=== PATIENT | male | born 1965 | race Caucasian/White ===

== ENCOUNTER 2019-11-22 12:20 | Emergency (ER) | payer MEDICARE, SELFPAY ==
--- NOTE | 2019-11-22 | CT_ITS ---
WS: [id number] CT HEAD TECHNIQUE: Noncontrast CT of the head obtained from the skullbase to the vertex. CLINICAL INFORMATION: STROKE LIKE SYMPTOMS/SEIZURE COMPARISON: CT 2017 DLP: [id number] scans at [facility] use at least one of these dose optimization techniques: automat ed exposure control; mA and/or kV adjustment per patient size (includes targeted exams where dose is matched to clinical indication); or iterative reconstruction. FINDINGS: No evidence of intracranial hemorrhage or mass effect. Ventricular system and basal cisterns are durbin nt. No extra-axial fluid collections. No evidence of mass or mass effect. Normal hernandez-white different iation. Paranasal sinuses and mastoid air cells are well aerated. .Normal visualized soft tissues. Notified Dick Dacosta DO at 11/22/2019 12:[address]/CT head wo con* [id number] IMPRESSION: 1. No evidence of intracranial hemorrhage or mass effect. 2. Normal hernandez-white differentiation. 3. No acute intracranial findings.
[2019-11-22 11:58] VITALS: BP 115/88; PULSE 102; RESP 17; TEMP 36.8; O2SAT 97; BMI 25.0
--- NOTE | 2019-11-22 12:08 | ED_ITS ---
Entered by Lorie Sadler, acting as scribe for Dick Dacosta DO HPI - Neuro Symptoms/Deficit General: Chief Complaint: Neuro Symptoms/Deficit Stated Complaint: stroke sx/seizure History of Present Illness: HPI Narrative: 54 yo male presents with stroke like symptoms. He has previously had a stroke today he has weakness on his right side. Initially presented he was in what was thought to be a seizure by EMS. He was moving his head forward and back and moving his arms across his chest and rhythmic motions. But when I came in to see him and talk to him he would focus and look at me he had a positive glabellar reflex as well as a corneal reflex. He stopped the motions on command. Associated symptoms: Deny chest pain, headache(s), malaise, nausea, syncope, vertigo or vomiting Review of Systems Const: Denies: fever, chills, body aches, fatigue, malaise or night sweats Eyes: Denies: change in vision or blurry vision ENMT: Denies: throat pain, oral sores/lesions, dental pain, nasal discharge or nasal congestion Card: Denies: chest pain, palpitations, irregular heart rhythm, edema, syncope, shortness of breath on exertion, shortness of breath when lying down or leg pain with exertion Resp: Denies: shortness of breath, productive cough, non-productive cough or wheezing GI: Denies: abdominal pain, nausea, vomiting, vomiting blood, coffee grounds in vomit, difficulty swallowing, heartburn/indigestion, diarrhea, constipation, cramping, blood in stool or black tarry stool : Denies: flank pain, difficulty urinating, painful urination, urinary frequency, urinary urgency, urinary incontinence or blood in urine Musc: Denies: neck pain, back pain, extremity pain, extremity swelling, joint pain or joint swelling Skin/Breast: Denies: rash, itching or redness Neuro: Denies: headache, numbness in extremities, weakness in extremities, changes in sensation, lack of coordination, difficulty walking, frequent falls, dizziness, vertigo or confusion Psych: Denies: anxiety, depression, loss of interest, visual hallucinations, auditory hallucinations, suicidal ideation or homicidal ideation Endo: Denies: excessive urination, excessive thirst, tired all the time or cold intolerance Giovany/Lymph: Denies: easy bruising, easy bleeding, petechiae, enlarged lymph nodes or tender lymph nodes PFSH ED PFSH: Statuses (acute, chronic, etc) shown below reflect problem list status as previously entered and may not be historically accurate Medical History (Updated 11/22/19 @ 14:47 by Dick Dacosta DO) Anxiety (Acute) Back pain (Acute) Benign prostatic hyperplasia (Acute) COPD (chronic obstructive pulmonary disease) (Acute) Coronary artery disease (Acute) CVA (cerebral vascular accident) (Acute) Diabetes (Acute) Hypertension (Acute) Migraine (Acute) Myocardial infarction (Acute) Seizure (Acute) Urinary retention (Acute) Social History Smoking and tobacco status: former smoker NIH stroke score 2 NIHSS: Level Of Consciousness - 1a: 1 Level Of Consciousness Questions - 1b: One Correct Level Of Consciousness Commands - 1c: One Correct Best Gaze - 2: Normal Visual Beavers - 3: No Visual Loss Facial Palsy - 4: Minor Paralysis Motor Arm Right - 5: No Drift Motor Arm Left - 5: No Drift Motor Leg Right - 6: Effort Against Superior Motor Leg Left - 6: No Drift Limb Ataxia - 7: Present In Two Limbs Sensory - 8: Mild To Moderate Loss B est Language - 9: No Aphasia Dysarthia - 10: Mild/Moderate Dysarthia Extinction And Inattention - 11: 1 Score: Total Score: 11 Physical Exam Const: COMMON NORMALS: average body habitus GENERAL APPEARANCE: cooperative, comfortable, well kempt and well developed NUTRITIONAL APPEARANCE: not obese ORIENTATION/CONSCIOUSNESS: Yes awake, Yes oriented to person and Yes oriented to place HENMT: COMMON NORMALS: normocephalic, head/scalp atraumatic, EAC's normal, TM's normal bilaterally, external nose normal, moist oral mucous membranes and oropharynx normal HEAD & SCALP: normocephalic and atraumatic NOSE: external nose normal EXTERNAL AUDITORY CANAL: EAC's normal TYMPANIC MEMBRANE: TM's normal bilaterally MOUTH: oral and palatal mucosa normal, lip normal and tongue normal THROAT: posterior oropharynx normal and tonsils normal Eye: COMMON NORMALS: PERRL, EOMs intact bilaterally, conjunctivae normal and no scleral icterus CONJUNCTIVA: Yes conjunctivae normal PUPIL: Yes PERRL Neck/C-Spine: COMMON NORMALS: full ROM, no lymphadenopathy, supple, no meningeal signs and thyroid normal THYROID: thyroid normal and asymmetrical Lymph: LYMPHATIC: no lymphadenopathy noted Resp: COMMON NORMALS: normal respiratory effort, no retractions, no use of ac cessory muscles and clear to auscultation bilaterally AUSCULTATION: clear to auscultation bilaterally Cardio: COMMON NORMALS: regular rate and regular rhythm RATE: regular rate RHYTHM: regular rhythm HEART SOUNDS: no murmurs GI: COMMON NORMALS: normal to inspection, nondistended, normoactive bowel sounds, soft to palpation and no hepatosplenomegaly PALPATION: Yes soft and Yes no hepatosplenomegaly : COMMON NORMALS: Yes no CVA tenderness BLADDER/KIDNEY EXAM: Yes no CVA tenderness Back/Pelvis: COMMON NORMALS: no CVA tenderness LUMBAR SPINE/LOWER BACK: Yes normal to inspection Extremity: COMMON NORMALS: no clubbing, cyanosis or edema, no calf tenderness and no pedal edema Neuro: SENSORIUM/ORIENTATION: Yes oriented to person and Yes oriented to place MENINGEAL SIGNS: Yes no meningeal signs Psych: APPEARANCE: Yes well kempt Skin: COMMON NORMALS: no rashes or lesions noted and skin turgor normal GENERAL SKIN EXAM: no rashes or lesions noted and turgor normal Course ED course: Patient initially came in he was having tonic-clonic like movements but was looking around he still corneal reflex and a blink reflex. When he stopped these activities and I talked to him he was awake and alert stage finally we were able to convince him to stay and let us do some lab work. Initially he was moving both arms and legs well. Later in family arrived I went back into talk to the patient his CT was reported as normal family says he has had 4 strokes in the past he now had weakness in his right arm and leg and is also reporting right facial numbness. Some of the symptoms or from previous strokes per the and the patient but they said their arm was definitely a new symptom. Consulted with Dr. Gurrola very hesitant to call this a stroke alert is really hard to get a convincingly last known well time is confused further by the fact that he reports previous strokes and then in addition to that his seizures are pretty questionable they do not act like seizure true seizure activity beyond that he seems to be arousable and responsive to verbal commands and stimuli during these episodes. Finally in reviewing his old charts he is previously been thought to have pseudoseizures. I discussed Dr. Gurrola she does not recommend pursuing is a stroke at this point. He has had similar admissions in the past with same presentation. Dr. Gurrola recommended offering the patient an MRI through the emergency room the at this point that may be our best bet. And I went in to talk to them they became irate. Both the and the stated that his strokes never show on MRI and he refused to have one done. He became so upset over the offer of an MRI that they demanded to be let go immediately. I strongly discouraged him from this however we do not have anything that we could prevent him from leaving I did discuss with him that this puts him at risk for further problems including worsening of neurologic symptoms and possibly even he expresses understanding this and still states he wants to go. Vital Signs: Vital signs: Vital Signs Temperature 98.3 F 11/22/19 11:58 Pulse Rate 89 11/22/19 15:02 Respiratory Rate 18 11/22/19 15:02 Blood Pressure 135/68 11/22/19 15:02 Pulse Oximetry 97 11/22/19 15:02 MDM - Neuro Symptoms/Deficit Lab Data: Labs: Lab Results 11/22/19 11/22/19 11/22/19 Range/Units 12:16 12:16 12:16 WBC 8.1 (4.0-10.0) 10^3/ uL RBC 4.96 (4.1-5.3) 10^6/u L Hgb 15.3 (11.7-16.6) g/dL Hct 45.3 (42.0-52.0) % MCV 91.3 (80-94) fL MCH 30.8 (28.0-34.0) pg MCHC 33.8 (30.0-36.0) g/dL RDW 13.0 (12.1-15.1) % Plt Count 200 (130-400) 10^3/c mm MPV 9.9 (7.4-10.4) fL Neut % (Auto) 74.3 % Lymph % (Auto) 16.7 % Denton % (Auto) 5.5 % Eos % (Auto) 2.5 % Baso % (Auto) 0.9 % Neut # (Auto) 6.0 (1.8-7.7) 10^3/u L Lymph # (Auto) 1.4 (0.8-4.8) 10^3/u L Denton # (Auto) 0.5 (0.2-0.9) 10^3/u L Eos # (Auto) 0.2 (0.0-0.8) 10^3/u L Baso # (Auto) 0.1 (0.0-0.1) 10^3/u L Nucleated RBC % (a uto) 0 % Nucleated RBCs # 0.0 /100WBC Specimen Type Sample Site ABG pH (7.35-7.45) ABG pCO2 (35-45) mmHg ABG pO2 (80.0-100.0) mmH g ABG HCO3 (22-26) mmol/L ABG O2 Saturation ABG Base Excess (-2.0-2.0) mmol/ L Curt Test A-a O2 Gradient (5-10) mmHg Hematocrit (42-52) % Hgb O2 Saturation (95-100) % Carboxyhemoglobin (0.4-20.1) %THgb Methemoglobin (0.4-1.5) % Total Hemoglobin (14-18) g/dL Ionized Calcium (1.1-1.4) mmol/L O2 Delivery Device Public Housing Manager ID Sodium 132 L (136-145) mmol/L Potassium 3.8 (3.5-5.1) mmol/L Chloride 95 L (98-107) mmol/L Carbon Dioxide 22 (22-29) mmol/L Anion Gap 18.8 (5-19) BUN 12 (6-20) mg/dL Creatinine 0.8 (0.7-1.2) mg/dL GFR Calculation 100.0 (90-130) mL/min Glucose 444 H (74-109) mg/dL Calcium 10.0 (8.5-10.5) mg/dL Magnesium 1.9 (1.7-2.3) mg/dL Total Bilirubin 0.3 (0.15-1.2) mg/dL AST 13 (0-40) U/L ALT 11 (0-41) U/L Alkaline Phosphata se 81 (40-130) IU/L Creatine Kinase 48 (39-308) U/L Total Protein 7.4 (6.6-8.7) g/dL Albumin 4.2 (3.5-5.2) g/dL Globulin 3.2 (1.3-4.6) g/dL 11/22/19 Range/Units 12:25 WBC (4.0-10.0) 10^3/ uL RBC (4.1-5.3) 10^6/u L Hgb (11.7-16.6) g/dL Hct (42.0-52.0) % MCV (80-94) fL MCH (28.0-34.0) pg MCHC (30.0-36.0) g/dL RDW (12.1-15.1) % Plt Count (130-400) 10^3/c mm MPV (7.4-10.4) fL Neut % (Auto) % Lymph % (Auto) % Denton % (Auto) % Eos % (Auto) % Baso % (Auto) % Neut # (Auto) (1.8-7.7) 10^3/u L Lymph # (Auto) (0.8-4.8) 10^3/u L Denton # (Auto) (0.2-0.9) 10^3/u L Eos # (Auto) (0.0-0.8) 10^3/u L Baso # (Auto) (0.0-0.1) 10^3/u L Nucleated RBC % (a uto) % Nucleated RBCs # /100WBC Specimen Type Arterial Sample Site Brachial, right ABG pH 7.42 (7.35-7.45) ABG pCO2 38.1 (35-45) mmHg ABG pO2 61.9 L (80.0-100.0) mmH g ABG HCO3 24.6 (22-26) mmol/L ABG O2 Saturation 94.4 ABG Base Excess 0.2 (-2.0-2.0) mmol/ L Curt Test N/a A-a O2 Gradient 37.8 H (5-10) mmHg Hematocrit 48.8 (42-52) % Hgb O2 Saturation 87.9 L (95-100) % Carboxyhemoglobin 6.6 (0.4-20.1) %THgb Methemoglobin 0.3 L (0.4-1.5) % Total Hemoglobin 15.9 (14-18) g/dL Ionized Calcium 1.2 (1.1-1.4) mmol/L O2 Delivery Device Ra Public Housing Manager ID Glc Sodium 133.0 (136-145) mmol/L Potassium 3.7 (3.5-5.1) mmol/L Chloride (98-107) mmol/L Carbon Dioxide (22-29) mmol/L Anion Gap (5-19) BUN (6-20) mg/dL Creatinine (0.7-1.2) mg/dL GFR Calculation (90-130) mL/min Glucose 397.0 H (74-109) mg/dL Calcium (8.5-10.5) mg/dL Magnesium (1.7-2.3) mg/dL Total Bilirubin (0.15-1.2) mg/dL AST (0-40) U/L ALT (0-41) U/L Alkaline Phosphata se (40-130) IU/L Creatine Kinase (39-308) U/L Total Protein (6.6-8.7) g/dL Albumin (3.5-5.2) g/dL Globulin (1.3-4.6) g/dL Discharge Plan Discharge Patient Disposition: Left Against Medical Advice Clinical Impression: Psychiatric pseudoseizure Condition: Stable Prescriptions: New Adult Aspirin Regimen 81 mg tablet,delayed release (DR/EC) 81 mg PO DAILY Qty: 30 RF: 0 Referrals: Dick Dacosta DO [Emergency Provider] - Discharge Diet: Advance as tolerated Discharge Activity: Increase activity as tolerated Activity Restrictions/Additional Instructions: Encourage you to follow-up with Dr. Gurrola as soon as you are able. You are leaving the emergency room AGAINST MEDICAL ADVICE. There are other tests and evaluations that should be done prior to leaving. By not having these tests you may put yourself at risk for further complications of undiagnosed medical conditions, or even . Stand Alone Forms: Against Medical Advice Discharge Date/Time: 11/22/19 15:03 Coding Level of Care Code ED Marketing Agent for Chg Fwd Exam Problem Focused The documentation recorded by the Doroteo lindsay Kialy, accurately reflects the service I personally performed and the decisions made by Olesya newton Curtis L, DO Nov 22, 2019 12:20
[2019-11-22 12:17] VITALS: O2SAT 96
--- NOTE | 2019-11-22 12:19 | XRR_ITS ---
PROCEDURE INFORMATION: Exam: XR Chest, 1 View Exam date and time: 11/22/2019 12:38 PM Age: 54 years old Clinical indication: Dyspnea; Additional info: AMS, dyspnea TECHNIQUE: Imaging protocol: XR of the chest Views: 1 view. COMPARISON: CR Chest 1 [place] [id number] 02/14/2019 7:16 PM FINDINGS: Lungs: Unremarkable. No consolidation. Pleural space: Unremarkable. No pleural effusion. No pneumothorax. Heart/Mediastinum: Unremarkable. No cardiomegaly. Bones/joints: Metallic orthopedic hardware is in place in the lower dorsal and lumbar spine. These findings are stable since prior examination and do not show evidence of deformity displacement or fracture. XR/XR chest 1V portable [id number] IMPRESSION: No acute findings. Stable orthopedic hardware in the spine
[2019-11-22 12:26] LABS: Basophils # 0.1 10^3/uL (0.0-0.1); Basophils % 0.9 %; Eosinophils # 0.2 10^3/uL (0.0-0.8); Eosinophils % 2.5 %; Hematocrit 45.3 % (42.0-52.0); Hemoglobin 15.3 g/dL (11.7-16.6); Lymphocytes # 1.4 10^3/uL (0.8-4.8); Lymphocytes % 16.7 %; Mean Corpuscular HGB Conc 33.8 g/dL (30.0-36.0); Mean Corpuscular Hemoglobin 30.8 pg (28.0-34.0); Mean Corpuscular Volume 91.3 fL (80-94); Mean Platelet Volume 9.9 fL (7.4-10.4); Monocytes # 0.5 10^3/uL (0.2-0.9); Monocytes % 5.5 %; Neutrophils % 74.3 %; Nucleated Red Blood Cells % 0 %; Platelet Count 200 10^3/cmm (130-400); Red Blood Count 4.96 10^6/uL (4.1-5.3); White Blood Count 8.1 10^3/uL (4.0-10.0)
[2019-11-22 12:36] LABS: ABG PCO2 38.1 mmHg (35-45); ABG PH Result 7.42 (7.35-7.45); Alveolar-Arterial Oxygen Gradi 37.8 mmHg (5-10); Arterial Blood Gas Hematocrit 48.8 % (42-52); Base Excess ABG 0.2 mmol/L (-2.0-2.0); Blood Gas Sample Site Brachial, right; Blood Gas Sample Type Arterial; Carboxyhemoglobin 6.6 %THgb (0.4-20.1); HCO3 ABG 24.6 mmol/L (22-26); HGB O2 Sat 87.9 % (95-100); Ionized Calcium Level - ABG 1.2 mmol/L (1.1-1.4); Methemoglobin 0.3 % (0.4-1.5); Oxygen Saturation ABG 94.4; PO2 ABG 61.9 mmHg (80.0-100.0); Potassium Level - ABG 3.7 mmol/L (3.5-5.0); Total Hemoglobin 15.9 g/dL (14-18)
[2019-11-22 12:37] LABS: Blood Gas Operator Identificat GLC; Oxygen Device RA
[2019-11-22 12:43] LABS: Alanine Aminotransferase 11 U/L (0-41); Albumin Level 4.2 g/dL (3.5-5.2); Alkaline Phosphatase 81 IU/L (40-130); Anion Gap 18.8 (5-19); Aspartate Amino Transferase 13 U/L (0-40); Blood Urea Nitrogen 12 mg/dL (6-20); Carbon Dioxide 22 mmol/L (22-29); Chloride 95 mmol/L (98-107); Globulin 3.2 g/dL (1.3-4.6); Glucose 444 mg/dL (74-109); Magnesium 1.9 mg/dL (1.7-2.3); Potassium 3.8 mmol/L (3.5-5.1); Sodium 132 mmol/L (136-145); Total Bilirubin 0.3 mg/dL (0.15-1.2); Total Protein 7.4 g/dL (6.6-8.7)
[2019-11-22 13:51] LABS: Creatine Phosphokinase 48 U/L (39-308)
[2019-11-22 14:03] VITALS: BP 107/86; PULSE 90; O2SAT 97
[2019-11-22 15:02] VITALS: BP 135/68; PULSE 89; RESP 18; O2SAT 97
--- NOTE | 2019-11-25 10:59 | DCPLANNER ---
pension manager had message to schedule a follow up appointment for patient with Dr. Gurrola. pension manager called the office of Dr. Gurrola, spoke with Eileen. A follow up appointment is scheduled for Friday December 13, 2019 at 3:[address] Gurrola. Clinic will call patient with appointment information.
--- NOTE | 2019-12-30 14:07 | DCPLANNER ---
Appointment scheduled for 12.13.[address] Gurrola has been rescheduled.
== END 2019-11-22 15:03 | disposition left against medical advice (07) ==
PROVIDERS: Emergency Provider Family Medicine; Family Provider Family Medicine
DX: G40.89 Other seizures (principal); Z53.21 Procedure and treatment not carried out due to patient leaving prior to being seen by health care provider; J44.9 Chronic obstructive pulmonary disease, unspecified; I25.10 Atherosclerotic heart disease of native coronary artery without angina pectoris; Z86.73 Personal history of transient ischemic attack (TIA), and cerebral infarction without residual deficits; E11.9 Type 2 diabetes mellitus without complications; I10 Essential (primary) hypertension; I25.2 Old myocardial infarction; Z87.891 Personal history of nicotine dependence
CPT/HCPCS: 36600; 70450; 71045; 80051; 80053; 82550; 82810; 83735; 83986; 85025; 99283

== ENCOUNTER 2019-12-30 14:37 | Emergency (ER) | payer MEDICARE, SELFPAY ==
[2019-12-30 14:48] VITALS: BP 92/65; PULSE 107; RESP 17; TEMP 36.8; O2SAT 96; BMI 27.3
[2019-12-30 14:53] VITALS: PULSE 84
--- NOTE | 2019-12-30 14:54 | XR_ITS ---
WS: [id number] Left hand, 3 views, 12/30/2019 Clinical Data: Left hand injury Comparison: None. Findings: There are no fractures or dislocations. There is a soft tissue injury to the left third distal phalan x. No radiopaque foreign bodies are noted. The joint spaces are unremarkable. XR/XR hand LT min 3V* [id number] Impression: 1. Negative for fracture or dislocation. 2. Soft tissue injury to the left third distal phalanx.
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
--- NOTE | 2019-12-30 16:29 | W.ED.EXTPRO ---
Documented by User: NOEL Flores 12/30/19 18:02 HPI - Extremity Problem General: Chief complaint: Extremity Injury, Upper Stated complaint: finger lac Time Seen by Provider: 12/30/19 16:29 History of Present Illness: HPI Narrative: Patient is a 54-year-old male who comes into the ED with a finger laceration. Patient cut left hand finger #3 on a circular saw just prior to arrival. Patient first went to [facility] and they told him to come directly to the ED to get it evaluated. Patient in pain currently. He is unaware of his last tetanus shot. Pt has a history of Staph. Associated symptoms: Reports chest pain (occurred while in the ED room); Deny fever(s) or rash Review of Systems Const: Reports: diaphoresis (occurred while in the ED room); Denies: fever, chills or fatigue Eyes: Denies: change in vision or eye discomfort ENMT: Denies: throat pain, painful swallowing, nasal discharge or nasal congestion Card: Reports: chest pain (occurred while in the ED room); Denies: palpitations, edema, swelling of feet/ankles, shortness of breath on exertion or shortness of breath when lying down Resp: Reports: shortness of breath (occurred while in the ED room); Denies: productive cough or non-productive cough GI: Denies: abdominal pain, nausea, vomiting, diarrhea, constipation or blood in stool : Denies: flank pain, difficulty urinating, painful urination or blood in urine Musc: Reports: extremity pain (Left hand finger #3); Denies: neck pain, back pain or extremity swelling Skin/Breast: Reports: new lesion (laceration to left hand finger #3); Denies: rash Neuro: Denies: headache, numbness in extremities or weakness in extremities PFS ED PFSH: Medical History Anxiety Back pain Benign prostatic hyperplasia COPD (chronic obstructive pulmonary disease) Coronary artery disease CVA (cerebral vascular accident) Diabetes Hypertension Migraine Myocardial infarction Seizure Urinary retention Social History Smoking and tobacco status: current every day smoker Physical Exam Const: COMMON NORMALS: oriented x3 HENMT: COMMON NORMALS: normocephalic HEAD & SCALP: normocephalic MOUTH: oral and palatal mucosa normal THROAT: posterior oropharynx normal and uvula midline Neck/C-Spine: COMMON NORMALS: supple GENERAL: Yes normal visual inspection Resp: COMMON NORMALS: normal respiratory effort, no retractions, no use of accessory muscles and clear to auscultation bilaterally AUSCULTATION: clear to auscultation bilaterally Cardio: COMMON NORMALS: regular rate, regular rhythm, S1 normal heart sound, S2 normal heart sound, no gallops, no clicks, no murmurs and peripheral pulses 2+ throughout RATE: regular rate RHYTHM: regular rhythm HEART SOUNDS: S1 normal and S2 normal PERIPHERAL PULSES: pulses 2+ throughout GI: COMMON NORMALS: normal to inspection, nondistended, normoactive bowel sounds, soft to palpation, non-tender and no masses PALPATION: Yes soft : COMMON NORMALS: Yes no CVA tenderness BLADDER/KIDNEY EXAM: Yes no CVA tenderness Back/Pelvis: COMMON NORMALS: no CVA tenderness Neuro: COMMON NORMALS: oriented x3 and moves all extremities Procedures Laceration Laceration 1: Site: hand (#3 digit) Side (If applicable): left Size (cm): 1.5 Description: irregular Depth: simple, single layer Local Anesthetic: lidocaine 2% (Digital block) Amount of anesthesia used (mL): 10 Pre-repair: irrigated extensively (irrigated with NS and cleaned with CHG) Skin layer closed with: nylon Size (cm): 4-0 Number of sutures: 7 Technique: simple, interrupted Nerve Block Nerve Block 1: Time out performed: Yes Local Anesthetic: lidocaine 2% Amount of anesthesia used (mL): 10 Side: left Nerve Blocks: digital (#3) Procedure Successful: Yes Patient Tolerated Procedure: well Complications: none Course Reevaluation(s): Reevaluation #1: I came back into the room to reevaluate his laceration after getting the bandage removed and it getting irrigated. Patient was profusely sweating he was shaking and saying he felt like he had a little bit of chest pain. Time: 16:51 Vital Signs: Vital signs: Vital Signs Temperature 98.3 F 12/30/19 14:48 Pulse Rate 107 H 12/30/19 14:48 Respiratory Rate 17 12/30/19 14:48 Blood Pressure 92/65 12/30/19 14:48 Pulse Oximetry 96 12/30/19 14:48 MDM - Extremity (Nontraumatic) Lab Data: Attestation: I reviewed the patient's lab results. Labs: Lab Results 12/30/19 12/30/19 12/30/19 Range/Units 17:16 17:16 17:16 WBC 7.6 (4.0-10.0) 10^3/ uL RBC 4.54 (4.1-5.3) 10^6/u L Hgb 14.5 (11.7-16.6) g/dL Hct 43.3 (42.0-52.0) % MCV 95.4 H (80-94) fL MCH 31.9 (28.0-34.0) pg MCHC 33.5 (30.0-36.0) g/dL RDW 13.4 (12.1-15.1) % Plt Count 214 (130-400) 10^3/c mm MPV 9.1 (7.4-10.4) fL Neut % (Auto) 58.2 % Lymph % (Auto) 32.9 % Fountain % (Auto) 6.2 % Eos % (Auto) 1.6 % Baso % (Auto) 0.8 % Neut # (Auto) 4.4 (1.8-7.7) 10^3/u L Lymph # (Auto) 2.5 (0.8-4.8) 10^3/u L Fountain # (Auto) 0.5 (0.2-0.9) 10^3/u L Eos # (Auto) 0.1 (0.0-0.8) 10^3/u L Baso # (Auto) 0.1 (0.0-0.1) 10^3/u L Nucleated RBC % (a uto) 0 % Nucleated RBCs # 0.0 /100WBC Sodium 139 (136-145) mmol/L Potassium 3.8 (3.5-5.1) mmol/L Chloride 101 (98-107) mmol/L Carbon Dioxide 26 (22-29) mmol/L Anion Gap 15.8 (5-19) BUN 15 (6-20) mg/dL Creatinine 0.8 (0.7-1.2) mg/dL GFR Calculation 100.0 (90-130) mL/min Glucose 76 (65-115) mg/dL Calculated Osmolal ity 283 L (285-295) mOsm/k g Calcium 10.1 (8.5-10.5) mg/dL Total Bilirubin 0.5 (0.15-1.2) mg/dL AST 17 (0-40) U/L ALT 11 (0-41) U/L Alkaline Phosphata se 56 (40-130) IU/L Troponin T Baselin e 15 (0-15) ng/mL Total Protein 7.5 (6.6-8.7) g/dL Albumin 4.2 (3.5-5.2) g/dL Globulin 3.3 (1.3-4.6) g/dL Imaging Data^: Xray Ortho: Attestation: I personally reviewed and interpreted this imaging study as follows: Radiologist's impression: [address] [address] XRay Report Signed Patient: Arcenio Saldivar Unit #: [id number] : 1965 Age/Sex: 54 / M ADM Date: 12/30/19 Loc: ER Room/Bed: Attending Dr: Ordering Provider/Ordering MD: Franklin Graves Date of Service: 12/30/19 Procedure(s): XR hand LT min 3V* 61010 Accession Number(s): [id number] Report Number: [id number] WS: [id number] Left hand, 3 views, 12/30/2019 Clinical Data: Left hand injury Comparison: None. Findings: There are no fractures or dislocations. There is a soft tissue injury to the left third distal phalanx. No radiopaque foreign bodies are noted. The joint spaces are unremarkable. XR/XR hand LT min 3V* 73710 Impression: 1. Negative for fracture or dislocation. 2. Soft tissue injury to the left third distal phalanx. Dictated By: Soniya Quinones MD Signed By: Soniya Quinones MD Signed Date/Time: 12/30/191531 DD/ 29 Discharge Plan Discharge Patient Disposition: Home, Self-Care Clinical Impression: Laceration, Vasovagal episode Condition: Stable Prescriptions: New Bactrim DS 800-160 mg tablet 1 tab PO BID 7 Days Qty: 14 RF: 0 No Action aspirin [Adult Aspirin Regimen] 81 mg tablet,delayed release (DR/EC) 81 mg PO DAILY Qty: 30 RF: 0 levetiracetam 500 mg Tablet 500 mg PO BID RF: 0 acetaminophen-codeine 300-30 mg tablet 1 tab PO DAILY RF: 0 clopidogrel 75 mg tablet 75 mg PO DAILY RF: 0 Flomax 0.4 mg Capsule 0.4 mg PO BID RF: 0 pantoprazole 40 mg Tablet,Delayed Release (Dr/Ec) 40 mg PO DAILY RF: 0 nitroglycerin 0.4 mg tablet, sublingual 0.4 mg sublingual PRN PRN (Reason: Chest Pain) RF: 0 metoprolol tartrate 25 mg Tablet 25 mg PO BID RF: 0 duloxetine 60 mg Capsule,Delayed Release(Dr/Ec) 60 mg PO DAILY RF: 0 Lantus U-100 Insulin See Rx Instructions .ROUTE .COMPLEX RF: 0 Vitamin B-12 1 tab PO DAILY RF: 0 Humalog KwikPen Insulin 200 unit/mL (3 mL) Insulin Pen 20 unit SUBCUT DAILY RF: 0 Discharge Orders: Discharge Order (Routine); Ordered 12/30/19 Ordered By: Avery Carbajal Referrals: Mitul Velarde MD [Primary Care Provider] - Discharge Diet: Regular Discharge Activity: Resume usual activity and Increase activity as tolerated Patient Instructions: Finger Laceration (ED) Activity Restrictions/Additional Instructions: Follow up with your PCP in 7-10 days to get sutures removed. Keep wound clean and dry Activity as tolerated Return to ER for high fever or new concerns Coding Level of Care Code ED Control Panel Operator Crude Unit for Chg Fwd Exam Comprehensive Documented by User: CLAUDIO Bates 12/30/19 18:38 HPI - Extremity Problem General: Chief complaint: Extremity Injury, Upper Stated complaint: finger lac Time Seen by Provider: 12/30/19 16:29 PFSH ED PFSH: Medical History Anxiety Back pain Benign prostatic hyperplasia COPD (chronic obstructive pulmonary disease) Coronary artery disease CVA (cerebral vascular accident) Diabetes Hypertension Migraine Myocardial infarction Seizure Urinary retention Social History Smoking and tobacco status: current every day smoker Course Vital Signs: Vital signs: Vital Signs Temperature 98.3 F 12/30/19 14:48 Pulse Rate 107 H 12/30/19 14:48 Respiratory Rate 17 12/30/19 14:48 Blood Pressure 92/65 12/30/19 14:48 Pulse Oximetry 96 12/30/19 14:48 MDM - Extremity (Nontraumatic) MDM Narrative: Medical decision making narrative: Patient came in today for injury to the left middle finger. Patient had cut on a saw. On exam patient has a laceration to the distal tip of the left middle finger. Normal range of motion of the hand was noted. During patient's treatment he became mildly hypotensive with some complaints of dizziness. Differential diagnosis includes laceration of the digit, vasovagal syndrome, ACS, dehydration. Laboratory values noted a normal troponin, normal chest x-ray, x-ray of the hand noted no bony injury. Patient had improvement after 1 L of IV fluids and treatment for laceration. Patient was recommended to follow-up in 1 week for further evaluation and treatment of the finger. Laceration was repaired by Franklin Graves PA-C. Patient was discharged home with routine care. Lab Data: Labs: Lab Results 12/30/19 12/30/19 12/30/19 Range/Units 17:16 17:16 17:16 WBC 7.6 (4.0-10.0) 10^3/ uL RBC 4.54 (4.1-5.3) 10^6/u L Hgb 14.5 (11.7-16.6) g/dL Hct 43.3 (42.0-52.0) % MCV 95.4 H (80-94) fL MCH 31.9 (28.0-34.0) pg MCHC 33.5 (30.0-36.0) g/dL RDW 13.4 (12.1-15.1) % Plt Count 214 (130-400) 10^3/c mm MPV 9.1 (7.4-10.4) fL Neut % (Auto) 58.2 % Lymph % (Auto) 32.9 % Fountain % (Auto) 6.2 % Eos % (Auto) 1.6 % Baso % (Auto) 0.8 % Neut # (Auto) 4.4 (1.8-7.7) 10^3/u L Lymph # (Auto) 2.5 (0.8-4.8) 10^3/u L Fountain # (Auto) 0.5 (0.2-0.9) 10^3/u L Eos # (Auto) 0.1 (0.0-0.8) 10^3/u L Baso # (Auto) 0.1 (0.0-0.1) 10^3/u L Nucleated RBC % (a uto) 0 % Nucleated RBCs # 0.0 /100WBC Sodium 139 (136-145) mmol/L Potassium 3.8 (3.5-5.1) mmol/L Chloride 101 (98-107) mmol/L Carbon Dioxide 26 (22-29) mmol/L Anion Gap 15.8 (5-19) BUN 15 (6-20) mg/dL Creatinine 0.8 (0.7-1.2) mg/dL GFR Calculation 100.0 (90-130) mL/min Glucose 76 (65-115) mg/dL Calculated Osmolal ity 283 L (285-295) mOsm/k g Calcium 10.1 (8.5-10.5) mg/dL Total Bilirubin 0.5 (0.15-1.2) mg/dL AST 17 (0-40) U/L ALT 11 (0-41) U/L Alkaline Phosphata se 56 (40-130) IU/L Troponin T Baselin e 15 (0-15) ng/mL Total Protein 7.5 (6.6-8.7) g/dL Albumin 4.2 (3.5-5.2) g/dL Globulin 3.3 (1.3-4.6) g/dL Discharge Plan Discharge Patient Disposition: Home, Self-Care Clinical Impression: Laceration, Vasovagal episode Condition: Stable Prescriptions: New Bactrim DS 800-160 mg tablet 1 tab PO BID 7 Days Qty: 14 RF: 0 No Action aspirin [Adult Aspirin Regimen] 81 mg tablet,delayed release (DR/EC) 81 mg PO DAILY Qty: 30 RF: 0 levetiracetam 500 mg Tablet 500 mg PO BID RF: 0 acetaminophen-codeine 300-30 mg tablet 1 tab PO DAILY RF: 0 clopidogrel 75 mg tablet 75 mg PO DAILY RF: 0 Flomax 0.4 mg Capsule 0.4 mg PO BID RF: 0 pantoprazole 40 mg Tablet,Delayed Release (Dr/Ec) 40 mg PO DAILY RF: 0 nitroglycerin 0.4 mg tablet, sublingual 0.4 mg sublingual PRN PRN (Reason: Chest Pain) RF: 0 metoprolol tartrate 25 mg Tablet 25 mg PO BID RF: 0 duloxetine 60 mg Capsule,Delayed Release(Dr/Ec) 60 mg PO DAILY RF: 0 Lantus U-100 Insulin See Rx Instructions .ROUTE .COMPLEX RF: 0 Vitamin B-12 1 tab PO DAILY RF: 0 Humalog KwikPen Insulin 200 unit/mL (3 mL) Insulin Pen 20 unit SUBCUT DAILY RF: 0 Discharge Orders: Discharge Order (Routine); Ordered 12/30/19 Ordered By: Avery Carbajal Referrals: Mitul Velarde MD [Primary Care Provider] - Discharge Diet: Regular Discharge Activity: Resume usual activity and Increase activity as tolerated Patient Instructions: Finger Laceration (ED) Activity Restrictions/Additional Instructions: Follow up with your PCP in 7-10 days to get sutures removed. Keep wound clean and dry Activity as tolerated Return to ER for high fever or new concerns Coding Level of Care Code ED Control Panel Operator Crude Unit for Adriana Fwsumit Exam Comprehensive
--- NOTE | 2019-12-30 16:51 | XR_ITS ---
WS: [id number] Portable AP upright chest, 12/30/2019 Clinical Data: CP and sweating profusely Comparison: Portable chest, 11/22/2019. Findings: No nodules, masses or effusions are seen. The heart is normal. The pulmonary vascularity is not increased. No pneumonia or pneumothorax is seen. The patient has had a posterior fusion of the l ower thoracic spine which extends into the upper lumbar spine with bilateral pedicle screws and conne cting rods. XR/XR chest 1V portable [id number] Impression: Negative chest.
--- NOTE | 2019-12-30 16:51 | ECG_ITS ---
Measurements Intervals [place] Rate: 83 P: 59 NH: 152 QRS: -24 QRSD: 104 T: 32 QT: 373 QTc: 440 SINUS RHYTHM INCOMPLETE RIGHT BUNDLE BRANCH BLOCK ANTEROSEPTAL MYOCARDIAL INFARCTION [40+ ms Q WAVE IN V1-V4], OF INDETERMINATE AGE No previous ECG available for comparison Electronically Signed On 12-31-2019 12:59:40 CDT by Anay Monaco M.D. [email or web address] f
[2019-12-30] MEDS: HYDROcodone-acetaminophen 7.5-325 mg Tablet 1 TAB PO (16:55)
[2019-12-30] MEDS: tetanus-dipt-pertussis 0.5 mL SDV IM (16:55)
[2019-12-30] MEDS: sodium chloride 0.9% 1,000 ML 999 ML IV (17:20)
[2019-12-30] MEDS: lidocaine 2% INJ 20 mL INJECTION (17:21)
[2019-12-30 17:29] LABS: Basophils # 0.1 10^3/uL (0.0-0.1); Basophils % 0.8 %; Eosinophils # 0.1 10^3/uL (0.0-0.8); Eosinophils % 1.6 %; Hematocrit 43.3 % (42.0-52.0); Hemoglobin 14.5 g/dL (11.7-16.6); Lymphocytes # 2.5 10^3/uL (0.8-4.8); Lymphocytes % 32.9 %; Mean Corpuscular HGB Conc 33.5 g/dL (30.0-36.0); Mean Corpuscular Hemoglobin 31.9 pg (28.0-34.0); Mean Corpuscular Volume 95.4 fL (80-94); Mean Platelet Volume 9.1 fL (7.4-10.4); Monocytes # 0.5 10^3/uL (0.2-0.9); Monocytes % 6.2 %; Neutrophils # 4.4 10^3/uL (1.8-7.7); Neutrophils % 58.2 %; Nucleated Red Blood Cells % 0 %; Platelet Count 214 10^3/cmm (130-400); Red Blood Count 4.54 10^6/uL (4.1-5.3); Red Cell Distribution Width 13.4 % (12.1-15.1); White Blood Count 7.6 10^3/uL (4.0-10.0)
[2019-12-30 17:43] LABS: Alanine Aminotransferase 11 U/L (0-41); Albumin Level 4.2 g/dL (3.5-5.2); Alkaline Phosphatase 56 IU/L (40-130); Anion Gap 15.8 (5-19); Aspartate Amino Transferase 17 U/L (0-40); Blood Urea Nitrogen 15 mg/dL (6-20); Calcium 10.1 mg/dL (8.5-10.5); Carbon Dioxide 26 mmol/L (22-29); Chloride 101 mmol/L (98-107); Globulin 3.3 g/dL (1.3-4.6); Glucose 76 mg/dL (65-115); Osmolality Calculated 283 mOsm/kg (285-295); Potassium 3.8 mmol/L (3.5-5.1); Sodium 139 mmol/L (136-145); Total Bilirubin 0.5 mg/dL (0.15-1.2); Total Protein 7.5 g/dL (6.6-8.7)
[2019-12-30 17:45] LABS: Troponin(5th) Baseline 15 ng/mL (0-15)
[2019-12-30 19:05] VITALS: BP 104/62; PULSE 84; RESP 20; O2SAT 97
== END 2019-12-30 19:06 | disposition home or self-care (01) ==
PROVIDERS: Physician Assistant; Emergency Provider Nurse Practitioner Family; Family Provider Family Medicine; PCP Family Medicine
DX: S61.213A Laceration without foreign body of left middle finger without damage to nail, initial encounter (principal); R55 Syncope and collapse; J44.9 Chronic obstructive pulmonary disease, unspecified; I25.10 Atherosclerotic heart disease of native coronary artery without angina pectoris; E11.9 Type 2 diabetes mellitus without complications; I10 Essential (primary) hypertension; I25.2 Old myocardial infarction; Z79.4 Long term (current) use of insulin; Z86.73 Personal history of transient ischemic attack (TIA), and cerebral infarction without residual deficits; F17.200 Nicotine dependence, unspecified, uncomplicated; W29.8XXA Contact with other powered hand tools and household machinery, initial encounter
CPT/HCPCS: 12001; 12345; 64450; 71045; 73130; 80053; 84484; 85025; 90471; 90715; 93005; 96360; 99282; 99284; J2001; J7030

== ENCOUNTER → 2020-01-06 10:07 | Outpatient (BNVA) | payer MEDICARE, SELFPAY | PROVIDERS: Family Provider Family Medicine; PCP Family Medicine; Visit Provider Nurse Practitioner Family | DX: S61.213A Laceration without foreign body of left middle finger without damage to nail, initial encounter (principal); X58.XXXA Exposure to other specified factors, initial encounter | CPT/HCPCS: 73120 ==

== ENCOUNTER 2020-01-13 10:27 | Outpatient (RCR) | payer MEDICARE, SELFPAY | END 2020-01-18 23:59 | disposition home or self-care (01) | LOC: WOUND 10:27 | PROVIDERS: Family Provider Family Medicine; PCP Family Medicine; Visit Provider Nurse Practitioner Family | DX: S61.213A Laceration without foreign body of left middle finger without damage to nail, initial encounter (principal); X58.XXXA Exposure to other specified factors, initial encounter; E11.9 Type 2 diabetes mellitus without complications; N40.0 Benign prostatic hyperplasia without lower urinary tract symptoms; N41.9 Inflammatory disease of prostate, unspecified; I10 Essential (primary) hypertension; F41.9 Anxiety disorder, unspecified; M79.642 Pain in left hand; F17.200 Nicotine dependence, unspecified, uncomplicated; Z00.00 Encounter for general adult medical examination without abnormal findings | CPT/HCPCS: 73120; 80053; 80061; 82044; 83036; 85025; 99204; 99214; G0103 ==

== ENCOUNTER 2020-02-14 08:36 | Outpatient (RCR) | payer MEDICARE, SELFPAY | END 2020-02-17 23:59 | disposition home or self-care (01) | LOC: WOUND 08:36 | PROVIDERS: Family Provider Family Medicine; PCP Family Medicine; Visit Provider Nurse Practitioner Family | DX: S61.223D Laceration with foreign body of left middle finger without damage to nail, subsequent encounter (principal); W31.2XXD Contact with powered woodworking and forming machines, subsequent encounter | CPT/HCPCS: 99212; 99214; G0463 ==

== ENCOUNTER → 2020-04-26 08:05 | Outpatient (BNVA) | payer SELFPAY | PROVIDERS: Family Provider Family Medicine; PCP Family Medicine; Visit Provider Specialist | DX: F44.5 Conversion disorder with seizures or convulsions; R63.4 Abnormal weight loss | CPT/HCPCS: 99213 ==

== ENCOUNTER → 2020-10-24 14:53 | Outpatient (BNVA) | payer OTHER, SELFPAY | PROVIDERS: Family Provider Family Medicine; PCP Family Medicine; Visit Provider Nurse Practitioner Family | DX: M79.604 Pain in right leg (principal) | CPT/HCPCS: 73590 ==

== ENCOUNTER → 2020-11-01 11:01 | Outpatient (BNVA) | payer OTHER, SELFPAY | PROVIDERS: Family Provider Family Medicine; PCP Student in an Organized Health Care Education/Training Program; Visit Provider Specialist | DX: G43.109 Migraine with aura, not intractable, without status migrainosus; E11.649 Type 2 diabetes mellitus with hypoglycemia without coma; F17.210 Nicotine dependence, cigarettes, uncomplicated; R56.9 Unspecified convulsions | CPT/HCPCS: 99215 ==

== ENCOUNTER → 2020-11-07 08:04 | Outpatient (BNVA) | payer OTHER, SELFPAY | PROVIDERS: Family Provider Family Medicine; PCP Student in an Organized Health Care Education/Training Program; Referring Provider Specialist; Visit Provider Specialist | DX: R56.9 Unspecified convulsions (principal); F17.210 Nicotine dependence, cigarettes, uncomplicated | CPT/HCPCS: 95816 ==

== ENCOUNTER → 2020-12-13 14:50 | Outpatient (BNVA) | payer OTHER, SELFPAY | PROVIDERS: Family Provider Family Medicine; PCP Student in an Organized Health Care Education/Training Program; Referring Provider Specialist; Visit Provider Internal Medicine | DX: E11.40 Type 2 diabetes mellitus with diabetic neuropathy, unspecified (principal); E11.59 Type 2 diabetes mellitus with other circulatory complications; I25.10 Atherosclerotic heart disease of native coronary artery without angina pectoris; E11.65 Type 2 diabetes mellitus with hyperglycemia; E16.0 Drug-induced hypoglycemia without coma; T38.3X5A Adverse effect of insulin and oral hypoglycemic [antidiabetic] drugs, initial encounter; E78.5 Hyperlipidemia, unspecified; R68.81 Early satiety | CPT/HCPCS: 95250; 99205 ==

== ENCOUNTER 2020-12-14 14:55 | Observation (INO) | payer MEDICARE, SELFPAY ==
[2020-12-14] VITALS (9 sets, daily range): BP systolic 90–145; BP diastolic 53–86; PULSE 60–86; RESP 18–26; TEMP 36.6–37.2; O2SAT 97–98; BMI 28.3
--- NOTE | 2020-12-14 15:04 | CT_ITS ---
WS: [id number] CT HEAD TECHNIQUE: Noncontrast CT of the head obtained from the skullbase to the vertex. CLINICAL INFORMATION: STROKE ALERT COMPARISON: November 22, 2019 DLP: [address] scans at [facility] use at least one of these dose optimization techniques: automat ed exposure control; mA and/or kV adjustment per patient size (includes targeted exams where dose is matched to clinical indication); or iterative reconstruction. FINDINGS: No evidence of intracranial hemorrhage or mass effect. Ventricular system and basal cisterns are durbin nt. Mild small vessel changes with mild parenchymal volume loss. No extra-axial fluid collections. No evidence of mass or mass effect. Normal hernandez-white differentiation. Paranasal sinuses and mastoid air cells are well aerated. .Normal visualized soft tissues. CT/CT head wo con* [id number] IMPRESSION: 1. No evidence of intracranial hemorrhage or mass effect. 2. Mild small vessel changes. Mild parenchymal volume loss. 3. No acute intracranial findings. Notified Matt Bee DO at 12/14/2020 3:09 PM.
--- NOTE | 2020-12-14 15:11 | ECG_ITS ---
[facility] Test Date: 2020-12-14 Pat Name: Arcenio Saldivar Department: Room: Gender: Male [employer]: : 1965 Requested By: Matt Burgos Order Number: [id number] Shiela MD: Jaylin Beavers M.D. Measurements Intervals [place] Rate: 82 P: 66 [place]: 164 QRS: -68 QRSD: 110 T: 54 QT: 389 QTc: 456 Interpretive Statements SINUS RHYTHM LEFT AXIS DEVIATION [QRS AXIS < -30] INCOMPLETE RIGHT BUNDLE BRANCH BLOCK [90+ ms QRS DURATION, TERMINAL R IN V1/V2, 40+ ms S IN I/aVL/V4/V5/V6] ANTEROSEPTAL MYOCARDIAL INFARCTION , OF INDETERMINATE AGE [40+ ms Q WAVE IN V1-V4] Compared to ECG 12/30/2019 17:04:55 Left-axis deviation now present Myocardial infarct finding still present Electronically Signed On 12-14-2020 20:08:24 BACK TACKER by Jaylin Beavers M.D. [id number] f
--- NOTE | 2020-12-14 15:12 | PC.NURSE ---
Patient blood glucose is 284. nurse, ER doctor, and charge nurse are aware.
[2020-12-14 15:15] LABS: Glucose Point of Care 284 mg/dL (70-110)
--- NOTE | 2020-12-14 15:26 | W.ED.NEUROSD ---
Documented by User: Matt Bee 12/14/20 17:45 HPI - Neuro Symptoms/Deficit General: Chief Complaint: Neuro Symptoms/Deficit Stated Complaint: Stroke alert Time Seen by Provider: 12/14/20 15:10 History of Present Illness: HPI Narrative: Patient is a 55-year-old male that presents via EMS for altered mental status and possible strokelike symptoms. EMS reports that they were called by the patient's for high blood sugar. She reports to EMS that the patient's blood sugar was in the 480s. On their arrival their fingerstick was 390. They state the reports the patient gets confused when his sugars get in the 400s. She reports to EMS that the patient initially began being altered and confused around 11:00 this morning and then around 2 PM he began to complain about right arm weakness. Patient does report a prior history of strokes. His chart demonstrates he has been seen several times for similar symptoms of stroke with right-sided weakness and numbness however his imaging is usually unremarkable. He has been evaluated by neurology for this as well. Onset (ago): hour(s) (4-10/21) Timing confirmed by: spouse Associated symptoms: Reports no associated symptoms; Deny chest pain, headache(s), nausea, syncope or vomiting Review of Systems General: Reports: 10 or more systems reviewed and unremarkable except in HPI and below Const: Denies: fever(s) Eyes: Denies: blurry vision ENMT: Denies: nasal congestion Card: Denies: chest pain, palpitations, syncope or dyspnea on exertion Resp: Denies: dyspnea or productive cough GI: Denies: nausea, vomiting, diarrhea, constipation, change in stool character or melena : Denies: dysuria or hematuria Musc: Denies: neck pain or back pain Skin/Breast: Denies: rash or new lesions Neuro: Reports: numbness in extremities (Right arm), weakness in extremities (Right arm) and confusion; Denies: headache(s) or dizziness Psych: Denies: anxiety Giovany/Lymph: Denies: easy bleeding, petechiae or purpura [facility] ED PFSH: Medical History (Updated 12/14/20 @ 18:23 by ) Anxiety Back pain BPH NOS w ur obs/LUTS COPD (chronic obstructive pulmonary disease) Coronary artery disease CVA (cerebral vascular accident) Diabetes Hypertension Migraine Myocardial infarction Seizure Urinary retention Surgical History History of appendectomy History of cholecystectomy History of coronary angioplasty with insertion of stent History of tonsillectomy History of vasectomy S/P left knee arthroscopy Family History Other CAD (coronary artery disease) Hypertension Social History Smoking and tobacco status: current every day smoker cigarettes Packs smoked per day: 1 Alcohol intake: current Alcohol intake frequency: holidays/special occasions only Marital status: Current occupational status: disabled History of recent travel: No NIH stroke score NIHSS: Level Of Consciousness - 1a: 0 Level Of Consciousness Questions - 1b: Neither Correct Level Of Consciousness Commands - 1c: Both Correct Best Gaze - 2: Normal Visual Beavers - 3: No Visual Loss (Blurry bilaterally) Facial Palsy - 4: Normal Motor Arm Right - 5: No Drift Motor Arm Left - 5: No Drift Motor Leg Right - 6: No Drift Motor Leg Left - 6: No Drift Limb Ataxia - 7: Absent Sensory - 8: Mild To Moderate Loss Best Language - 9: Mild/Moderate Aphasia Dysarthia - 10: Normal Extinction And Inattention - 11: 0 Score: Total Score: 4 Physical Exam Const: COMMON NORMALS: no acute distress, alert and well nourished HENMT: COMMON NORMALS: normocephalic, atraumatic, EAC's normal, TM's normal bilaterally and Normal external nose present HEAD & SCALP: normocephalic and atraumatic FACE & SINUS: normal facial exam and face symmetric NOSE: Normal external nose present EXTERNAL AUDITORY CANAL: EAC's normal TYMPANIC MEMBRANE: TM's normal bilaterally MOUTH: Normal oral and palatal mucosa present and moist mucous membranes abnormal Eye: COMMON NORMALS: Equal, round and reactive pupils present PUPIL: Yes Equal, round and reactive pupils present Neck/C-Spine: GENERAL: Yes normal visual inspection Chest: COMMONS NORMALS: normal inspection of the chest Resp: COMMON NORMALS: normal respiratory effort, No retractions, No use of accessory muscles and clear to auscultation bilaterally AUSCULTATION: clear to auscultation bilaterally Cardio: COMMON NORMALS: regular rate, regular rhythm, S1 normal heart sound present, S2 normal heart sound present and No murmurs present (Cardio) RATE: regular rate RHYTHM: regular rhythm HEART SOUNDS: S1 normal heart sound present and S2 normal heart sound present GI: COMMON NORMALS: Soft to palpation and No hepatosplenomegaly present INSPECTION: Yes normal to inspection AUSCULTATION: Yes normoactive bowel sounds PALPATION: Yes Soft to palpation and Yes No hepatosplenomegaly present RECTAL EXAM: Yes deferred : COMMON NORMALS: Yes no CVA tenderness BLADDER/KIDNEY EXAM: Yes no CVA tenderness Back/Pelvis: COMMON NORMALS: no CVA tenderness Neuro: COMMON NORMALS: moves all extremities SENSORIUM/ORIENTATION: Yes alert SPEECH: speech normal OTHER: Patient does follow some commands but will not follow others. He will not squeeze with his right hand however when I hold his right arm up he does hold it up for a period of time before dropping both his right and left arm immediately to the bed. He does not hold up either leg, more consistent with lack of effort. Psych: COMMON NORMALS: mental status grossly normal Skin: COMMON NORMALS: no rashes or lesions noted GENERAL SKIN EXAM: no rashes or lesions noted Course Vital Signs: Vital signs: Vital Signs Temperature 98.6 F 12/14/20 14:57 Pulse Rate 71 12/14/20 16:40 Respiratory Rate 26 H 12/14/20 16:40 Blood Pressure 112/70 12/14/20 16:40 Pulse Oximetry 98 12/14/20 16:40 MDM - Neuro Symptoms/Deficit MDM Narrative: Medical decision making narrative: Patient presents with altered mental status/possible stroke symptoms. He was taken immediately to CT scan upon arrival. No evidence of acute abnormalities noted on scan. His exam is nonfocal, he does follow some commands but will not follow others. Case was discussed Dr. Gurrola, neurologist on-call. She recommends obtaining a CTA head and neck for evaluation of a large vessel thrombus however the patient has anaphylaxis to iodine. She recommends offering the patient MRI for additional evaluation and proceed from there. When I went to discuss possible MRI the patient and his state that he can in fact have contrast as long as he gets pretreated with steroids and Benadryl prior to the scan. We will proceed with the CTA. Lab Data: Labs: Lab Results 12/14/20 12/14/20 12/14/20 Range/Units 15:08 15:20 15:20 WBC 7.0 (4.0-10.0) 10^3/ uL RBC 4.72 (4.1-5.3) 10^6/u L Hgb 14.9 (11.7-16.6) g/dL Hct 43.6 (42.0-52.0) % MCV 92.4 (80-94) fL MCH 31.6 (28.0-34.0) pg MCHC 34.2 (30.0-36.0) g/dL RDW 12.7 (12.1-15.1) % Plt Count 211 (130-400) 10^3/c mm MPV 10.3 (7.4-10.4) fL Neut % (Auto) 59.6 % Lymph % (Auto) 31.3 % [place] % (Auto) 6.3 % Eos % (Auto) 1.8 % Baso % (Auto) 0.9 % Neut # (Auto) 4.19 (1.8-7.7) 10^3/u L Lymph # (Auto) 2.2 (0.8-4.8) 10^3/u L [place] # (Auto) 0.4 (0.2-0.9) 10^3/u L Eos # (Auto) 0.1 (0.0-0.8) 10^3/u L Baso # (Auto) 0.1 (0.0-0.1) 10^3/u L Nucleated RBC % (a uto) 0 % Nucleated RBCs # 0.0 /100WBC PT 14.40 (12.1-14.9) SECO NDS INR 1.08 (0.8-1.2) APTT 27.4 (23.9-36.7) SECO NDS Sodium (136-145) mmol/L Potassium (3.5-5.1) mmol/L Chloride (98-107) mmol/L Carbon Dioxide (22-29) mmol/L Anion Gap (5-19) BUN (6-20) mg/dL Creatinine (0.7-1.2) mg/dL GFR Calculation (90-130) mL/min Glucose (65-115) mg/dL POC Glucose 284 H (70-110) mg/dL Calculated Osmolal ity (285-295) mOsm/k g Calcium (8.5-10.5) mg/dL Total Bilirubin (0.15-1.2) mg/dL AST (0-40) U/L ALT (0-41) U/L Alkaline Phosphata se (40-130) IU/L Total Protein (6.6-8.7) g/dL Albumin (3.5-5.2) g/dL Globulin (1.3-4.6) g/dL Urine Color (Yellow) Urine Appearance (CLEAR) Urine pH (5-7) Ur Specific Gravit y (1.005-1.030) Urine Protein (Negative) Urine Glucose (UA) (Normal) Urine Ketones (Negative) Urine Blood (Negative) Urine Nitrate (Negative) Urine Bilirubin (Negative) Urine Urobilinogen (Negative) mg/dL Ur Leukocyte Cecilia ase (Negative) Urine RBC (0-2) /hpf Urine WBC (0-5) /hpf Ur Squamous Epith Cells (0-5) /hpf Ur Transition Epit h Cell /hpf Amorphous Sediment Urine Bacteria (NONE) /hpf Urine Mucus /hpf Urine Opiates Scre en (Negative) ng/mL Ur Barbiturates Sc reen (Negative) ng/mL Ur Phencyclidine S crn (Negative) ng/mL Ur Amphetamines Sc reen (Negative) ng/mL U Benzodiazepines Scrn (Negative) ng/mL Urine Cocaine Scre en (Negative) ng/mL U Marijuana (THC) Screen (Negative) ng/mL 12/14/20 12/14/20 12/14/20 Range/Units 15:20 15:27 15:27 WBC (4.0-10.0) 10^3/ uL RBC (4.1-5.3) 10^6/u L Hgb (11.7-16.6) g/dL Hct (42.0-52.0) % MCV (80-94) fL MCH (28.0-34.0) pg MCHC (30.0-36.0) g/dL RDW (12.1-15.1) % Plt Count (130-400) 10^3/c mm MPV (7.4-10.4) fL Neut % (Auto) % Lymph % (Auto) % [place] % (Auto) % Eos % (Auto) % Baso % (Auto) % Neut # (Auto) (1.8-7.7) 10^3/u L Lymph # (Auto) (0.8-4.8) 10^3/u L [place] # (Auto) (0.2-0.9) 10^3/u L Eos # (Auto) (0.0-0.8) 10^3/u L Baso # (Auto) (0.0-0.1) 10^3/u L Nucleated RBC % (a uto) % Nucleated RBCs # /100WBC PT (12.1-14.9) SECO NDS INR (0.8-1.2) APTT (23.9-36.7) SECO NDS Sodium 134 L (136-145) mmol/L Potassium 3.5 (3.5-5.1) mmol/L Chloride 98 (98-107) mmol/L Carbon Dioxide 24 (22-29) mmol/L Anion Gap 15.5 (5-19) BUN 13 (6-20) mg/dL Creatinine 0.7 (0.7-1.2) mg/dL GFR Calculation 116.2 (90-130) mL/min Glucose 283 H (65-115) mg/dL POC Glucose (70-110) mg/dL Calculated Osmolal ity 288 (285-295) mOsm/k g Calcium 8.9 (8.5-10.5) mg/dL Total Bilirubin 0.6 (0.15-1.2) mg/dL AST 16 (0-40) U/L ALT 17 (0-41) U/L Alkaline Phosphata se 53 (40-130) IU/L Total Protein 7.5 (6.6-8.7) g/dL Albumin 4.2 (3.5-5.2) g/dL Globulin 3.3 (1.3-4.6) g/dL Urine Color Yellow (Yellow) Urine Appearance Clear (CLEAR) Urine pH 7 (5-7) Ur Specific Gravit y 1.030 (1.005-1.030) Urine Protein Neg (Negative) Urine Glucose (UA) Trace H (Normal) Urine Ketones Negative (Negative) Urine Blood Neg (Negative) Urine Nitrate Positive H (Negative) Urine Bilirubin Neg (Negative) Urine Urobilinogen Norm (Negative) mg/dL Ur Leukocyte Cecilia ase Trace H (Negative) Urine RBC 0-4 H (0-2) /hpf Urine WBC 0-4 H (0-5) /hpf Ur Squamous Epith Cells 10-15 H (0-5) /hpf Ur Transition Epit h Cell 0-4 /hpf Amorphous Sediment Not Reportable Urine Bacteria 2+ H (NONE) /hpf Urine Mucus Trace /hpf Urine Opiates Scre en Negative (Negative) ng/mL Ur Barbiturates Sc reen Negative (Negative) ng/mL Ur Phencyclidine S crn Negative (Negative) ng/mL Ur Amphetamines Sc reen Negative (Negative) ng/mL U Benzodiazepines Scrn Negative (Negative) ng/mL Urine Cocaine Scre en Negative (Negative) ng/mL U Marijuana (THC) Screen Negative (Negative) ng/mL Discharge Plan Discharge Patient Disposition: Admitted As Inpatient Admit Provider: Shena Brewer Clinical Impression: Acute cystitis, Brain TIA Condition: Stable Coding Level of Care Code ED Anodic Operator for Chg Fwd Exam Comprehensive Documented by User: Herve Schultz MD 12/14/20 18:24 HPI - Neuro Symptoms/Deficit General: Chief Complaint: Neuro Symptoms/Deficit Stated Complaint: Stroke alert Time Seen by Provider: 12/14/20 15:10 [facility] ED PFSH: Medical History (Updated 12/14/20 @ 18:23 by ) Anxiety Back pain BPH NOS w ur obs/LUTS COPD (chronic obstructive pulmonary disease) Coronary artery disease CVA (cerebral vascular accident) Diabetes Hypertension Migraine Myocardial infarction Seizure Urinary retention Surgical History History of appendectomy History of cholecystectomy History of coronary angioplasty with insertion of stent History of tonsillectomy History of vasectomy S/P left knee arthroscopy Family History Other CAD (coronary artery disease) Hypertension Social History Smoking and tobacco status: current every day smoker cigarettes Packs smoked per day: 1 Alcohol intake: current Alcohol intake frequency: holidays/special occasions only Marital status: Current occupational status: disabled History of recent travel: No Course Vital Signs: Vital signs: Vital Signs Temperature 98.6 F 12/14/20 14:57 Pulse Rate 71 12/14/20 16:40 Respiratory Rate 26 H 12/14/20 16:40 Blood Pressure 112/70 12/14/20 16:40 Pulse Oximetry 98 12/14/20 16:40 MDM - Neuro Symptoms/Deficit MDM Narrative: Medical decision making narrative: Patient presents here with TIA-like symptoms. His symptoms are improving he still does have slight slurred speech. Patient is out of TPA window CT head and CT angios showed no acute findings. He does have a urinary tract infection that could be exacerbating his symptoms. We will treat with Rocmahendra olivera to hospitalist and will admit for observation. Lab Data: Labs: Lab Results 12/14/20 12/14/20 12/14/20 Range/Units 15:08 15:20 15:20 WBC 7.0 (4.0-10.0) 10^3/ uL RBC 4.72 (4.1-5.3) 10^6/u L Hgb 14.9 (11.7-16.6) g/dL Hct 43.6 (42.0-52.0) % MCV 92.4 (80-94) fL MCH 31.6 (28.0-34.0) pg MCHC 34.2 (30.0-36.0) g/dL RDW 12.7 (12.1-15.1) % Plt Count 211 (130-400) 10^3/c mm MPV 10.3 (7.4-10.4) fL Neut % (Auto) 59.6 % Lymph % (Auto) 31.3 % [place] % (Auto) 6.3 % Eos % (Auto) 1.8 % Baso % (Auto) 0.9 % Neut # (Auto) 4.19 (1.8-7.7) 10^3/u L Lymph # (Auto) 2.2 (0.8-4.8) 10^3/u L [place] # (Auto) 0.4 (0.2-0.9) 10^3/u L Eos # (Auto) 0.1 (0.0-0.8) 10^3/u L Baso # (Auto) 0.1 (0.0-0.1) 10^3/u L Nucleated RBC % (a uto) 0 % Nucleated RBCs # 0.0 /100WBC PT 14.40 (12.1-14.9) SECO NDS INR 1.08 (0.8-1.2) APTT 27.4 (23.9-36.7) SECO NDS Sodium (136-145) mmol/L Potassium (3.5-5.1) mmol/L Chloride (98-107) mmol/L Carbon Dioxide (22-29) mmol/L Anion Gap (5-19) BUN (6-20) mg/dL Creatinine (0.7-1.2) mg/dL GFR Calculation (90-130) mL/min Glucose (65-115) mg/dL POC Glucose 284 H (70-110) mg/dL Calculated Osmolal ity (285-295) mOsm/k g Calcium (8.5-10.5) mg/dL Total Bilirubin (0.15-1.2) mg/dL AST (0-40) U/L ALT (0-41) U/L Alkaline Phosphata se (40-130) IU/L Total Protein (6.6-8.7) g/dL Albumin (3.5-5.2) g/dL Globulin (1.3-4.6) g/dL Urine Color (Yellow) Urine Appearance (CLEAR) Urine pH (5-7) Ur Specific Gravit y (1.005-1.030) Urine Protein (Negative) Urine Glucose (UA) (Normal) Urine Ketones (Negative) Urine Blood (Negative) Urine Nitrate (Negative) Urine Bilirubin (Negative) Urine Urobilinogen (Negative) mg/dL Ur Leukocyte Cecilia ase (Negative) Urine RBC (0-2) /hpf Urine WBC (0-5) /hpf Ur Squamous Epith Cells (0-5) /hpf Ur Transition Epit h Cell /hpf Amorphous Sediment Urine Bacteria (NONE) /hpf Urine Mucus /hpf Urine Opiates Scre en (Negative) ng/mL Ur Barbiturates Sc reen (Negative) ng/mL Ur Phencyclidine S crn (Negative) ng/mL Ur Amphetamines Sc reen (Negative) ng/mL U Benzodiazepines Scrn (Negative) ng/mL Urine Cocaine Scre en (Negative) ng/mL U Marijuana (THC) Screen (Negative) ng/mL 12/14/20 12/14/20 12/14/20 Range/Units 15:20 15:27 15:27 WBC (4.0-10.0) 10^3/ uL RBC (4.1-5.3) 10^6/u L Hgb (11.7-16.6) g/dL Hct (42.0-52.0) % MCV (80-94) fL MCH (28.0-34.0) pg MCHC (30.0-36.0) g/dL RDW (12.1-15.1) % Plt Count (130-400) 10^3/c mm MPV (7.4-10.4) fL Neut % (Auto) % Lymph % (Auto) % [place] % (Auto) % Eos % (Auto) % Baso % (Auto) % Neut # (Auto) (1.8-7.7) 10^3/u L Lymph # (Auto) (0.8-4.8) 10^3/u L [place] # (Auto) (0.2-0.9) 10^3/u L Eos # (Auto) (0.0-0.8) 10^3/u L Baso # (Auto) (0.0-0.1) 10^3/u L Nucleated RBC % (a uto) % Nucleated RBCs # /100WBC PT (12.1-14.9) SECO NDS INR (0.8-1.2) APTT (23.9-36.7) SECO NDS Sodium 134 L (136-145) mmol/L Potassium 3.5 (3.5-5.1) mmol/L Chloride 98 (98-107) mmol/L Carbon Dioxide 24 (22-29) mmol/L Anion Gap 15.5 (5-19) BUN 13 (6-20) mg/dL Creatinine 0.7 (0.7-1.2) mg/dL GFR Calculation 116.2 (90-130) mL/min Glucose 283 H (65-115) mg/dL POC Glucose (70-110) mg/dL Calculated Osmolal ity 288 (285-295) mOsm/k g Calcium 8.9 (8.5-10.5) mg/dL Total Bilirubin 0.6 (0.15-1.2) mg/dL AST 16 (0-40) U/L ALT 17 (0-41) U/L Alkaline Phosphata se 53 (40-130) IU/L Total Protein 7.5 (6.6-8.7) g/dL Albumin 4.2 (3.5-5.2) g/dL Globulin 3.3 (1.3-4.6) g/dL Urine Color Yellow (Yellow) Urine Appearance Clear (CLEAR) Urine pH 7 (5-7) Ur Specific Gravit y 1.030 (1.005-1.030) Urine Protein Neg (Negative) Urine Glucose (UA) Trace H (Normal) Urine Ketones Negative (Negative) Urine Blood Neg (Negative) Urine Nitrate Positive H (Negative) Urine Bilirubin Neg (Negative) Urine Urobilinogen Norm (Negative) mg/dL Ur Leukocyte Cecilia ase Trace H (Negative) Urine RBC 0-4 H (0-2) /hpf Urine WBC 0-4 H (0-5) /hpf Ur Squamous Epith Cells 10-15 H (0-5) /hpf Ur Transition Epit h Cell 0-4 /hpf Amorphous Sediment Not Reportable Urine Bacteria 2+ H (NONE) /hpf Urine Mucus Trace /hpf Urine Opiates Scre en Negative (Negative) ng/mL Ur Barbiturates Sc reen Negative (Negative) ng/mL Ur Phencyclidine S crn Negative (Negative) ng/mL Ur Amphetamines Sc reen Negative (Negative) ng/mL U Benzodiazepines Scrn Negative (Negative) ng/mL Urine Cocaine Scre en Negative (Negative) ng/mL U Marijuana (THC) Screen Negative (Negative) ng/mL Imaging Data^: Other CT: Attestation: I personally reviewed and interpreted this imaging study as follows: Radiologist's impression: [address] [address] [address] Scan Report Signed Patient: Arcenio Saldivar Unit #: [id number] : 1965 Age/Sex: 55 / M ADM Date: 12/14/20 Loc: ER Room/Bed: Attending Dr: Ordering Provider/Ordering MD: Matt Bee DO Date of Service: 12/14/20 Procedure(s): CT angio headneck* [id number] Accession Number(s): [id number] Report Number: [id number] PROCEDURE INFORMATION: Exam: CT Angiography Head With Contrast, Arteries Exam date and time: 12/14/2020 5:06 PM Age: 55 years old Clinical indication: Headache and numbness and speech disturbance and weakness; Prior surgery; Surgery type: Stent, gb, spine; Patient HX: CVA, sudden onset of weakness right side with facial numbness, slurred speech, and confusion TECHNIQUE: Imaging protocol: Computed tomography angiography of the head with intravenous contrast. 3D rendering (Not supervised by radiologist): MIP and/or 3D reconstructed images were created by the technologist. Radiation optimization: All CT scans at this facility use at least one of these dose optimization techniques: automated exposure control; mA and/or kV adjustment per patient size (includes targeted exams where dose is matched to clinical indication); or iterative reconstruction. Contrast material: VISI 320; Contrast volume: 95 ml; Contrast route: INTRAVENOUS (IV); COMPARISON: No relevant prior studies available. RADIATION DOSE METRICS: Total DLP (mGy-cm): 1883.95 FINDINGS: ANTERIOR CIRCULATION: Right internal carotid artery: Unremarkable. Intracranial segment is patent with no significant stenosis. No aneurysm. Right middle cerebral artery: Unremarkable. No occlusion or significant stenosis. No aneurysm. Right anterior cerebral artery: Mostly arises from the left anterior cerebral artery. No occlusion or significant stenosis. No aneurysm. Left internal carotid artery: Unremarkable. Intracranial segment is patent with no significant stenosis. No aneurysm. Left middle cerebral artery: Unremarkable. No occlusion or significant stenosis. No aneurysm. Left anterior cerebral artery: Unremarkable. No occlusion or significant stenosis. No aneurysm. POSTERIOR CIRCULATION: Right vertebral artery: Unremarkable. No occlusion or significant stenosis. No aneurysm. Left vertebral artery: Unremarkable. No occlusion or significant stenosis. No aneurysm. Basilar artery: Unremarkable. No occlusion or significant stenosis. No aneurysm. Right posterior cerebral artery: Unremarkable. No occlusion or significant stenosis. No aneurysm. Left posterior cerebral artery: Unremarkable. No occlusion or significant stenosis. No aneurysm. Brain: No definite mass, mass effect, or midline shift. Cerebral ventricles: No ventriculomegaly. Bones/joints: Unremarkable. No acute fracture. Soft tissues: Unremarkable. Other findings: The posterior communicating arteries are not seen. IMPRESSION: 1. No large vessel stenosis or occlusion. 2. The right anterior cerebral artery is mostly fed by the left anterior cerebral artery/anterior communicating artery. PROCEDURE INFORMATION: Exam: CT Angiography Neck With Contrast Exam date and time: 12/14/2020 5:06 PM Age: 55 years old Clinical indication: Headache and numbness and speech disturbance and weakness; Prior surgery; Surgery type: Stent, gb, spine; Patient HX: CVA, sudden onset of weakness right side with facial numbness, slurred speech, and confusion TECHNIQUE: Imaging protocol: Computed tomography angiography of the neck with intravenous contrast. 3D rendering (Not supervised by radiologist): MIP and/or 3D reconstructed images were created by the technologist. Radiation optimization: All CT scans at this facility use at least one of these dose optimization techniques: automated exposure control; mA and/or kV adjustment per patient size (includes targeted exams where dose is matched to clinical indication); or iterative reconstruction. Contrast material: VISI 320; Contrast volume: 95 ml; Contrast route: INTRAVENOUS (IV); COMPARISON: No relevant prior studies available. RADIATION DOSE METRICS: Total DLP (mGy-cm): 1883.95 FINDINGS: Right common carotid artery: No stenosis. No dissection or occlusion. Right internal carotid artery: No stenosis of the extracranial segment. No dissection or occlusion. Right external carotid artery: No occlusion or stenosis of the origin. Right vertebral artery: A small amount of scattered plaque in the vertebral arteries and in the carotid bulbs. Left common carotid artery: No stenosis. No dissection or occlusion. Left internal carotid artery: No stenosis of the extracranial segment. No dissection or occlusion. Left external carotid artery: No occlusion or stenosis of the origin. Left vertebral artery: No stenosis. No dissection or occlusion. Dominant vessel. Bones/joints: No acute fracture. Soft tissues: Normal. No significant soft tissue swelling. Lungs: A 7 mm right upper lobe nodule the visualized lung beavers are otherwise clear. CT/CT angio headneck* [id number] IMPRESSION: 1. No significant stenosis, aneurysm or other acute abnormality. 2. A 7 mm right lung nodule can be followed with a low-dose noncontrast CT of the chest in 6 months, or in 12 months if there is no significant prior smoking history. Discharge Plan Discharge Patient Disposition: Admitted As Inpatient Admit Provider: Shena Brewer Clinical Impression: Acute cystitis, Brain TIA Condition: Stable Coding Level of Care Code ED Anodic Operator for Chg Fwd Exam Comprehensive
[2020-12-14] MEDS: sodium chloride 0.9% 1,000 ML 999 ML IV (15:39)
--- NOTE | 2020-12-14 15:50 | XR_ITS ---
WS: [id number] Exam: XR chest 1V portable [id number] Date/Time of Exam: 12/14/2020 4:07 PM Reason For Exam: cva Comparison 12/30/2019. The lungs are clear. Normal cardiomediastinal structures and bony elements. Signs of coronary artery stenting. Diez rods are noted in the mid and lower T-spine and upper L-spine. XR/XR chest 1V portable [id number] IMPRESSION: 1. No acute cardiopulmonary finding. No change.
[2020-12-14 16:01] LABS: INR 1.08 (0.8-1.2)
[2020-12-14 16:02] LABS: Partial Thromboplastin Time 27.4 SECONDS (23.9-36.7)
[2020-12-14 16:04] LABS: Basophils # 0.1 10^3/uL (0.0-0.1); Basophils % 0.9 %; Eosinophils # 0.1 10^3/uL (0.0-0.8); Eosinophils % 1.8 %; Hematocrit 43.6 % (42.0-52.0); Hemoglobin 14.9 g/dL (11.7-16.6); Lymphocytes # 2.2 10^3/uL (0.8-4.8); Lymphocytes % 31.3 %; Mean Corpuscular HGB Conc 34.2 g/dL (30.0-36.0); Mean Corpuscular Hemoglobin 31.6 pg (28.0-34.0); Mean Corpuscular Volume 92.4 fL (80-94); Mean Platelet Volume 10.3 fL (7.4-10.4); Monocytes # 0.4 10^3/uL (0.2-0.9); Monocytes % 6.3 %; Neutrophils # 4.19 10^3/uL (1.8-7.7); Neutrophils % 59.6 %; Nucleated Red Blood Cells % 0 %; Platelet Count 211 10^3/cmm (130-400); Red Blood Count 4.72 10^6/uL (4.1-5.3); Red Cell Distribution Width 12.7 % (12.1-15.1)
--- NOTE | 2020-12-14 16:04 | CTR_ITS ---
PROCEDURE INFORMATION: Exam: CT Angiography Head With Contrast, Arteries Exam date and time: 12/14/2020 5:06 PM Age: 55 years old Clinical indication: Headache and numbness and speech disturbance and weakness; Prior surgery; Surgery type: Stent, gb, spine; Patient HX: CVA, sudden onset of weakness right side with facial numbness, slurred speech, and confusion TECHNIQUE: Imaging protocol: Computed tomography angiography of the head with intravenous contrast. 3D rendering (Not supervised by radiologist): MIP and/or 3D reconstructed images were created by the technologist. Radiation optimization: All CT scans at this facility use at least one of these dose optimization techniques: automated exposure control; mA and/or kV adjustment per patient size (includes targeted exams where dose is matched to clinical indication); or iterative reconstruction. Contrast material: VISI 320; Contrast volume: 95 ml; Contrast route: INTRAVENOUS (IV); COMPARISON: No relevant prior studies available. RADIATION DOSE METRICS: Total DLP (mGy-cm): 1883.95 FINDINGS: ANTERIOR CIRCULATION: Right internal carotid artery: Unremarkable. Intracranial segment is patent with no significant stenosis. No aneurysm. Right middle cerebral artery: Unremarkable. No occlusion or significant stenosis. No aneurysm. Right anterior cerebral artery: Mostly arises from the left anterior cerebral artery. No occlusion or significant stenosis. No aneurysm. Left internal carotid artery: Unremarkable. Intracranial segment is patent with no significant stenosis. No aneurysm. Left middle cerebral artery: Unremarkable. No occlusion or significant stenosis. No aneurysm. Left anterior cerebral artery: Unremarkable. No occlusion or significant stenosis. No aneurysm. POSTERIOR CIRCULATION: Right vertebral artery: Unremarkable. No occlusion or significant stenosis. No aneurysm. Left vertebral artery: Unremarkable. No occlusion or significant stenosis. No aneurysm. Basilar artery: Unremarkable. No occlusion or significant stenosis. No aneurysm. Right posterior cerebral artery: Unremarkable. No occlusion or significant stenosis. No aneurysm. Left posterior cerebral artery: Unremarkable. No occlusion or significant stenosis. No aneurysm. Brain: No definite mass, mass effect, or midline shift. Cerebral ventricles: No ventriculomegaly. Bones/joints: Unremarkable. No acute fracture. Soft tissues: Unremarkable. Other findings: The posterior communicating arteries are not seen. IMPRESSION: 1. No large vessel stenosis or occlusion. 2. The right anterior cerebral artery is mostly fed by the left anterior cerebral artery/anterior communicating artery. PROCEDURE INFORMATION: Exam: CT Angiography Neck With Contrast Exam date and time: 12/14/2020 5:06 PM Age: 55 years old Clinical indication: Headache and numbness and speech disturbance and weakness; Prior surgery; Surgery type: Stent, gb, spine; Patient HX: CVA, sudden onset of weakness right side with facial numbness, slurred speech, and confusion TECHNIQUE: Imaging protocol: Computed tomography angiography of the neck with intravenous contrast. 3D rendering (Not supervised by radiologist): MIP and/or 3D reconstructed images were created by the technologist. Radiation optimization: All CT scans at this facility use at least one of these dose optimization techniques: automated exposure control; mA and/or kV adjustment per patient size (includes targeted exams where dose is matched to clinical indication); or iterative reconstruction. Contrast material: VISI 320; Contrast volume: 95 ml; Contrast route: INTRAVENOUS (IV); COMPARISON: No relevant prior studies available. RADIATION DOSE METRICS: Total DLP (mGy-cm): 1883.95 FINDINGS: Right common carotid artery: No stenosis. No dissection or occlusion. Right internal carotid artery: No stenosis of the extracranial segment. No dissection or occlusion. Right external carotid artery: No occlusion or stenosis of the origin. Right vertebral artery: A small amount of scattered plaque in the vertebral arteries and in the carotid bulbs. Left common carotid artery: No stenosis. No dissection or occlusion. Left internal carotid artery: No stenosis of the extracranial segment. No dissection or occlusion. Left external carotid artery: No occlusion or stenosis of the origin. Left vertebral artery: No stenosis. No dissection or occlusion. Dominant vessel. Bones/joints: No acute fracture. Soft tissues: Normal. No significant soft tissue swelling. Lungs: A 7 mm right upper lobe nodule the visualized lung champion are otherwise clear. CT/CT angio headneck* [id number]/33904 IMPRESSION: 1. No significant stenosis, aneurysm or other acute abnormality. 2. A 7 mm right lung nodule can be followed with a low-dose noncontrast CT of the chest in 6 months, or in 12 months if there is no significant prior smoking history. REFERENCES: NASCET CRITERIA. The degree of internal carotid artery stenosis is based on NASCET criteria. Normal is no stenosis. Mild is less than 50% stenosis. Moderate is 50-69% stenosis. Severe is 70% to 99% stenosis. Total occlusion is no detectable patent lumen. Radiation Dose CTDIVOL = (mGy): DLP = 1883.95 (mGy-cm)
[2020-12-14 16:10] LABS: Bilirubin Urine Neg (Negative); Blood Urine Neg (Negative); Glucose Urine UA Trace (Normal); Ketones Urine Negative (Negative); Leukocyte Esterase Urine Trace (Negative); Nitrate Urine Positive (Negative); Protein Urine Neg (Negative); Urine Appearance Clear (CLEAR); Urine Color Yellow (Yellow); pH Urine 7 (5-7)
[2020-12-14 16:11] LABS: Add Urine Microscopic? YES; Urobilinogen Urine Norm (Negative)
[2020-12-14 16:13] LABS: Amphetamines Screen Urine Negative (Negative); Barbiturates Screen Urine Negative (Negative); Benzodiazepines Screen Urine Negative (Negative); Cocaine Screen Urine Negative (Negative); Opiate Screen Urine Negative (Negative); PCP Screen Urine Negative (Negative); THC Screen Urine Negative (Negative)
[2020-12-14 16:16] LABS: Alanine Aminotransferase 17 U/L (0-41); Albumin Level 4.2 g/dL (3.5-5.2); Alkaline Phosphatase 53 IU/L (40-130); Anion Gap 15.5 (5-19); Aspartate Amino Transferase 16 U/L (0-40); Blood Urea Nitrogen 13 mg/dL (6-20); Calcium 8.9 mg/dL (8.5-10.5); Carbon Dioxide 24 mmol/L (22-29); Chloride 98 mmol/L (98-107); Globulin 3.3 g/dL (1.3-4.6); Glomerular Filtration Rate 116.2 mL/min (90-130); Glucose 283 mg/dL (65-115); Osmolality Calculated 288 mOsm/kg (285-295); Potassium 3.5 mmol/L (3.5-5.1); Sodium 134 mmol/L (136-145); Total Bilirubin 0.6 mg/dL (0.15-1.2); Total Protein 7.5 g/dL (6.6-8.7)
[2020-12-14] MEDS: famotidine 20 mg/2 mL INJ 40 MG IVP (16:37)
[2020-12-14] MEDS: diphenhydrAMINE 50 mg/mL SDV 1mL 25 MG IVP (16:37)
[2020-12-14 17:22] LABS: RBC Urine 0-4 /hpf (0-2); WBC Urine 0-4 /hpf (0-5)
[2020-12-14 17:23] LABS: Add Urine Culture? No; Bacteria Urine 2+ /hpf; Mucus Urine TRACE /hpf; Transitional Epi Cells Urine 0-4 /hpf
[2020-12-14] MEDS: iodixanol 320 mg/mL 100mL Btl IV (17:25)
[2020-12-14] MEDS: cefTRIAXone 1,000 MG in sodium chloride 0.9% (plus) 50 ML 100 MG IV (18:41)
[2020-12-14] MEDS: acetaminophen 500 mg Tablet 1000 MG PO (19:05)
--- NOTE | 2020-12-14 19:06 | PM.SAN ---
Stroke Alert Activation ED Arrival Date: 12/14/20 Last Known Normal/at Baseline: 3-4 hours ago (4-1/2 hours) Other Last Known Well Infomation: I was called stat for stroke and talked with Dr. Bee in the emergency department. Patient was taken straight to CAT scan where his CT of the head was normal. I was able to review his CT on the monitor and I knew the patient's name and looked up his chart. I just saw him a month ago. He has a long history of functional seizure-like episodes and functional strokelike episodes. He has frequent imaging studies for these type events. Dr. Bee observed multiple atypical findings on exam with inconsistent behavior suggesting a functional episode. The patient has a history of coronary disease and has been a smoker with multiple risk factors for stroke and for that reason I recommended going ahead with CT angiogram to make sure he did not have a left hemisphere thrombus or embolus that could be treated with embolectomy. That was done. I continued to monitor by telephone but his CTA was negative. Dr. Bee elected to admit him for treatment of his urinary tract infection. Stroke Alert Activated by: EMS Stroke Alert Data/Treatment Stroke Risk Factors: coronary artery disease, hypertension, smoker and depression Other Information: I think that this patient had functional strokelike episode consistent with his history of functional strokelike episodes in the past and functional seizure-like events. I would not be surprised if he would have further seizure-like episodes in the hospital. Critical Care Time Critical Care Time: less than 30 mins A&P Assessment and plan (1) Migraine equivalent: Please review my consults that are present on the medical record. This patient is well-known to me as he has migraine-like events and treatment resistant functional neurologic disorder. This is very upsetting to his family and his episodes are not under voluntary control. Status: Acute (2) Functional neurological symptom disorder with attacks or seizures: Status: Acute Coding Level of Care Code Acute Casting Director for Adriana Iyer Diagnoses Migraine equivalent G43.109 Functional neurological symptom disorder with attacks or seizures F44.5
[2020-12-14 20:27] LABS: Glucose Point of Care 191 mg/dL (70-110)
--- NOTE | 2020-12-14 22:14 | P.HP_ITS ---
Providers/Chief Complaint Admitting Physician: Shena Brewer MD Primary Care Provider: Lloyd Wood MD Chief Complaint: Stroke alert History of Present Illness Arcenio Saldivar is a 55-year-old male with a past medical history of diabetes mellitus, functional seizure-like episodes, follows with Dr. Gurrola presented to the ER today with possible strokelike symptoms. His called EMS for blood sugar in the 480s however upon EMS arrival blood fingerstick was at 300. Patient was reportedly confused at 11 in the morning and then around 2 PM started to complain of right arm weakness. He was seen by Dr. Gurrola as a stroke code, CT and CTA of the head were negative for any acute findings. No TPA was indicated. Possibility of functional strokelike episode could not be excluded given his past medical history. He is being admitted for close neuro observation tonight. Incidentally UA was noted to be positive with trace leuk esterase, nitrate, however this may be not a clean-catch specimen as it has abundant epithelial cells as well. Review of Systems General: Reports: 10 or more systems reviewed and unremarkable except in HPI and below Const: Denies: fever(s), chills or body aches Eyes: Denies: change in vision, blurry vision or photophobia ENMT: Reports: hoarseness; Denies: throat pain, enlarged tonsils, odynophagia or nasal congestion Card: Denies: chest pain, palpitations, irregular heart rhythm, edema, swelling of feet/ankles, lightheadedness, pre-syncope, dyspnea on exertion or orthopnea Resp: Denies: dyspnea, productive cough, non-productive cough, wheezing, stridor, pain on inspiration, change in phlegm color, hemoptysis or chest congestion GI: Denies: abdominal pain, nausea, vomiting, hematemesis, coffee ground emesis, dysphagia, heartburn, diarrhea, constipation, GI cramping, change in stool character, hematochezia or melena : Denies: flank pain, dysuria, urinary frequency, urinary urgency, urinary hesitancy or hematuria Musc: Denies: neck pain, back pain, extremity pain, joint swelling, joint warmth or deformity Neuro: Denies: headache(s), numbness in extremities, weakness in extremities, sensory changes, difficulty walking, frequent falls, dizziness, vertigo, behavioral changes, Slurred speech present or seizure-like activity Psych: Denies: anxiety, depression, suicidal ideation or homicidal ideation Endo: Denies: polyuria, polydipsia, tired all the time, cold intolerance or hot flashes Giovany/Lymph: Denies: easy bruising or easy bleeding Medications/Allergies Home Medications Medication Instructions Recorded Confirmed Last Taken Type aspirin [Adult Aspirin Regimen] 81 mg PO DAILY #30 tab 11/22/19 12/14/20 12/13/20 Rx Vitamin B-12 1 tab PO DAILY 12/30/19 12/14/20 12/13/20 History nitroglycerin 0.4 mg SUBLINGUAL PRN PRN 12/30/19 12/14/20 Unknown History pantoprazole 40 mg PO DAILY 12/30/19 12/14/20 12/13/20 History tamsulosin [Flomax] 0.4 mg PO BID 12/30/19 12/14/20 12/13/20 History clopidogrel 75 mg tablet 75 mg PO DAILY #90 tab 01/25/20 12/14/20 12/13/20 Rx ascorbic acid (vitamin C) 500 mg 500 mg PO DAILY 04/26/20 12/14/20 12/13/20 History tablet divalproex 500 mg tablet,extended 500 mg PO DAILY #30 tab 11/01/20 12/14/20 12/13/20 Rx release 24 hr atorvastatin 40 mg tablet 40 mg PO DAILY #90 tab 12/13/20 12/14/20 Unknown Rx flash glucose scanning reader #1 ea 12/13/20 12/14/20 Unknown Rx flash glucose sensor #2 ea 12/13/20 12/14/20 Unknown Rx insulin glargine 100 unit/mL (3 10 unit SUBCUT DAILY ml 12/13/20 12/14/20 12/13/20 History mL) subcutaneous pen insulin lispro 100 unit/mL 10 unit SUBCUT TID 12/13/20 12/14/20 12/13/20 History subcutaneous pen tramadol 50 mg tablet 50 mg PO Q6H PRN 12/13/20 12/14/20 Unknown History albuterol sulfate 2 puff INHALATION QID PRN 12/14/20 12/14/20 Unknown History multivitamin 1 tab PO DAILY 12/14/20 12/14/20 12/13/20 History Allergies Allergy/AdvReac Type Severity Reaction Status Date / Time iodine Allergy ALGY-Anaphy Verified 12/13/20 15:07 laxis PFSH Acute PFSH: Medical History Anxiety Back pain BPH NOS w ur obs/LUTS COPD (chronic obstructive pulmonary disease) Coronary artery disease CVA (cerebral vascular accident) Diabetes Hypertension Migraine Myocardial infarction Seizure Urinary retention Surgical History History of appendectomy History of cholecystectomy History of coronary angioplasty with insertion of stent History of tonsillectomy History of vasectomy S/P left knee arthroscopy Family History Other CAD (coronary artery disease) Hypertension Social History Smoking and tobacco status: current every day smoker cigarettes Packs smoked per day: 1 Alcohol intake: current Alcohol intake frequency: holidays/special occasions only Marital status: Current occupational status: disabled History of recent travel: No Vitals/I&O/Wt Last Vital Signs Temp 97.8 F 12/14/20 19:44 Pulse 64 12/14/20 19:44 Resp 18 12/14/20 19:44 BP 113/72 12/14/20 19:44 Pulse Ox 97 12/14/20 19:44 12/14/20 12/14/20 12/14/20 06:59 14:59 22:59 Intake Total 1050 / 1050 Balance 1050 / 1050 Weight last 48 hrs Weight 77.065 kg Physical Exam Narrative: EXAM NARRATIVE: GEN: Awake, alert and oriented, no acute distress CVS: S1S2 N RS: CTA B/L Abd: Soft, nt/nd , bs+ FACILITIES OPERATIONS TECHNICIAN: no focal neuro deficits Urinary Catheter Management^: [place]: Cath Placed During This Visit: yes Urinary Catheter Date of Insertion: 12/14/20 Urinary Catheter Time of Insertion: 15:00 Data : 12/14/20 15:20 12/14/20 15:20 A&P Assessment and plan (1) Brain TIA: NIH stroke scale 0, not a TPA candidate, time of onset of symptoms [address] head and CTA head negative for any embolus. Past history of functional seizures present. Cannot exclude TIA Continue aspirin , plavix and atorvastatin for now Neuro observation for any recurrent symptoms. telemetry monitoring UA positive for nitrates, 2+ bacteria, leuk esterase Await urine culture Empiric ceftriaxone in the interim. Status: Acute (2) Hyperlipidemia: Status: Acute Attestations Medical Necessity Statement*: <2 midnight anticipated Coding Level of Care Code Acute Automobile Accessories Salesperson for Adriana Yarbroughd Diagnoses Brain TIA G45.9 Hyperlipidemia E78.5
[2020-12-15] VITALS (16 sets, daily range): BP systolic 95–135; BP diastolic 58–75; PULSE 65–106; RESP 16–20; TEMP 36.5–37.2; O2SAT 96–98
--- NOTE | 2020-12-15 00:42 | P.EN_ITS ---
Event Note Event Note: Rapid response was seizure As per the report patient started showing well and shakes of his body when he was asked to complete a nurse clinical exam When I entered the room patient was able to look at me, he was trying to tell me his name, struggled to open his mouth however when I asked him to protrude his tongue he was able to do so When I asked him to grab my hands and make a tight wound/ostomy clinical nurse specialist he started shaking his head, right arm, hip thrusting was noticed which resolved on its own After that he started speaking with me he told me that he is not sure why he is in the hospital and his name is Arcenio Pupils are equal and reactive He seems to have good tone of muscles, patellar reflexes 2+ He does show scanning speech pattern however for a brief period of time his speech was normal Blood sugar normal Assessment and plan Patient recently had CT head, CTA head and neck which was unremarkable I will get Depakote level Prolactin level Suspicion for neuro conversion disorder considering atypical findings Overnight neuro [id number], he started shaking violently in front of us without any postictal phase, he normally does that when he is asked to cooperate for the clinical exam, Dr. Gurrola's note reviewed
[2020-12-15 00:46] LABS: Glucose Point of Care 311 mg/dL (70-110)
[2020-12-15 01:06] LABS: Magnesium 1.8 mg/dL (1.7-2.3)
[2020-12-15 01:15] LABS: Prolactin 3.41 ng/mL (4.0-15.2)
[2020-12-15 01:18] LABS: Valproic Acid Level 9.9 ug/mL (50-100)
[2020-12-15 06:22] LABS: Glucose Point of Care 257 mg/dL (70-110)
--- NOTE | 2020-12-15 07:25 | PC.NURSE ---
THIS NURSE WENT IN THIS PTS ROOM AROUND MIDNIGHT THIS MORNING RIGHT AFTER THE AID GOT VITALS. THIS NURSE WENT IN TO DO ANOTHER NEURO ASSESSMENT. 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 HE HAD TROUBLE SQUEEZING WITH THE RIGHT SIDE SO I ASKED HIM AGAIN. THE PATIENT THEN BEGAN TO SEIZE. I GOT HELP FROM THE CHARGE NURSE WHO THEN CALLED FOR A RAPID RESPONSE. THE CHARGE NURSE AND ANOTHER NURSE CAME IN TO HELP. THE DOCTOR ARRIVED SHORTLY THEREAFTER AND ASSESSED THE PT. ADDITIONAL ORDERS WERE PUT IN AND PT WAS CLOSELY MONITORED THROUGHOUT THE REST OF THE SHIFT, NO OTHER SEIZURES HAVE BEEN NOTED. THE DOCTOR CONFIRMED THESE WERE PSEUDOSEIZURES. WILL CONTINUE TO MONITOR.
[2020-12-15] MEDS: aspirin 81 mg EC Tablet PO (07:53)
[2020-12-15] MEDS: clopidogrel 75 mg Tablet PO (07:53)
[2020-12-15] MEDS: atorvastatin 40 mg Tablet PO (07:53)
[2020-12-15] MEDS: tamsulosin 0.4 mg Capsule PO ×2 (07:54→17:06)
[2020-12-15] MEDS: pantoprazole DR 40 mg Tablet PO (07:54)
[2020-12-15] MEDS: insulin glargine 100 units/1 mL 10 UNIT SUBCUT (07:55)
[2020-12-15] MEDS: divalproex ER 500 mg Tablet (24H) PO (08:19)
--- NOTE | 2020-12-15 10:22 | PC.CHAP ---
Pastoral Care Encounter/Spiritual Assessment Type of Contact [] Declined rn liaison visit [] Patient/Family/Request visit [] Outpatient visit [] Follow-up visit [] Physician referral [] Code/Alert [x] Routine visit [] Staff referral [] Actively dying [] Patient sleeping [] Family support [] [] Out of room [] Palliative care [] [] Receiving care in room [] Pre-surgical visit [] Trauma [] Long length of stay [] ICU visit [] Other: Relational/Emotional Strength [xx] Patient feels connected with others/family/visitors/staff [] Distress [] Loneliness/isolation [] Abandonment Spirituality of Patient [x] Person of Reema [x] Attends Christianity of their Reema [x] Believes in Prayer [] Reads Bible or Mandaeism materials [] There are Spiritual issues to be addressed Hardware Developer Interventions [x] Prayer [x] Active listening [x] Non-anxious presence [] Spiritual/emotional support [] Crisis/trauma care [] Spiritual counseling [] Bereavement support [] Provided bereavement packet [] Provided Bible/devotional materials [] Provided toy/stuffed animal, coloring book to patient or family member [] Provided Communion [] Anointing/[place] [] Salvation [] Completed spiritual assessment [] Other: Impact on Illness or Injury [] Angry [] Fearful [] Anxious [] Often cries [] Exhaustion [] Unable to work [] Unable to attend adventism [] Unable to walk/stand [] Unable to read [] Unable to drive [] Unable to eat/drink [] Unable to sleep [] Unable to be with family [] Patient intubated [] Other: Summary Time spent with patient 10 min
--- NOTE | 2020-12-15 10:56 | PC.NURSE ---
Patient having seizure like activity, vitals stable as documented, patient able to tell me his name and follow commands during seizure like activity, duration of 30 seconds, Dr. Brewer notified.
[2020-12-15 12:46] LABS: Glucose Point of Care 173 mg/dL (70-110)
--- NOTE | 2020-12-15 15:54 | PM.DCS ---
Discharge Providers Date of Admission: 12/14/20 17:58 Date of Discharge: December 15, 2020 Attending Provider at Admission: Shena Brewer MD Attending Provider at Discharge: Shena Brewer MD Primary Care Provider: Lloyd Wood MD Diagnoses at Discharge Discharge Diagnosis (1) Brain TIA: Status: Acute (2) Hyperlipidemia: Status: Acute (3) Functional neurological symptom disorder with attacks or seizures: Status: Acute Reason for Visit Reason for Visit: Stroke alert Hospital Course Hospital Course Arcenio Saldivar is a 55-year-old male with a past medical history of diabetes mellitus, functional seizure-like episodes, follows with Dr. Gurrola presented to the ER today with possible strokelike symptoms. His called EMS for blood sugar in the 480s however upon EMS arrival blood fingerstick was at 300. Patient was reportedly confused at 11 in the morning and then around 2 PM started to complain of right arm weakness. He was seen by Dr. Gurrola as a stroke code, CT and CTA of the head were negative for any acute findings. No TPA was indicated. Possibility of functional strokelike episode could not be excluded given his past medical history. He was admitted for overnight observation. Overnight at around 1 AM he did have an episode where he was noted to be shaking, however he was still able to make eye contact, have a conversation, there was no postictal phase, no incontinence or tongue bite or up rolling of eyes was noted. Overall impression was that of a pseudoseizure. He had 1 further similar episode this morning. When I was talking to him in the room today he briefly paused midsentence for about 30 seconds, then came around and resumed a conversation. Denied any headache at the time. Initially when I evaluated him he said he could not move his lower extremities in bed, however shortly afterwards he was noted to be walking with physical therapy with the aid of a walker. He did have some gait instability for which home physical therapy was thought to be of benefit. 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 He denies any current urinary symptoms. UA upon admission was noted to have positive nitrates, however also with epithelial cells 10-15, this is likely not a clean-catch specimen. He received a dose of ceftriaxone in the ER, antibiotics have not been continued on discharge. No other signs of infection, there is no leukocytosis, patient has been afebrile, not complaining of any urinary symptoms at present. He is already on current medical management with aspirin and Plavix which are being continued at the time of discharge. Divalproex level was noted to be at 9.9, lower than normal range, however indication for this drug in his case is for migraine and not seizures and therefore no current increase in dose is indicated. Patient states he feels back to his baseline, per review of prior notes, this does appear to be his baseline. He is being discharged today in stable condition with home health services. 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 Urinary Catheter Management^: [place]: Cath Placed During This Visit: yes Reason for Continuing Indwelling Catheter: Other Urinary Catheter Date of Insertion: 12/14/20 Urinary Catheter Time of Insertion: 15:00 Discharge Data Data Completed and Pending: Completed Studies During Hospitalization Category Date Time Status CT angio headneck * [id number] Urge nt Cat Scan 12/14/20 16:[address] head wo con* 7 [id number] Urgent Cat Scan 12/14/20 15:04 Completed XR chest 1V kolby ble [id number] Stat Exams 12/14/20 15:50 Completed Labs from last 24 hours 12/15/20 12/15/20 12/15/20 12:22 06:17 00:48 WBC RBC Hgb Hct MCV MCH MCHC RDW Plt Count MPV Neut % (Auto) Lymph % (Auto) [place] % (Auto) Eos % (Auto) Baso % (Auto) Neut # (Auto) Lymph # (Auto) [place] # (Auto) Eos # (Auto) Baso # (Auto) Nucleated RBC % (a uto) Nucleated RBCs # PT INR APTT Sodium Potassium Chloride Carbon Dioxide Anion Gap BUN Creatinine GFR Calculation Glucose POC Glucose 173 H 257 H Calculated Osmolal ity Calcium Magnesium Total Bilirubin AST ALT Alkaline Phosphata se Total Protein Albumin Globulin Prolactin Urine Color Urine Appearance Urine pH Ur Specific Gravit y Urine Protein Urine Glucose (UA) Urine Ketones Urine Blood Urine Nitrate Urine Bilirubin Urine Urobilinogen Ur Leukocyte Cecilia ase Urine RBC Urine WBC Ur Squamous Epith Cells Ur Transition Epit h Cell Amorphous Sediment Urine Bacteria Urine Mucus Urine Opiates Scre en Ur Barbiturates Sc reen Valproic Acid 9.9 L Ur Phencyclidine S crn Ur Amphetamines Sc reen U Benzodiazepines Scrn Urine Cocaine Scre en U Marijuana (THC) Screen 12/15/20 12/15/20 12/15/20 00:29 00:25 00:23 WBC RBC Hgb Hct MCV MCH MCHC RDW Plt Count MPV Neut % (Auto) Lymph % (Auto) [place] % (Auto) Eos % (Auto) Baso % (Auto) Neut # (Auto) Lymph # (Auto) [place] # (Auto) Eos # (Auto) Baso # (Auto) Nucleated RBC % (a uto) Nucleated RBCs # PT INR APTT Sodium Potassium Chloride Carbon Dioxide Anion Gap BUN Creatinine GFR Calculation Glucose POC Glucose 311 H Calculated Osmolal ity Calcium Magnesium 1.8 Total Bilirubin AST ALT Alkaline Phosphata se Total Protein Albumin Globulin Prolactin 3.41 L Urine Color Urine Appearance Urine pH Ur Specific Gravit y Urine Protein Urine Glucose (UA) Urine Ketones Urine Blood Urine Nitrate Urine Bilirubin Urine Urobilinogen Ur Leukocyte Cecilia ase Urine RBC Urine WBC Ur Squamous Epith Cells Ur Transition Epit h Cell Amorphous Sediment Urine Bacteria Urine Mucus Urine Opiates Scre en Ur Barbiturates Sc reen Valproic Acid Ur Phencyclidine S crn Ur Amphetamines Sc reen U Benzodiazepines Scrn Urine Cocaine Scre en U Marijuana (THC) Screen 12/14/20 12/14/20 12/14/20 20:22 15:27 15:27 WBC RBC Hgb Hct MCV MCH MCHC RDW Plt Count MPV Neut % (Auto) Lymph % (Auto) [place] % (Auto) Eos % (Auto) Baso % (Auto) Neut # (Auto) Lymph # (Auto) [place] # (Auto) Eos # (Auto) Baso # (Auto) Nucleated RBC % (a uto) Nucleated RBCs # PT INR APTT Sodium Potassium Chloride Carbon Dioxide Anion Gap BUN Creatinine GFR Calculation Glucose POC Glucose 191 H Calculated Osmolal ity Calcium Magnesium Total Bilirubin AST ALT Alkaline Phosphata se Total Protein Albumin Globulin Prolactin Urine Color Yellow Urine Appearance Clear Urine pH 7 Ur Specific Gravit y 1.030 Urine Protein Neg Urine Glucose (UA) Trace H Urine Ketones Negative Urine Blood Neg Urine Nitrate Positive H Urine Bilirubin Neg Urine Urobilinogen Norm Ur Leukocyte Cecilia ase Trace H Urine RBC 0-4 H Urine WBC 0-4 H Ur Squamous Epith Cells 10-15 H Ur Transition Epit h Cell 0-4 Amorphous Sediment Not Reportable Urine Bacteria 2+ H Urine Mucus Trace Urine Opiates Scre en Negative Ur Barbiturates Sc reen Negative Valproic Acid Ur Phencyclidine S crn Negative Ur Amphetamines Sc reen Negative U Benzodiazepines Scrn Negative Urine Cocaine Scre en Negative U Marijuana (THC) Screen Negative 12/14/20 12/14/20 12/14/20 15:20 15:20 15:20 WBC 7.0 RBC 4.72 Hgb 14.9 Hct 43.6 MCV 92.4 MCH 31.6 MCHC 34.2 RDW 12.7 Plt Count 211 MPV 10.3 Neut % (Auto) 59.6 Lymph % (Auto) 31.3 [place] % (Auto) 6.3 Eos % (Auto) 1.8 Baso % (Auto) 0.9 Neut # (Auto) 4.19 Lymph # (Auto) 2.2 [place] # (Auto) 0.4 Eos # (Auto) 0.1 Baso # (Auto) 0.1 Nucleated RBC % (a uto) 0 Nucleated RBCs # 0.0 PT 14.40 INR 1.08 APTT 27.4 Sodium 134 L Potassium 3.5 Chloride 98 Carbon Dioxide 24 Anion Gap 15.5 BUN 13 Creatinine 0.7 GFR Calculation 116.2 Glucose 283 H POC Glucose Calculated Osmolal ity 288 Calcium 8.9 Magnesium Total Bilirubin 0.6 AST 16 ALT 17 Alkaline Phosphata se 53 Total Protein 7.5 Albumin 4.2 Globulin 3.3 Prolactin Urine Color Urine Appearance Urine pH Ur Specific Gravit y Urine Protein Urine Glucose (UA) Urine Ketones Urine Blood Urine Nitrate Urine Bilirubin Urine Urobilinogen Ur Leukocyte Cecilia ase Urine RBC Urine WBC Ur Squamous Epith Cells Ur Transition Epit h Cell Amorphous Sediment Urine Bacteria Urine Mucus Urine Opiates Scre en Ur Barbiturates Sc reen Valproic Acid Ur Phencyclidine S crn Ur Amphetamines Sc reen U Benzodiazepines Scrn Urine Cocaine Scre en U Marijuana (THC) Screen Vitals: Last Vital Signs Temp 98.1 F 12/15/20 15:00 Pulse 95 12/15/20 15:37 Resp 18 12/15/20 15:00 BP 102/64 12/15/20 15:00 Pulse Ox 97 12/15/20 12:00 Discharge Plan Discharge Patient Disposition: Home Health Service Condition: Stable Prescriptions: Continued divalproex [Depakote ER] 500 mg tablet extended release 24 hr 500 mg PO DAILY Qty: 30 RF: 4 tramadol 50 mg tablet 50 mg PO Q6H PRN (Reason: Pain) RF: 0 Lantus Solostar U-100 Insulin 100 unit/mL (3 mL) insulin pen 10 unit SUBCUT DAILY RF: 0 insulin lispro [Humalog KwikPen Insulin] 100 unit/mL insulin pen 10 unit SUBCUT TID RF: 0 atorvastatin 40 mg tablet 40 mg PO DAILY Qty: 90 RF: 3 (DME) FreeStyle [place] 14 Day Sensor Kit See Rx Instructions .ROUTE .MEDSUPPLY Qty: 2 RF: 3 (DME) FreeStyle [place] 14 Day [place] Misc See Rx Instructions .ROUTE .MEDSUPPLY Qty: 1 RF: 0 ascorbic acid (vitamin C) 500 mg tablet 500 mg PO DAILY RF: 0 clopidogrel 75 mg tablet 75 mg PO DAILY Qty: 90 RF: 3 aspirin [Adult Aspirin Regimen] 81 mg tablet,delayed release (DR/EC) 81 mg PO DAILY Qty: 30 RF: 0 tamsulosin [Flomax] 0.4 mg Capsule 0.4 mg PO BID RF: 0 pantoprazole 40 mg Tablet,Delayed Release (Dr/Ec) 40 mg PO DAILY RF: 0 nitroglycerin 0.4 mg tablet, sublingual 0.4 mg sublingual PRN PRN (Reason: Chest Pain) RF: 0 Vitamin B-12 1 tab PO DAILY RF: 0 multivitamin Tablet 1 tab PO DAILY RF: 0 albuterol sulfate 90 mcg/actuation Hfa Aerosol Inhaler 2 puff INHALATION QID PRN (Reason: Shortness Of Breath) RF: 0 Discharge Orders: Discharge Order (Routine); Ordered 12/15/20 Ordered By: Shena Brewer Referrals: Mitul Velarde MD [Family Provider] - 7-10 days Lloyd Wood MD [Primary Care Provider] - Discharge Diet: Usual diet Discharge Activity: As per PT/OT instructions Discharge Attestations Time Spent in Discharge Care*: greater than 30 min Specific Discharge Activities: educating patient, discussing with pcp/other providers, discussing with rehabilitation case coordinator/social workers/dc planners and evaluating patient/reviewing data Quality Metrics Clinical Quality Measures During this hospital stay, did patient experience: None Coding Level of Care Code Acute Egg Producer for Chg Fwd Diagnoses Brain TIA G45.9 Hyperlipidemia E78.5 Functional neurological symptom disorder with attacks or seizures F44.5
[2020-12-15 16:49] LABS: Glucose Point of Care 108 mg/dL (70-110)
--- NOTE | 2020-12-15 17:55 | PC.NURSE ---
patient has been alert and oriented and able to follow all commands, he is able to stand and use urinal, ambulated with therapy, ate dinner without any difficulty noted, picking up patient for discharge.
--- NOTE | 2020-12-15 18:11 | PC.NURSE ---
patient voided 125mL of clear yellow urine after drinking 240mL for dinner previously NPO, Dr. Brewer notified okay with continuing discharge. instructions given to patient and spouse, verbalized understanding and denies further questions or concerns.
== END 2020-12-15 18:14 | disposition home health service (06) ==
LOC: ER 17:50 → MEDSURG 18:23
PROVIDERS: Emergency Medicine; Internal Medicine; Admitting Provider Student in an Organized Health Care Education/Training Program; Emergency Provider Emergency Medicine; Family Provider Family Medicine; PCP Student in an Organized Health Care Education/Training Program; Visit Provider Student in an Organized Health Care Education/Training Program
DX: G45.9 Transient cerebral ischemic attack, unspecified (principal); E78.5 Hyperlipidemia, unspecified; F44.5 Conversion disorder with seizures or convulsions; E11.9 Type 2 diabetes mellitus without complications; F41.9 Anxiety disorder, unspecified; N40.1 Benign prostatic hyperplasia with lower urinary tract symptoms; N13.8 Other obstructive and reflux uropathy; I10 Essential (primary) hypertension; I25.10 Atherosclerotic heart disease of native coronary artery without angina pectoris; I25.2 Old myocardial infarction; F17.210 Nicotine dependence, cigarettes, uncomplicated
CPT/HCPCS: 36415; 36416; 51702; 70450; 70496; 70498; 71045; 80053; 80164; 80306; 81001; 82962; 83735; 84146; 85025; 85610; 85730; 92523; 92610; 93005; 96365; 96367; 96372; 96375; 97116; 97162; 99285; G0378; J0696; J1200; J1815 ×2; J2930; J3475; J3490; J7030; Q9967

== ENCOUNTER → 2020-12-27 14:33 | Outpatient (BNVA) | payer MEDICARE, SELFPAY | PROVIDERS: Family Provider Family Medicine; PCP Student in an Organized Health Care Education/Training Program; Visit Provider Internal Medicine | DX: E11.40 Type 2 diabetes mellitus with diabetic neuropathy, unspecified (principal); E11.59 Type 2 diabetes mellitus with other circulatory complications; I25.10 Atherosclerotic heart disease of native coronary artery without angina pectoris; E11.65 Type 2 diabetes mellitus with hyperglycemia; E16.0 Drug-induced hypoglycemia without coma; T38.3X5A Adverse effect of insulin and oral hypoglycemic [antidiabetic] drugs, initial encounter; E78.5 Hyperlipidemia, unspecified; R68.81 Early satiety | CPT/HCPCS: 95251; 99214 ==

== ENCOUNTER 2021-01-10 09:49 | Outpatient (CLI) | payer MEDICARE, SELFPAY ==
--- NOTE | 2021-01-10 09:58 | NM_ITS ---
WS: [id number] NUCLEAR MEDICINE GASTRIC EMPTYING EXAMINATION HISTORY: r/o gastroparesis COMPARISON: None available. TECHNIQUE: The patient ingested a meal containing 0.96 mCi of Tc 99m sulfur colloid mixed with eggs. The patient was placed in supine position and imaging over the abdomen was performed for a total of 1 20 minutes. Computer acquisition with the region of interest placed over the stomach to evaluate gabriela jerry emptying half-time. Significantly delayed gastric emptying. A 120 minutes only 36% has emptied from the stomach. NM/[place] [id number] IMPRESSION: Moderate gastroparesis. At 120 minutes only 36% has emptied from the stomach.
== END 2021-01-10 09:50 | disposition home or self-care (01) ==
PROVIDERS: PCP Student in an Organized Health Care Education/Training Program; Visit Provider Internal Medicine
DX: R68.81 Early satiety (principal); K31.84 Gastroparesis
CPT/HCPCS: 78264; A9541

== ENCOUNTER 2021-01-29 15:38 | Emergency (ER) | payer MEDICARE, SELFPAY ==
[2021-01-29 15:49] VITALS: BP 117/75; PULSE 96; RESP 18; TEMP 37.1; O2SAT 98; BMI 28.0
--- NOTE | 2021-01-29 16:13 | XRR_ITS ---
PROCEDURE INFORMATION: Exam: XR Chest Exam date and time: 01/29/2021 4:29 PM Age: 55 years old Clinical indication: Other: Right sided weakness; Patient HX: HX of stroke; Additional info: AMS TECHNIQUE: Imaging protocol: XR of the chest. Views: 1 view. COMPARISON: CR XR chest 1V portable [id number] 12/14/2020 4:06 PM FINDINGS: Lungs: See Diaphragm finding. Pleural spaces: See Diaphragm finding. Heart/Mediastinum: Unremarkable. No cardiomegaly. Diaphragm: Mild elevation right hemidiaphragm. Question subpulmonic effusion. Lungs are otherwise well aerated. Bones/joints: Diez rods and pedicle plates stabilizing the thoracic spine. XR/XR chest 1V portable [id number] IMPRESSION: Mild elevation right hemidiaphragm. Question subpulmonic effusion. Lungs are otherwise well aerated.
--- NOTE | 2021-01-29 16:13 | CTR_ITS ---
PROCEDURE INFORMATION: Exam: CT Head Without Contrast Exam date and time: 01/29/2021 4:29 PM Age: 55 years old Clinical indication: Altered mental status/memory loss and weakness, extremity; Right; Other: Confusion/agitation; Patient HX: HX of stroke; Additional info: AMS TECHNIQUE: Imaging protocol: Computed tomography of the head without contrast. Radiation optimization: All CT scans at this facility use at least one of these dose optimization techniques: automated exposure control; mA and/or kV adjustment per patient size (includes targeted exams where dose is matched to clinical indication); or iterative reconstruction. COMPARISON: CT head wo con* [id number] 12/14/2020 3:13 PM RADIATION DOSE METRICS: Total DLP (mGy-cm): 997.24 FINDINGS: Brain: There is no evidence of infarct, weaver-white matter differentiation is preserved. There is no hemorrhage or extra-axial collection. There is no mass. Cerebral ventricles: There is no hydrocephalus. Bones/joints: Unremarkable. No acute fracture. Paranasal sinuses: Visualized sinuses are unremarkable. No fluid levels. Mastoid air cells: Visualized mastoid air cells are well aerated. Soft tissues: Unremarkable. CT/CT head wo con* [id number] IMPRESSION: No intracranial lesion or no change from prior scan. Radiation Dose CTDIVOL = (mGy): DLP = 997.24 (mGy-cm)
--- NOTE | 2021-01-29 16:14 | ECG_ITS ---
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 Measurements Intervals [place] Rate: 93 P: 65 WV: 162 QRS: -59 QRSD: 98 T: 61 QT: 349 QTc: 435 Interpretive Statements SINUS RHYTHM POSSIBLE LEFT ATRIAL ENLARGEMENT [-0.1mV P WAVE IN V1/V2] MARKED LEFT AXIS DEVIATION [QRS AXIS < -30] INCOMPLETE RIGHT BUNDLE BRANCH BLOCK [90+ ms QRS DURATION, TERMINAL R IN V1/V2, 40+ ms S IN I/aVL/V4/V5/V6] ANTEROSEPTAL MYOCARDIAL INFARCTION [40+ ms Q WAVE IN V1-V4], OF INDETERMINATE AGE Compared to ECG 12/14/2020 15:06:55 No significant changes Electronically Signed On 01-29-2021 20:10:01 CDT by Davian Duval M.D. [id number]
[2021-01-29 17:21] LABS: Basophils # 0.1 10^3/uL (0.0-0.1); Basophils % 0.8 %; Eosinophils # 0.2 10^3/uL (0.0-0.8); Eosinophils % 1.4 %; Hematocrit 45.8 % (42.0-52.0); Hemoglobin 15.5 g/dL (11.7-16.6); Lymphocytes # 2.2 10^3/uL (0.8-4.8); Lymphocytes % 17.3 %; Mean Corpuscular HGB Conc 33.8 g/dL (30.0-36.0); Mean Corpuscular Hemoglobin 31.8 pg (28.0-34.0); Mean Platelet Volume 9.6 fL (7.4-10.4); Monocytes # 0.6 10^3/uL (0.2-0.9); Monocytes % 4.7 %; Neutrophils # 9.61 10^3/uL (1.8-7.7); Neutrophils % 75.4 %; Nucleated Red Blood Cells % 0 %; Platelet Count 241 10^3/cmm (130-400); Red Blood Count 4.87 10^6/uL (4.1-5.3); Red Cell Distribution Width 12.8 % (12.1-15.1); White Blood Count 12.8 10^3/uL (4.0-10.0)
[2021-01-29 17:50] LABS: Lactic Sepsis W/Reflex 1.6 mmol/L (0.5-2.2)
[2021-01-29 17:56] LABS: Alanine Aminotransferase 17 U/L (0-41); Albumin Level 4.2 g/dL (3.5-5.2); Alkaline Phosphatase 64 IU/L (40-130); Anion Gap 13.8 (5-19); Aspartate Amino Transferase 19 U/L (0-40); Blood Urea Nitrogen 16 mg/dL (6-20); Calcium 8.7 mg/dL (8.5-10.5); Carbon Dioxide 27 mmol/L (22-29); Chloride 102 mmol/L (98-107); Globulin 2.4 g/dL (1.3-4.6); Glomerular Filtration Rate 116.2 mL/min (90-130); Glucose 107 mg/dL (65-115); Osmolality Calculated 290 mOsm/kg (285-295); Potassium 3.8 mmol/L (3.5-5.1); Sodium 139 mmol/L (136-145); Total Bilirubin 0.6 mg/dL (0.15-1.2); Total Protein 6.6 g/dL (6.6-8.7)
[2021-01-29 17:59] LABS: Troponin(5th) Baseline 15 ng/L (0-15)
--- NOTE | 2021-01-29 18:14 | ECG_ITS ---
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 Measurements Intervals [place] Rate: 75 P: 64 [place]: 161 QRS: -58 QRSD: 102 T: 53 QT: 372 QTc: 416 Interpretive Statements SINUS RHYTHM LEFT AXIS DEVIATION [QRS AXIS < -30] INCOMPLETE RIGHT BUNDLE BRANCH BLOCK [90+ ms QRS DURATION, TERMINAL R IN V1/V2, 40+ ms S IN I/aVL/V4/V5/V6] SEPTAL MYOCARDIAL INFARCTION , OF INDETERMINATE AGE [40+ ms Q WAVE IN V1/V2] INTERPRETATION BASED ON A DEFAULT AGE OF 40 YEARS Compared to ECG 01/29/2021 16:00:49 No significant changes Electronically Signed On 01-31-2021 7:42:26 CDT by Jaylin Beavers M.D. [id number]
--- NOTE | 2021-01-29 18:26 | CTR_ITS ---
PROCEDURE INFORMATION: Exam: CT Angiography Head With Contrast Exam date and time: 01/29/2021 7:00 PM Age: 55 years old Clinical indication: Weakness; Additional info: Stroke-like symptoms TECHNIQUE: Imaging protocol: Computed tomography angiography of the head with intravenous contrast. 3D rendering (Not supervised by radiologist): MIP and/or 3D reconstructed images were created by the technologist. Radiation optimization: All CT scans at this facility use at least one of these dose optimization techniques: automated exposure control; mA and/or kV adjustment per patient size (includes targeted exams where dose is matched to clinical indication); or iterative reconstruction. Contrast material: VISI 320; Contrast volume: 95 ml; Contrast route: INTRAVENOUS (IV); COMPARISON: CT angio headneck* [id number] 12/14/2020 5:38 PM , head CT 01/29/2021 RADIATION DOSE METRICS: Total DLP (mGy-cm): 2685.58 FINDINGS: ANTERIOR CIRCULATION: Right internal carotid artery: Unremarkable. Intracranial segment is patent with no significant stenosis. No aneurysm. Right middle cerebral artery: Unremarkable. No occlusion or significant stenosis. No aneurysm. Right anterior cerebral artery: There is a hypoplastic A1 segment of the right anterior cerebral artery. No stenosis. No annular Left internal carotid artery: Unremarkable. Intracranial segment is patent with no significant stenosis. No aneurysm. Left middle cerebral artery: Unremarkable. No occlusion or significant stenosis. No aneurysm. Left anterior cerebral artery: There is a dominant A1 segment of the left anterior cerebral artery. No stenosis. No aneurysm. POSTERIOR CIRCULATION: Right vertebral artery: Unremarkable. No occlusion or significant stenosis. No aneurysm. Left vertebral artery: Unremarkable. No occlusion or significant stenosis. No aneurysm. Basilar artery: Unremarkable. No occlusion or significant stenosis. No aneurysm. Right posterior cerebral artery: Unremarkable. No occlusion or significant stenosis. No aneurysm. Left posterior cerebral artery: Unremarkable. No occlusion or significant stenosis. No aneurysm. IMPRESSION: No intracranial stenosis or occlusion. PROCEDURE INFORMATION: Exam: CT Angiography Neck With Contrast Exam date and time: 01/29/2021 7:00 PM Age: 55 years old Clinical indication: Weakness; Additional info: Stroke-like symptoms TECHNIQUE: Imaging protocol: Computed tomography angiography of the neck with contrast. 3D rendering (Not supervised by radiologist): MIP and/or 3D reconstructed images were created by the technologist. Radiation optimization: All CT scans at this facility use at least one of these dose optimization techniques: automated exposure control; mA and/or kV adjustment per patient size (includes targeted exams where dose is matched to clinical indication); or iterative reconstruction. Contrast material: VISI 320; Contrast volume: 95 ml; Contrast route: INTRAVENOUS (IV); COMPARISON: CT angio headneck* [id number] 12/14/2020 5:38 PM RADIATION DOSE METRICS: Total DLP (mGy-cm): 2685.58 FINDINGS: Right common carotid artery: No stenosis. No dissection or occlusion. Right internal carotid artery: There is mild calcified plaque in the proximal right internal carotid artery without stenosis Right external carotid artery: No occlusion or stenosis of the origin. Right vertebral artery: There is calcified plaque in the proximal V1 segment of the right vertebral artery resulting in severe stenosis. No distal stenosis. No dissection Left common carotid artery: No stenosis. No dissection or occlusion. Left internal carotid artery: There is calcified and noncalcified plaque in the proximal left internal carotid artery without stenosis. Left external carotid artery: No occlusion or stenosis of the origin. Left vertebral artery: There is calcified plaque in the proximal V1 segment of the left vertebral artery resulting in severe stenosis. No distal stenosis. No dissection Bones/joints: No acute fracture. Soft tissues: Normal. No significant soft tissue swelling. CT/CT angio headne* [id number] IMPRESSION: 1. No carotid artery stenosis. 2. Plaque in the V1 segments of the vertebral arteries bilaterally resulting in severe short segment stenosis unchanged from prior scan. REFERENCES: NASCET CRITERIA. The degree of internal carotid artery stenosis is based on NASCET criteria. Normal is no stenosis. Mild is less than 50% stenosis. Moderate is 50-69% stenosis. Severe is 70% to 99% stenosis. Total occlusion is no detectable patent lumen. Radiation Dose CTDIVOL = (mGy): DLP = 2685.58~2685.58 (mGy-cm)
[2021-01-29] MEDS: diphenhydrAMINE 50 mg/mL SDV 1mL IVP (19:08)
[2021-01-29] MEDS: hydrocortisone 100 mg/2 mL SDV IVP (19:09)
[2021-01-29] MEDS: ketorolac 30 mg/mL INJ 15 MG IVP (19:09)
[2021-01-29] MEDS: iodixanol 320 mg/mL 100mL Btl IV (19:17)
[2021-01-29 19:52] LABS: Troponin 5 2HR 13.33 ng/L (0-15)
[2021-01-29 19:54] LABS: Troponin 5 2HR Delta -1.67 ABS# (0-10)
--- NOTE | 2021-01-29 20:29 | PC.PHAR ---
pts states she takes care of the pts medications-pts states she is unsure if the pt is still taking flomax ext med history shows last filled on 05/17/20 30d/s bid-pts states she thinks the pt is only takes once a day-pts states the pt takes 10 units qam of lantus-ext med history shows last filled on 10/02/21 60 units qd-
--- NOTE | 2021-01-30 01:13 | W.ED.AMS ---
HPI - Altered Mental Status General: Chief Complaint: Altered Mental Status Stated Complaint: confusion, worse weakening on right side Time Seen by Provider: 01/29/21 17:55 Source: patient and family () Mode of arrival: ambulatory Limitations: other (prior expressive aphasia from prior CVA) History of Present Illness: HPI narrative: The patient is a 55 year old male with expressive dyphasia who had a recent CVA about 5 weeks ago with residual dysphasia and right sided weakness. He presents to the ED with complaints of worsening right sided weakness and some confusion. His is concerned about another CVA. The patient is also complaining of a headache that he said is severe. On my initial evaluation, the patient was not very cooperative and only wanted to be discharged home. I was however able to convince him to be evaluated as he may have a potentially life threatening condition. He denies any recent trauma or falls. He denies any fever, nausea or vomiting. MD complaint: confusion Onset (ago): day(s) (2) Timing confirmed by: spouse Severity: mild Consistency of symptoms: Constant Context: history of similar presentation Review of Systems General: Reports: 10 or more systems reviewed and unremarkable except in HPI and below PFSH ED PFSH: Medical History (Updated 02/05/21 @ 10:22 by Daren Gerard [place], [facility] [place] Anxiety Back pain BPH NOS w ur obs/LUTS COPD (chronic obstructive pulmonary disease) Coronary artery disease CVA (cerebral vascular accident) CVA (cerebral vascular accident) Diabetes Hypertension Migraine Myocardial infarction Seizure Urinary retention Surgical History History of appendectomy History of cholecystectomy History of coronary angioplasty with insertion of stent History of tonsillectomy History of vasectomy S/P left knee arthroscopy Family History Other CAD (coronary artery disease) Hypertension Social History Smoking and tobacco status: current every day smoker cigarettes Packs smoked per day: 1 Alcohol intake: current Alcohol intake frequency: holidays/special occasions only Marital status: Current occupational status: disabled History of recent travel: No Physical Exam Const: COMMON NORMALS: no acute distress, average body habitus, patient oriented x3, no limitations, healthy appearing, alert and well nourished Eye: COMMON NORMALS: Equal, round and reactive pupils present, EOMs intact bilaterally, conjunctivae normal and no scleral icterus CONJUNCTIVA: Yes conjunctivae normal PUPIL: Yes Equal, round and reactive pupils present Neck/C-Spine: COMMON NORMALS: no meningeal signs and no JVD Resp: COMMON NORMALS: normal respiratory effort, No retractions, No use of accessory muscles, clear to auscultation bilaterally and percussion normal AUSCULTATION: clear to auscultation bilaterally PERCUSSION: percussion normal Cardio: COMMON NORMALS: no JVD, regular rate, regular rhythm, S1 normal heart sound present, S2 normal heart sound present, No gallops present (Cardio), No clicks present (Cardio), No murmurs present (Cardio), No rub (Cardio) and Peripheral pulses 2+ throughout RATE: regular rate RHYTHM: regular rhythm HEART SOUNDS: S1 normal heart sound present and S2 normal heart sound present PERIPHERAL PULSES: Peripheral pulses 2+ throughout GI: COMMON NORMALS: Normal to inspection, nondistended, normoactive bowel sounds present, Soft to palpation, non-tender, No hepatosplenomegaly present, no masses and no bruits PALPATION: Yes Soft to palpation and Yes No hepatosplenomegaly present Extremity: COMMON NORMALS: normal to inspection, full ROM, capillary refill normal, no calf tenderness and no pedal edema Neuro: COMMON NORMALS: patient oriented x3 SENSORIUM/ORIENTATION: Yes alert MENINGEAL SIGNS: Yes no meningeal signs OTHER: alert and oriented. no drift in his upper and lower extremities, power on the right is about a 4 and a 5 on the left. Skin: COMMON NORMALS: no rashes or lesions noted, no wounds, turgor normal, no jaundice, no petechiae and no mottling GENERAL SKIN EXAM: no rashes or lesions noted and turgor normal Course Reevaluation(s): Reevaluation #1: Discussed his initial lab and imaging findings with him. Explained that we are waiting on his urinalysis. Labs so far are unremarkable. Patient was unwilling to wait for his urine test and wanted to leave AGAINST MEDICAL ADVICE. He is alert and oriented and understands the risks to leaving before his urine results are available. He understands he may have an infection which wound due to potential serious illness. He still insisted on leaving AGAINST MEDICAL ADVICE. Headache has resolved. Time: 21:30 Vital Signs: Vital signs: Vital Signs Temperature 98.7 F 01/29/21 15:49 Pulse Rate 96 01/29/21 15:49 Respiratory Rate 18 01/29/21 15:49 Blood Pressure 117/75 01/29/21 15:49 Pulse Oximetry 98 01/29/21 15:49 MDM - Altered Mental Status MDM Narrative: Medical decision making narrative: 55 year old male with a recent CVA who presented with confusion, headache, and right sided weakness. Evaluation in the ED for a possible CVA was not completed before the patient decided he wanted to leave AMA. I explained the risks to leaving including worsening of his symptoms and , but he insisted on leaving, so he left against medical advise. Medical Records: Attestation: I reviewed the patient's medical records. Lab Data: Attestation: I reviewed the patient's lab results. Labs: Lab Results 01/29/21 01/29/21 01/29/21 Range/Units 17:04 17:04 17:04 WBC 12.8 H (4.0-10.0) 10^3/ uL RBC 4.87 (4.1-5.3) 10^6/u L Hgb 15.5 (11.7-16.6) g/dL Hct 45.8 (42.0-52.0) % MCV 94.0 (80-94) fL MCH 31.8 (28.0-34.0) pg MCHC 33.8 (30.0-36.0) g/dL RDW 12.8 (12.1-15.1) % Plt Count 241 (130-400) 10^3/c mm MPV 9.6 (7.4-10.4) fL Neut % (Auto) 75.4 % Lymph % (Auto) 17.3 % [place] % (Auto) 4.7 % Eos % (Auto) 1.4 % Baso % (Auto) 0.8 % Neut # (Auto) 9.61 H (1.8-7.7) 10^3/u L Lymph # (Auto) 2.2 (0.8-4.8) 10^3/u L [place] # (Auto) 0.6 (0.2-0.9) 10^3/u L Eos # (Auto) 0.2 (0.0-0.8) 10^3/u L Baso # (Auto) 0.1 (0.0-0.1) 10^3/u L Nucleated RBC % (a uto) 0 % Nucleated RBCs # 0.0 /100WBC Sodium 139 (136-145) mmol/L Potassium 3.8 (3.5-5.1) mmol/L Chloride 102 (98-107) mmol/L Carbon Dioxide 27 (22-29) mmol/L Anion Gap 13.8 (5-19) BUN 16 (6-20) mg/dL Creatinine 0.7 (0.7-1.2) mg/dL GFR Calculation 116.2 (90-130) mL/min Glucose 107 (65-115) mg/dL Calculated Osmolal ity 290 (285-295) mOsm/k g Lactic Acid 1.6 (0.5-2.2) mmol/L Calcium 8.7 (8.5-10.5) mg/dL Total Bilirubin 0.6 (0.15-1.2) mg/dL AST 19 (0-40) U/L ALT 17 (0-41) U/L Alkaline Phosphata se 64 (40-130) IU/L Troponin T Baselin e (0-15) ng/L Troponin T 120 Min [place] (0-15) ng/L Delta Troponin T (0-10) ABS# Total Protein 6.6 (6.6-8.7) g/dL Albumin 4.2 (3.5-5.2) g/dL Globulin 2.4 (1.3-4.6) g/dL 01/29/21 01/29/21 Range/Units 17:04 19:25 WBC (4.0-10.0) 10^3/ uL RBC (4.1-5.3) 10^6/u L Hgb (11.7-16.6) g/dL Hct (42.0-52.0) % MCV (80-94) fL MCH (28.0-34.0) pg MCHC (30.0-36.0) g/dL RDW (12.1-15.1) % Plt Count (130-400) 10^3/c mm MPV (7.4-10.4) fL Neut % (Auto) % Lymph % (Auto) % [place] % (Auto) % Eos % (Auto) % Baso % (Auto) % Neut # (Auto) (1.8-7.7) 10^3/u L Lymph # (Auto) (0.8-4.8) 10^3/u L [place] # (Auto) (0.2-0.9) 10^3/u L Eos # (Auto) (0.0-0.8) 10^3/u L Baso # (Auto) (0.0-0.1) 10^3/u L Nucleated RBC % (a uto) % Nucleated RBCs # /100WBC Sodium (136-145) mmol/L Potassium (3.5-5.1) mmol/L Chloride (98-107) mmol/L Carbon Dioxide (22-29) mmol/L Anion Gap (5-19) BUN (6-20) mg/dL Creatinine (0.7-1.2) mg/dL GFR Calculation (90-130) mL/min Glucose (65-115) mg/dL Calculated Osmolal ity (285-295) mOsm/k g Lactic Acid (0.5-2.2) mmol/L Calcium (8.5-10.5) mg/dL Total Bilirubin (0.15-1.2) mg/dL AST (0-40) U/L ALT (0-41) U/L Alkaline Phosphata se (40-130) IU/L Troponin T Baselin e 15 (0-15) ng/L Troponin T 120 Min [place] 13.33 (0-15) ng/L Delta Troponin T -1.67 L (0-10) ABS# Total Protein (6.6-8.7) g/dL Albumin (3.5-5.2) g/dL Globulin (1.3-4.6) g/dL Imaging Data^: CT Head: Attestation: I personally reviewed and interpreted this imaging study as follows: Radiologist's impression: [address] [address] [address] Scan Report Signed Patient: Bradley Saldivar #: [id number] : 1965Acct#:[id number] Age/Sex: 55 / MADM Date: 01/29/21 Loc: ERRoom/Bed: Attending Dr: Ordering Provider/Ordering MD: Carolyn Kiran Date of Service: 01/29/21 Procedure(s): CT head wo con* [id number] Accession Number(s): [id number] Report Number: [id number] PROCEDURE INFORMATION: Exam: CT Head Without Contrast Exam date and time: 01/29/2021 4:29 PM Age: 55 years old Clinical indication: Altered mental status/memory loss and weakness, extremity; Right; Other: Confusion/agitation; Patient HX: HX of stroke; Additional info: AMS TECHNIQUE: Imaging protocol: Computed tomography of the head without contrast. Radiation optimization: All CT scans at this facility use at least one of these dose optimization techniques: automated exposure control; mA and/or kV adjustment per patient size (includes targeted exams where dose is matched to clinical indication); or iterative reconstruction. COMPARISON: CT head wo con* [id number] 12/14/2020 3:13 PM RADIATION DOSE METRICS: Total DLP (mGy-cm): 997.24 FINDINGS: Brain: There is no evidence of infarct, weaver-white matter differentiation is preserved. There is no hemorrhage or extra-axial collection. There is no mass. Cerebral ventricles: There is no hydrocephalus. Bones/joints: Unremarkable. No acute fracture. Paranasal sinuses: Visualized sinuses are unremarkable. No fluid levels. Mastoid air cells: Visualized mastoid air cells are well aerated. Soft tissues: Unremarkable. CT/CT head wo con* [id number] IMPRESSION: No intracranial lesion or no change from prior scan. Radiation Dose CTDIVOL = (mGy): DLP = 997.24 (mGy-cm) Dictated By:Devonte Gomez MD Signed By:Devonte Gomez MDSigned Date/Time:01/29/211658 DD/ 57 CXR: Attestation: I personally reviewed and interpreted this imaging study as follows: Radiologist's impression: [address] [address] XRay Report Signed Patient: Bradley Saldivar #: [id number] : 1965Acct#:[id number] Age/Sex: 55 / MADM Date: 01/29/21 Loc: ERRoom/Bed: Attending Dr: Ordering Provider/Ordering MD: Carolyn Kiran Date of Service: 01/29/21 Procedure(s): XR chest 1V portable [id number] Accession Number(s): [id number] Report Number: [id number] PROCEDURE INFORMATION: Exam: XR Chest Exam date and time: 01/29/2021 4:29 PM Age: 55 years old Clinical indication: Other: Right sided weakness; Patient HX: HX of stroke; Additional info: AMS TECHNIQUE: Imaging protocol: XR of the chest. Views: 1 view. COMPARISON: CR XR chest 1V portable [id number] 12/14/2020 4:06 PM FINDINGS: Lungs: See Diaphragm finding. Pleural spaces: See Diaphragm finding. Heart/Mediastinum: Unremarkable. No cardiomegaly. Diaphragm: Mild elevation right hemidiaphragm. Question subpulmonic effusion. Lungs are otherwise well aerated. Bones/joints: Diez rods and pedicle plates stabilizing the thoracic spine. XR/XR chest 1V portable [id number] IMPRESSION: Mild elevation right hemidiaphragm. Question subpulmonic effusion. Lungs are otherwise well aerated. Dictated By:Mitul Olivares MD Signed By:Mitul Olivares MDSigned Date/Time:01/30/21757 DD/ [address]: Attestation: I personally reviewed and interpreted this imaging study as follows: Radiologist's impression: [address] [address] [address] Scan Report Signed Patient: Bradley Saldivar #: [id number] : 1965Acct#:[id number] Age/Sex: 55 / MADM Date: 01/29/21 Loc: ERRoom/Bed: Attending Dr: Ordering Provider/Ordering MD: Daren Gerard [place], [facility] [place] of Service: 01/29/21 Procedure(s): CT angio headneck* [id number] Accession Number(s): [id number] Report Number: [id number] PROCEDURE INFORMATION: Exam: CT Angiography Head With Contrast Exam date and time: 01/29/2021 7:00 PM Age: 55 years old Clinical indication: Weakness; Additional info: Stroke-like symptoms TECHNIQUE: Imaging protocol: Computed tomography angiography of the head with intravenous contrast. 3D rendering (Not supervised by radiologist): MIP and/or 3D reconstructed images were created by the technologist. Radiation optimization: All CT scans at this facility use at least one of these dose optimization techniques: automated exposure control; mA and/or kV adjustment per patient size (includes targeted exams where dose is matched to clinical indication); or iterative reconstruction. Contrast material: VISI 320; Contrast volume: 95 ml; Contrast route: INTRAVENOUS (IV); COMPARISON: CT angio headneck* [id number] 12/14/2020 5:38 PM , head CT 01/29/2021 RADIATION DOSE METRICS: Total DLP (mGy-cm): 2685.58 FINDINGS: ANTERIOR CIRCULATION: Right internal carotid artery: Unremarkable. Intracranial segment is patent with no significant stenosis. No aneurysm. Right middle cerebral artery: Unremarkable. No occlusion or significant stenosis. No aneurysm. Right anterior cerebral artery: There is a hypoplastic A1 segment of the right anterior cerebral artery. No stenosis. No annular Left internal carotid artery: Unremarkable. Intracranial segment is patent with no significant stenosis. No aneurysm. Left middle cerebral artery: Unremarkable. No occlusion or significant stenosis. No aneurysm. Left anterior cerebral artery: There is a dominant A1 segment of the left anterior cerebral artery. No stenosis. No aneurysm. POSTERIOR CIRCULATION: Right vertebral artery: Unremarkable. No occlusion or significant stenosis. No aneurysm. Left vertebral artery: Unremarkable. No occlusion or significant stenosis. No aneurysm. Basilar artery: Unremarkable. No occlusion or significant stenosis. No aneurysm. Right posterior cerebral artery: Unremarkable. No occlusion or significant stenosis. No aneurysm. Left posterior cerebral artery: Unremarkable. No occlusion or significant stenosis. No aneurysm. IMPRESSION: No intracranial stenosis or occlusion. PROCEDURE INFORMATION: Exam: CT Angiography Neck With Contrast Exam date and time: 01/29/2021 7:00 PM Age: 55 years old Clinical indication: Weakness; Additional info: Stroke-like symptoms TECHNIQUE: Imaging protocol: Computed tomography angiography of the neck with contrast. 3D rendering (Not supervised by radiologist): MIP and/or 3D reconstructed images were created by the technologist. Radiation optimization: All CT scans at this facility use at least one of these dose optimization techniques: automated exposure control; mA and/or kV adjustment per patient size (includes targeted exams where dose is matched to clinical indication); or iterative reconstruction. Contrast material: VISI 320; Contrast volume: 95 ml; Contrast route: INTRAVENOUS (IV); COMPARISON: CT angio headneck* [id number] 12/14/2020 5:38 PM RADIATION DOSE METRICS: Total DLP (mGy-cm): 2685.58 FINDINGS: Right common carotid artery: No stenosis. No dissection or occlusion. Right internal carotid artery: There is mild calcified plaque in the proximal right internal carotid artery without stenosis Right external carotid artery: No occlusion or stenosis of the origin. Right vertebral artery: There is calcified plaque in the proximal V1 segment of the right vertebral artery resulting in severe stenosis. No distal stenosis. No dissection Left common carotid artery: No stenosis. No dissection or occlusion. Left internal carotid artery: There is calcified and noncalcified plaque in the proximal left internal carotid artery without stenosis. Left external carotid artery: No occlusion or stenosis of the origin. Left vertebral artery: There is calcified plaque in the proximal V1 segment of the left vertebral artery resulting in severe stenosis. No distal stenosis. No dissection Bones/joints: No acute fracture. Soft tissues: Normal. No significant soft tissue swelling. CT/CT angio headneck* [id number] IMPRESSION: 1. No carotid artery stenosis. 2. Plaque in the V1 segments of the vertebral arteries bilaterally resulting in severe short segment stenosis unchanged from prior scan. REFERENCES: NASCET CRITERIA. The degree of internal carotid artery stenosis is based on NASCET criteria. Normal is no stenosis. Mild is less than 50% stenosis. Moderate is 50-69% stenosis. Severe is 70% to 99% stenosis. Total occlusion is no detectable patent lumen. Radiation Dose CTDIVOL = (mGy): DLP = 2685.58~2685.58 (mGy-cm) Dictated By:Devonte Gomez MD Signed By:Devonte Gomezigned Date/Time:01/29/211946 DD/ 45 EKG Data^: EKG 1: Attestation: I personally reviewed and interpreted this EKG as follows: EKG interpretation date: 01/29/21 EKG interpretation time: 19:09 Prior EKG tracings: available for review Interpretation: sinus rhythm HR 75 bpm LAD RBBB No ST changes Discharge Plan Discharge Patient Disposition: Left Against Medical Advice Clinical Impression: Migraine equivalent Prescriptions: No Action Lantus Solostar U-100 Insulin 100 unit/mL (3 mL) insulin pen 10 unit SUBCUT QAM RF: 0 (DME) FreeStyle Elizabeth 14 Day Sensor Kit See Rx Instructions .ROUTE .MEDSUPPLY Qty: 2 RF: 3 (DME) FreeStyle Elizabeth 14 Day [place] Misc See Rx Instructions .ROUTE .MEDSUPPLY Qty: 1 RF: 0 ascorbic acid (vitamin C) 500 mg tablet 500 mg PO QAM RF: 0 (DME) Dexcom G6 Sensor Device See Rx Instructions .ROUTE .MEDSUPPLY Qty: 3 RF: 3 (DME) Dexcom G6 Obstetrics Nurse Misc See Rx Instructions .ROUTE .MEDSUPPLY Qty: 1 RF: 0 (DME) Dexcom G6 Transmitter Device See Rx Instructions .ROUTE .MEDSUPPLY Qty: 1 RF: 0 Novolog Flexpen U-100 Insulin 100 unit/mL (3 mL) insulin pen See Rx Instructions .ROUTE .COMPLEX RF: 0 Symbicort 160-4.5 mcg/actuation HFA aerosol inhaler 2 puff INHALATION BID RF: 0 atorvastatin 40 mg tablet 40 mg PO QAM RF: 0 clopidogrel 75 mg tablet 75 mg PO QAM RF: 0 Adult Aspirin Regimen 81 mg tablet,delayed release (DR/EC) 81 mg PO QAM RF: 0 Depakote ER 500 mg tablet extended release 24 hr 500 mg PO QAM RF: 0 tamsulosin [Flomax] 0.4 mg Capsule 0.4 mg PO DAILY RF: 0 pantoprazole 40 mg Tablet,Delayed Release (Dr/Ec) 40 mg PO QAM RF: 0 nitroglycerin 0.4 mg tablet, sublingual 0.4 mg sublingual PRN PRN (Reason: Chest Pain) RF: 0 Vitamin B-12 1 tab PO QAM RF: 0 multivitamin Tablet 1 tab PO QAM RF: 0 albuterol sulfate 90 mcg/actuation Hfa Aerosol Inhaler 2 puff INHALATION Q4H PRN (Reason: Shortness Of Breath) RF: 0 Referrals: Israel,Lloyd, MD [Primary Care Provider] - Coding Level of Care Code ED Calender Let Off Helper for Chg Fwsumit
== END 2021-01-29 21:39 | disposition left against medical advice (07) ==
PROVIDERS: Physician Assistant; Emergency Provider Family Medicine; PCP Student in an Organized Health Care Education/Training Program
DX: G43.109 Migraine with aura, not intractable, without status migrainosus (principal); Z79.4 Long term (current) use of insulin; Z79.82 Long term (current) use of aspirin; Z79.02 Long term (current) use of antithrombotics/antiplatelets; J44.9 Chronic obstructive pulmonary disease, unspecified; I25.10 Atherosclerotic heart disease of native coronary artery without angina pectoris; Z86.73 Personal history of transient ischemic attack (TIA), and cerebral infarction without residual deficits; E11.9 Type 2 diabetes mellitus without complications; I10 Essential (primary) hypertension; I25.2 Old myocardial infarction; Z95.5 Presence of coronary angioplasty implant and graft; F17.210 Nicotine dependence, cigarettes, uncomplicated
CPT/HCPCS: 36415; 70450; 70496; 70498; 71045; 80053; 83605; 84484; 85025; 93005; 96374; 96375; 99284; J1200; J1720; J1885; Q9967

== ENCOUNTER 2021-02-15 15:33 | Emergency (ER) | payer MEDICARE, SELFPAY ==
[2021-02-15] VITALS (7 sets, daily range): BP systolic 94–131; BP diastolic 53–63; PULSE 67–88; RESP 15–18; O2SAT 97–99; BMI 27.1
--- NOTE | 2021-02-15 16:08 | USR_ITS ---
PROCEDURE INFORMATION: Exam: US Abdomen, Limited; Right Upper Quadrant Exam date and time: 02/15/2021 4:47 PM Age: 55 years old Clinical indication: Abdominal pain; Acute; Prior surgery; Surgery date: 6+ months; Surgery type: Gb and appy; Patient HX: PT is in a great deal of pain; Additional info: Right abd hernia vs gall bladder problem. TECHNIQUE: Imaging protocol: US abdomen. Real time ultrasound with image documentation. Limited exam focused on the right upper quadrant. COMPARISON: 1. CT Chest/Abdomen/Pelvis wo IV 01/08/2017 10:[address] abdomen pelvis wo con [id number] 02/15/2021 5:15:16 PM FINDINGS: Liver: Liver is normal size and shows normal uniform echogenicity. There is no focal abnormality within the liver. Gallbladder: There has been a cholecystectomy. Common bile duct: Common bile duct measures 11 mm which is not unusual post cholecystectomy. Pancreas: Visualized portions of the pancreas are unremarkable. Right kidney: Normal no hydronephrosis Aorta: Visualized portions of the aorta are unremarkable without evidence of aneurysm. Inferior vena cava: No abnormality is seen in the visualized portions of the IVC. Soft tissues: Scanning of the abdominal wall where the patient reports pain did not reveal a hernia. US/US abdomen limited [id number] IMPRESSION: 1. Status post cholecystectomy 2. No hernia is visualized 3. Normal appearing liver and pancreas. 4. Prominent common bile duct which is not unusual post cholecystectomy.
--- NOTE | 2021-02-15 16:08 | CTR_ITS ---
PROCEDURE INFORMATION: Exam: CT Abdomen And Pelvis Without Contrast Exam date and time: 02/15/2021 4:28 PM Age: 55 years old Clinical indication: Abdominal pain; Prior surgery; Surgery type: Gb, appy, back; Additional info: Right abd hernia vs gall bladder pain TECHNIQUE: Imaging protocol: Computed tomography of the abdomen and pelvis without contrast. Radiation optimization: All CT scans at this facility use at least one of these dose optimization techniques: automated exposure control; mA and/or kV adjustment per patient size (includes targeted exams where dose is matched to clinical indication); or iterative reconstruction. COMPARISON: CT Chest/Abdomen/Pelvis wo IV 01/08/2017 10:25 AM RADIATION DOSE METRICS: Total DLP (mGy-cm): 1696.39 FINDINGS: Limitations: Study somewhat limited due to streak artifact created by the patient being scanned with the arms at the sides. The absence of intravenous contrast lessens the sensitivity of this study for solid organ abnormalities. Lungs: There are some small subpleural pulmonary nodules at the lung bases, for example right middle lobe on image 10 series 2 not significantly changed from 01/08/2017. No further follow-up is necessary. Liver: There is no focal abnormality within the liver. Gallbladder and bile ducts: There has been a cholecystectomy. Pancreas: The pancreas is normal. Spleen: The spleen is normal. Adrenal glands: The adrenal glands are normal. Kidneys and ureters: The kidneys are normal. There is no evidence of hydronephrosis. There is no evidence of renal or ureteral calcifications. Stomach and bowel: There is no evidence of colitis/diverticulitis. There is no evidence of intestinal obstruction. Appendix: Not Identified Intraperitoneal space: Unremarkable. No free air. No significant fluid collection. Vasculature: The aorta demonstrates mild atherosclerotic calcification. There is no evidence of an abdominal aortic aneurysm. Lymph nodes: There is no evidence of lymphadenopathy. Urinary bladder: Unremarkable as visualized. Reproductive: The prostate gland demonstrates nonspecific parenchymal calcifications. The prostate demonstrates mild nonspecific enlargement. The seminal vesicles are normal. Bones/joints: There is stable postsurgical changes in the thoracolumbar spine. Soft tissues: There is bilateral gynecomastia. There is a tiny periumbilical hernia containing fat not significantly changed. CT/CT abdomen pelvis wo con [id number] IMPRESSION: No acute findings. Radiation Dose CTDIVOL = (mGy): DLP = 1696.39 (mGy-cm)
[2021-02-15] MEDS: morphine 4 mg/mL SDV 1 mL IVP (16:21)
--- NOTE | 2021-02-15 16:28 | ED_ITS ---
HPI - Abdominal Pain General: Chief Complaint: Abdominal Pain Stated Complaint: ABDOMINAL PAIN Time Seen by Provider: 02/15/21 15:47 History of Present Illness: HPI narrative: The patient is a 55-year-old male with past medical history AR, CVA, cholecystectomy, appendectomy years ago who comes to the ER complaining of right abdominal pain over the past week. He said it started to become severely bad yesterday and when he stands up it pokes out of his belly. Severely tender to the touch of that area. MD elicited complaint: abdominal pain Onset (ago): day(s) (7) Pain Consistency: constant Location: Diffuse and Other (entire belly hurts but worst in right abd.) Severity: severe Quality: sharp Exacerbating factors: movement Relieving factors: nothing Associated Symptoms: Reports no associated symptoms; Denies GI cramping, diarrhea, nausea and vomiting Review of Systems General: Reports: 10 or more systems reviewed and unremarkable except in HPI and below Const: Denies: fatigue Eyes: Denies: change in vision, blurry vision or eye redness ENMT: Denies: throat pain, swelling of lips/tongue, ear or mastoid pain or nasal congestion Card: Denies: chest pain, palpitations, irregular heart rhythm, edema, dyspnea on exertion or orthopnea Resp: Denies: dyspnea, productive cough or non-productive cough GI: Reports: abdominal pain; Denies: nausea, vomiting, diarrhea or GI cramping : Denies: flank pain, urinary frequency or urinary urgency Musc: Denies: neck pain, back pain, extremity pain, joint pain, joint redness, limited range of motion or muscle weakness Skin/Breast: Denies: rash, pruritus, erythema, skin pain or skin tenderness Neuro: Denies: headache(s), numbness in extremities, weakness in extremities, sensory changes, difficulty walking, dizziness, confusion or Slurred speech present Psych: Denies: anxiety or depression Endo: Denies: polyuria All/Imm: Denies: urticaria, throat swelling or tongue swelling PFSH ED PFSH: Medical History Anxiety Back pain BPH NOS w ur obs/LUTS COPD (chronic obstructive pulmonary disease) Coronary artery disease CVA (cerebral vascular accident) CVA (cerebral vascular accident) Diabetes Hypertension Migraine Myocardial infarction Seizure Urinary retention Surgical History History of appendectomy History of cholecystectomy History of coronary angioplasty with insertion of stent History of tonsillectomy History of vasectomy S/P left knee arthroscopy Family History Other CAD (coronary artery disease) Hypertension Social History Smoking and tobacco status: current every day smoker cigarettes Packs smoked per day: 0.5 Years cigarettes smoked: 13 Second hand smoke exposure: No Alcohol intake: current Alcohol intake frequency: holidays/special occasions only Caregiver/support person: Yes (spouse) Lives independently: Yes Household members: spouse Marital status: Current occupational status: disabled History of recent travel: No Current gender identity: Male Physical Exam Const: COMMON NORMALS: no acute distress, average body habitus, patient oriented x3, no limitations, healthy appearing, alert and well nourished GENERAL APPEARANCE: cooperative, comfortable, well kempt and well developed ORIENTATION/CONSCIOUSNESS: Yes awake, Yes oriented to person, Yes oriented to place and Yes oriented to time HENMT: COMMON NORMALS: normocephalic, external ears normal and Normal external nose present HEAD & SCALP: normal to inspection and normocephalic NOSE: Normal external nose present EXTERNAL EAR: Yes external ears normal MOUTH: Normal oral and palatal mucosa present THROAT: posterior oropharynx normal Eye: COMMON NORMALS: Equal, round and reactive pupils present and EOMs intact bilaterally GENERAL EYE: appearance normal, both eyes and all related structures PUPIL: Yes Equal, round and reactive pupils present Neck/C-Spine: COMMON NORMALS: full ROM, no lymphadenopathy, no meningeal signs and no JVD GENERAL: Yes normal visual inspection Lymph: LYMPHATIC: no lymphadenopathy noted Chest: COMMONS NORMALS: normal inspection of the chest and normal palpation of entire chest wall Resp: COMMON NORMALS: normal respiratory effort, No retractions, No use of accessory muscles, clear to auscultation bilaterally and percussion normal EFFORT & INSPECTION: Yes able to speak in complete sentences AUSCULTATION: clear to auscultation bilaterally PERCUSSION: percussion normal Cardio: COMMON NORMALS: no JVD, regular rate, regular rhythm, S1 normal heart sound present, S2 normal heart sound present and Peripheral pulses 2+ throughout RATE: regular rate RHYTHM: regular rhythm HEART SOUNDS: S1 normal heart sound present and S2 normal heart sound present PERIPHERAL PULSES: Peripheral pulses 2+ throughout GI: COMMON NORMALS: Normal to inspection, nondistended, normoactive bowel sounds present, Soft to palpation and no masses INSPECTION: Yes normal to inspection PALPATION: Yes Soft to palpation and Yes Tenderness to palpation present (GI) GI image (male): 1. Severe tenderness to area circled. Less so in other areas. soft. No hernia while lying. : COMMON NORMALS: Yes no CVA tenderness BLADDER/KIDNEY EXAM: Yes no CVA tenderness Back/Pelvis: COMMON NORMALS: no CVA tenderness, thoracic and lumbar spine normal to inspection, no thoracic nor lumbar tenderness and thoraco-lumbar ROM normal Extremity: COMMON NORMALS: normal to inspection, full ROM, capillary refill normal, no joint enlargement and no pedal edema GENERAL: Yes normal exam except as noted Neuro: COMMON NORMALS: patient oriented x3, CN's II-XII intact bilaterally, moves all extremities, no focal motor deficits, no sensory deficits noted and gait normal SENSORIUM/ORIENTATION: Yes alert, Yes oriented to person, Yes oriented to place and Yes oriented to time MENINGEAL SIGNS: Yes no meningeal signs Psych: COMMON NORMALS: mental status grossly normal, Normal thought process present, cooperative, normal affect and speech normal APPEARANCE: Yes well kempt ATTITUDE: Yes calm SPEECH: Yes normal speech THOUGHT PROCESS: Normal thought process present Skin: COMMON NORMALS: no rashes or lesions noted GENERAL SKIN EXAM: no rashes or lesions noted Course Vital Signs: Vital signs: Vital Signs Pulse Rate 88 02/15/21 18:00 Respiratory Rate 17 02/15/21 19:30 Blood Pressure 115/62 02/15/21 19:30 Pulse Oximetry 99 02/15/21 19:30 MDM - Abdominal Pain MDM Narrative: Medical decision making narrative: The patient has severe tenderness while the hernia is pouched out. However ultrasound and CT failed to demonstrate the hernia. It is quite reducible. He does have some tenderness still and will be given hydrocodone to go home with. Recommended he follow-up with general surgery. Placed a case management consult to help him get an appointment with general surgery hopefully next week. ER with worsening sympto ms. Do not lift anything heavy Lab Data: Labs: Lab Results 02/15/21 02/15/21 02/15/21 Range/Units 16:30 16:30 16:30 WBC 6.8 (4.0-10.0) 10^3/ uL RBC 4.21 (4.1-5.3) 10^6/u L Hgb 13.6 (11.7-16.6) g/dL Hct 39.6 L (42.0-52.0) % MCV 94.1 H (80-94) fL MCH 32.3 (28.0-34.0) pg MCHC 34.3 (30.0-36.0) g/dL RDW 13.0 (12.1-15.1) % Plt Count 204 (130-400) 10^3/c mm MPV 9.5 (7.4-10.4) fL Neut % (Auto) 58.8 % Lymph % (Auto) 30.7 % [place] % (Auto) 6.5 % Eos % (Auto) 2.6 % Baso % (Auto) 1.0 % Neut # (Auto) 4.00 (1.8-7.7) 10^3/u L Lymph # (Auto) 2.1 (0.8-4.8) 10^3/u L [place] # (Auto) 0.4 (0.2-0.9) 10^3/u L Eos # (Auto) 0.2 (0.0-0.8) 10^3/u L Baso # (Auto) 0.1 (0.0-0.1) 10^3/u L Nucleated RBC % (a uto) 0 % Nucleated RBCs # 0.0 /100WBC Sodium 135 L (136-145) mmol/L Potassium 3.5 (3.5-5.1) mmol/L Chloride 100 (98-107) mmol/L Carbon Dioxide 24 (22-29) mmol/L Anion Gap 14.5 (5-19) BUN 11 (6-20) mg/dL Creatinine 0.6 L (0.7-1.2) mg/dL GFR Calculation 138.9 H (90-130) mL/min Glucose 216 H (65-115) mg/dL Calculated Osmolal ity 286 (285-295) mOsm/k g Lactate 1.7 (0.5-2.2) mmol/L Calcium 8.3 L (8.5-10.5) mg/dL Total Bilirubin 0.4 (0.15-1.2) mg/dL AST 16 (0-40) U/L ALT 18 (0-41) U/L Alkaline Phosphata se 52 (40-130) IU/L Total Protein 6.8 (6.6-8.7) g/dL Albumin 4.0 (3.5-5.2) g/dL Globulin 2.8 (1.3-4.6) g/dL Lipase 8 L (13-60) U/L Urine Color (Yellow) Urine Appearance (CLEAR) Urine pH (5-7) Ur Specific Gravit y (1.005-1.030) Urine Protein (Negative) Urine Glucose (UA) (Normal) Urine Ketones (Negative) Urine Blood (Negative) Urine Nitrate (Negative) Urine Bilirubin (Negative) Urine Urobilinogen (Negative) mg/dL Ur Leukocyte Cecilia ase (Negative) 02/15/21 Range/Units 18:05 WBC (4.0-10.0) 10^3/ uL RBC (4.1-5.3) 10^6/u L Hgb (11.7-16.6) g/dL Hct (42.0-52.0) % MCV (80-94) fL MCH (28.0-34.0) pg MCHC (30.0-36.0) g/dL RDW (12.1-15.1) % Plt Count (130-400) 10^3/c mm MPV (7.4-10.4) fL Neut % (Auto) % Lymph % (Auto) % [place] % (Auto) % Eos % (Auto) % Baso % (Auto) % Neut # (Auto) (1.8-7.7) 10^3/u L Lymph # (Auto) (0.8-4.8) 10^3/u L [place] # (Auto) (0.2-0.9) 10^3/u L Eos # (Auto) (0.0-0.8) 10^3/u L Baso # (Auto) (0.0-0.1) 10^3/u L Nucleated RBC % (a uto) % Nucleated RBCs # /100WBC Sodium (136-145) mmol/L Potassium (3.5-5.1) mmol/L Chloride (98-107) mmol/L Carbon Dioxide (22-29) mmol/L Anion Gap (5-19) BUN (6-20) mg/dL Creatinine (0.7-1.2) mg/dL GFR Calculation (90-130) mL/min Glucose (65-115) mg/dL Calculated Osmolal ity (285-295) mOsm/k g Lactate (0.5-2.2) mmol/L Calcium (8.5-10.5) mg/dL Total Bilirubin (0.15-1.2) mg/dL AST (0-40) U/L ALT (0-41) U/L Alkaline Phosphata se (40-130) IU/L Total Protein (6.6-8.7) g/dL Albumin (3.5-5.2) g/dL Globulin (1.3-4.6) g/dL Lipase (13-60) U/L Urine Color Yellow (Yellow) Urine Appearance Clear (CLEAR) Urine pH 5 (5-7) Ur Specific Gravit y 1.020 (1.005-1.030) Urine Protein Neg (Negative) Urine Glucose (UA) 4+ H (Normal) Urine Ketones Negative (Negative) Urine Blood Neg (Negative) Urine Nitrate Negative (Negative) Urine Bilirubin Neg (Negative) Urine Urobilinogen 1 H (Negative) mg/dL Ur Leukocyte Cecilia ase Negative (Negative) Discharge Plan Discharge Patient Disposition: Home Clinical Impression: Abdominal hernia Condition: Stable Prescriptions: New hydrocodone-acetaminophen 5-325 mg tablet 1 tab PO Q6H PRN (Reason: pain) Qty: 15 RF: 0 No Action Lantus Solostar U-100 Insulin 100 unit/mL (3 mL) insulin pen 10 unit SUBCUT DAILY@1000 RF: 0 (DME) FreeStyle Elizabeth 14 Day Sensor Kit See Rx Instructions .ROUTE .MEDSUPPLY Qty: 2 RF: 3 (DME) FreeStyle Elizabeth 14 Day [place] Misc See Rx Instructions .ROUTE .MEDSUPPLY Qty: 1 RF: 0 ascorbic acid (vitamin C) 500 mg tablet 500 mg PO DAILY@1000 RF: 0 ondansetron HCl [Zofran] 4 mg tablet 4 mg PO Q8H PRN (Reason: nausea and vomiting) Qty: 20 RF: 0 (DME) Dexcom G6 Sensor Device See Rx Instructions .ROUTE .MEDSUPPLY Qty: 3 RF: 3 (DME) Dexcom G6 Curtain Stretcher Misc See Rx Instructions .ROUTE .MEDSUPPLY Qty: 1 RF: 0 (DME) Dexcom G6 Transmitter Device See Rx Instructions .ROUTE .MEDSUPPLY Qty: 1 RF: 0 Depakote ER 500 mg tablet extended release 24 hr 1,000 mg PO DAILY Qty: 60 RF: 0 insulin aspart U-100 [Novolog Flexpen U-100 Insulin] 100 unit/mL (3 mL) insulin pen See Rx Instructions .ROUTE .COMPLEX RF: 0 budesonide-formoterol [Symbicort] 160-4.5 mcg/actuation HFA aerosol inhaler 2 puff INHALATION BID RF: 0 atorvastatin 40 mg tablet 40 mg PO DAILY@1000 RF: 0 clopidogrel 75 mg tablet 75 mg PO DAILY@1000 RF: 0 aspirin [Adult Aspirin Regimen] 81 mg tablet,delayed release (DR/EC) 81 mg PO DAILY@1000 RF: 0 pantoprazole 40 mg Tablet,Delayed Release (Dr/Ec) 40 mg PO DAILY@1000 RF: 0 nitroglycerin 0.4 mg tablet, sublingual 0.4 mg sublingual PRN PRN (Reason: Chest Pain) RF: 0 Vitamin B-12 1 tab PO DAILY@1000 RF: 0 multivitamin Tablet 1 tab PO DAILY@1000 RF: 0 albuterol sulfate 90 mcg/actuation Hfa Aerosol Inhaler 2 puff INHALATION Q4H PRN (Reason: Shortness Of Breath) RF: 0 Discharge Orders: Discharge ED (Routine); Ordered 02/15/21 Ordered By: Rell Guy Discharge Diet: Advance as tolerated Discharge Activity: Limit activity as instructed Patient Instructions: Abdominal Hernia, Opioid Safety Activity Restrictions/Additional Instructions: You have an abdominal hernia on your right side that reduces itself whenever you lay. Please take the hydrocodone to help with this only with severe pain and do not mix with drugs, alcohol, nor operate machinery while using this medication. If the hernia protrudes and stays out and causes severe pain please return to the ER immediately as you may need emergency surgery. If you are able to lay flat and the pain improves as well as the hernia goes back in your belly you may stay home. I have placed a case management referral to help you get an appointment with general surgery. It is important that you follow-up as this needs to be surgically corrected or it could result in an emergency surgery at some point. Please avoid lifting anything until you are evaluated by general surgeon. Coding Level of Care Code ED [employer] for [employer] Fwd Exam Comprehensive
[2021-02-15 16:37] LABS: Basophils # 0.1 10^3/uL (0.0-0.1); Eosinophils # 0.2 10^3/uL (0.0-0.8); Eosinophils % 2.6 %; Hematocrit 39.6 % (42.0-52.0); Hemoglobin 13.6 g/dL (11.7-16.6); Lymphocytes # 2.1 10^3/uL (0.8-4.8); Lymphocytes % 30.7 %; Mean Corpuscular HGB Conc 34.3 g/dL (30.0-36.0); Mean Corpuscular Hemoglobin 32.3 pg (28.0-34.0); Mean Corpuscular Volume 94.1 fL (80-94); Mean Platelet Volume 9.5 fL (7.4-10.4); Monocytes # 0.4 10^3/uL (0.2-0.9); Monocytes % 6.5 %; Neutrophils % 58.8 %; Nucleated Red Blood Cells % 0 %; Platelet Count 204 10^3/cmm (130-400); Red Blood Count 4.21 10^6/uL (4.1-5.3); White Blood Count 6.8 10^3/uL (4.0-10.0)
[2021-02-15 16:59] LABS: Lactate (Lactic Acid level) 1.7 mmol/L (0.5-2.2)
[2021-02-15 17:01] LABS: Alanine Aminotransferase 18 U/L (0-41); Alkaline Phosphatase 52 IU/L (40-130); Anion Gap 14.5 (5-19); Aspartate Amino Transferase 16 U/L (0-40); Blood Urea Nitrogen 11 mg/dL (6-20); Calcium 8.3 mg/dL (8.5-10.5); Carbon Dioxide 24 mmol/L (22-29); Chloride 100 mmol/L (98-107); Globulin 2.8 g/dL (1.3-4.6); Glomerular Filtration Rate 138.9 mL/min (90-130); Glucose 216 mg/dL (65-115); Lipase 8 U/L (13-60); Osmolality Calculated 286 mOsm/kg (285-295); Potassium 3.5 mmol/L (3.5-5.1); Sodium 135 mmol/L (136-145); Total Bilirubin 0.4 mg/dL (0.15-1.2); Total Protein 6.8 g/dL (6.6-8.7)
[2021-02-15] MEDS: HYDROmorphone 1 mg/mL INJ 1 mL 0.5 MG IVP (18:25)
--- NOTE | 2021-02-15 19:02 | PC.NURSE ---
report received from CHOLO Martinez and care transferred to CHOLO Grewal
[2021-02-15 19:47] LABS: Add Urine Microscopic? NO; Charge for UA Resulting for Rev
[2021-02-15 19:55] LABS: Bilirubin Urine Neg (Negative); Blood Urine Neg (Negative); Glucose Urine UA 4+ (Normal); Ketones Urine Negative (Negative); Leukocyte Esterase Urine Negative (Negative); Nitrate Urine Negative (Negative); Protein Urine Neg (Negative); Urine Appearance Clear (CLEAR); Urine Color Yellow (Yellow); Urobilinogen Urine 1 mg/dL (Negative); pH Urine 5 (5-7)
--- NOTE | 2021-02-19 11:41 | DCPLANNER ---
express manager had message to schedule a follow up appointment for patient with general surgery for a reducible right abdominal hernia. express manager emailed patients information to both Yisel and Lela at [facility] General Surgery. Patients information will be printed and reviewed. Clinic will call patient with appointment information.
--- NOTE | 2021-02-20 09:42 | DCPLANNER ---
Patient has a follow up appointment scheduled for Friday, February 22, 2021 at 10:[address] Garibay. Clinic will call patient with appointment information.
--- NOTE | 2021-03-16 11:40 | DCPLANNER ---
Patient had a follow up appointment scheduled for 02.22.21 with at general surgery - patient did attend appointment.
== END 2021-02-15 20:29 | disposition home or self-care (01) ==
PROVIDERS: Emergency Provider Family Medicine
DX: K46.9 Unspecified abdominal hernia without obstruction or gangrene (principal); Z79.02 Long term (current) use of antithrombotics/antiplatelets; Z79.82 Long term (current) use of aspirin; Z79.4 Long term (current) use of insulin; J44.9 Chronic obstructive pulmonary disease, unspecified; I25.10 Atherosclerotic heart disease of native coronary artery without angina pectoris; Z86.73 Personal history of transient ischemic attack (TIA), and cerebral infarction without residual deficits; E11.9 Type 2 diabetes mellitus without complications; I10 Essential (primary) hypertension; I25.2 Old myocardial infarction; Z95.5 Presence of coronary angioplasty implant and graft; F17.210 Nicotine dependence, cigarettes, uncomplicated
CPT/HCPCS: 74176; 76705; 80053; 81003; 83605; 83690; 85025; 96374; 96375; 99284; J1170; J2270

== ENCOUNTER → 2021-02-21 12:57 | Outpatient (BNVA) | payer MEDICARE, SELFPAY | PROVIDERS: Visit Provider Specialist | DX: F44.5 Conversion disorder with seizures or convulsions (principal); F17.210 Nicotine dependence, cigarettes, uncomplicated | CPT/HCPCS: 95816 ==

== ENCOUNTER → 2021-03-07 11:00 | Outpatient (BNVA) | payer MEDICARE, SELFPAY | PROVIDERS: PCP Student in an Organized Health Care Education/Training Program; Visit Provider Specialist | DX: F44.5 Conversion disorder with seizures or convulsions (principal); G43.109 Migraine with aura, not intractable, without status migrainosus; R26.81 Unsteadiness on feet; F17.210 Nicotine dependence, cigarettes, uncomplicated | CPT/HCPCS: 99214 ==

== ENCOUNTER → 2021-04-19 11:46 | Outpatient (BNVA) | payer MEDICARE, SELFPAY | PROVIDERS: PCP Student in an Organized Health Care Education/Training Program; Visit Provider Nurse Practitioner Family | DX: E11.65 Type 2 diabetes mellitus with hyperglycemia (principal); Z12.5 Encounter for screening for malignant neoplasm of prostate; Z00.00 Encounter for general adult medical examination without abnormal findings; E78.5 Hyperlipidemia, unspecified; N40.1 Benign prostatic hyperplasia with lower urinary tract symptoms; I10 Essential (primary) hypertension; M54.9 Dorsalgia, unspecified | CPT/HCPCS: 80053; 80061; 83036; 85025; G0103 ==

== ENCOUNTER 2021-05-01 16:34 | Observation (INO) | payer MEDICARE, SELFPAY ==
[2021-05-01] VITALS (9 sets, daily range): BP systolic 89–115; BP diastolic 50–71; PULSE 70–100; RESP 15–19; TEMP 36.6–37; O2SAT 93–97; BMI 26.9
--- NOTE | 2021-05-01 17:23 | CTR_ITS ---
PROCEDURE INFORMATION: Exam: CT Head Without And With Contrast Exam date and time: 05/01/2021 5:23 PM Age: 55 years old Clinical indication: Visual disturbance; Additional info: Vision loss TECHNIQUE: Imaging protocol: Computed tomography of the head without and with intravenous contrast. Sagittal and coronal reformatted images were created and reviewed. Radiation optimization: All CT scans at this facility use at least one of these dose optimization techniques: automated exposure control; mA and/or kV adjustment per patient size (includes targeted exams where dose is matched to clinical indication); or iterative reconstruction. Contrast material: VISI 320; Contrast volume: 95 ml; Contrast route: INTRAVENOUS (IV); COMPARISON: CT head wo con* [id number] 01/29/2021 4:50 PM RADIATION DOSE METRICS: Total DLP (mGy-cm): 1555.2 FINDINGS: Brain: No acute intracranial hemorrhage. No acute infarct. No intra-axial or extra-axial masses. Olguin-white matter differentiation is preserved. No cerebral edema. No extra-axial fluid collections. No midline shift. No evidence for Chiari 1 malformation. No abnormal areas of enhancement. Cerebral ventricles: No hydrocephalus. Paranasal sinuses: Interval development of moderate mucoperiosteal thickening in the anterior ethmoid and right maxillary sinuses. Mastoid air cells: Small amount of fluid in the right and left mastoid air cells. Orbital cavity: Globes and lenses, extraocular muscles, and optic nerves are intact bilaterally. No acute intraorbital abnormality. Bones/joints: No acute fracture. Soft tissues: No acute abnormality of the extracranial soft tissues. Dental: Periodontal disease involving multiple maxillary teeth. CT/CT head wo/w con [id number] IMPRESSION: 1. No acute abnormality of the brain. 2. Interval development of moderate mucoperiosteal thickening in the anterior ethmoid and right maxillary sinuses. 3. Small amount of fluid in the right and left mastoid air cells. 4. Periodontal disease involving multiple maxillary teeth. Radiation Dose CTDIVOL = (mGy): DLP = 1555.2 (mGy-cm)
[2021-05-01 17:31] LABS: Basophils # 0.1 10^3/uL (0.0-0.1); Basophils % 0.8 %; Eosinophils # 0.3 10^3/uL (0.0-0.8); Eosinophils % 2.8 %; Hemoglobin 14.7 g/dL (11.7-16.6); Lymphocytes # 2.2 10^3/uL (0.8-4.8); Lymphocytes % 21.8 %; Mean Corpuscular HGB Conc 33.4 g/dL (30.0-36.0); Mean Corpuscular Hemoglobin 31.6 pg (28.0-34.0); Mean Corpuscular Volume 94.6 fL (80-94); Mean Platelet Volume 9.6 fL (7.4-10.4); Monocytes # 0.8 10^3/uL (0.2-0.9); Neutrophils # 6.68 10^3/uL (1.8-7.7); Neutrophils % 66.3 %; Nucleated Red Blood Cells % 0 %; Platelet Count 245 10^3/cmm (130-400); Red Blood Count 4.65 10^6/uL (4.1-5.3); Red Cell Distribution Width 13.3 % (12.1-15.1); White Blood Count 10.1 10^3/uL (4.0-10.0)
--- NOTE | 2021-05-01 17:31 | ED_ITS ---
Documented by User: Dick Dacosta DO 05/02/21 06:09 HPI - General Adult General: Chief complaint: General Medical Stated complaint: VARGAS, vision problems Time Seen by Provider: 05/01/21 16:45 History of Present Illness: HPI narrative: 55-year-old male presents emergency room with complaint of waking up with a headache 4 days ago with foggy vision headache is been persisting and worsening. His vision is worsening to the point where he now states he has difficult time perceiving light. No history of trauma he is not any oral anticoagulants but he does take clopidogrel. He has pain in the eyes but no redness. He is not had any drainage from the eyes. No history of head trauma no previous strokes. Associated symptoms: Deny chest pain, dyspnea, malaise, nausea, rash or vomiting Review of Systems Const: Denies: fever(s), chills, body aches, change in appetite, fatigue or malaise ENMT: Denies: throat pain, ear or mastoid pain, nasal discharge or nasal congestion Card: Denies: chest pain, edema, dyspnea on exertion or orthopnea Resp: Denies: dyspnea, productive cough or non-productive cough GI: Denies: abdominal pain, nausea, vomiting, hematemesis, coffee ground emesis, diarrhea, constipation, bloating, hematochezia or melena : Denies: flank pain, dysuria, urinary frequency or urinary urgency Skin/Breast: Denies: rash or pruritus PFSH ED PFSH: Medical History Abdominal wall bulge Anxiety Back pain BPH NOS w ur obs/LUTS COPD (chronic obstructive pulmonary disease) Coronary artery disease CVA (cerebral vascular accident) CVA (cerebral vascular accident) Diabetes Hypertension Migraine Myocardial infarction Seizure Urinary retention Surgical History History of appendectomy History of back surgery History of cholecystectomy History of coronary angioplasty with insertion of stent History of tonsillectomy History of vasectomy S/P left knee arthroscopy Family History Other CAD (coronary artery disease) Hypertension Social History Smoking and tobacco status: current every day smoker cigarettes Packs smoked per day: 0.5 Years cigarettes smoked: 13 Second hand smoke exposure: No Alcohol intake: never Substance/Drug Use: never Caregiver/support person: Yes (spouse) Lives independently: Yes Household members: spouse Marital status: Current occupational status: disabled History of recent travel: No Current gender identity: Male Physical Exam Const: COMMON NORMALS: no acute distress GENERAL APPEARANCE: cooperative and comfortable ORIENTATION/CONSCIOUSNESS: Yes awake, Yes oriented to person, Yes oriented to place and Yes oriented to time HENMT: COMMON NORMALS: normocephalic, atraumatic, hearing grossly normal bilaterally, external ears normal, EAC's normal, TM's normal bilaterally, Normal nasal mucous membranes and turbinates present, moist oral mucous membranes and oropharynx normal HEAD & SCALP: normocephalic and atraumatic NOSE: Normal nasal mucous membranes and turbinates present EXTERNAL EAR: Yes external ears normal EXTERNAL AUDITORY CANAL: EAC's normal TYMPANIC MEMBRANE: TM's normal bilaterally OTHER: No tenderness to palpation of the temporal arteries. Eye: COMMON NORMALS: Equal, round and reactive pupils present, EOMs intact bilaterally, conjunctivae normal and no scleral icterus CONJUNCTIVA: Yes conjunctivae normal PUPIL: Yes Equal, round and reactive pupils present Neck/C-Spine: COMMON NORMALS: full ROM, no lymphadenopathy, supple and no JVD Lymph: LYMPHATIC: no lymphadenopathy noted and no lymphedema noted Resp: COMMON NORMALS: normal respiratory effort, No retractions, No use of accessory muscles and clear to auscultation bilaterally AUSCULTATION: clear to auscultation bilaterally Cardio: COMMON NORMALS: no JVD, regular rate, regular rhythm and No murmurs present (Cardio) RATE: regular rate RHYTHM: regular rhythm GI: COMMON NORMALS: Soft to palpation and No hepatosplenomegaly present AUSCULTATION: Yes normoactive bowel sounds PALPATION: Yes Soft to palpation, No Tenderness to palpation present (GI), No Guarding due to palpation present (GI) and Yes No hepatosplenomegaly present Extremity: COMMON NORMALS: normal to inspection, capillary refill normal, no clubbing, cyanosis or edema, no calf tenderness and no pedal edema Neuro: SENSORIUM/ORIENTATION: Yes oriented to person, Yes oriented to place and Yes oriented to time Skin: COMMON NORMALS: no rashes or lesions noted GENERAL SKIN EXAM: no rashes or lesions noted Course Vital Signs: Vital signs: Vital Signs Temperature 98.0 F 05/02/21 03:31 Pulse Rate 63 05/02/21 03:31 Respiratory Rate 18 05/02/21 03:31 Blood Pressure 89/53 05/02/21 03:31 Pulse Oximetry 96 05/02/21 03:31 MDM - General Adult MDM Narrative: Medical decision making narrative: Did note him seeming to be tracking at times. He is able to follow light. He tells me he cannot see at all. He is not alarmed by this. CT is pending discussed with Dr. Schultz care turned over to Dr. Schultz at change of shift see his notes for final diagnosis and disposition. Lab Data: Labs: Lab Results 05/01/21 05/01/21 05/01/21 Range/Units 17:12 17:12 17:12 WBC 10.1 H (4.0-10.0) 10^3/ uL RBC 4.65 (4.1-5.3) 10^6/u L Hgb 14.7 (11.7-16.6) g/dL Hct 44.0 (42.0-52.0) % MCV 94.6 H (80-94) fL MCH 31.6 (28.0-34.0) pg MCHC 33.4 (30.0-36.0) g/dL RDW 13.3 (12.1-15.1) % Plt Count 245 (130-400) 10^3/c mm MPV 9.6 (7.4-10.4) fL Neut % (Auto) 66.3 % Lymph % (Auto) 21.8 % Citrus % (Auto) 8.0 % Eos % (Auto) 2.8 % Baso % (Auto) 0.8 % Neut # (Auto) 6.68 (1.8-7.7) 10^3/u L Lymph # (Auto) 2.2 (0.8-4.8) 10^3/u L Citrus # (Auto) 0.8 (0.2-0.9) 10^3/u L Eos # (Auto) 0.3 (0.0-0.8) 10^3/u L Baso # (Auto) 0.1 (0.0-0.1) 10^3/u L Nucleated RBC % (a uto) 0 % Nucleated RBCs # 0.0 /100WBC ESR 25 H (0-10) mm/hr Sodium 137 (136-145) mmol/L Potassium 3.8 (3.5-5.1) mmol/L Chloride 100 (98-107) mmol/L Carbon Dioxide 26 (22-29) mmol/L Anion Gap 14.8 (5-19) BUN 12 (6-20) mg/dL Creatinine 0.6 L (0.7-1.2) mg/dL GFR Calculation 138.9 H (90-130) mL/min Glucose 80 (65-115) mg/dL Calculated Osmolal ity 283 L (285-295) mOsm/k g Calcium 8.8 (8.5-10.5) mg/dL Total Bilirubin 0.5 (0.15-1.2) mg/dL AST 17 (0-40) U/L ALT 15 (0-41) U/L Alkaline Phosphata se 54 (40-130) IU/L C-Reactive Protein (0.0-4.9) mg/L Total Protein 7.4 (6.6-8.7) g/dL Albumin 4.0 (3.5-5.2) g/dL Globulin 3.4 (1.3-4.6) g/dL Valproic Acid (50-100) ug/mL RPR (Nonreactive) 05/01/21 05/01/21 05/01/21 Range/Units 17:12 17:12 17:12 WBC (4.0-10.0) 10^3/ uL RBC (4.1-5.3) 10^6/u L Hgb (11.7-16.6) g/dL Hct (42.0-52.0) % MCV (80-94) fL MCH (28.0-34.0) pg MCHC (30.0-36.0) g/dL RDW (12.1-15.1) % Plt Count (130-400) 10^3/c mm MPV (7.4-10.4) fL Neut % (Auto) % Lymph % (Auto) % Citrus % (Auto) % Eos % (Auto) % Baso % (Auto) % Neut # (Auto) (1.8-7.7) 10^3/u L Lymph # (Auto) (0.8-4.8) 10^3/u L Citrus # (Auto) (0.2-0.9) 10^3/u L Eos # (Auto) (0.0-0.8) 10^3/u L Baso # (Auto) (0.0-0.1) 10^3/u L Nucleated RBC % (a uto) % Nucleated RBCs # /100WBC ESR (0-10) mm/hr Sodium (136-145) mmol/L Potassium (3.5-5.1) mmol/L Chloride (98-107) mmol/L Carbon Dioxide (22-29) mmol/L Anion Gap (5-19) BUN (6-20) mg/dL Creatinine (0.7-1.2) mg/dL GFR Calculation (90-130) mL/min Glucose (65-115) mg/dL Calculated Osmolal ity (285-295) mOsm/k g Calcium (8.5-10.5) mg/dL Total Bilirubin (0.15-1.2) mg/dL AST (0-40) U/L ALT (0-41) U/L Alkaline Phosphata se (40-130) IU/L C-Reactive Protein 24.0 H (0.0-4.9) mg/L Total Protein (6.6-8.7) g/dL Albumin (3.5-5.2) g/dL Globulin (1.3-4.6) g/dL Valproic Acid 47.8 L (50-100) ug/mL RPR Nonreactive (Nonreactive) Discharge Plan Discharge Patient Disposition: Admitted As Inpatient Admit Provider: Shena Brewer Clinical Impression: Vision changes Headache Qualifiers: Headache type: unspecified Condition: Stable Coding Level of Care Code ED Ap Operator for Chg Fwd Documented by User: Herve Schultz MD 05/01/21 21:00 HPI - General Adult General: Chief complaint: General Medical Stated complaint: VARGAS, vision problems Time Seen by Provider: 05/01/21 16:45 PFSH ED PFSH: Medical History Abdominal wall bulge Anxiety Back pain BPH NOS w ur obs/LUTS COPD (chronic obstructive pulmonary disease) Coronary artery disease CVA (cerebral vascular accident) CVA (cerebral vascular accident) Diabetes Hypertension Migraine Myocardial infarction Seizure Urinary retention Surgical History History of appendectomy History of back surgery History of cholecystectomy History of coronary angioplasty with insertion of stent History of tonsillectomy History of vasectomy S/P left knee arthroscopy Family History Other CAD (coronary artery disease) Hypertension Social History Smoking and tobacco status: current every day smoker cigarettes Packs smoked per day: 0.5 Years cigarettes smoked: 13 Second hand smoke exposure: No Alcohol intake: never Substance/Drug Use: never Caregiver/support person: Yes (spouse) Lives independently: Yes Household members: spouse Marital status: Current occupational status: disabled History of recent travel: No Current gender identity: Male Course Vital Signs: Vital signs: Vital Signs Temperature 98.0 F 05/02/21 03:31 Pulse Rate 63 05/02/21 03:31 Respiratory Rate 18 05/02/21 03:31 Blood Pressure 89/53 05/02/21 03:31 Pulse Oximetry 96 05/02/21 03:31 MDM - General Adult MDM Narrative: Medical decision making narrative: Patient presents here with headache and vision loss that has been going on for days. His ESR and CRP only minimally elevated and do not believe this is giant cell arteritis. His CT head here is normal as well. Spoke to hospitalist and will admit for observation as he likely needs an MRI. Lab Data: Labs: Lab Results 05/01/21 05/01/21 05/01/21 Range/Units 17:12 17:12 17:12 WBC 10.1 H (4.0-10.0) 10^3/ uL RBC 4.65 (4.1-5.3) 10^6/u L Hgb 14.7 (11.7-16.6) g/dL Hct 44.0 (42.0-52.0) % MCV 94.6 H (80-94) fL MCH 31.6 (28.0-34.0) pg MCHC 33.4 (30.0-36.0) g/dL RDW 13.3 (12.1-15.1) % Plt Count 245 (130-400) 10^3/c mm MPV 9.6 (7.4-10.4) fL Neut % (Auto) 66.3 % Lymph % (Auto) 21.8 % Citrus % (Auto) 8.0 % Eos % (Auto) 2.8 % Baso % (Auto) 0.8 % Neut # (Auto) 6.68 (1.8-7.7) 10^3/u L Lymph # (Auto) 2.2 (0.8-4.8) 10^3/u L Citrus # (Auto) 0.8 (0.2-0.9) 10^3/u L Eos # (Auto) 0.3 (0.0-0.8) 10^3/u L Baso # (Auto) 0.1 (0.0-0.1) 10^3/u L Nucleated RBC % (a uto) 0 % Nucleated RBCs # 0.0 /100WBC ESR 25 H (0-10) mm/hr Sodium 137 (136-145) mmol/L Potassium 3.8 (3.5-5.1) mmol/L Chloride 100 (98-107) mmol/L Carbon Dioxide 26 (22-29) mmol/L Anion Gap 14.8 (5-19) BUN 12 (6-20) mg/dL Creatinine 0.6 L (0.7-1.2) mg/dL GFR Calculation 138.9 H (90-130) mL/min Glucose 80 (65-115) mg/dL Calculated Osmolal ity 283 L (285-295) mOsm/k g Calcium 8.8 (8.5-10.5) mg/dL Total Bilirubin 0.5 (0.15-1.2) mg/dL AST 17 (0-40) U/L ALT 15 (0-41) U/L Alkaline Phosphata se 54 (40-130) IU/L C-Reactive Protein (0.0-4.9) mg/L Total Protein 7.4 (6.6-8.7) g/dL Albumin 4.0 (3.5-5.2) g/dL Globulin 3.4 (1.3-4.6) g/dL Valproic Acid (50-100) ug/mL RPR (Nonreactive) 05/01/21 05/01/21 05/01/21 Range/Units 17:12 17:12 17:12 WBC (4.0-10.0) 10^3/ uL RBC (4.1-5.3) 10^6/u L Hgb (11.7-16.6) g/dL Hct (42.0-52.0) % MCV (80-94) fL MCH (28.0-34.0) pg MCHC (30.0-36.0) g/dL RDW (12.1-15.1) % Plt Count (130-400) 10^3/c mm MPV (7.4-10.4) fL Neut % (Auto) % Lymph % (Auto) % Citrus % (Auto) % Eos % (Auto) % Baso % (Auto) % Neut # (Auto) (1.8-7.7) 10^3/u L Lymph # (Auto) (0.8-4.8) 10^3/u L Citrus # (Auto) (0.2-0.9) 10^3/u L Eos # (Auto) (0.0-0.8) 10^3/u L Baso # (Auto) (0.0-0.1) 10^3/u L Nucleated RBC % (a uto) % Nucleated RBCs # /100WBC ESR (0-10) mm/hr Sodium (136-145) mmol/L Potassium (3.5-5.1) mmol/L Chloride (98-107) mmol/L Carbon Dioxide (22-29) mmol/L Anion Gap (5-19) BUN (6-20) mg/dL Creatinine (0.7-1.2) mg/dL GFR Calculation (90-130) mL/min Glucose (65-115) mg/dL Calculated Osmolal ity (285-295) mOsm/k g Calcium (8.5-10.5) mg/dL Total Bilirubin (0.15-1.2) mg/dL AST (0-40) U/L ALT (0-41) U/L Alkaline Phosphata se (40-130) IU/L C-Reactive Protein 24.0 H (0.0-4.9) mg/L Total Protein (6.6-8.7) g/dL Albumin (3.5-5.2) g/dL Globulin (1.3-4.6) g/dL Valproic Acid 47.8 L (50-100) ug/mL RPR Nonreactive (Nonreactive) Imaging Data^: CT Head: Attestation: I personally reviewed and interpreted this imaging study as follows: Radiologist's impression: [employer] [id number] [address] Scan Report Signed Patient: Arcenio Saldivar Unit #: [id number] : 1965 Age/Sex: 55 / M ADM Date: 05/01/21 Loc: ER Room/Bed: Attending Dr: Ordering Provider/Ordering MD: Dick Dacosta DO Date of Service: 05/01/21 Procedure(s): CT head wo/w con [id number] Accession Number(s): [id number] Report Number: [id number] PROCEDURE INFORMATION: Exam: CT Head Without And With Contrast Exam date and time: 05/01/2021 5:23 PM Age: 55 years old Clinical indication: Visual disturbance; Additional info: Vision loss TECHNIQUE: Imaging protocol: Computed tomography of the head without and with intravenous contrast. Sagittal and coronal reformatted images were created and reviewed. Radiation optimization: All CT scans at this facility use at least one of these dose optimization techniques: automated exposure control; mA and/or kV adjustment per patient size (includes targeted exams where dose is matched to clinical indication); or iterative reconstruction. Contrast material: VISI 320; Contrast volume: 95 ml; Contrast route: INTRAVENOUS (IV); COMPARISON: CT head wo con* [id number] 01/29/2021 4:50 PM RADIATION DOSE METRICS: Total DLP (mGy-cm): 1555.2 FINDINGS: Brain: No acute intracranial hemorrhage. No acute infarct. No intra-axial or extra-axial masses. Olguin-white matter differentiation is preserved. No cerebral edema. No extra-axial fluid collections. No midline shift. No evidence for Chiari 1 malformation. No abnormal areas of enhancement. Cerebral ventricles: No hydrocephalus. Paranasal sinuses: Interval development of moderate mucoperiosteal thickening in the anterior ethmoid and right maxillary sinuses. Mastoid air cells: Small amount of fluid in the right and left mastoid air cells. Orbital cavity: Globes and lenses, extraocular muscles, and optic nerves are intact bilaterally. No acute intraorbital abnormality. Bones/joints: No acute fracture. Soft tissues: No acute abnormality of the extracranial soft tissues. Dental: Periodontal disease involving multiple maxillary teeth. CT/CT head wo/w con [id number] IMPRESSION: 1. No acute abnormality of the brain. 2. Interval development of moderate mucoperiosteal thickening in the anterior ethmoid and right maxillary sinuses. 3. Small amount of fluid in the right and left mastoid air cells. 4. Periodontal disease involving multiple maxillary teeth. Discharge Plan Discharge Patient Disposition: Admitted As Inpatient Admit Provider: Shena Brewer Clinical Impression: Vision changes Headache Qualifiers: Headache type: unspecified Condition: Stable Coding Level of Care Code ED Ap Operator for Adriana Iyer
[2021-05-01] MEDS: ketorolac 30 mg/mL INJ IVP (17:32)
--- NOTE | 2021-05-01 17:38 | PC.PHAR ---
PT UNABLE TO CONFIRM MEDICATIONS, SO CONFIRMED. HOWEVER, THERE WERE VERY FEW MEDICATIONS FILLED RECENTLY AND SOME OF THEM SHOULD HAVE BEEN OUT FOR MONTHS. STATES HE MUST NOT BE TAKING THEM CORRECTLY. SHE STATES SHE WILL HAVE TO SUPERVISE HIS MEDICATION BETTER.
[2021-05-01 17:41] LABS: Alanine Aminotransferase 15 U/L (0-41); Alkaline Phosphatase 54 IU/L (40-130); Anion Gap 14.8 (5-19); Aspartate Amino Transferase 17 U/L (0-40); Blood Urea Nitrogen 12 mg/dL (6-20); Calcium 8.8 mg/dL (8.5-10.5); Carbon Dioxide 26 mmol/L (22-29); Chloride 100 mmol/L (98-107); Globulin 3.4 g/dL (1.3-4.6); Glomerular Filtration Rate 138.9 mL/min (90-130); Glucose 80 mg/dL (65-115); Osmolality Calculated 283 mOsm/kg (285-295); Potassium 3.8 mmol/L (3.5-5.1); Sodium 137 mmol/L (136-145); Total Bilirubin 0.5 mg/dL (0.15-1.2); Total Protein 7.4 g/dL (6.6-8.7)
[2021-05-01] MEDS: diphenhydrAMINE 50 mg/mL SDV 1mL IVP (17:46)
[2021-05-01] MEDS: hydrocortisone 100 mg/2 mL SDV IVP (17:46)
[2021-05-01] MEDS: iodixanol 320 mg/mL 100mL Btl IV (18:08)
[2021-05-01 20:20] LABS: Valproic Acid Level 47.8 ug/mL (50-100)
[2021-05-01] MEDS: ondansetron 2 mg/ML SDV 2 mL 4 MG IVP (20:23)
[2021-05-01] MEDS: morphine 4 mg/mL SDV 1 mL IVP (20:23)
[2021-05-01 20:35] LABS: Erythrocyte Sedimentation Rate 25 mm/hr (0-10)
--- NOTE | 2021-05-01 21:55 | P.HP_ITS ---
Providers/Chief Complaint Admitting Physician: Shena Brewer MD Primary Care Provider: Lloyd Wood MD Chief Complaint: Blurrry Vision, History of Present Illness Arcenio Saldivar is a 55 year old male with PMH diabetes mellitus, functional seizure-like episodes, follows with Dr. Gurrola as an outpatient sent for evalution by his PCP after he complained of 4 days of headache and new visual loss. He complains of a headache in the mormon region since 4 days that is a constant band like ache. He has had associated blurring of vision that has progressed to the point that he cannot see people standing in front of him. He has some light perception. No recent seizure episodes.Ct head taken in the ER today is without acute abnormalities. Denies past h/o CVA. no new medications added to his regimen. Denies fever, chils, dyspnea. No past h/o GCA. ESR 25 today . no red eye or abnormal discharge noted. Review of Systems General: Reports: 10 or more systems reviewed and unremarkable except in HPI and below Const: Denies: fever(s), chills or body aches Eyes: Denies: change in vision, blurry vision or photophobia ENMT: Reports: hoarseness; Denies: throat pain, enlarged tonsils, odynophagia or nasal congestion Card: Denies: chest pain, palpitations, irregular heart rhythm, edema, swelling of feet/ankles, lightheadedness, pre-syncope, dyspnea on exertion or orthopnea Resp: Denies: dyspnea, productive cough, non-productive cough, wheezing, stridor, pain on inspiration, change in phlegm color, hemoptysis or chest congestion GI: Denies: abdominal pain, nausea, vomiting, hematemesis, coffee ground emesis, dysphagia, heartburn, diarrhea, constipation, GI cramping, change in stool character, hematochezia or melena : Denies: flank pain, dysuria, urinary frequency, urinary urgency, urinary hesitancy or hematuria Musc: Denies: neck pain, back pain, extremity pain, joint swelling, joint warmth or deformity Neuro: Denies: headache(s), numbness in extremities, weakness in extremities, sensory changes, difficulty walking, frequent falls, dizziness, vertigo, behavioral changes, Slurred speech present or seizure-like activity Psych: Denies: anxiety, depression, suicidal ideation or homicidal ideation Endo: Denies: polyuria, polydipsia, tired all the time, cold intolerance or hot flashes Giovany/Lymph: Denies: easy bruising or easy bleeding Medications/Allergies Home Medications Medication Instructions Recorded Confirmed Last Taken Type Vitamin B-12 1 tab PO DAILY@1000 12/30/19 05/01/21 02/14/21 History nitroglycerin 0.4 mg SUBLINGUAL PRN PRN 12/30/19 05/01/21 Unknown History pantoprazole 40 mg PO DAILY@1000 12/30/19 05/01/21 05/01/21 History ascorbic acid (vitamin C) 500 mg 500 mg PO DAILY@1000 04/26/20 05/01/21 04/30/21 History tablet flash glucose scanning reader #1 ea 12/13/20 05/01/21 Unknown Rx flash glucose sensor #2 ea 12/13/20 05/01/21 Unknown Rx albuterol sulfate 2 puff INHALATION Q4H PRN 12/14/20 05/01/21 Unknown History multivitamin 1 tab PO DAILY@1000 12/14/20 05/01/21 05/01/21 History blood-glucose meter,continuous #1 ea 12/20/20 05/01/21 Unknown Rx blood-glucose sensor #3 ea 12/20/20 05/01/21 Unknown Rx blood-glucose transmitter #1 ea 12/20/20 05/01/21 Unknown Rx aspirin [Adult Aspirin Regimen] 81 mg PO DAILY@1000 01/29/21 05/01/21 04/30/21 History budesonide-formoterol [Symbicort] 2 puff INHALATION BID 01/29/21 05/01/21 02/14/21 History clopidogrel 75 mg PO DAILY@1000 01/29/21 05/01/21 04/30/21 History insulin aspart U-100 [Novolog See Rx Instructions .ROUTE .COMPLEX 01/29/21 05/01/21 05/01/21 History Flexpen U-100 Insulin] divalproex 500 mg tablet,extended 1,000 mg PO DAILY #60 tab 02/06/21 05/01/21 04/30/21 Rx release 24 hr ondansetron HCl 4 mg tablet 4 mg PO Q8H PRN #20 tab 02/13/21 05/01/21 Unknown Rx hydrocodone-acetaminophen 1 tab PO Q6H PRN #15 tab 02/15/21 05/01/21 Unknown Rx Rolator Walker #1 ea 03/07/21 05/01/21 Unknown Rx tamsulosin 0.4 mg capsule 0.4 mg PO DAILY #90 cap 04/19/21 05/01/21 04/30/21 Rx insulin glargine 100 unit/mL (3 10 unit SUBCUT DAILY@1000 ml 04/24/21 05/01/21 05/01/21 History mL) subcutaneous pen insulin glargine [Basaglar FlakitoikPen See Rx Instructions .ROUTE .COMPLEX 05/01/21 05/01/21 Unknown History U-100 Insulin] Allergies Allergy/AdvReac Type Severity Reaction Status Date / Time iodine Allergy ALGY-Anaphy Verified 05/01/21 15:10 laxis PFSH Acute PFSH: Medical History Abdominal wall bulge Anxiety Back pain BPH NOS w ur obs/LUTS COPD (chronic obstructive pulmonary disease) Coronary artery disease CVA (cerebral vascular accident) CVA (cerebral vascular accident) Diabetes Hypertension Migraine Myocardial infarction Seizure Urinary retention Surgical History History of appendectomy History of back surgery History of cholecystectomy History of coronary angioplasty with insertion of stent History of tonsillectomy History of vasectomy S/P left knee arthroscopy Family History Other CAD (coronary artery disease) Hypertension Social History Smoking and tobacco status: current every day smoker cigarettes Packs smoked per day: 0.5 Years cigarettes smoked: 13 Second hand smoke exposure: No Alcohol intake: never Substance/Drug Use: never Caregiver/support person: Yes (spouse) Lives independently: Yes Household members: spouse Marital status: Current occupational status: disabled History of recent travel: No Current gender identity: Male Vitals/I&O/Wt Last Vital Signs Temp 98.6 F 05/01/21 16:38 Pulse 90 05/01/21 21:15 Resp 19 H 05/01/21 21:15 BP 99/65 05/01/21 21:15 Pulse Ox 97 05/01/21 21:15 Weight last 48 hrs Weight 73.482 kg Physical Exam Narrative: EXAM NARRATIVE: General: No acute distress, AO x3 HEENT: PERRLA, pupils bilaterally equal and reactive, pallors not present Chest: Normal vesicular breath sounds, no added sounds, equal good air entry bilaterally CVS: S1-S2 regular, no murmurs, no tachycardia, no gallops, no rubs Abdomen: Soft, nontender, no organomegaly, bowel sounds present Neuro: No focal deficits, no facial deformity, AO x3, power 5/5 in all limbs Data : 05/01/21 17:12 05/01/21 17:12 A&P Assessment and plan (1) Vision changes: Acute visual changes which started over past 4 days and becoming progressive Describes this as blurred vision CT head without acute abnormalities ESR 25, no temporal tenderness, less likely GCA MRI in am Ophthalmology consult in am Status: Acute (2) Headache: Status: Acute Qualifiers: Headache type: unspecified Attestations Medical Necessity Statement*: new onset visual blurring and headache, anticipate less than 2 midnight stay Coding Level of Care Code Acute Residential Monitor for g Fwd Diagnoses Vision changes H53.9 Headache R51.9 Headache type: unspecified
[2021-05-01 22:45] LABS: Rapid Plasma Reagin Syphilis Nonreactive (Nonreactive)
--- NOTE | 2021-05-02 | MR_ITS ---
WS: [id number] Arcenio Saldivar 1965 MRI HEAD WITHOUT CONTRAST TECHNIQUE: Sagittal T1, T2 axial, T2 axial FLAIR, axial susceptibility weighted imaging, axial diffus ion weighted images, and coronal T2 images were obtained. CLINICAL INFORMATION: Headache visual blurring x4 days. CVA. COMPARISON: CT May 01, 2021 FINDINGS: No evidence of restricted diffusion to acute ischemia. Ventricular system and basal cisterns are durbin nt. Minimal white matter changes. Mild parenchymal volume loss. Normal posterior fossa. Normal vascul ar flow voids at the skull base. No extra-axial fluid collections. No evidence of mass or mass effect . Mild mucosal thickening in the paranasal sinuses worse in the right maxillary sinus. Mastoid air ce lls are well aerated. No hemosiderin on susceptibly weighted images. Normal optic chiasm and pituitary infundibulum. Mild s ymmetric atrophy temporal lobes and hippocampal formations. MR/MR head wo con* [id number] IMPRESSION: 1. No evidence of restricted diffusion to suggest acute ischemia. 2. Minimal small vessel changes. Mild parenchymal volume loss. 3. Mild mucosal thickening right maxillary sinus. 4. No hemosiderin on susceptibly weighted images. 5. Mild symmetric atrophy temporal lobes and hippocampal formations.
[2021-05-02 03:31] VITALS: BP 89/53; PULSE 63; RESP 18; TEMP 36.7; O2SAT 96
[2021-05-02] MEDS: HYDROcodone-acetaminophen 5-325 mg Tablet 1 TAB PO ×2 (05:43→16:05)
[2021-05-02 06:29] LABS: Glucose Point of Care 163 mg/dL (70-110)
[2021-05-02 07:40] VITALS: BP 100/82; PULSE 63; RESP 18; TEMP 36.4; O2SAT 90
--- NOTE | 2021-05-02 08:23 | PC.RESP ---
SMOKING CESSATION AND PULMONARY REHAB INFORMATION SENT TO PATIENT.
[2021-05-02] MEDS: insulin glargine 100 units/1 mL 10 UNIT SUBCUT (09:50)
[2021-05-02] MEDS: tamsulosin 0.4 mg Capsule PO (10:02)
--- NOTE | 2021-05-02 10:02 | PC.CHAP ---
Pastoral Care Encounter/Spiritual Assessment Type of Contact [] Declined civil structural engineer visit [] Patient/Family/Request visit [] Outpatient visit [] Follow-up visit [] Physician referral [] Code/Alert [x] Routine visit [] Staff referral [] Actively dying [x] Patient sleeping [] Family support [] [] Out of room [] Palliative care [] [] Receiving care in room [] Pre-surgical visit [] Trauma [] Long length of stay [] ICU visit [] Other: Relational/Emotional Strength [] Patient feels connected with others/family/visitors/staff [] Distress [] Loneliness/isolation [] Abandonment Spirituality of Patient [] Person of Reema [] Attends Buddhism of their Reema [] Believes in Prayer [] Reads Bible or Buddhism materials [] There are Spiritual issues to be addressed Line Analyst Interventions [] Prayer [] Active listening [] Non-anxious presence [] Spiritual/emotional support [] Crisis/trauma care [] Spiritual counseling [] Bereavement support [] Provided bereavement packet [] Provided Bible/devotional materials [] Provided toy/stuffed animal, coloring book to patient or family member [] Provided Communion [] Anointing/Holland [] Salvation [x] Completed spiritual assessment [] Other: Impact on Illness or Injury [] Angry [] Fearful [] Anxious [] Often cries [] Exhaustion [] Unable to work [] Unable to attend synagogue [] Unable to walk/stand [] Unable to read [] Unable to drive [] Unable to eat/drink [] Unable to sleep [] Unable to be with family [] Patient intubated [] Other: Summary Time spent with patient
[2021-05-02] MEDS: pantoprazole DR 40 mg Tablet PO (10:04)
[2021-05-02] MEDS: clopidogrel 75 mg Tablet PO (10:04)
[2021-05-02] MEDS: aspirin 81 mg EC Tablet PO (10:04)
[2021-05-02] MEDS: divalproex ER 500 mg Tablet (24H) 1000 MG PO (10:06)
[2021-05-02] MEDS: LORazepam 2 mg/mL INJ 1 mL 1 MG IVP (11:22)
[2021-05-02 12:17] VITALS: BP 140/78; PULSE 78; RESP 18; TEMP 37.1; O2SAT 90
[2021-05-02 12:33] LABS: Glucose Point of Care 109 mg/dL (70-110)
--- NOTE | 2021-05-02 14:48 | PC.NUTR ---
Nutrition assessment completed d/t MST score of 5 for decreased appetite at wt loss > 33 lbs. Pt reports wt loss of 100 lbs, unsure of accuracy. Also reports chewing and swallowing difficulty. Recommend POULTRY EVISCERATOR evalution. Recommend monitor weight for further wt loss. Will re-evaluate when more information available. See RD assessment for further details.
[2021-05-02 16:00] VITALS: BP 100/62; PULSE 75; RESP 18; TEMP 37.2; O2SAT 95
[2021-05-02 17:30] LABS: Glucose Point of Care 106 mg/dL (70-110)
[2021-05-02 19:36] VITALS: BP 94/58; PULSE 76; RESP 18; TEMP 36.7; O2SAT 99
[2021-05-02 20:55] LABS: Glucose Point of Care 243 mg/dL (70-110)
--- NOTE | 2021-05-02 23:11 | PM.PN ---
Subjective Subjective: Interval history: At the time that the patient was seen, he was post an MRI wo contrast and complained that he still has a bitemporal parietal headache, that he has had for the last 5 days as well as visual difficulty. He complains of constipation. He also complains of right upper quadrant abdominal pain, early satiety, and 100 pound weight loss over 2 months in August/September. He has poor appetite, because he has abdominal pain whenever he eats. States that he has had CVAs in the past, so he has chronic dysphagia and generally does change talk movements to help him swallow, but he denies dysphagia or diet aphasia. Medications: Reviewed: Yes Vitals/I&O/Wt Last Vital Signs Temp 98.0 F 05/02/21 19:36 Pulse 76 05/02/21 19:36 Resp 18 05/02/21 19:36 BP 94/58 05/02/21 19:36 Pulse Ox 99 05/02/21 19:36 05/02/21 05/02/21 05/03/21 14:59 22:59 06:59 Intake Total 120 / 120 Balance 120 / 120 Weight last 48 hrs Weight 73.482 kg Weight 73.482 kg Physical Exam Const: GENERAL APPEARANCE: cooperative ORIENTATION/CONSCIOUSNESS: Yes awake, Yes oriented to person, Yes oriented to place and Yes oriented to time HENMT: COMMON NORMALS: normocephalic, atraumatic, external ears normal and Normal external nose present HEAD & SCALP: normocephalic and atraumatic FACE & SINUS: normal facial exam NOSE: Normal external nose present EXTERNAL EAR: Yes external ears normal MOUTH: Normal oral and palatal mucosa present TEETH & GINGIVA: Yes poor dentition THROAT: posterior oropharynx normal Eye: COMMON NORMALS: Equal, round and reactive pupils present and conjunctivae normal CONJUNCTIVA: Yes conjunctivae normal PUPIL: Yes Equal, round and reactive pupils present Neck/C-Spine: COMMON NORMALS: Thyroid normal GENERAL: Yes trachea midline THYROID: Thyroid normal Resp: COMMON NORMALS: clear to auscultation bilaterally AUSCULTATION: clear to auscultation bilaterally Cardio: COMMON NORMALS: regular rate and regular rhythm RATE: regular rate RHYTHM: regular rhythm HEART SOUNDS: no click, no gallops, no murmurs and no rubs GI: COMMON NORMALS: Soft to palpation and No hepatosplenomegaly present AUSCULTATION: Yes normoactive bowel sounds PALPATION: Yes Soft to palpation, Yes Tenderness to palpation present (GI) Details: RUQ, No Guarding due to palpation present (GI), No Rigid due to palpation, Yes No hepatosplenomegaly present and No Rebound tenderness present Extremity: COMMON NORMALS: no clubbing, cyanosis or edema Neuro: SENSORIUM/ORIENTATION: Yes oriented to person, Yes oriented to place and Yes oriented to time CRANIAL NERVES: Yes CN normal except as noted SPEECH: speech normal GAIT: Yes Festinating gait present SENSORY EXAM: Yes Normal double simultaneous stimulation for sensation MOTOR EXAM: 5/5 motor strength present throughout and Normal motor muscle tone present throughout Psych: ATTITUDE: Yes engaged ACTIVITY/MOTOR BEHAVIOR: Yes appropriate eye contact MOOD & AFFECT: Yes euthymic mood Skin: COMMON NORMALS: no rashes or lesions noted GENERAL SKIN EXAM: no rashes or lesions noted Data : 05/01/21 17:12 05/01/21 17:12 A&P Assessment and plan (1) Headache: Status: Acute Qualifiers: Headache type: unspecified (2) Vision changes: Status: Acute Mr. Saldivar is a 55yo man w/ a hx of Migraines, hx of pseudoseizures, a hx of presenting to the hospital w/ multiple CVA like symptoms or complaints of weakness, who presented to the ED w/ complaints of headache and new vision loss. # Vision changes - Will refer patient to see Ophthalmology. He states that he can see far but not near. # Headache - MRI brain w/o contrast negative. Will get MRI w/ contrast to r/o other pathology # Early satiety, Abdominal pain, weight loss - Make him NPO. Order CT abd/pelvis w/ contrast. DVT ppx: SCD pumps Attestations Medical Necessity Statement*: Continued hospitalization is required for further investigation of his Neuro & GI symptoms. Coding Level of Care Code Acute Embroidery Assistant for Chg Fwd Exam Comprehensive Diagnoses Headache R51.9 Headache type: unspecified Vision changes H53.9
[2021-05-02 23:15] VITALS: BP 96/65; PULSE 75; RESP 18; TEMP 36.7; O2SAT 98
[2021-05-03] MEDS: bisacodyl 5 mg Tablet 10 MG PO (03:16)
[2021-05-03 04:00] VITALS: BP 95/58; PULSE 67; RESP 18; TEMP 36.8; O2SAT 97
[2021-05-03] MEDS: HYDROcodone-acetaminophen 5-325 mg Tablet 1 TAB PO ×2 (04:01→14:09)
[2021-05-03 06:44] LABS: Glucose Point of Care 144 mg/dL (70-110)
[2021-05-03 07:14] VITALS: BP 121/75; PULSE 80; RESP 18; TEMP 36.4; O2SAT 98
[2021-05-03] MEDS: lactulose oral liq 20 gm/30 mL UDC 30 GM PO (09:01)
[2021-05-03] MEDS: divalproex ER 500 mg Tablet (24H) 1000 MG PO (09:01)
[2021-05-03] MEDS: tamsulosin 0.4 mg Capsule PO (09:02)
[2021-05-03] MEDS: pantoprazole DR 40 mg Tablet PO (09:02)
[2021-05-03] MEDS: aspirin 81 mg EC Tablet PO (09:02)
[2021-05-03] MEDS: clopidogrel 75 mg Tablet PO (09:02)
[2021-05-03] MEDS: insulin glargine 100 units/1 mL 10 UNIT SUBCUT (09:09)
--- NOTE | 2021-05-03 10:30 | CTR_ITS ---
PROCEDURE INFORMATION: Exam: CT Abdomen And Pelvis With Contrast Exam date and time: 05/03/2021 10:30 AM Age: 55 years old Clinical indication: Nausea and vomiting; Abdominal pain; Generalized; Prior surgery; Surgery type: Gb, appy, back; Patient HX: Rlq know x 1 year, n/v, weight loss; Additional info: Early satiety, abdominal pain after eating, weight loss TECHNIQUE: Imaging protocol: Computed tomography of the abdomen and pelvis with contrast. Radiation optimization: All CT scans at this facility use at least one of these dose optimization techniques: automated exposure control; mA and/or kV adjustment per patient size (includes targeted exams where dose is matched to clinical indication); or iterative reconstruction. Contrast material: VISI; Contrast volume: 95 ml; Contrast route: INTRAVENOUS (IV); COMPARISON: CT abdomen pelvis wo con [id number] 02/15/2021 5:15 PM RADIATION DOSE METRICS: Total DLP (mGy-cm): 1771.37 FINDINGS: Liver: Normal. No mass. Gallbladder and bile ducts: Cholecystectomy. Nondilated biliary system. Pancreas: Normal. No ductal dilation. Spleen: Normal. No splenomegaly. Adrenal glands: Normal. No mass. Kidneys and ureters: Normal. No hydronephrosis. Stomach and bowel: Unremarkable. No obstruction. No mucosal thickening. Appendix: No evidence of appendicitis. Intraperitoneal space: Unremarkable. No free air. No significant fluid collection. Vasculature: Mesenteric vasculature is patent. Scattered plaques throughout the abdominal aorta. Negative for aneurysm. Lymph nodes: Unremarkable. No enlarged lymph nodes. Urinary bladder: Unremarkable as visualized. Reproductive: Unremarkable as visualized. Bones/joints: There is posterior fusion of the thoracolumbar spine. Unremarkable alignment. No postsurgical complications seen. Soft tissues: Unremarkable. CT/CT abdomen pelvis w con* [id number] IMPRESSION: 1. Negative for acute abdominopelvic pathology. 2. No suspicious abdominopelvic soft tissue lesions. 3. No change from comparison. Radiation Dose CTDIVOL = (mGy): DLP = 1771.37 (mGy-cm)
[2021-05-03 10:55] LABS: Glucose Point of Care 244 mg/dL (70-110)
[2021-05-03 11:43] VITALS: BP 115/71; PULSE 82; RESP 16; TEMP 36.8; O2SAT 97
[2021-05-03 12:24] LABS: C Reactive Protein 21.5 mg/L (0.0-4.9)
[2021-05-03 12:47] LABS: Erythrocyte Sedimentation Rate 56 mm/hr (0-10)
[2021-05-03] MEDS: barium sulfate 450 mL Oral Susp PO (13:10)
[2021-05-03] MEDS: diphenhydrAMINE 50 mg/mL SDV 1mL 25 MG IVP (14:17)
--- NOTE | 2021-05-03 15:14 | ECG_ITS ---
[facility] ED Test Date: 2021-05-03 Pat Name: Arcenio Saldivar Department: Room: 252 Gender: Male Security Escort: : 1965 Requested By: Joyce Link Order Number: [id number] Shiela MD: Anay Monaco M.D. Measurements Intervals [place] Rate: 80 P: 42 GA: 164 QRS: -48 QRSD: 104 T: 12 QT: 375 QTc: 433 Interpretive Statements SINUS RHYTHM MARKED LEFT AXIS DEVIATION [QRS AXIS < -30] SEPTAL MYOCARDIAL INFARCTION [40+ ms Q WAVE IN V1/V2], OF INDETERMINATE AGE Compared to ECG 01/29/2021 19:09:40 Incomplete right bundle-branch block no longer present Myocardial infarct finding still present Electronically Signed On 05-08-2021 16:46:06 CDT by Anay Monaco M.D. [id number]
[2021-05-03] MEDS: LORazepam 2 mg/mL INJ 1 mL IVP (15:20)
[2021-05-03] MEDS: iodixanol 320 mg/mL 100mL Btl IV (15:21)
[2021-05-03] MEDS: sodium chloride 0.9% 1,000 ML 999 ML IV (15:42)
[2021-05-03 16:00] VITALS: BP 130/80; PULSE 80; RESP 14; TEMP 37.2; O2SAT 91
[2021-05-03] MEDS: LORazepam 2 mg/mL INJ 1 mL (16:07)
[2021-05-03 17:06] LABS: Glucose Point of Care 120 mg/dL (70-110)
--- NOTE | 2021-05-03 18:26 | PC.NURSE ---
Late entry from 1500: Patient was taken down for CT of abdomen. After CT patient started having seizure activity Dr. Dacosta and Dr. Samayoa in the room with patient. 2mg Ativan was given by RN from ER, seizure activity decreased. Another IV 20 mac started in right forearm. At 1520 seizure activity started increasing another 2 mg of Ativan was given by this nurse, and keppra started at this time. Seizure activity decreased, and patient was moved to back to the floor. No seizure activity has been noted since returning to the floor.
[2021-05-03 19:29] VITALS: BP 99/62; PULSE 72; RESP 16; TEMP 36.5; O2SAT 100
[2021-05-03 21:03] LABS: Glucose Point of Care 203 mg/dL (70-110)
--- NOTE | 2021-05-03 22:41 | P.PN_ITS ---
Subjective Subjective: Interval history: Patient continued to complain of his headache, so an MRI brain with contrast was ordered given that the initial MRI brain was without contrast. A CT scanning of the abdomen and pelvis was also ordered with IV and oral contrast. The patient was premedicated with IV 25 mg of Benadryl as well as 125 mg of Solu-Medrol. After his CT scan of the abdomen and pelvis, the patient had an episode of seizure at the CT scan. I happened to be there with the ED attending at the patient was having tonic-clonic movements. He was given 4 mg total of Ativan. And during one of the episodes he was alert oriented and answering questions while he had moved. He was also given 1 L of normal saline. In the evening, when he was seen again, he was drowsy, answerered questions. When asked about his blurry vision, he stated that he could see far, but not near. Vitals/I&O/Wt Last Vital Signs Temp 97.7 F 05/03/21 19:29 Pulse 72 05/03/21 19:29 Resp 16 05/03/21 19:29 BP 99/62 05/03/21 19:29 Pulse Ox 100 05/03/21 19:29 05/03/21 05/03/21 05/03/21 06:59 14:59 22:59 Intake Total 0 / 120 1350 / 1350 Output Total 0 / 0 Balance 0 / 120 1350 / 1350 Weight last 48 hrs Weight 73.482 kg Physical Exam Const: GENERAL APPEARANCE: cooperative ORIENTATION/CONSCIOUSNESS: Yes awake, Yes oriented to person, Yes oriented to place and Yes oriented to time HENMT: COMMON NORMALS: normocephalic, atraumatic, external ears normal and Normal external nose present HEAD & SCALP: normocephalic and atraumatic FACE & SINUS: normal facial exam NOSE: Normal external nose present EXTERNAL EAR: Yes external ears normal MOUTH: Normal oral and palatal mucosa present TEETH & GINGIVA: Yes poor dentition THROAT: posterior oropharynx normal Eye: COMMON NORMALS: Equal, round and reactive pupils present and conjunctivae normal CONJUNCTIVA: Yes conjunctivae normal PUPIL: Yes Equal, round and reactive pupils present Neck/C-Spine: COMMON NORMALS: Thyroid normal GENERAL: Yes trachea midline THYROID: Thyroid normal Resp: COMMON NORMALS: clear to auscultation bilaterally AUSCULTATION: clear to auscultation bilaterally Cardio: COMMON NORMALS: regular rate and regular rhythm RATE: regular rate RHYTHM: regular rhythm HEART SOUNDS: no click, no gallops, no murmurs and no rubs GI: COMMON NORMALS: Soft to palpation and No hepatosplenomegaly present AUSCULTATION: Yes normoactive bowel sounds PALPATION: Yes Soft to palpation, Yes Tenderness to palpation present (GI), No Guarding due to palpation present (GI), No Rigid due to palpation, Yes No hepatosplenomegaly present and No Rebound tenderness present Extremity: COMMON NORMALS: no clubbing, cyanosis or edema Neuro: SENSORIUM/ORIENTATION: Yes oriented to person, Yes oriented to place and Yes oriented to time CRANIAL NERVES: Yes CN normal except as noted SPEECH: speech normal GAIT: Yes Festinating gait present SENSORY EXAM: Yes Normal double simultaneous stimulation for sensation MOTOR EXAM: 5/5 motor strength present throughout and Normal motor muscle tone present throughout Psych: ATTITUDE: Yes engaged ACTIVITY/MOTOR BEHAVIOR: Yes appropriate eye contact MOOD & AFFECT: Yes euthymic mood Skin: COMMON NORMALS: no rashes or lesions noted GENERAL SKIN EXAM: no rashes or lesions noted Data : 05/01/21 17:12 05/01/21 17:12 A&P Assessment and plan (1) Headache: Status: Acute Qualifiers: Headache type: unspecified (2) Vision changes: Status: Acute Mr. Saldivar is a 55yo man w/ a hx of Migraines w/ aura, hx of pseudoseizures, a hx of presenting to the hospital w/ multiple CVA like symptoms or complaints of weakness, who presented to the ED w/ complaints of headache and new vision loss. # Seizure vs Pseudoseizure - Extensive review of the patient's chart showed that he has a diagnosis of pseudoseizures. Given his presentation today, he likely has a pseudoseizure. # Headache - MRI brain w/o contrast negative. Pending MRI w/ contrast to r/o other potential pathology, and also b/c he has never had an MRI. - He does have a diagnosis of Migraines w/ aura. # Vision changes - Will refer patient to see Ophthalmology. He states that he can see far but not near. # Early satiety, Abdominal pain, weight loss - His CT abd/pelvis w/ contrast showed no acute abdominopelvic pathology, No suspicious abdominopelvic soft tissue lesions, , and these results were unchanged from the previous CT abd/pelvis w/ contrast done in January. Chart review showed that he was seen by Dr. Garibay in 02/2021 who saw no indications for any surgical intervention, but did notice a large burden of stool in the colon. DVT ppx: SCD pumps Attestations Medical Necessity Statement*: Patient requires continued hospitalization for an MRI of the brain with contrast for the headaches Time Spent in Patient Care: Greater than 35 minutes Coding Level of Care Code Acute Track Inspecting Supervisor for Chg Fwd Diagnoses Headache R51.9 Headache type: unspecified Vision changes H53.9
[2021-05-03 23:23] VITALS: BP 117/74; PULSE 68; RESP 16; TEMP 36.4; O2SAT 96
[2021-05-04 03:31] VITALS: BP 114/72; PULSE 77; RESP 20; TEMP 36.4; O2SAT 99
--- NOTE | 2021-05-04 04:36 | PC.NURSE ---
called into room by pt, upon entering room noticed pt having tremors and pt then stated I think I'm going to have a seizure pt began having more violent tremors that would wax and wane. pt was able to open his eyes and spea with me somewhat during the mild tremors. vital signs are stable. seizure activity lasted approx. 30 minutes.
[2021-05-04 06:19] LABS: Glucose Point of Care 262 mg/dL (70-110)
--- NOTE | 2021-05-04 06:58 | PC.NURSE ---
called in to room by pt, upon entering pt exhibiting seizure like activity. vital signs stable, pt able to follow simple directions and speak occasionally. doctor is aware
[2021-05-04 07:45] VITALS: BP 124/68; PULSE 112; RESP 16; TEMP 36.8; O2SAT 93
[2021-05-04] MEDS: aspirin 81 mg EC Tablet PO (09:33)
[2021-05-04] MEDS: lactulose oral liq 20 gm/30 mL UDC 30 GM PO (09:33)
[2021-05-04] MEDS: divalproex ER 500 mg Tablet (24H) 1000 MG PO (09:33)
[2021-05-04] MEDS: clopidogrel 75 mg Tablet PO (09:33)
[2021-05-04] MEDS: tamsulosin 0.4 mg Capsule PO (09:33)
[2021-05-04] MEDS: insulin glargine 100 units/1 mL 10 UNIT SUBCUT (09:34)
[2021-05-04] MEDS: pantoprazole DR 40 mg Tablet PO (09:34)
[2021-05-04 11:38] LABS: Glucose Point of Care 213 mg/dL (70-110)
[2021-05-04 11:42] VITALS: BP 103/65; PULSE 89; RESP 14; TEMP 36.6; O2SAT 100
--- NOTE | 2021-05-04 12:30 | MR_ITS ---
WS: [id number] MRI brain with and without contrast. HISTORY: Headache, dizziness for 5 days with blurred vision. Multiplanar imaging is performed of the brain with and without contrast. Majority of the noncontrast imaging was performed on 05/02/2021. There are a few additional noncontrast sequences performed. COMPARISON: 05/02/2021. No enhancing masses are identified. There is no atrophy of the brain. Hippocampal formations are symm etric. No sclerosis or atrophy. No nodules along the ependyma. No inferior displacement of cerebellar tonsils. No intra-axial or extra-axial masses. No edema. No inferior displacement of cerebellar tons ils. Normal opacification of the dural venous sinuses. Small caliber distal RIGHT vertebral artery. MR/MR head w con [id number] IMPRESSION: 1. Normal appearance of the hippocampal formations. 2. No enhancing masses or vascular malformations.
[2021-05-04] MEDS: gadobenate dimeglumine 20 mL vial IV (13:03)
[2021-05-04 16:00] VITALS: BP 103/66; PULSE 85; RESP 16; TEMP 36.6; O2SAT 97
--- NOTE | 2021-05-04 16:58 | PM.DCS ---
Discharge Providers Date of Admission: 05/01/21 20:40 Date of Discharge: May 04, 2021 Attending Provider at Admission: Shena Brewer MD Attending Provider at Discharge: Shena Brewer MD Primary Care Provider: Lloyd Wood MD Diagnoses at Discharge Discharge Diagnosis (1) Headache: Status: Acute Qualifiers: Headache type: unspecified (2) Vision changes: Status: Acute Reason for Visit Reason for Visit: Blurrry Vision, Hospital Course Hospital Course Mr. Saldivar is a 55yo man w/ a hx of Migraines w/ aura, hx of pseudoseizures, a hx of presenting to the hospital w/ multiple CVA like symptoms or complaints of weakness, who presented to the ED w/ complaints of headache and new vision loss. His CT head showed no abnormalities. His ESR was 25, decreasing the likelihood of Giant cell arteritis. On admission, he complained of abdominal pain, early satiety, 100lb weight loss between Jul & Aug 2020. A CT abd/pelvis w/ IV & oral contrast were ordered. He was premedicated w/ benadryl and Solumedrol prior to the CT scan. After the scan, he had tonic-clonic movements initially thought to be seizures, leading to administration of a total of 4 mg of IV Ativan as well as 1 g of Keppra, but during the seizures, he was able to respond and answer to me & the Emergency department physician that was assisting. Chart review showed that he has a diagnosis of pseudoseizures. While chart review indicated that he may never have had an MRI brain, he does have a diagnosis of Migraines w/ aura. His CT abd/pelvis w/ contrast showed no acute abdominopelvic pathology, No suspicious abdominopelvic soft tissue lesions, , and these results were unchanged from the previous CT abd/pelvis w/ contrast done in January. Chart review showed that he was seen by Dr. Garibay in 02/2021 who saw no indications for any surgical intervention, but did notice a large burden of stool in the colon. Given these findings, he was given bowel regimen and prescribed bowel regimen prior to discharge. On discharge, he was referred to see Ophthalmology. Physical Exam Const: GENERAL APPEARANCE: cooperative ORIENTATION/CONSCIOUSNESS: Yes awake, Yes oriented to person, Yes oriented to place and Yes oriented to time HENMT: COMMON NORMALS: normocephalic, atraumatic, external ears normal and Normal external nose present HEAD & SCALP: normocephalic and atraumatic FACE & SINUS: normal facial exam NOSE: Normal external nose present EXTERNAL EAR: Yes external ears normal MOUTH: Normal oral and palatal mucosa present TEETH & GINGIVA: Yes poor dentition THROAT: posterior oropharynx normal Eye: COMMON NORMALS: Equal, round and reactive pupils present and conjunctivae normal CONJUNCTIVA: Yes conjunctivae normal PUPIL: Yes Equal, round and reactive pupils present Neck/C-Spine: COMMON NORMALS: Thyroid normal GENERAL: Yes trachea midline THYROID: Thyroid normal Resp: COMMON NORMALS: clear to auscultation bilaterally AUSCULTATION: clear to auscultation bilaterally Cardio: COMMON NORMALS: regular rate and regular rhythm RATE: regular rate RHYTHM: regular rhythm HEART SOUNDS: no click, no gallops, no murmurs and no rubs GI: COMMON NORMALS: Soft to palpation and No hepatosplenomegaly present AUSCULTATION: Yes normoactive bowel sounds PALPATION: Yes Soft to palpation, Yes Tenderness to palpation present (GI), No Guarding due to palpation present (GI), No Rigid due to palpation, Yes No hepatosplenomegaly present and No Rebound tenderness present Extremity: COMMON NORMALS: no clubbing, cyanosis or edema Neuro: SENSORIUM/ORIENTATION: Yes oriented to person, Yes oriented to place and Yes oriented to time CRANIAL NERVES: Yes CN normal except as noted SPEECH: speech normal GAIT: Yes Festinating gait present SENSORY EXAM: Yes Normal double simultaneous stimulation for sensation MOTOR EXAM: 5/5 motor strength present throughout and Normal motor muscle tone present throughout Psych: ATTITUDE: Yes engaged ACTIVITY/MOTOR BEHAVIOR: Yes appropriate eye contact MOOD & AFFECT: Yes euthymic mood Skin: COMMON NORMALS: no rashes or lesions noted GENERAL SKIN EXAM: no rashes or lesions noted Discharge Data Data Completed and Pending: Completed Studies During Hospitalization Category Date Time Status CT abdomen pelvis w con* [id number] Rout ine Cat Scan 05/03/21 10:[address] head wo/w con [id number] Stat Cat Scan 05/01/21 17:23 Completed MR head w con [id number] Stat MRI 05/04/21 12:30 Completed MR head wo con* [id number] Routine MRI 05/02/21 Completed Labs from last 24 hours 05/04/21 05/04/21 05/03/21 10:58 06:09 20:45 POC Glucose 213 H 262 H 203 H 05/03/21 17:03 POC Glucose 120 H Vitals: Last Vital Signs Temp 97.8 F 05/04/21 16:00 Pulse 85 05/04/21 16:00 Resp 16 05/04/21 16:00 BP 103/66 05/04/21 16:00 Pulse Ox 97 05/04/21 16:00 Discharge Plan Discharge Patient Disposition: Home Condition: Stable Prescriptions: New Miralax 17 gram powder in packet 17 g PO BID Qty: 30 RF: 0 bisacodyl 5 mg tablet 10 mg PO DAILY Qty: 60 RF: 0 Continued (DME) FreeStyle Elizabeth 14 Day Sensor Kit See Rx Instructions .ROUTE .MEDSUPPLY Qty: 2 RF: 3 (DME) FreeStyle Elizabeth 14 Day [place] Misc See Rx Instructions .ROUTE .MEDSUPPLY Qty: 1 RF: 0 tamsulosin [Flomax] 0.4 mg capsule 0.4 mg PO DAILY Qty: 90 RF: 1 ascorbic acid (vitamin C) 500 mg tablet 500 mg PO DAILY@1000 RF: 0 (DME) Rolator Walker See Rx Instructions .Route .MEDSUPPLY Qty: 1 RF: 0 ondansetron HCl [Zofran] 4 mg tablet 4 mg PO Q8H PRN (Reason: nausea and vomiting) Qty: 20 RF: 0 (DME) Dexcom G6 Sensor Device See Rx Instructions .ROUTE .MEDSUPPLY Qty: 3 RF: 3 (DME) Dexcom G6 Coremaking Supervisor Misc See Rx Instructions .ROUTE .MEDSUPPLY Qty: 1 RF: 0 (DME) Dexcom G6 Transmitter Device See Rx Instructions .ROUTE .MEDSUPPLY Qty: 1 RF: 0 Depakote ER 500 mg tablet extended release 24 hr 1,000 mg PO DAILY Qty: 60 RF: 0 Lantus Solostar U-100 Insulin 100 unit/mL (3 mL) insulin pen 10 unit SUBCUT DAILY@1000 RF: 0 insulin aspart U-100 [Novolog Flexpen U-100 Insulin] 100 unit/mL (3 mL) insulin pen See Rx Instructions .ROUTE .COMPLEX RF: 0 budesonide-formoterol [Symbicort] 160-4.5 mcg/actuation HFA aerosol inhaler 2 puff INHALATION BID RF: 0 clopidogrel 75 mg tablet 75 mg PO DAILY@1000 RF: 0 aspirin [Adult Aspirin Regimen] 81 mg tablet,delayed release (DR/EC) 81 mg PO DAILY@1000 RF: 0 pantoprazole 40 mg Tablet,Delayed Release (Dr/Ec) 40 mg PO DAILY@1000 RF: 0 nitroglycerin 0.4 mg tablet, sublingual 0.4 mg sublingual PRN PRN (Reason: Chest Pain) RF: 0 Vitamin B-12 1 tab PO DAILY@1000 RF: 0 multivitamin Tablet 1 tab PO DAILY@1000 RF: 0 albuterol sulfate 90 mcg/actuation Hfa Aerosol Inhaler 2 puff INHALATION Q4H PRN (Reason: Shortness Of Breath) RF: 0 hydrocodone-acetaminophen 5-325 mg tablet 1 tab PO Q6H PRN (Reason: pain) Qty: 15 RF: 0 Basaglar KwikPen U-100 Insulin 100 unit/mL (3 mL) insulin pen See Rx Instructions .ROUTE .COMPLEX RF: 0 Discharge Orders: Discharge Order (Routine); Ordered 05/04/21 Ordered By: Joyce Link Referrals: Jonathan Rao MD [Physician] - 7-10 days (Please call and schedule an appointment in 7-10 days for vision changes. ) Discharge Diet: Advance as tolerated and Usual diet Discharge Activity: Resume usual activity and Increase activity as tolerated Patient Instructions: Constipation - Adult, Back Pain (GEN), Opioid Safety Discharge Attestations Time Spent in Discharge Care*: less than 30 min Quality Metrics Clinical Quality Measures During this hospital stay, did patient experience: None Coding Level of Care Code Acute g [facility] note Diagnoses Headache R51.9 Headache type: unspecified Vision changes H53.9
[2021-05-04] MEDS: magnesium citrate Btl 296 mL PO (17:06)
[2021-05-04] MEDS: bisacodyl 5 mg Tablet 10 MG PO (17:06)
== END 2021-05-04 17:11 | disposition home or self-care (01) ==
LOC: ER 20:58 → MEDSURG 21:26
PROVIDERS: Family Medicine; Internal Medicine; Admitting Provider Student in an Organized Health Care Education/Training Program; Emergency Provider Emergency Medicine; PCP Student in an Organized Health Care Education/Training Program; Visit Provider Student in an Organized Health Care Education/Training Program
DX: R51.9 Headache, unspecified (principal); H53.9 Unspecified visual disturbance; F41.9 Anxiety disorder, unspecified; N40.1 Benign prostatic hyperplasia with lower urinary tract symptoms; N13.8 Other obstructive and reflux uropathy; J44.9 Chronic obstructive pulmonary disease, unspecified; I25.10 Atherosclerotic heart disease of native coronary artery without angina pectoris; Z86.73 Personal history of transient ischemic attack (TIA), and cerebral infarction without residual deficits; E11.9 Type 2 diabetes mellitus without complications; I10 Essential (primary) hypertension; I25.2 Old myocardial infarction; F17.210 Nicotine dependence, cigarettes, uncomplicated
CPT/HCPCS: 36415; 36416; 70470; 70551; 70552; 74177; 80053; 80164; 82962; 85025; 85651; 86140; 86592; 93005; 96361; 96372; 96374; 96375; 96376; 99285; A9577; G0378; J1200; J1720; J1815 ×2; J1885; J1953; J2060; J2270; J2405; J2930; J7030; Q9967

== ENCOUNTER → 2021-05-21 16:24 | Outpatient (BNVA) | payer MEDICARE, SELFPAY | PROVIDERS: PCP Student in an Organized Health Care Education/Training Program; Visit Provider Surgery | DX: Z12.11 Encounter for screening for malignant neoplasm of colon (principal); Z20.822 Contact with and (suspected) exposure to COVID-19 | CPT/HCPCS: 87635 ==

== ENCOUNTER 2021-05-24 06:03 | Day surgery (SDC) | payer MEDICARE, SELFPAY ==
[2021-05-22 14:02] VITALS: BMI 27.4
[2021-05-24 06:35] VITALS: BP 105/68; PULSE 74; RESP 18; TEMP 36.3; O2SAT 99
[2021-05-24] MEDS: sodium chloride 0.9% 1,000 ML 30 ML IV ×2 (06:35→08:06)
[2021-05-24 06:41] LABS: Glucose Point of Care 215 mg/dL (70-110)
--- NOTE | 2021-05-24 06:47 | W.PM.OPSFHP ---
Same Day Surgery H&P Indication for Procedure/HPI DATE OF PROCEDURE: May 24, 2021 CHIEF COMPLAINT/INDICATIONFOR SURGICAL PROCEDURE: Screening colonoscopy PREOP DIAGNOSIS: Screening colonoscopy PLANNED PROCEDRUE: Operation Date: 05/24/21 07:00 Proposed Procedures p Colonoscopy 05356 Z12.11(Not Applicable) - Gómez Garibay MD Interim history 05/24/2020 Patient comes today for screening colonoscopy, continues to complain of right-sided abdominal pain. CT scan of the abdomen and pelvis was done and showed below; 1. Negative for acute abdominopelvic pathology. 2. No suspicious abdominopelvic soft tissue lesions. 3. No change from comparison. ROS All systems have been reviewed negative except as for the above or per problem list Medications/Allergies* Home Medications Medication Instructions Recorded Confirmed Type Vitamin B-12 1 tab PO DAILY@1000 12/30/19 05/01/21 History nitroglycerin 0.4 mg SUBLINGUAL PRN PRN 12/30/19 05/24/21 History pantoprazole 40 mg PO DAILY@1000 12/30/19 05/24/21 History ascorbic acid (vitamin C) 500 mg 500 mg PO DAILY@1000 04/26/20 05/24/21 History tablet albuterol sulfate 2 puff INHALATION Q4H PRN 12/14/20 05/24/21 History multivitamin 1 tab PO DAILY@1000 12/14/20 05/24/21 History aspirin [Adult Aspirin Regimen] 81 mg PO DAILY@1000 01/29/21 05/24/21 History budesonide-formoterol [Symbicort] 2 puff INHALATION BID 01/29/21 05/24/21 History clopidogrel 75 mg PO DAILY@1000 01/29/21 05/24/21 History insulin aspart U-100 [Novolog See Rx Instructions .ROUTE .COMPLEX 01/29/21 05/24/21 History Flexpen U-100 Insulin] Basaglar KwikPen U-100 Insulin See Rx Instructions .ROUTE .COMPLEX 05/01/21 05/24/21 History bisacodyl 20 mg PO BEDTIME 05/22/21 05/24/21 History Allergies/Adverse Reactions Allergy/AdvReac Type Severity Reaction Status Date / Time iodine Allergy ALGY-Anaphy Verified 05/24/21 06:58 laxis Current Medications: Generic Name Dose Route Start Last Admin Trade Name Freq PRN Reason Stop Dose Admin Sodium Chloride 1,000 mls @ 30 mls/hr 05/24/21 06:30 05/24/21 06:35 Sodium Chloride 0.9% IV 05/25/21 06:29 30 mls/hr .Q24H KATELYNN Administration Pertinent History/Comorbid Conditions* Medical History (Updated 05/01/21 @ 20:59 by Herve Schultz MD) Abdominal wall bulge Anxiety Back pain BPH NOS w ur obs/LUTS COPD (chronic obstructive pulmonary disease) Coronary artery disease CVA (cerebral vascular accident) CVA (cerebral vascular accident) Diabetes Hypertension Migraine Myocardial infarction Seizure Urinary retention Surgical History (Updated 04/19/21 @ 12:09 by CLAUDIO Michelle) History of appendectomy History of back surgery History of cholecystectomy History of coronary angioplasty with insertion of stent History of tonsillectomy History of vasectomy S/P left knee arthroscopy Family History (Updated 02/16/20 @ 05:37 by Reji Christie MD) CAD (coronary artery disease) Hypertension Social History Smoking and tobacco status: current every day smoker cigarettes Packs smoked per day: 0.5 Years cigarettes smoked: 13 Second hand smoke exposure: No Alcohol intake: never Caregiver/support person: Yes (spouse) Lives independently: Yes Household members: spouse Marital status: Current occupational status: disabled History of recent travel: No Current gender identity: Male Pertinent Exam Findings alert, oriented x 3, clear to auscultation bilaterally, regular rate & rhythm and procedure specific exam findings (Abdominal examination shows some tenderness on the right side ) Pertinent Data PERTINENT DATA: otherwise soft abdominal examination without signs of peritonitis Recommendations Surgery/Procedure today (Colonoscopy) Other Plans: Plan of care; After thorough history and physical examination and reviewing the chart, plan to perform screening colonoscopy. I discussed with the patient in details the risks,benefits,alternatives and indications.The risk of aspiration, bleeding, soft tissue injury, perforation of the colon and other potential concomitant complications were explained to the patient in details,also the potential need for Laproscoy/Laparotomy to repair any related complications including but not limited to colectomy and or Closotomy.The patient understood this well and did agree to proceed. Rationale was carefully and clearly discussed with the patient.Appropriate informed consent have been reviewed and signed All questions have been answered and all concerns have been addressed to patient's satisfaction. Verbal and written Instructions were given to the patient for colonoscopy prep Coding Level of Care Code Acute Loan Review Analyst for Adriana Iyer
--- NOTE | 2021-05-24 06:54 | ANES.PREANE2 ---
Pre-Anesthetic Assessment Pre-Anesthetic Assessment: Height/Weight: Height 1.65 m Weight 74.843 kg Temp Pulse Resp BP Pulse Ox 97.3 F L 74 18 105/68 99 05/24/21 06:35 05/24/21 06:35 05/24/21 06:35 05/24/21 06:35 05/24/21 06:35 Preop Diagnosis: Screening colonoscopy Proposed Procedure: Operation Date: 05/24/21 07:00 Proposed Procedures p Colonoscopy 37791 Z12.11(Not Applicable) - Gómez Garibay MD Was Beta Vasile taken within 24 hours: N/A Was Clonidine taken within 24 hours: N/A Last intake: Intake Last Liquid Date 05/23/21 Last Liquid Time 21:00 Last Solid Date 05/22/21 Social: Social History: Alcohol and No tobacco Exam: Pre-Anes Outpt Exam: alert, oriented x 3, clear to auscultation bilaterally and regular rate & rhythm Airway: Submandibular: WNL Cervical ROM: WNL MP: 2 Dentition: Chipped and Loose Additional comments: very poor dentitian History/ROS: No significant history except as noted Pulmonary: Pulmonary: Sleep apnea and None reported CV/HEM: CV/HEM: DVT and IL (stent x3) : : None reported Hepatic: Hepatic: None reported GI: GI: GERD Metabolic: Metabolic: DM and Hyperlipidemia Musc/skel: Musc/skel: Lower Back Pain (back surgery) Neuropsych: Neuropsych: CVA (x4) and Seizure (no longer on seizure medications) Anesthetic Plan: ASA status: 3 Anesthesia: Anesthesia Evaluation and MAC Risk of > 500 ml blood loss (7ml/kg in children): No Meds/Allergies Current Medications: Current Medications Generic Name Dose Route Start Last Admin Trade Name Freq PRN Reason Stop Dose Admin Sodium Chloride 1,000 mls @ 30 ml s/hr 05/24/21 06:30 05/24/21 06:35 Sodium Chloride 0.9% IV 05/25/21 06:29 30 mls/hr .Q24H KATELYNN Administration PFSH Anesthesia PFSH: Medical History Abdominal wall bulge Anxiety Back pain BPH NOS w ur obs/LUTS COPD (chronic obstructive pulmonary disease) Coronary artery disease CVA (cerebral vascular accident) CVA (cerebral vascular accident) Diabetes Hypertension Migraine Myocardial infarction Seizure Urinary retention Surgical History History of appendectomy History of back surgery History of cholecystectomy History of coronary angioplasty with insertion of stent History of tonsillectomy History of vasectomy S/P left knee arthroscopy Family History Other CAD (coronary artery disease) Hypertension Social History Smoking and tobacco status: current every day smoker cigarettes Packs smoked per day: 0.5 Years cigarettes smoked: 13 Second hand smoke exposure: No Alcohol intake: never Caregiver/support person: Yes (spouse) Lives independently: Yes Household members: spouse Marital status: Current occupational status: disabled History of recent travel: No Current gender identity: Male Data Anesthesia Other Labs: Laboratory Results - last 48 hr 05/24/21 06:33 POC Glucose 215 H Cardiac Studies: No Data to Display
[2021-05-24 07:21] VITALS: BP 100/62; PULSE 65; RESP 18; TEMP 36.4; O2SAT 100
--- NOTE | 2021-05-24 07:41 | SUR.PHASEII ---
07:35 am. PATIENT WITH GRAND MAL SEIZURE ACTIVITY. O2 INCREASED TO 6 L/M. PATIENT MEDICATED PER ANESTHESIA with versed 2mg IV. airway patent. patient ventilating well.
[2021-05-24] MEDS: midazolam 1 mg/mL INJ 2 mL 2 MG IVP (07:47)
[2021-05-24 07:50] VITALS: BP 77/40; PULSE 77; RESP 12; O2SAT 90
--- NOTE | 2021-05-24 07:50 | PC.NURSE ---
PT WITH JESSIKA MAL SEIZURE ACTIVITY, ORDERS RECEIVED FROM DR PEREZ AND CATRACHITO RN OF VERSED, ATIVAN AND KEPPRA. SEE MAR. PT TAKEN TO PROCEDURE ROOM AND GIVEN PROPOFOL BY DR MORGAN. SEIZURE STOPPING FOR BRIEF PERIOD. THEN BEGINNING AGAIN. DR FRAIRE CONSULTED AND ORDERED ADDITIONAL ATIVAN AND KEPPRA. DR FRAIRE RECOMMENDING TAKING PT TO ER SINCE THE HOSPITAL HAS NO OPEN BEDS. UPDATED AND SENT TO ER WAITING ROOM. SEE OTHER NURSE NOTE BY SET UP MECHANIC CROWN ASSEMBLY MACHINE. ALL PERSONAL BELONGINGS GIVEN TO ER STAFF.
[2021-05-24] MEDS: LORazepam 2 mg/mL INJ 1 mL IVP ×2 (07:52→08:25)
[2021-05-24 08:00] VITALS: BP 107/65; PULSE 72; RESP 12; O2SAT 100
[2021-05-24 08:10] VITALS: BP 109/71; PULSE 66; RESP 10; O2SAT 100
[2021-05-24 08:16] LABS: Glucose Point of Care 190 mg/dL (70-110)
--- NOTE | 2021-05-24 08:23 | PC.PHAR ---
PHARMACY RECEIVED THREE ORDER FOR KEPPRA 500MG IV. I SPOKE WITH KIRSTY TO CLARIFY WHAT THEY NEED. SHE STATES THEY ONLY NEED 2 DOSES TO EQUAL 1000MG. SHE WILL CANCEL THE THIRD ORDER OFF THE DEC. I PHONED INPATIENT PHARMACY AND TOLD THEM NOT TO MIX THE THIRD DRIP. JULIANE LOFTON/ZAHIRA
--- NOTE | 2021-05-24 08:51 | PC.NURSE ---
2 MG TOTAL WASTED OF ATIVAN WITH MEHDI MESA RN IN MED DESTROYER BOTTLE. 1 MG GIVEN FROM EACH VIAL FOR SEIZURE ACTIVITY. SEE DEC. PHARM NOTIFIED. PT TAKEN TO ER PER DR FRAIRE RECOMMENDATIONS. REPORT GIVEN TO CHOLO LE BSN AND CHOLO NOGUEIRA BSN WITH DR EISENBERG AT BEDSIDE. VSS. ER STAFF ASSUMING CARE AT 0840. SEE ER DOCUMAENTATION FOR FURTHER REMARKS. Carlie ESPARZA RN
[2021-05-24 09:05] VITALS: BP 118/69; PULSE 71; RESP 12; O2SAT 100
--- NOTE | 2021-05-24 14:44 | ANE.PACU2 ---
Inpatient post-anesthesia follow up: Airway intact: Yes Vital signs: Temperature 97.6 F Pulse Rate 71 Respiratory Rate 12 Blood Pressure 118/69 Pulse Oximetry 100 Oxygen Delivery Me thod Simple Mask Oxygen Flow Rate 8 Fraction of Inspir ed Oxygen 100 Hydration adequate: Yes Nausea and vomiting: No Pain level: 2 Mental status: Baseline Additional Comments: Called urgently to recovery by nurses. Informed over phone that patient was actively seizing and had not stopped despite several interventions, including BZDs (versed 2 mg, ativan 1 mg). Upon arrival patient found in possible tonic clonic seizure. Bag mask ventilation and control of airway achieved. Propofol 30 mg IV given with termination of seizures. Pulse ox 100% immediately after seizure terminated. 2 more seizures occured while giving loading dose of Keppra, which both terminated with propofol 30 mg IV X2. Patient sent to ER after Keppra 1 g IV loading dose, ativan 2 mg (ordered by lynda at bedside).
== END 2021-05-24 09:11 | disposition home or self-care (01) ==
PROVIDERS: PCP Nurse Practitioner Family; Visit Provider Surgery
PROC: 0DJD8ZZ Inspection of Lower Intestinal Tract, Via Natural or Artificial Opening Endoscopic (ICD-10-PCS; CPT 45378; principal; 2021-05-24 07:00)
DX: Z12.11 Encounter for screening for malignant neoplasm of colon (principal); F41.9 Anxiety disorder, unspecified; N40.1 Benign prostatic hyperplasia with lower urinary tract symptoms; N13.8 Other obstructive and reflux uropathy; J44.9 Chronic obstructive pulmonary disease, unspecified; I25.10 Atherosclerotic heart disease of native coronary artery without angina pectoris; Z86.73 Personal history of transient ischemic attack (TIA), and cerebral infarction without residual deficits; E11.9 Type 2 diabetes mellitus without complications; I10 Essential (primary) hypertension; I25.2 Old myocardial infarction; Z79.82 Long term (current) use of aspirin; Z79.4 Long term (current) use of insulin; Z82.49 Family history of ischemic heart disease and other diseases of the circulatory system; F17.210 Nicotine dependence, cigarettes, uncomplicated
CPT/HCPCS: 36416; 82962; 96361; 96374; 96375; G0121; J1953; J2060; J2250; J2704; J7030

== ENCOUNTER 2021-05-24 08:29 | Emergency (ER) | payer MEDICARE, SELFPAY ==
[2021-05-24 08:32] VITALS: BP 133/77; PULSE 69; RESP 30; TEMP 36.2; O2SAT 97; BMI 27.4
--- NOTE | 2021-05-24 08:36 | ED_ITS ---
HPI - Seizure General: Chief Complaint: Seizure Stated Complaint: SEIZURES Time Seen by Provider: 05/24/21 08:35 History of Present Illness: HPI Narrative: 55-year-old male presents emergency room from GI Lab. He was there for colonoscopy and began having seizure-like activity has a history of seizures poor compliance with his medications there is also some question of pseudoseizures in the past. 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 There is also a normal EEG in February of this year. MD complaint: other Onset (ago): minute(s) Description of Episode: tonic-clonic movement Witnessed: Yes - by Bystander Trauma: No Seizure History: No Place: GI Lab Possible Precipitating Event: stress Associated symptoms: Reports confusion; Deny chest pain, chills, cough, diaphoresis, fever(s), anorexia, malaise, rash, short of breath, syncope or weakness Treatments prior to arrival: benzodiazepines and other (IV Keppra) Review of Systems Const: Denies: fever(s), chills, malaise or diaphoresis Card: Denies: chest pain or syncope Neuro: Reports: confusion PFSH ED PFSH: Medical History Abdominal wall bulge Anxiety Back pain BPH NOS w ur obs/LUTS COPD (chronic obstructive pulmonary disease) Coronary artery disease CVA (cerebral vascular accident) CVA (cerebral vascular accident) Diabetes Hypertension Migraine Myocardial infarction Seizure Urinary retention Surgical History History of appendectomy History of back surgery History of cholecystectomy History of coronary angioplasty with insertion of stent History of tonsillectomy History of vasectomy S/P left knee arthroscopy Family History Other CAD (coronary artery disease) Hypertension Social History Smoking and tobacco status: current every day smoker cigarettes Packs smoked per day: 0.5 Years cigarettes smoked: 13 Second hand smoke exposure: No Alcohol intake: never Caregiver/support person: Yes (spouse) Lives independently: Yes Household members: spouse Marital status: Current occupational status: disabled History of recent travel: No Current gender identity: Male Physical Exam HENMT: COMMON NORMALS: normocephalic and atraumatic HEAD & SCALP: normocephalic and atraumatic Eye: COMMON NORMALS: Equal, round and reactive pupils present, EOMs intact bilaterally, conjunctivae normal and no scleral icterus CONJUNCTIVA: Yes conjunctivae normal PUPIL: Yes Equal, round and reactive pupils present Neck/C-Spine: COMMON NORMALS: full ROM, no lymphadenopathy, supple and no JVD Lymph: LYMPHATIC: no lymphadenopathy noted and no lymphedema noted Resp: COMMON NORMALS: normal respiratory effort, No retractions, No use of accessory muscles and clear to auscultation bilaterally AUSCULTATION: clear to auscultation bilaterally Cardio: COMMON NORMALS: no JVD, regular rate, regular rhythm and No murmurs present (Cardio) RATE: regular rate RHYTHM: regular rhythm GI: COMMON NORMALS: Soft to palpation and No hepatosplenomegaly present AUSCULTATION: Yes normoactive bowel sounds PALPATION: Yes Soft to palpation, No Tenderness to palpation present (GI), No Guarding due to palpation present (GI) and Yes No hepatosplenomegaly present Extremity: COMMON NORMALS: normal to inspection, capillary refill normal, no clubbing, cyanosis or edema, no calf tenderness and no pedal edema Course Vital Signs: Vital signs: Vital Signs Temperature 97.1 F L 05/24/21 08:32 Pulse Rate 59 L 05/24/21 10:25 Respiratory Rate 21 H 05/24/21 10:25 Blood Pressure 119/63 05/24/21 10:25 Pulse Oximetry 96 05/24/21 10:25 MDM - Seizure MDM Narrative: Medical decision making narrative: Reviewed neurology notes patient has had functional seizures in the past she is off of all of his m edications for that reason discussed the patient his family both recognize this and think that the stress of the procedure today is what caused we will go and discharge him home have him follow-up with neurology as needed Lab Data: Labs: Lab Results 05/24/21 05/24/21 Range/Units 08:55 08:55 WBC 6.8 (4.0-10.0) 10^3/ uL RBC 3.94 L (4.1-5.3) 10^6/u L Hgb 12.8 (11.7-16.6) g/dL Hct 39.0 L (42.0-52.0) % MCV 99.0 H (80-94) fL MCH 32.5 (28.0-34.0) pg MCHC 32.8 (30.0-36.0) g/dL RDW 13.4 (12.1-15.1) % Plt Count 183 (130-400) 10^3/c mm MPV 10.2 (7.4-10.4) fL Neut % (Auto) 61.6 % Lymph % (Auto) 26.3 % [place] % (Auto) 5.8 % Eos % (Auto) 5.0 % Baso % (Auto) 1.0 % Neut # (Auto) 4.16 (1.8-7.7) 10^3/u L Lymph # (Auto) 1.8 (0.8-4.8) 10^3/u L [place] # (Auto) 0.4 (0.2-0.9) 10^3/u L Eos # (Auto) 0.3 (0.0-0.8) 10^3/u L Baso # (Auto) 0.1 (0.0-0.1) 10^3/u L Nucleated RBC % (a uto) 0 % Nucleated RBCs # 0.0 /100WBC Sodium 139 (136-145) mmol/L Potassium 3.9 (3.5-5.1) mmol/L Chloride 105 (98-107) mmol/L Carbon Dioxide 26 (22-29) mmol/L Anion Gap 11.9 (5-19) BUN 8 (6-20) mg/dL Creatinine 0.5 L (0.7-1.2) mg/dL GFR Calculation 171.4 H (90-130) mL/min Glucose 178 H (65-115) mg/dL Calculated Osmolal ity 291 (285-295) mOsm/k g Calcium 7.8 L (8.5-10.5) mg/dL Total Bilirubin 0.5 (0.15-1.2) mg/dL AST 19 (0-40) U/L ALT 14 (0-41) U/L Alkaline Phosphata se 51 (40-130) IU/L Creatine Kinase 59 (39-308) U/L Total Protein 6.2 L (6.6-8.7) g/dL Albumin 3.5 (3.5-5.2) g/dL Globulin 2.7 (1.3-4.6) g/dL Valproic Acid < 2.8 L (50-100) ug/mL Discharge Plan Discharge Patient Disposition: Home Clinical Impression: Functional neurological symptom disorder with attacks or seizures Condition: Stable Prescriptions: No Action tamsulosin [Flomax] 0.4 mg capsule 0.4 mg PO DAILY Qty: 90 RF: 1 ascorbic acid (vitamin C) 500 mg tablet 500 mg PO DAILY@1000 RF: 0 ondansetron HCl [Zofran] 4 mg tablet 4 mg PO Q8H PRN (Reason: nausea and vomiting) Qty: 20 RF: 0 Depakote ER 500 mg tablet extended release 24 hr 1,000 mg PO DAILY Qty: 60 RF: 0 insulin aspart U-100 [Novolog Flexpen U-100 Insulin] 100 unit/mL (3 mL) insulin pen See Rx Instructions .ROUTE .COMPLEX RF: 0 budesonide-formoterol [Symbicort] 160-4.5 mcg/actuation HFA aerosol inhaler 2 puff INHALATION BID RF: 0 clopidogrel 75 mg tablet 75 mg PO DAILY@1000 RF: 0 aspirin [Adult Aspirin Regimen] 81 mg tablet,delayed release (DR/EC) 81 mg PO DAILY@1000 RF: 0 bisacodyl 5 mg tablet 20 mg PO BEDTIME RF: 0 pantoprazole 40 mg Tablet,Delayed Release (Dr/Ec) 40 mg PO DAILY@1000 RF: 0 nitroglycerin 0.4 mg tablet, sublingual 0.4 mg sublingual PRN PRN (Reason: Chest Pain) RF: 0 Vitamin B-12 1 tab PO DAILY@1000 RF: 0 multivitamin Tablet 1 tab PO DAILY@1000 RF: 0 albuterol sulfate 90 mcg/actuation Hfa Aerosol Inhaler 2 puff INHALATION Q4H PRN (Reason: Shortness Of Breath) RF: 0 hydrocodone-acetaminophen 5-325 mg tablet 1 tab PO Q6H PRN (Reason: pain) Qty: 15 RF: 0 Basaglar KwikPen U-100 Insulin 100 unit/mL (3 mL) insulin pen See Rx Instructions .ROUTE .COMPLEX RF: 0 polyethylene glycol 3350 [Miralax] 17 gram powder in packet 17 g PO BID Qty: 30 RF: 0 Discharge Orders: Discharge ED (Routine); Ordered 05/24/21 Ordered By: Dick Dacosta Referrals: Genie Beatty FNP [Primary Care Provider] - Discharge Diet: Usual diet Discharge Activity: Increase activity as tolerated Patient Instructions: Opioid Safety Coding Level of Care Code ED [employer] Safety Program Coordinator for [employer] Fwd Exam Comprehensive
[2021-05-24 09:06] LABS: Basophils # 0.1 10^3/uL (0.0-0.1); Eosinophils # 0.3 10^3/uL (0.0-0.8); Hemoglobin 12.8 g/dL (11.7-16.6); Lymphocytes # 1.8 10^3/uL (0.8-4.8); Lymphocytes % 26.3 %; Mean Corpuscular HGB Conc 32.8 g/dL (30.0-36.0); Mean Corpuscular Hemoglobin 32.5 pg (28.0-34.0); Mean Platelet Volume 10.2 fL (7.4-10.4); Monocytes # 0.4 10^3/uL (0.2-0.9); Monocytes % 5.8 %; Neutrophils # 4.16 10^3/uL (1.8-7.7); Neutrophils % 61.6 %; Nucleated Red Blood Cells % 0 %; Platelet Count 183 10^3/cmm (130-400); Red Blood Count 3.94 10^6/uL (4.1-5.3); Red Cell Distribution Width 13.4 % (12.1-15.1); White Blood Count 6.8 10^3/uL (4.0-10.0)
[2021-05-24 09:08] VITALS: BP 101/66; PULSE 56; RESP 23; O2SAT 97
[2021-05-24 09:45] LABS: Alanine Aminotransferase 14 U/L (0-41); Albumin Level 3.5 g/dL (3.5-5.2); Alkaline Phosphatase 51 IU/L (40-130); Aspartate Amino Transferase 19 U/L (0-40); Blood Urea Nitrogen 8 mg/dL (6-20); Calcium 7.8 mg/dL (8.5-10.5); Carbon Dioxide 26 mmol/L (22-29); Chloride 105 mmol/L (98-107); Creatine Phosphokinase 59 U/L (39-308); Globulin 2.7 g/dL (1.3-4.6); Glomerular Filtration Rate 171.4 mL/min (90-130); Glucose 178 mg/dL (65-115); Osmolality Calculated 291 mOsm/kg (285-295); Sodium 139 mmol/L (136-145); Total Bilirubin 0.5 mg/dL (0.15-1.2); Total Protein 6.2 g/dL (6.6-8.7)
[2021-05-24 09:46] LABS: Anion Gap 11.9 (5-19); Potassium 3.9 mmol/L (3.5-5.1); Valproic Acid Level < 2.8 ug/mL (50-100)
[2021-05-24 10:08] VITALS: BP 119/63; PULSE 59; RESP 21; O2SAT 96
[2021-05-24 10:25] VITALS: BP 119/63; PULSE 59; RESP 21; O2SAT 96
== END 2021-05-24 10:33 | disposition home or self-care (01) ==
PROVIDERS: Emergency Provider Family Medicine; PCP Nurse Practitioner Family
DX: R29.818 Other symptoms and signs involving the nervous system (principal); Z79.02 Long term (current) use of antithrombotics/antiplatelets; Z79.82 Long term (current) use of aspirin; Z79.4 Long term (current) use of insulin; J44.9 Chronic obstructive pulmonary disease, unspecified; I25.10 Atherosclerotic heart disease of native coronary artery without angina pectoris; Z86.73 Personal history of transient ischemic attack (TIA), and cerebral infarction without residual deficits; E11.9 Type 2 diabetes mellitus without complications; I10 Essential (primary) hypertension; I25.2 Old myocardial infarction; Z95.5 Presence of coronary angioplasty implant and graft; F17.210 Nicotine dependence, cigarettes, uncomplicated
CPT/HCPCS: 80053; 80164; 82550; 85025; 99283

== ENCOUNTER 2021-08-29 14:54 | Emergency (ER) | payer MEDICARE, SELFPAY ==
--- NOTE | 2021-08-29 15:05 | ECG_ITS ---
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 Measurements Intervals [place] Rate: 114 P: 82 MN: 151 QRS: -76 QRSD: 106 T: 66 QT: 329 QTc: 455 Interpretive Statements SINUS TACHYCARDIA POSSIBLE LEFT ATRIAL ENLARGEMENT [-0.1mV P-WAVE IN V1/V2] INCOMPLETE RIGHT BUNDLE BRANCH BLOCK [90+ ms QRS DURATION, TERMINAL R IN V1/V2, 40+ ms S IN I/aVL/V4/V5/V6] LEFT ANTERIOR FASCICULAR BLOCK [QRS AXIS <= -45, QR IN I, RS IN II] ANTEROSEPTAL MYOCARDIAL INFARCTION , OF INDETERMINATE AGE [40+ ms Q WAVE IN V1-V4] Compared to ECG 05/03/2021 18:03:28 Incomplete right bundle-branch block now present Left anterior fascicular block now present Sinus rhythm no longer present Left-axis deviation no longer present Myocardial infarct finding still present Electronically Signed On 08-29-2021 20:44:32 OPERATER by Jaylin Beavers M.D. [email or web address]
--- NOTE | 2021-08-29 15:05 | XR_ITS ---
WS: [id number] Portable AP upright chest, 08/29/2021 Clinical Data: chest pain Comparison: Portable chest, 01/29/2021. Findings: No nodules, masses or effusions are seen. There is a right pleural reaction. The heart is n ormal. The pulmonary vascularity is not increased. No pneumonia or pneumothorax is seen. The patient is had a posterior thoracolumbar fusion with bilateral pedicle screws and connecting rods XR/XR chest 1V portable [id number] Impression: Negative chest.
[2021-08-29 15:15] VITALS: BP 169/100; PULSE 114; RESP 16; TEMP 36.3; O2SAT 97; BMI 30.7
--- NOTE | 2021-08-29 15:28 | ED_ITS ---
Documented by User: Dick Dacosta DO 08/31/21 14:26 HPI - Chest Pain General: Chief Complaint: Chest Pain Stated Complaint: Chest Pain, sent per Dr Shultz Time Seen by Provider: 08/29/21 15:27 History of Present Illness: HPI narrative: 55-year-old male presents emergency room complaining of chest pain. 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 Jauregui. complaint: chest heaviness and chest discomfort Pertinent past history: coronary artery disease Onset (ago): day(s) Timing of current episode: episodic Onset: during rest Pain location: substernal and left chest Quality: aching and heaviness Relieving factors: nothing Exacerbating factors: nothing Associated symptoms: Deny abdominal pain, dyspnea, fever(s), nausea or vomiting Review of Systems Const: Denies: fever(s), chills, body aches, change in appetite, fatigue or malaise ENMT: Denies: throat pain, ear or mastoid pain, nasal discharge or nasal congestion Card: Denies: chest pain, edema, dyspnea on exertion or orthopnea Resp: Denies: dyspnea, productive cough or non-productive cough GI: Denies: abdominal pain, nausea, vomiting, hematemesis, coffee ground emesis, diarrhea, constipation, bloating, hematochezia or melena : Denies: flank pain, dysuria, urinary frequency or urinary urgency Skin/Breast: Denies: rash or pruritus PFSH ED PFSH: Medical History Abdominal wall bulge Anxiety Back pain BPH NOS w ur obs/LUTS COPD (chronic obstructive pulmonary disease) Coronary artery disease CVA (cerebral vascular accident) CVA (cerebral vascular accident) Diabetes Hypertension Migraine Myocardial infarction Seizure Urinary retention Surgical History History of appendectomy History of back surgery History of cholecystectomy History of coronary angioplasty with insertion of stent History of tonsillectomy History of vasectomy S/P left knee arthroscopy Family History Other CAD (coronary artery disease) Hypertension Social History Smoking and tobacco status: current every day smoker cigarettes Packs smoked per day: 0.5 Years cigarettes smoked: 13 Second hand smoke exposure: No Alcohol intake: never Caregiver/support person: Yes (spouse) Lives independently: Yes Household members: spouse Marital status: Current occupational status: disabled History of recent travel: No Current gender identity: Male Physical Exam Const: COMMON NORMALS: no acute distress GENERAL APPEARANCE: cooperative and comfortable ORIENTATION/CONSCIOUSNESS: Yes awake HENMT: COMMON NORMALS: normocephalic, atraumatic and hearing grossly normal bilaterally HEAD & SCALP: normocephalic and atraumatic Neck/C-Spine: COMMON NORMALS: no JVD Resp: COMMON NORMALS: normal respiratory effort, No retractions, No use of accessory muscles and clear to auscultation bilaterally AUSCULTATION: clear to auscultation bilaterally Cardio: COMMON NORMALS: no JVD, regular rate, regular rhythm and No murmurs present (Cardio) RATE: regular rate RHYTHM: regular rhythm GI: COMMON NORMALS: Soft to palpation and No hepatosplenomegaly present AUSCULTATION: Yes normoactive bowel sounds PALPATION: Yes Soft to palpation, No Tenderness to palpation present (GI), No Guarding due to palpation present (GI) and Yes No hepatosplenomegaly present Extremity: COMMON NORMALS: normal to inspection, capillary refill normal, no clubbing, cyanosis or edema, no calf tenderness and no pedal edema Skin: COMMON NORMALS: no rashes or lesions noted GENERAL SKIN EXAM: no rashes or lesions noted Course Vital Signs: Vital signs: Vital Signs Temperature 97.3 F L 08/29/21 15:15 Pulse Rate 78 08/29/21 20:50 Respiratory Rate 18 08/29/21 20:50 Blood Pressure 124/65 08/29/21 20:50 Pulse Oximetry 98 08/29/21 20:50 MDM - Chest Pain MDM Narrative: Medical decision making narrative: Care turned over to Dr. Schultz at change of seasonal final diagnosis disposition Lab Data: Labs: Lab Results 08/29/21 08/29/21 08/29/21 15:30 15:30 15:30 WBC 9.4 10^3/uL 10^3/ uL (4.0-10.0) RBC 4.76 10^6/uL 10^6 /uL (4.1-5.3) Hgb 15.4 g/dL g/dL (11.7-16.6) Hct 44.4 % % (42.0-52.0) MCV 93.3 fl fl (80-94) MCH 32.4 pg pg (28.0-34.0) MCHC 34.7 g/dL g/dL (30.0-36.0) RDW 13.2 % % (12.1-15.1) Plt Count 223 10^3/cmm 10^3 /cmm (130-400) MPV 9.9 fL fL (7.4-10.4) Neut % (Auto) 66.8 % % Lymph % (Auto) 24.1 % % [place] % (Auto) 6.7 % % Eos % (Auto) 1.2 % % Baso % (Auto) 0.7 % % Neut # (Auto) 6.27 10^3/uL 10^3 /uL (1.8-7.7) Lymph # (Auto) 2.3 10^3/uL 10^3/ uL (0.8-4.8) [place] # (Auto) 0.6 10^3/uL 10^3/ uL (0.2-0.9) Eos # (Auto) 0.1 10^3/uL 10^3/ uL (0.0-0.8) Baso # (Auto) 0.1 10^3/uL 10^3/ uL (0.0-0.1) Nucleated RBC % (a uto) 0 % % Nucleated RBCs # 0.0 /100WBC /100W BC Sodium 132 mmol/L L mmol /L (136-145) Potassium 3.8 mmol/L mmol/L (3.5-5.1) Chloride 95 mmol/L L mmol/ L (98-107) Carbon Dioxide 21 mmol/L L mmol/ L (22-29) Anion Gap 19.8 H (5-19) BUN 16 mg/dL mg/dL (6-20) Creatinine 0.6 mg/dL L mg/dL (0.7-1.2) GFR Calculation 138.9 mL/min H mL /min (90-130) Glucose 359 mg/dL H mg/dL (65-115) Calculated Osmolal ity 290 mOsm/kg mOsm/ kg (285-295) Calcium 9.6 mg/dL mg/dL (8.5-10.5) Total Bilirubin 0.6 mg/dL mg/dL (0.15-1.2) AST 15 U/L U/L (0-40) ALT 18 U/L U/L (0-41) Alkaline Phosphata se 68 IU/L IU/L (40-130) Troponin T Baselin e 17 ng/L H ng/L (0-15) Troponin T 120 [address] [place] Troponin T Total Protein 7.7 g/dL g/dL (6.6-8.7) Albumin 4.5 g/dL g/dL (3.5-5.2) Globulin 3.2 g/dL g/dL (1.3-4.6) 08/29/21 17:40 WBC RBC Hgb Hct MCV MCH MCHC RDW Plt Count MPV Neut % (Auto) Lymph % (Auto) [place] % (Auto) Eos % (Auto) Baso % (Auto) Neut # (Auto) Lymph # (Auto) [place] # (Auto) Eos # (Auto) Baso # (Auto) Nucleated RBC % (a uto) Nucleated RBCs # Sodium Potassium Chloride Carbon Dioxide Anion Gap BUN Creatinine GFR Calculation Glucose Calculated Osmolal ity Calcium Total Bilirubin AST ALT Alkaline Phosphata se Troponin T Baselin e Troponin T 120 [address] [place] 15.86 ng/L H ng/L (0-15) Delta Troponin T -1.14 ABS# L ABS# (0-10) Total Protein Albumin Globulin Discharge Plan Discharge Patient Disposition: Home Clinical Impression: Chest pain, Seizure Condition: Stable Prescriptions: No Action tamsulosin [Flomax] 0.4 mg capsule 0.4 mg PO DAILY Qty: 90 RF: 1 atorvastatin 40 mg tablet 40 mg PO DAILY RF: 0 ascorbic acid (vitamin C) 500 mg tablet 500 mg PO DAILY@1000 RF: 0 ondansetron HCl [Zofran] 4 mg tablet 4 mg PO Q8H PRN (Reason: nausea and vomiting) Qty: 20 RF: 0 clopidogrel 75 mg tablet See Rx Instructions .ROUTE .COMPLEX Qty: 90 RF: 0 divalproex 500 mg tablet extended release 24 hr See Rx Instructions .ROUTE .COMPLEX Qty: 60 RF: 0 insulin aspart U-100 [Novolog Flexpen U-100 Insulin] 100 unit/mL (3 mL) insulin pen See Rx Instructions .ROUTE .COMPLEX RF: 0 budesonide-formoterol [Symbicort] 160-4.5 mcg/actuation HFA aerosol inhaler 2 puff INHALATION BID RF: 0 aspirin [Adult Aspirin Regimen] 81 mg tablet,delayed release (DR/EC) 81 mg PO DAILY@1000 RF: 0 pantoprazole 40 mg Tablet,Delayed Release (Dr/Ec) 40 mg PO DAILY@1000 RF: 0 nitroglycerin 0.4 mg tablet, sublingual 0.4 mg sublingual PRN PRN (Reason: Chest Pain) RF: 0 Vitamin B-12 1 tab PO DAILY@1000 RF: 0 multivitamin Tablet 1 tab PO DAILY@1000 RF: 0 albuterol sulfate 90 mcg/actuation Hfa Aerosol Inhaler 2 puff INHALATION Q4H PRN (Reason: Shortness Of Breath) RF: 0 hydrocodone-acetaminophen 5-325 mg tablet 1 tab PO Q6H PRN (Reason: pain) Qty: 15 RF: 0 Basaglar KwikPen U-100 Insulin 100 unit/mL (3 mL) insulin pen See Rx Instructions .ROUTE .COMPLEX RF: 0 polyethylene glycol 3350 [Miralax] 17 gram powder in packet 17 g PO BID Qty: 30 RF: 0 Discharge Orders: Discharge ED (Routine); Ordered 08/29/21 Ordered By: Herev Schultz Referrals: Genie Beatty FNP [Primary Care Provider] - 1-3 days Discharge Diet: Advance as tolerated Discharge Activity: Resume usual activity Patient Instructions: Chest Pain (ED) Coding Level of Care Code ED Principal Software Architect for Chg Fwd Exam Comprehensive Documented by User: Herve Schultz MD 08/29/21 20:54 HPI - Chest Pain General: Chief Complaint: Chest Pain Stated Complaint: Chest Pain, sent per Dr Shultz Time Seen by Provider: 08/29/21 15:27 PFSH ED PFSH: Medical History Abdominal wall bulge Anxiety Back pain BPH NOS w ur obs/LUTS COPD (chronic obstructive pulmonary disease) Coronary artery disease CVA (cerebral vascular accident) CVA (cerebral vascular accident) Diabetes Hypertension Migraine Myocardial infarction Seizure Urinary retention Surgical History History of appendectomy History of back surgery History of cholecystectomy History of coronary angioplasty with insertion of stent History of tonsillectomy History of vasectomy S/P left knee arthroscopy Family History Other CAD (coronary artery disease) Hypertension Social History Smoking and tobacco status: current every day smoker cigarettes Packs smoked per day: 0.5 Years cigarettes smoked: 13 Second hand smoke exposure: No Alcohol intake: never Caregiver/support person: Yes (spouse) Lives independently: Yes Household members: spouse Marital status: Current occupational status: disabled History of recent travel: No Current gender identity: Male Course Vital Signs: Vital signs: Vital Signs Temperature 97.3 F L 08/29/21 15:15 Pulse Rate 78 08/29/21 20:50 Respiratory Rate 18 08/29/21 20:50 Blood Pressure 124/65 08/29/21 20:50 Pulse Oximetry 98 08/29/21 20:50 MDM - Chest Pain MDM Narrative: Medical decision making narrative: The patient from Dr. Adams patient complained of chest pain repeat troponin here showed no change she is pain-free had a possible seizure here work-up here is all negative is back to baseline able ambulate without any difficulty he is stable for discharge is to follow-up with PCP and return if worsening. Lab Data: Labs: Lab Results 08/29/21 08/29/21 08/29/21 15:30 15:30 15:30 WBC 9.4 10^3/uL 10^3/ uL (4.0-10.0) RBC 4.76 10^6/uL 10^6 /uL (4.1-5.3) Hgb 15.4 g/dL g/dL (11.7-16.6) Hct 44.4 % % (42.0-52.0) MCV 93.3 fl fl (80-94) MCH 32.4 pg pg (28.0-34.0) MCHC 34.7 g/dL g/dL (30.0-36.0) RDW 13.2 % % (12.1-15.1) Plt Count 223 10^3/cmm 10^3 /cmm (130-400) MPV 9.9 fL fL (7.4-10.4) Neut % (Auto) 66.8 % % Lymph % (Auto) 24.1 % % [place] % (Auto) 6.7 % % Eos % (Auto) 1.2 % % Baso % (Auto) 0.7 % % Neut # (Auto) 6.27 10^3/uL 10^3 /uL (1.8-7.7) Lymph # (Auto) 2.3 10^3/uL 10^3/ uL (0.8-4.8) [place] # (Auto) 0.6 10^3/uL 10^3/ uL (0.2-0.9) Eos # (Auto) 0.1 10^3/uL 10^3/ uL (0.0-0.8) Baso # (Auto) 0.1 10^3/uL 10^3/ uL (0.0-0.1) Nucleated RBC % (a uto) 0 % % Nucleated RBCs # 0.0 /100WBC /100W BC Sodium 132 mmol/L L mmol /L (136-145) Potassium 3.8 mmol/L mmol/L (3.5-5.1) Chloride 95 mmol/L L mmol/ L (98-107) Carbon Dioxide 21 mmol/L L mmol/ L (22-29) Anion Gap 19.8 H (5-19) BUN 16 mg/dL mg/dL (6-20) Creatinine 0.6 mg/dL L mg/dL (0.7-1.2) GFR Calculation 138.9 mL/min H mL /min (90-130) Glucose 359 mg/dL H mg/dL (65-115) Calculated Osmolal ity 290 mOsm/kg mOsm/ kg (285-295) Calcium 9.6 mg/dL mg/dL (8.5-10.5) Total Bilirubin 0.6 mg/dL mg/dL (0.15-1.2) AST 15 U/L U/L (0-40) ALT 18 U/L U/L (0-41) Alkaline Phosphata se 68 IU/L IU/L (40-130) Troponin T Baselin e 17 ng/L H ng/L (0-15) Troponin T 120 [address] [place] Troponin T Total Protein 7.7 g/dL g/dL (6.6-8.7) Albumin 4.5 g/dL g/dL (3.5-5.2) Globulin 3.2 g/dL g/dL (1.3-4.6) 08/29/21 17:40 WBC RBC Hgb Hct MCV MCH MCHC RDW Plt Count MPV Neut % (Auto) Lymph % (Auto) [place] % (Auto) Eos % (Auto) Baso % (Auto) Neut # (Auto) Lymph # (Auto) [place] # (Auto) Eos # (Auto) Baso # (Auto) Nucleated RBC % (a uto) Nucleated RBCs # Sodium Potassium Chloride Carbon Dioxide Anion Gap BUN Creatinine GFR Calculation Glucose Calculated Osmolal ity Calcium Total Bilirubin AST ALT Alkaline Phosphata se Troponin T Baselin e Troponin T 120 [address] [place] 15.86 ng/L H ng/L (0-15) Delta Troponin T -1.14 ABS# L ABS# (0-10) Total Protein Albumin Globulin Imaging Data^: CXR: Attestation: I personally reviewed and interpreted this imaging study as follows: Radiologist's impression: [address] [address] XRay Report Signed Patient: Arcenio Saldivar Unit #: [id number] : [id number] Age/Sex: 55 / M ADM Date: 08/29/21 Loc: ER Room/Bed: Attending Dr: Ordering Provider/Ordering MD: Carolyn Kiran Date of Service: 08/29/21 Procedure(s): XR chest 1V portable [id number] Accession Number(s): [id number] Report Number: [id number] WS: [id number] Portable AP upright chest, 08/29/2021 Clinical Data: chest pain Comparison: Portable chest, 01/29/2021. Findings: No nodules, masses or effusions are seen. There is a right pleural reaction. The heart is normal. The pulmonary vascularity is not increased. No pneumonia or pneumothorax is seen. The patient is had a posterior thoracolumbar fusion with bilateral pedicle screws and connecting rods XR/XR chest 1V portable [id number] Impression: Negative chest. Dictated By: Soniya Quinones MD Signed By: Soniya Quinones MD Signed Date/Time: 08/29/211524 DD/ 22 Discharge Plan Discharge Patient Disposition: Home Clinical Impression: Chest pain, Seizure Condition: Stable Prescriptions: No Action tamsulosin [Flomax] 0.4 mg capsule 0.4 mg PO DAILY Qty: 90 RF: 1 atorvastatin 40 mg tablet 40 mg PO DAILY RF: 0 ascorbic acid (vitamin C) 500 mg tablet 500 mg PO DAILY@1000 RF: 0 ondansetron HCl [Zofran] 4 mg tablet 4 mg PO Q8H PRN (Reason: nausea and vomiting) Qty: 20 RF: 0 clopidogrel 75 mg tablet See Rx Instructions .ROUTE .COMPLEX Qty: 90 RF: 0 divalproex 500 mg tablet extended release 24 hr See Rx Instructions .ROUTE .COMPLEX Qty: 60 RF: 0 insulin aspart U-100 [Novolog Flexpen U-100 Insulin] 100 unit/mL (3 mL) insulin pen See Rx Instructions .ROUTE .COMPLEX RF: 0 budesonide-formoterol [Symbicort] 160-4.5 mcg/actuation HFA aerosol inhaler 2 puff INHALATION BID RF: 0 aspirin [Adult Aspirin Regimen] 81 mg tablet,delayed release (DR/EC) 81 mg PO DAILY@1000 RF: 0 pantoprazole 40 mg Tablet,Delayed Release (Dr/Ec) 40 mg PO DAILY@1000 RF: 0 nitroglycerin 0.4 mg tablet, sublingual 0.4 mg sublingual PRN PRN (Reason: Chest Pain) RF: 0 Vitamin B-12 1 tab PO DAILY@1000 RF: 0 multivitamin Tablet 1 tab PO DAILY@1000 RF: 0 albuterol sulfate 90 mcg/actuation Hfa Aerosol Inhaler 2 puff INHALATION Q4H PRN (Reason: Shortness Of Breath) RF: 0 hydrocodone-acetaminophen 5-325 mg tablet 1 tab PO Q6H PRN (Reason: pain) Qty: 15 RF: 0 Basaglar KwikPen U-100 Insulin 100 unit/mL (3 mL) insulin pen See Rx Instructions .ROUTE .COMPLEX RF: 0 polyethylene glycol 3350 [Miralax] 17 gram powder in packet 17 g PO BID Qty: 30 RF: 0 Discharge Orders: Discharge ED (Routine); Ordered 08/29/21 Ordered By: Herve Schultz Referrals: Genie Beatty FNP [Primary Care Provider] - 1-3 days Discharge Diet: Advance as tolerated Discharge Activity: Resume usual activity Patient Instructions: Chest Pain (ED) Coding Level of Care Code ED Principal Software Architect for Chg Fwd Exam Comprehensive
[2021-08-29 15:59] LABS: Troponin(5th) Baseline 17 ng/L (0-15)
[2021-08-29 16:01] LABS: Alanine Aminotransferase 18 U/L (0-41); Albumin Level 4.5 g/dL (3.5-5.2); Alkaline Phosphatase 68 IU/L (40-130); Anion Gap 19.8 (5-19); Aspartate Amino Transferase 15 U/L (0-40); Blood Urea Nitrogen 16 mg/dL (6-20); Calcium 9.6 mg/dL (8.5-10.5); Carbon Dioxide 21 mmol/L (22-29); Chloride 95 mmol/L (98-107); Globulin 3.2 g/dL (1.3-4.6); Glomerular Filtration Rate 138.9 mL/min (90-130); Glucose 359 mg/dL (65-115); Osmolality Calculated 290 mOsm/kg (285-295); Potassium 3.8 mmol/L (3.5-5.1); Sodium 132 mmol/L (136-145); Total Bilirubin 0.6 mg/dL (0.15-1.2); Total Protein 7.7 g/dL (6.6-8.7)
[2021-08-29 16:24] LABS: Basophils # 0.1 10^3/uL (0.0-0.1); Basophils % 0.7 %; Eosinophils # 0.1 10^3/uL (0.0-0.8); Eosinophils % 1.2 %; Hematocrit 44.4 % (42.0-52.0); Hemoglobin 15.4 g/dL (11.7-16.6); Lymphocytes # 2.3 10^3/uL (0.8-4.8); Lymphocytes % 24.1 %; Mean Corpuscular HGB Conc 34.7 g/dL (30.0-36.0); Mean Corpuscular Hemoglobin 32.4 pg (28.0-34.0); Mean Corpuscular Volume 93.3 fl (80-94); Mean Platelet Volume 9.9 fL (7.4-10.4); Monocytes # 0.6 10^3/uL (0.2-0.9); Monocytes % 6.7 %; Neutrophils # 6.27 10^3/uL (1.8-7.7); Neutrophils % 66.8 %; Nucleated Red Blood Cells % 0 %; Platelet Count 223 10^3/cmm (130-400); Red Blood Count 4.76 10^6/uL (4.1-5.3); Red Cell Distribution Width 13.2 % (12.1-15.1); White Blood Count 9.4 10^3/uL (4.0-10.0)
[2021-08-29] MEDS: LORazepam 2 mg/mL INJ 1 mL IVP ×2 (16:50→16:59)
[2021-08-29 16:51] VITALS: BP 128/109; PULSE 100; O2SAT 96
[2021-08-29 18:03] LABS: Troponin 5 2HR 15.86 ng/L (0-15); Troponin 5 2HR Delta -1.14 ABS# (0-10)
[2021-08-29 18:32] VITALS: BP 134/80; PULSE 90; RESP 16; O2SAT 96
[2021-08-29 20:50] VITALS: BP 124/65; PULSE 78; RESP 18; O2SAT 98
== END 2021-08-29 20:45 | disposition home or self-care (01) ==
PROVIDERS: Physician Assistant; Emergency Provider Emergency Medicine; PCP Nurse Practitioner Family
DX: R07.9 Chest pain, unspecified (principal); R56.9 Unspecified convulsions; J44.9 Chronic obstructive pulmonary disease, unspecified; I25.10 Atherosclerotic heart disease of native coronary artery without angina pectoris; E11.9 Type 2 diabetes mellitus without complications; I10 Essential (primary) hypertension; I25.2 Old myocardial infarction; F17.210 Nicotine dependence, cigarettes, uncomplicated; Z79.82 Long term (current) use of aspirin; Z79.4 Long term (current) use of insulin; Z86.73 Personal history of transient ischemic attack (TIA), and cerebral infarction without residual deficits
CPT/HCPCS: 71045; 80053; 84484; 85025; 93005; 96365; 96375; 99284; J1953; J2060

== ENCOUNTER → 2021-09-20 10:01 | Outpatient (BNVA) | payer MEDICARE, SELFPAY | PROVIDERS: PCP Nurse Practitioner Family; Visit Provider Orthopaedic Surgery | DX: M54.9 Dorsalgia, unspecified (principal); Z98.1 Arthrodesis status; M47.896 Other spondylosis, lumbar region | CPT/HCPCS: 72072; 72110 ==

== ENCOUNTER → 2021-10-10 10:00 | Outpatient (BNVA) | payer MEDICARE, SELFPAY | PROVIDERS: PCP Nurse Practitioner Family; Visit Provider Nurse Practitioner Family | DX: L03.113 Cellulitis of right upper limb (principal); L03.114 Cellulitis of left upper limb | CPT/HCPCS: 87070; 87075; 87205 ==

== ENCOUNTER → 2021-11-15 09:36 | Outpatient (BNVA) | payer MEDICARE, SELFPAY | PROVIDERS: PCP Nurse Practitioner Family; Visit Provider Nurse Practitioner Family | DX: L03.114 Cellulitis of left upper limb (principal); M19.032 Primary osteoarthritis, left wrist | CPT/HCPCS: 73110; 80053; 85025 ==

== ENCOUNTER 2022-01-25 16:24 | Emergency (ER) | payer MEDICARE, SELFPAY ==
[2022-01-25] VITALS (7 sets, daily range): BP systolic 87–134; BP diastolic 53–77; PULSE 62–109; RESP 10–25; TEMP 36.7; O2SAT 93–97; BMI 36.4
[2022-01-25 16:39] LABS: Glucose Point of Care 153 mg/dL (70-110)
--- NOTE | 2022-01-25 16:57 | ED_ITS ---
Documented by User: Torres Ramirez MD 01/28/22 01:38 HPI - Headache General: Chief Complaint: Headache Stated Complaint: L SIDED HEADACHE Time Seen by Provider: 01/25/22 16:26 Limitations: altered mental status History of Present Illness: Mr. Saldivar is a 57-year-old gentleman with history of hypertension, hyperlipidemia, diabetes, possible complex migraines, reported history of NV and reported history of strokes and seizure disorder who presents to the emergency department due to headache and neurologic symptoms. Onset of symptoms was yesterday afternoon when he had severe left-sided headache that was unclear exact course of onset. Sharp pain associated left-sided head associated with left side reported sensory changes. Additionally he has had chest pain though exact factors associated with this are unclear. Patient has assistance in answering questions by significant other at bedside. He appears mildly agitated however apparently this is typical of when he has severe headaches. Pertinent past history: migraines and other Onset (ago): hour(s) Location: left, temporal and down into neck Severity: severe Quality & Timing: sharp Associated symptoms: Reports other Review of Systems General: Reports: ROS unobtainable due to mental status PFSH ED PFSH: Medical History Abdominal wall bulge Anxiety Back pain BPH NOS w ur obs/LUTS COPD (chronic obstructive pulmonary disease) Coronary artery disease CVA (cerebral vascular accident) CVA (cerebral vascular accident) Diabetes Hypertension Migraine Myocardial infarction Seizure Urinary retention Surgical History History of appendectomy History of back surgery History of cholecystectomy History of coronary angioplasty with insertion of stent History of tonsillectomy History of vasectomy S/P left knee arthroscopy Family History Other CAD (coronary artery disease) Hypertension Social History Smoking and tobacco status: current every day smoker cigarettes Packs smoked per day: 0.5 Years cigarettes smoked: 13 Second hand smoke exposure: No Alcohol intake: never Caregiver/support person: Yes (spouse) Lives independently: Yes Household members: spouse Marital status: Current occupational status: disabled History of recent travel: No Current gender identity: Male Physical Exam Const: COMMON NORMALS: alert GENERAL APPEARANCE: well developed HENMT: COMMON NORMALS: normocephalic and atraumatic HEAD & SCALP: normocephalic and atraumatic Eye: COMMON NORMALS: conjunctivae normal CONJUNCTIVA: Yes conjunctivae no rmal SCLERA: sclerae normal Neck/C-Spine: COMMON NORMALS: supple GENERAL: Yes trachea midline Resp: COMMON NORMALS: clear to auscultation bilaterally EFFORT & INSPECTION: Yes able to speak in complete sentences AUSCULTATION: clear to auscultation bilaterally Cardio: COMMON NORMALS: regular rate and regular rhythm RATE: regular rate RHYTHM: regular rhythm GI: COMMON NORMALS: Soft to palpation PALPATION: Yes Soft to palpation and No Tenderness to palpation present (GI) PERCUSSION: normal to percussion Extremity: GENERAL: Yes normal exam except as noted and No edema Neuro: COMMON NORMALS: CN's II-XII intact bilaterally, moves all extremities, no focal motor deficits and no sensory deficits noted SENSORIUM/ORIENTATION: Yes alert and No Orientation impaired Course ED course: - Patient was seen and evaluated by me at bedside - Patient placed on cardiac monitors, IV access obtained - Initial evaluation notable for exam as above, patient somewhat limited with rest history and points to his head regarding severe pain. - Labs and xrays personally interpreted by me. EKG from 1859, 2248, and 1637 personally interpreted by me. Sinus rhythm with nonspecific ST segment abnormalities. No STEMI. - Labs notable for no leukocytosis, normal hemoglobin. Metabolic panel with mild hypokalemia and mild evidence of intravascular dehydration. Delta troponin negative. Urinalysis without evidence of urinary tract infection, no ketones. - Imaging notable for no lobar consolidation or pneumothorax. CT head without acute abnormality with likely roughly 12 hours of symptoms. - Twice during ED encounter patient was observed having generalized seizure-like activity involving upper and lower extremities bilaterally. He did not respond to sternal rub and was treated with benzodiazepines. Additionally antiepileptic low given. - I was subsequently able to perform a more comprehensive chart review which was initially delayed due to clinical volume and care of this patient. The patient is noted to have likely functional neurologic disorder. Additionally, despite both patient and significant other's insistence, he does not have evidence on MRI of stroke with no new strokes or strokelike symptoms identified in the interim. - Upon serial reexamination after treatment the patient was improved overall though still has headache. - Migraine cocktail ordered and patient care handed off to overnight ED physician pending completion of test of ambulation and symptom improvement. Likely plan to discharge. With regards to the patient's chest pain he likely does require further outpatient testing however given current symptoms I do not believe that he is a candidate for admission for evaluation as further testing will likely require significant coordination. I will message case management for cardiology follow-up. Note: Click bubbles or prepopulated champion in note writing are used for assistance with data collection and billing and are inherently more limited than narrative and other text portions of this note. Please use narrative for additional clinical history and defer to narrative/free test for any case of contradictory information. If information appears in only free text or click bubble it should be considered present or absent as reported. Please contact note insurance writer for clarifications of clinical information or contradictory information. MDM is a brief summary, contradictory or erroneous seeming information should be clarified and full note should be reviewed. Vital Signs: Vital signs: Vital Signs Temperature 98.0 F 01/25/22 20:30 Pulse Rate 78 01/26/22 00:32 Respiratory Rate 14 01/26/22 00:32 Blood Pressure 104/67 01/26/22 00:32 Pulse Oximetry 94 01/26/22 00:32 MDM - Headache Medical Decision Making 56-year-old gentleman presenting with severe headache associated with possible left-sided sensory changes. Patient provides limited history. Patient had seizure-like episodes in the emergency department which were treated with benzodiazepines with improvement. Upon more detailed chart review patient has a history of functional neurologic disorder and likely complex migraines. Patient treated for migraine and handed off to overnight ED physician pending reassessment and ambulation. Patient presents with a headache also possible seizure. Does seem to have a migraine with an aura does have a history of an old stroke CT here shows no acute findings he has no signs of stroke. He feels much improved after his migraine medicine he is stable for discharge is to follow-up his PCP and return if worsening. Medical Records I reviewed the patient's medical records. Lab Data I reviewed the patient's lab results. : 01/25/22 17:21 01/25/22 17:21 Radiology Impressions Chest X-Ray 01/25/22 17:01 IMPRESSION: No acute findings. Head CT 01/25/22 17:01 IMPRESSION: No acute intracranial abnormality. Laboratory Results WBC 8.8 10^3/uL (4.0-10.0) 01/25/22 17:21 RBC 4.54 10^6/uL (4.1-5.3) 01/25/22 17:21 Hgb 14.7 g/dL (11.7-16.6) 01/25/22 17:21 Hct 45.0 % (42.0-52.0) 01/25/22 17:21 MCV 99.1 fl (80-94) H 01/25/22 17:21 MCH 32.4 pg (28.0-34.0) 01/25/22 17:21 MCHC 32.7 g/dL (30.0-36.0) 01/25/22 17:21 RDW 13.1 % (12.1-15.1) 01/25/22 17:21 Plt Count 217 10^3/cmm (130-400) 01/25/22 17:21 MPV 9.9 fL (7.4-10.4) 01/25/22 17:21 Neut % (Auto) 61.4 % 01/25/22 17:21 Lymph % (Auto) 26.8 % 01/25/22 17:21 [place] % (Auto) 8.9 % 01/25/22 17:21 Eos % (Auto) 1.4 % 01/25/22 17:21 Baso % (Auto) 1.2 % 01/25/22 17:21 Neut # (Auto) 5.41 10^3/uL (1.8-7.7) 01/25/22 17:21 Lymph # (Auto) 2.4 10^3/uL (0.8-4.8) 01/25/22 17:21 [place] # (Auto) 0.8 10^3/uL (0.2-0.9) 01/25/22 17:21 Eos # (Auto) 0.1 10^3/uL (0.0-0.8) 01/25/22 17:21 Baso # (Auto) 0.1 10^3/uL (0.0-0.1) 01/25/22 17:21 Nucleated RBC % (auto) 0 % 01/25/22 17:21 Nucleated RBCs # 0.0 /100WBC 01/25/22 17:21 Sodium 135 mmol/L (136-145) L 01/25/22 17:21 Potassium 3.2 mmol/L (3.5-5.1) L 01/25/22 17:21 Chloride 99 mmol/L (98-107) 01/25/22 17:21 Carbon Dioxide 18 mmol/L (22-29) L 01/25/22 17:21 Anion Gap 21.2 (5-19) H 01/25/22 17:21 BUN 12 mg/dL (6-20) 01/25/22 17:21 Creatinine 0.8 mg/dL (0.7-1.2) 01/25/22 17:21 GFR Calculation 99.3 mL/min (90-130) 01/25/22 17:21 Glucose 139 mg/dL (65-115) H 01/25/22 17:21 POC Glucose 153 mg/dL (70-110) H 01/25/22 16:38 Calculated Osmolality 282 mOsm/kg (285-295) L 01/25/22 17:21 Calcium 9.7 mg/dL (8.5-10.5) 01/25/22 17:21 Total Bilirubin 0.3 mg/dL (0.15-1.2) 01/25/22 17:21 AST 17 U/L (0-40) 01/25/22 17:21 ALT 18 U/L (0-41) 01/25/22 17:21 Alkaline Phosphatase 58 IU/L (40-130) 01/25/22 17:21 Troponin T Baseline 19 ng/L (0-15) H 01/25/22 17:21 Troponin T 120 Minute 20.21 ng/L (0-15) H 01/25/22 19:28 Delta Troponin T 1.21 ABS# (0-10) 01/25/22 19:28 Troponin T Hi Sens 6Hr 19.66 ng/L (0-15) H 01/25/22 23:18 Troponin T Hi Sens 6Hr Delta 0.66 ng/L (0-12) 01/25/22 23:18 C-Reactive Protein 3.0 mg/L (0.0-4.9) 01/25/22 17:21 NT-Pro-B Natriuret Pep 324 pg/mL (0-125) H 01/25/22 17:21 Total Protein 7.2 g/dL (6.6-8.7) 01/25/22 17:21 Albumin 4.0 g/dL (3.5-5.2) 01/25/22 17:21 Globulin 3.2 g/dL (1.3-4.6) 01/25/22 17:21 Lipase 8 U/L (13-60) L 01/25/22 17:21 Procalcitonin 0.06 ng/mL (0-0.5) 01/25/22 17:21 TSH 2.32 uIU/mL (0.27-4.20) 01/25/22 17:21 Urine Color Yellow (Yellow) 01/25/22 22:55 Urine Appearance Clear (CLEAR) 01/25/22 22:55 Urine pH 5 (5-7) 01/25/22 22:55 Ur Specific [place] 1.015 (1.005-1.030) 01/25/22 22:55 Urine Protein Neg (Negative) 01/25/22 22:55 Urine Glucose (UA) 4+ (Normal) H 01/25/22 22:55 Urine Ketones Negative (Negative) 01/25/22 22:55 Urine Blood Neg (Negative) 01/25/22 22:55 Urine Nitrate Negative (Negative) 01/25/22 22:55 Urine Bilirubin Neg (Negative) 01/25/22 22:55 Urine Urobilinogen Norm mg/dL (Negative) 01/25/22 22:55 Ur Leukocyte Esterase Negative (Negative) 01/25/22 22:55 Valproic Acid 25.3 ug/mL (50-100) L 01/25/22 17:21 Critical Care Time Critical Care Time: Critical Care Time: Yes Total Critical Care Time: 45 Attestation: Due to a high probability of clinically significant, possibly life threatening deterioration, the patient required my highest level of attention and preparedness to intervene emergently and I personally spent this critical care time directly and personally managing the patient. This critical care time included obtaining a history; examining the patient; pulse oximetry; ordering and review of laboratory and imaging studies; arranging urgent treatment with development of a management plan; evaluation of patient's response to treatment; frequent reassessment; and, discussions with other providers as applicable. It was exclusive of separately billable procedures. Primary system involved is neuro Discharge Plan Discharge Patient Disposition: Home Clinical Impression: Headache, Chest pain, Altered mental status Condition: Stable Prescriptions: No Action tamsulosin [Flomax] 0.4 mg capsule 0.4 mg PO DAILY Qty: 90 1RF atorvastatin 40 mg tablet 40 mg PO DAILY 0RF ascorbic acid (vitamin C) 500 mg tablet 500 mg PO DAILY@1000 0RF pantoprazole 40 mg tablet,delayed release (DR/EC) 40 mg PO DAILY@1000 Qty: 90 3RF Basaglar KwikPen U-100 Insulin 100 unit/mL (3 mL) insulin pen 20 unit SUBCUT DAILY Qty: 45 3RF Rx Instructions: 20 units SUBCUT daily; insulin aspart U-100 [Novolog Flexpen U-100 Insulin] 100 unit/mL (3 mL) insulin pen 2 unit SUBCUT TID Qty: 45 3RF Rx Instructions: Administer 2 units subcut three times a day 15 minutes before meals. nitroglycerin 0.4 mg tablet, sublingual See Rx Instructions .ROUTE .COMPLEX Qty: 25 3RF Dose Instruction: DISSOLVE 1 TABLET UNDER THE TONGUE EVERY 5 MINUTES NEEDED FOR CHEST PAIN. DO NOT EXCEED A TOTAL OF 3 DOSES IN 15 MINUTES. FOR ONE DAY Rx Instructions: DISSOLVE 1 TABLET UNDER THE TONGUE EVERY 5 MINUTES NEEDED FOR CHEST PAIN. DO NOT EXCEED A TOTAL OF 3 DOSES IN 15 MINUTES. FOR ONE DAY budesonide-formoterol [Symbicort] 160-4.5 mcg/actuation HFA aerosol inhaler 2 puff INHALATION BID 0RF aspirin [Adult Aspirin Regimen] 81 mg tablet,delayed release (DR/EC) 81 mg PO DAILY@1000 0RF Vitamin B-12 1 tab PO DAILY@1000 0RF multivitamin Tablet 1 tab PO DAILY@1000 0RF albuterol sulfate 90 mcg/actuation Hfa Aerosol Inhaler 2 puff INHALATION Q4H PRN (Reason: Shortness Of Breath) 0RF clopidogrel 75 mg tablet 75 mg PO DAILY 0RF divalproex 500 mg tablet extended release 24 hr 500 mg PO BID 0RF Discharge Orders: Discharge ED (Routine); Ordered 01/25/22 Ordered By: Herve Schultz Referrals: Genie Beatty, SK[facility] INSTALLER [Primary Care Provider] - Discharge Diet: Usual diet Discharge Activity: Resume usual activity Patient Instructions: Chest Pain (ED), Acute Headache (ED), Altered Mental Status (ED) Activity Restrictions/Additional Instructions: Thank you for visiting the emergency department. You were seen and evaluated for headache and associated symptoms as well as chest pain. The exact cause of your symptoms is unclear. I believe the neurologic symptoms, based on prior evaluation, are likely due to complex migraine versus other headache disorder and functional neurologic disorder. The chest pain does require further evaluation however I believe that this is most appropriate in the outpatient setting. Please follow-up with your primary care provider, neurologist, and seismic computer. Please return to the emergency department for anything that you are concerned about and feel needs emergency department evaluation. Coding Level of Care Code ED Vegetable Picker for Chg Fwd Exam Comprehensive Documented by User: Herve Schultz MD 01/25/22 23:43 HPI - Headache General: Chief Complaint: Headache Stated Complaint: L SIDED HEADACHE Time Seen by Provider: 01/25/22 16:26 PFSH ED PFSH: Medical History Abdominal wall bulge Anxiety Back pain BPH NOS w ur obs/LUTS COPD (chronic obstructive pulmonary disease) Coronary artery disease CVA (cerebral vascular accident) CVA (cerebral vascular accident) Diabetes Hypertension Migraine Myocardial infarction Seizure Urinary retention Surgical History History of appendectomy History of back surgery History of cholecystectomy History of coronary angioplasty with insertion of stent History of tonsillectomy History of vasectomy S/P left knee arthroscopy Family History Other CAD (coronary artery disease) Hypertension Social History Smoking and tobacco status: current every day smoker cigarettes Packs smoked per day: 0.5 Years cigarettes smoked: 13 Second hand smoke exposure: No Alcohol intake: never Caregiver/support person: Yes (spouse) Lives independently: Yes Household members: spouse Marital status: Current occupational status: disabled History of recent travel: No Current gender identity: Male Course Vital Signs: Vital signs: Vital Signs Temperature 98.0 F 01/25/22 20:30 Pulse Rate 78 01/26/22 00:32 Respiratory Rate 14 01/26/22 00:32 Blood Pressure 104/67 01/26/22 00:32 Pulse Oximetry 94 01/26/22 00:32 MDM - Headache Medical Decision Making Patient presents with a headache also possible seizure. Does seem to have a migraine with an aura does have a history of an old stroke CT here shows no acute findings he has no signs of stroke. He feels much improved after his migraine medicine he is stable for discharge is to follow-up his PCP and return if worsening. Lab Data : 01/25/22 17:21 01/25/22 17:21 Radiology Impressions Chest X-Ray 01/25/22 17: IMPRESSION: No acute findings. Head CT 01/25/22 17:01 IMPRESSION: No acute intracranial abnormality. Laboratory Results WBC 8.8 10^3/uL (4.0-10.0) 01/25/22 17: RBC 4.54 10^6/uL (4.1-5.3) 01/25/22 17: Hgb 14.7 g/dL (11.7-16.6) 01/25/22 17: Hct 45.0 % (42.0-52.0) 01/25/22 17:21 MCV 99.1 fl (80-94) H 01/25/22 17: MCH 32.4 pg (28.0-34.0) 01/25/22 17: MCHC 32.7 g/dL (30.0-36.0) 01/25/22 17:21 RDW 13.1 % (12.1-15.1) 01/25/22 17: Plt Count 217 10^3/cmm (130-400) 01/25/22 17: MPV 9.9 fL (7.4-10.4) 01/25/22 17:21 Neut % (Auto) 61.4 % 01/25/22 17: Lymph % (Auto) 26.8 % 01/25/22 17:21 [place] % (Auto) 8.9 % 01/25/22 17:21 Eos % (Auto) 1.4 % 01/25/22 17:21 Baso % (Auto) 1.2 % 01/25/22 17:21 Neut # (Auto) 5.41 10^3/uL (1.8-7.7) 01/25/22 17:21 Lymph # (Auto) 2.4 10^3/uL (0.8-4.8) 01/25/22 17:21 [place] # (Auto) 0.8 10^3/uL (0.2-0.9) 01/25/22 17:21 Eos # (Auto) 0.1 10^3/uL (0.0-0.8) 01/25/22 17:21 Baso # (Auto) 0.1 10^3/uL (0.0-0.1) 01/25/22 17:21 Nucleated RBC % (auto) 0 % 01/25/22 17:21 Nucleated RBCs # 0.0 /100WBC 01/25/22 17:21 Sodium 135 mmol/L (136-145) L 01/25/22 17:21 Potassium 3.2 mmol/L (3.5-5.1) L 01/25/22 17:21 Chloride 99 mmol/L (98-107) 01/25/22 17:21 Carbon Dioxide 18 mmol/L (22-29) L 01/25/22 17:21 Anion Gap 21.2 (5-19) H 01/25/22 17:21 BUN 12 mg/dL (6-20) 01/25/22 17:21 Creatinine 0.8 mg/dL (0.7-1.2) 01/25/22 17:21 GFR Calculation 99.3 mL/min (90-130) 01/25/22 17:21 Glucose 139 mg/dL (65-115) H 01/25/22 17:21 POC Glucose 153 mg/dL (70-110) H 01/25/22 16:38 Calculated Osmolality 282 mOsm/kg (285-295) L 01/25/22 17:21 Calcium 9.7 mg/dL (8.5-10.5) 01/25/22 17:21 Total Bilirubin 0.3 mg/dL (0.15-1.2) 01/25/22 17:21 AST 17 U/L (0-40) 01/25/22 17:21 ALT 18 U/L (0-41) 01/25/22 17:21 Alkaline Phosphatase 58 IU/L (40-130) 01/25/22 17:21 Troponin T Baseline 19 ng/L (0-15) H 01/25/22 17:21 Troponin T 120 Minute 20.21 ng/L (0-15) H 01/25/22 19:28 Delta Troponin T 1.21 ABS# (0-10) 01/25/22 19:28 Troponin T Hi Sens 6Hr 19.66 ng/L (0-15) H 01/25/22 23:18 Troponin T Hi Sens 6Hr Delta 0.66 ng/L (0-12) 01/25/22 23:18 C-Reactive Protein 3.0 mg/L (0.0-4.9) 01/25/22 17:21 NT-Pro-B Natriuret Pep 324 pg/mL (0-125) H 01/25/22 17:21 Total Protein 7.2 g/dL (6.6-8.7) 01/25/22 17:21 Albumin 4.0 g/dL (3.5-5.2) 01/25/22 17:21 Globulin 3.2 g/dL (1.3-4.6) 01/25/22 17:21 Lipase 8 U/L (13-60) L 01/25/22 17:21 Procalcitonin 0.06 ng/mL (0-0.5) 01/25/22 17:21 TSH 2.32 uIU/mL (0.27-4.20) 01/25/22 17:21 Urine Color Yellow (Yellow) 01/25/22 22:55 Urine Appearance Clear (CLEAR) 01/25/22 22:55 Urine pH 5 (5-7) 01/25/22 22:55 Ur Specific [place] 1.015 (1.005-1.030) 01/25/22 22:55 Urine Protein Neg (Negative) 01/25/22 22:55 Urine Glucose (UA) 4+ (Normal) H 01/25/22 22:55 Urine Ketones Negative (Negative) 01/25/22 22:55 Urine Blood Neg (Negative) 01/25/22 22:55 Urine Nitrate Negative (Negative) 01/25/22 22:55 Urine Bilirubin Neg (Negative) 01/25/22 22:55 Urine Urobilinogen Norm mg/dL (Negative) 01/25/22 22:55 Ur Leukocyte Esterase Negative (Negative) 01/25/22 22:55 Valproic Acid 25.3 ug/mL (50-100) L 01/25/22 17:21 Discharge Plan Discharge Patient Disposition: Home Clinical Impression: Headache, Chest pain, Altered mental status Condition: Stable Prescriptions: No Action tamsulosin [Flomax] 0.4 mg capsule 0.4 mg PO DAILY Qty: 90 1RF atorvastatin 40 mg tablet 40 mg PO DAILY 0RF ascorbic acid (vitamin C) 500 mg tablet 500 mg PO DAILY@1000 0RF pantoprazole 40 mg tablet,delayed release (DR/EC) 40 mg PO DAILY@1000 Qty: 90 3RF Basaglar KwikPen U-100 Insulin 100 unit/mL (3 mL) insulin pen 20 unit SUBCUT DAILY Qty: 45 3RF Rx Instructions: 20 units SUBCUT daily; insulin aspart U-100 [Novolog Flexpen U-100 Insulin] 100 unit/mL (3 mL) insulin pen 2 unit SUBCUT TID Qty: 45 3RF Rx Instructions: Administer 2 units subcut three times a day 15 minutes before meals. nitroglycerin 0.4 mg tablet, sublingual See Rx Instructions .ROUTE .COMPLEX Qty: 25 3RF Dose Instruction: DISSOLVE 1 TABLET UNDER THE TONGUE EVERY 5 MINUTES NEEDED FOR CHEST PAIN. DO NOT EXCEED A TOTAL OF 3 DOSES IN 15 MINUTES. FOR ONE DAY Rx Instructions: DISSOLVE 1 TABLET UNDER THE TONGUE EVERY 5 MINUTES NEEDED FOR CHEST PAIN. DO NOT EXCEED A TOTAL OF 3 DOSES IN 15 MINUTES. FOR ONE DAY budesonide-formoterol [Symbicort] 160-4.5 mcg/actuation HFA aerosol inhaler 2 puff INHALATION BID 0RF aspirin [Adult Aspirin Regimen] 81 mg tablet,delayed release (DR/EC) 81 mg PO DAILY@1000 0RF Vitamin B-12 1 tab PO DAILY@1000 0RF multivitamin Tablet 1 tab PO DAILY@1000 0RF albuterol sulfate 90 mcg/actuation Hfa Aerosol Inhaler 2 puff INHALATION Q4H PRN (Reason: Shortness Of Breath) 0RF clopidogrel 75 mg tablet 75 mg PO DAILY 0RF divalproex 500 mg tablet extended release 24 hr 500 mg PO BID 0RF Discharge Orders: Discharge ED (Routine); Ordered 01/25/22 Ordered By: Herve Schultz Referrals: Genie Beatty FNP [Primary Care Provider] - Discharge Diet: Usual diet Discharge Activity: Resume usual activity Patient Instructions: Chest Pain (ED), Acute Headache (ED), Altered Mental Status (ED) Activity Restrictions/Additional Instructions: Thank you for visiting the emergency department. You were seen and evaluated for headache and associated symptoms as well as chest pain. The exact cause of your symptoms is unclear. I believe the neurologic symptoms, based on prior evaluation, are likely due to complex migraine versus other headache disorder and functional neurologic disorder. The chest pain does require further evaluation however I believe that this is most appropriate in the outpatient setting. Please follow-up with your primary care provider, neurologist, and seismic computer. Please return to the emergency department for anything that you are concerned about and feel needs emergency department evaluation. Coding Level of Care Code ED Vegetable Picker for [employer] Fwd Exam Comprehensive
--- NOTE | 2022-01-25 17:01 | CTR_ITS ---
PROCEDURE INFORMATION: Exam: CT Head Without Contrast Exam date and time: 01/25/2022 5:40 PM Age: 56 years old Clinical indication: Pain; Headache not specified; Patient HX: C/O L sided VARGAS x 1 week HX of CVA w L sided defecits; Additional info: Headache, L sided numbness TECHNIQUE: Imaging protocol: Computed tomography of the head without contrast. Radiation optimization: All CT scans at this facility use at least one of these dose optimization techniques: automated exposure control; mA and/or kV adjustment per patient size (includes targeted exams where dose is matched to clinical indication); or iterative reconstruction. COMPARISON: MR head w con [id number] 05/04/2021 12:50 PM RADIATION DOSE METRICS: Total DLP (mGy-cm): 998.51 FINDINGS: Brain: Normal. No hemorrhage. Unremarkable white matter. No mass effect. Cerebral ventricles: No ventriculomegaly. Paranasal sinuses: Visualized sinuses are unremarkable. No fluid levels. Mastoid air cells: Visualized mastoid air cells are well aerated. Bones/joints: Unremarkable. No acute fracture. Soft tissues: Unremarkable. CT/CT head wo con* [id number] IMPRESSION: No acute intracranial abnormality.
--- NOTE | 2022-01-25 17:01 | XRR_ITS ---
PROCEDURE INFORMATION: Exam: XR Chest Exam date and time: 01/25/2022 5:34 PM Age: 56 years old Clinical indication: Pain; Angina pectoris; Prior surgery; Surgery date: 6+ months; Surgery type: Spine; Additional info: Chest pain TECHNIQUE: Imaging protocol: XR of the chest. Views: 1 view. COMPARISON: CR XR chest 1V portable [id number] 08/29/2021 3:15 PM FINDINGS: Lungs: Unremarkable. No consolidation. Pleural spaces: Unremarkable. No pleural effusion. No pneumothorax. Heart/Mediastinum: Unremarkable. No cardiomegaly. Bones/joints: Posterior spinal fusion device noted in the mid and lower thoracic spine extending outside the field of view. Visualized osseous structures are intact. XR/XR chest 1V portable [id number] IMPRESSION: No acute findings.
--- NOTE | 2022-01-25 17:02 | ECG_ITS ---
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 Measurements Intervals [place] Rate: 99 P: 48 LA: 145 QRS: -56 QRSD: 106 T: 62 QT: 347 QTc: 446 Interpretive Statements SINUS RHYTHM LEFT AXIS DEVIATION [QRS AXIS < -30] PATTERN CONSISTENT WITH PULMONARY DISEASE SEPTAL MYOCARDIAL INFARCTION , OF INDETERMINATE AGE [40+ ms Q WAVE IN V1/V2] Compared to ECG 08/29/2021 15:11:18 Left-axis deviation now present Sinus tachycardia no longer present Incomplete right bundle-branch block no longer present Left anterior fascicular block no longer present Myocardial infarct finding still present Electronically Signed On 01-25-2022 22:41:21 CDT by Davian Duval M.D. [id number] f
[2022-01-25] MEDS: LORazepam 2 mg/mL INJ 1 mL IVP (17:17)
[2022-01-25] MEDS: morphine 4 mg/mL SDV 1 mL IVP (17:22)
[2022-01-25 17:31] LABS: Basophils # 0.1 10^3/uL (0.0-0.1); Basophils % 1.2 %; Eosinophils # 0.1 10^3/uL (0.0-0.8); Eosinophils % 1.4 %; Hemoglobin 14.7 g/dL (11.7-16.6); Lymphocytes # 2.4 10^3/uL (0.8-4.8); Lymphocytes % 26.8 %; Mean Corpuscular HGB Conc 32.7 g/dL (30.0-36.0); Mean Corpuscular Hemoglobin 32.4 pg (28.0-34.0); Mean Corpuscular Volume 99.1 fl (80-94); Mean Platelet Volume 9.9 fL (7.4-10.4); Monocytes # 0.8 10^3/uL (0.2-0.9); Monocytes % 8.9 %; Neutrophils # 5.41 10^3/uL (1.8-7.7); Neutrophils % 61.4 %; Nucleated Red Blood Cells % 0 %; Platelet Count 217 10^3/cmm (130-400); Red Blood Count 4.54 10^6/uL (4.1-5.3); Red Cell Distribution Width 13.1 % (12.1-15.1); White Blood Count 8.8 10^3/uL (4.0-10.0)
[2022-01-25 17:53] LABS: Troponin(5th) Baseline 19 ng/L (0-15)
--- NOTE | 2022-01-25 17:56 | PC.PHAR ---
PT'S STATES HE TAKES CLOPIDOGREL 75MG TABLET EVERYDAY LAST FILLED 30DS 11/09/21. ALSO STATES HE TAKES BASAGLAR KWIKPEN EVERY EVENING LAST FILLED 10/10/21 20 UNITS DAILY.
[2022-01-25] MEDS: LORazepam 2 mg/mL INJ 1 mL (17:59)
[2022-01-25 18:01] LABS: NT Pro B Type Natriuretic Pept 324 pg/mL (0-125); Procalcitonin 0.06 ng/mL (0-0.5); Thyroid Stimulating Hormone 2.32 uIU/mL (0.27-4.20)
[2022-01-25] MEDS: valproic acid inj 500 MG in sodium chloride 0.9% 50 ML 55 MG IV (18:01)
[2022-01-25 18:12] LABS: Alanine Aminotransferase 18 U/L (0-41); Alkaline Phosphatase 58 IU/L (40-130); Anion Gap 21.2 (5-19); Aspartate Amino Transferase 17 U/L (0-40); Blood Urea Nitrogen 12 mg/dL (6-20); Calcium 9.7 mg/dL (8.5-10.5); Carbon Dioxide 18 mmol/L (22-29); Chloride 99 mmol/L (98-107); Globulin 3.2 g/dL (1.3-4.6); Glomerular Filtration Rate 99.3 mL/min (90-130); Glucose 139 mg/dL (65-115); Lipase 8 U/L (13-60); Osmolality Calculated 282 mOsm/kg (285-295); Potassium 3.2 mmol/L (3.5-5.1); Sodium 135 mmol/L (136-145); Total Bilirubin 0.3 mg/dL (0.15-1.2); Total Protein 7.2 g/dL (6.6-8.7)
--- NOTE | 2022-01-25 19:02 | ECG_ITS ---
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 Measurements Intervals [place] Rate: 71 P: 35 LA: 155 QRS: -44 QRSD: 102 T: 7 QT: 368 QTc: 401 Interpretive Statements SINUS RHYTHM LEFT AXIS DEVIATION [QRS AXIS < -30] PATTERN CONSISTENT WITH PULMONARY DISEASE SEPTAL MYOCARDIAL INFARCTION , OF INDETERMINATE AGE [40+ ms Q WAVE IN V1/V2] Compared to ECG 01/25/2022 16:37:10 No significant changes Electronically Signed On 01-25-2022 22:42:32 CDT by Davian Duval M.D. [id number]
[2022-01-25] MEDS: lactated ringers 1,000 ML 999 ML IV (19:21)
[2022-01-25] MEDS: magnesium sulfate premix 2 GM/50 ML PIGGYBACK IV (19:22)
[2022-01-25 19:54] LABS: Troponin 5 2HR 20.21 ng/L (0-15)
[2022-01-25 19:55] LABS: Troponin 5 2HR Delta 1.21 ABS# (0-10)
[2022-01-25 20:10] LABS: Valproic Acid Level 25.3 ug/mL (50-100)
[2022-01-25] MEDS: potassium chloride premix 100 ML 25 MEQ IV (20:38)
--- NOTE | 2022-01-25 23:02 | ECG_ITS ---
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 Measurements Intervals [place] Rate: 68 P: 34 NV: 175 QRS: -33 QRSD: 95 T: -32 QT: 381 QTc: 405 Interpretive Statements SINUS RHYTHM WITH OCCASIONAL VENTRICULAR PREMATURE COMPLEXES LEFT AXIS DEVIATION [QRS AXIS < -30] PATTERN CONSISTENT WITH PULMONARY DISEASE SEPTAL MYOCARDIAL INFARCTION , OF INDETERMINATE AGE [40+ ms Q WAVE IN V1/V2] Compared to ECG 01/25/2022 18:59:15 Ventricular premature complex(es) now present Myocardial infarct finding still present Electronically Signed On 01-25-2022 23:04:51 CDT by Davian Duval M.D. [id number]
[2022-01-25] MEDS: ketorolac 30 mg/mL INJ 15 MG IVP (23:06)
[2022-01-25] MEDS: diphenhydrAMINE 50 mg/mL SDV 1mL 25 MG IVP (23:06)
[2022-01-25] MEDS: metoclopramide 5 mg/mL SDV 2 mL 10 MG IVP (23:06)
[2022-01-25 23:07] LABS: Add Urine Microscopic? NO; Charge for UA Resulting for Rev
[2022-01-25 23:09] LABS: Protein Urine Neg (Negative); Specific Gravity, Urine 1.015 (1.005-1.030); Urine Appearance Clear (CLEAR); Urine Color Yellow (Yellow); pH Urine 5 (5-7)
[2022-01-25 23:10] LABS: Bilirubin Urine Neg (Negative); Blood Urine Neg (Negative); Glucose Urine UA 4+ (Normal); Ketones Urine Negative (Negative); Leukocyte Esterase Urine Negative (Negative); Nitrate Urine Negative (Negative); Urobilinogen Urine Norm (Negative)
[2022-01-25 23:50] LABS: Troponin 5 6HR 19.66 ng/L (0-15)
[2022-01-25 23:51] LABS: Troponin 5 6HR Delta 0.66 ng/L (0-12)
[2022-01-26 00:32] VITALS: BP 104/67; PULSE 78; RESP 14; O2SAT 94
--- NOTE | 2022-01-28 13:45 | DCPLANNER ---
Addendum entered by Kay Helm 02/07/22 13:37: Patient had a follow up appointment scheduled for 02.04.22 with [facility] - appointment was cancelled. Addendum entered by Kay Helm 01/29/22 13:35: Patient has a follow up appointment scheduled for Friday, February 04, 2022 at 12:[address] Torres at [facility]. manager insurance called and gave patient and his appointment information. Original Note: manager insurance had message to schedule a follow up appointment for patient with [facility]. manager insurance sent patients information to the front staff at [facility] for review. Patients information will be printed and reviewed. Clinic will notify case finisher of appointment information. manager insurance will call patient with appointment information.
== END 2022-01-26 00:33 | disposition home or self-care (01) ==
PROVIDERS: Emergency Medicine; Emergency Provider Emergency Medicine; PCP Nurse Practitioner Family
DX: R51.9 Headache, unspecified (principal); R07.9 Chest pain, unspecified; R41.82 Altered mental status, unspecified; Z79.82 Long term (current) use of aspirin; Z79.02 Long term (current) use of antithrombotics/antiplatelets; F17.210 Nicotine dependence, cigarettes, uncomplicated; I25.2 Old myocardial infarction; E78.5 Hyperlipidemia, unspecified; I10 Essential (primary) hypertension; E11.9 Type 2 diabetes mellitus without complications; E86.0 Dehydration; Z86.69 Personal history of other diseases of the nervous system and sense organs; Z86.73 Personal history of transient ischemic attack (TIA), and cerebral infarction without residual deficits; Z79.4 Long term (current) use of insulin; E87.6 Hypokalemia
CPT/HCPCS: 36415; 36416; 70450; 71045; 80053; 80164; 81003; 82962; 83690; 83880; 84145; 84443; 84484; 85025; 86140; 93005; 96365; 96366; 96367; 96375; 99284; J1200; J1885; J1953; J2060; J2270; J2765; J3475; J3480

== ENCOUNTER → 2022-02-13 14:09 | Outpatient (BNVA) | payer MEDICARE, SELFPAY | PROVIDERS: PCP Nurse Practitioner Family; Visit Provider Internal Medicine | DX: E11.59 Type 2 diabetes mellitus with other circulatory complications (principal); E11.65 Type 2 diabetes mellitus with hyperglycemia; E11.40 Type 2 diabetes mellitus with diabetic neuropathy, unspecified; I25.10 Atherosclerotic heart disease of native coronary artery without angina pectoris; E78.2 Mixed hyperlipidemia; E16.0 Drug-induced hypoglycemia without coma; T38.3X5A Adverse effect of insulin and oral hypoglycemic [antidiabetic] drugs, initial encounter; E87.6 Hypokalemia; I10 Essential (primary) hypertension; F17.210 Nicotine dependence, cigarettes, uncomplicated; Z79.4 Long term (current) use of insulin; Z86.73 Personal history of transient ischemic attack (TIA), and cerebral infarction without residual deficits; Z79.84 Long term (current) use of oral hypoglycemic drugs | CPT/HCPCS: 99215 ==

== ENCOUNTER → 2022-02-18 11:12 | Outpatient (BNVA) | payer MEDICARE, SELFPAY | PROVIDERS: PCP Nurse Practitioner Family; Visit Provider Nurse Practitioner Family | DX: I10 Essential (primary) hypertension (principal); E11.59 Type 2 diabetes mellitus with other circulatory complications; E78.5 Hyperlipidemia, unspecified; I25.10 Atherosclerotic heart disease of native coronary artery without angina pectoris; E87.6 Hypokalemia; L03.115 Cellulitis of right lower limb; L03.116 Cellulitis of left lower limb | CPT/HCPCS: 80048; 80061; 83036 ==

== ENCOUNTER → 2022-03-04 14:42 | Outpatient (BNVA) | payer MEDICARE, SELFPAY | PROVIDERS: PCP Nurse Practitioner Family; Visit Provider Specialist | DX: F44.5 Conversion disorder with seizures or convulsions (principal); F41.9 Anxiety disorder, unspecified; F17.210 Nicotine dependence, cigarettes, uncomplicated; E11.9 Type 2 diabetes mellitus without complications; Z79.4 Long term (current) use of insulin | CPT/HCPCS: 99214; 99215; 99406 ==

== ENCOUNTER → 2022-03-19 08:15 | Outpatient (BNVA) | payer MEDICARE, SELFPAY | PROVIDERS: PCP Nurse Practitioner Family; Visit Provider Specialist | DX: E11.40 Type 2 diabetes mellitus with diabetic neuropathy, unspecified (principal); E11.65 Type 2 diabetes mellitus with hyperglycemia; Z79.4 Long term (current) use of insulin | CPT/HCPCS: 95909; 95911 ==

== ENCOUNTER → 2022-05-28 13:56 | Outpatient (BNVA) | payer MEDICARE, SELFPAY | PROVIDERS: PCP Nurse Practitioner Family; Visit Provider Family Medicine | DX: M25.532 Pain in left wrist (principal) | CPT/HCPCS: 73110 ==

== ENCOUNTER → 2022-05-29 10:45 | Outpatient (BNVA) | payer MEDICARE, SELFPAY | PROVIDERS: PCP Nurse Practitioner Family; Visit Provider Internal Medicine | DX: E11.59 Type 2 diabetes mellitus with other circulatory complications (principal); E11.40 Type 2 diabetes mellitus with diabetic neuropathy, unspecified; E11.65 Type 2 diabetes mellitus with hyperglycemia; E11.649 Type 2 diabetes mellitus with hypoglycemia without coma; E16.0 Drug-induced hypoglycemia without coma; E78.5 Hyperlipidemia, unspecified; I25.10 Atherosclerotic heart disease of native coronary artery without angina pectoris; E78.2 Mixed hyperlipidemia; T38.3X5A Adverse effect of insulin and oral hypoglycemic [antidiabetic] drugs, initial encounter; F17.210 Nicotine dependence, cigarettes, uncomplicated; Z79.4 Long term (current) use of insulin; Z79.84 Long term (current) use of oral hypoglycemic drugs ==

== ENCOUNTER 2022-05-29 14:04 | Outpatient (CLI) | payer MEDICARE, SELFPAY ==
--- NOTE | 2022-05-29 14:30 | MR_ITS ---
WS: [id number] MRI LUMBAR SPINE NONCONTRAST TECHNIQUE: Sagittal T1, T2 and STIR imaging. Axial T1. Axial T2 imaging obtained as patient had a sei zure/pseudoseizure and was removed from the scanner. Rapid response was called and patient Transporte d to the ER for further evaluation. CLINICAL INFORMATION: Back pain COMPARISON: August 26, 2018 FINDINGS: Axial T2 imaging not obtained as described above. Mild lumbar curve. No acute compression. No high-grade central canal stenosis. Diez cherise fixatio n extending to L1 unchanged from previous. L1-L2: Mild annular bulging. Spinal canal and foramen appear patent. Mild facet arthropathy. L2-L3: Mild annular bulging. Slight eccentric disc bulging results in mild bilateral foraminal narrow ing unchanged. Mild facet arthropathy. Spinal canal is patent. L3-L4: Mild annular bulging with narrowing of the RIGHT subarticular recess and encroachment on the t raversing RIGHT L4 nerve root. Small bilateral foraminal protrusions with mild bilateral foraminal na rrowing RIGHT greater than LEFT. This appears unchanged. Moderate facet arthropathy. L4-L5: Mild annular bulging with slight effacement of the ventral thecal sac. Mild bilateral foramina l narrowing appears unchanged. Moderate facet arthropathy. Slight narrowing of the subarticular reces s bilaterally. L5-S1: Mild LEFT eccentric disc bulging. Mild LEFT bony foraminal narrowing. Moderate facet arthropat hy. Spinal canal is patent. Shallow central disc bulging slightly contacts the S1 nerve roots unchang ed. Visualized pelvic bony structures: Normal. Paravertebral soft tissues: Normal. MR/MR lumbar spine wo con* [id number] IMPRESSION: Overall no significant changes compared to previous. Axial T2 imagi ng not obtained as described above. 1. Mild lumbar curve. No acute compression. No high-grade central canal stenos is. 2. Mild annular bulging L3-L4 and L4-L5 with narrowing of the RIGHT L3-L4 suba rticular recess and bilateral L4-L5. This is unchanged from previous. 3. Shallow central disc bulge L5-S1 slightly contacts the S1 nerve roots uncha nged. 4. Small bilateral foraminal protrusions L3-L4 with mild RIGHT greater than LE FT foraminal narrowing. 5. Mild RIGHT greater than LEFT L4-L5 foraminal narrowing. 6. Mild LEFT L5-S1 bony foraminal narrowing. 7. Moderate facet arthropathy L3-L5.
--- NOTE | 2022-05-29 15:15 | MR_ITS ---
WS: [id number] MRI THORACIC SPINE WITHOUT CONTRAST TECHNIQUE: Sagittal T1, T2 and STIR imaging. Axial T2 imaging. Noncontrast imaging obtained. CLINICAL INFORMATION: Back pain COMPARISON: MRI August 26, 2018 FINDINGS: Prior extensive Diez cherise fixation lower thoracic extending into the upper lumbar spin e. Spinal canal is decompressed with extensive laminectomies. No high-grade central canal stenosis. C ord signal appears normal. Diez cherise fixation T7-L1 unchanged from previous. Moderate thoracic k yphosis. No acute compression. Tiny shallow central protrusions T5-T6 and T6-T7. These are similar to previous. Moderate facet arthr opathy lower thoracic spine. Mild RIGHT T3-T4 and T5-T6 bony foraminal narrowing. Mild central canal stenosis at T5-T6 and T10-T11. Normal caliber thoracic aorta. Adrenal glands are normal. No hydronephrosis. MR/MR thoracic spin wo con* [id number] IMPRESSION: No significant changes compared to previous. 1. Moderate thoracic kyphosis. No acute compression. No high-grade central can al stenosis. 2. Prior pedicle screw fixation T7-L1 with Idez rods. 3. Shallow central protrusions T5-T6 and T6-T7 unchanged from previous with mi ld central canal stenosis at T5-T6. Mild central canal stenosis T10-T11. 4. No other acute findings.
== END 2022-05-29 14:05 | disposition home or self-care (01) ==
PROVIDERS: PCP Nurse Practitioner Family; Visit Provider Orthopaedic Surgery
DX: M40.294 Other kyphosis, thoracic region (principal); M51.24 Other intervertebral disc displacement, thoracic region; M47.816 Spondylosis without myelopathy or radiculopathy, lumbar region; M51.26 Other intervertebral disc displacement, lumbar region; M51.27 Other intervertebral disc displacement, lumbosacral region
CPT/HCPCS: 72146; 72148

== ENCOUNTER 2022-05-29 16:25 | Emergency (ER) | payer MEDICARE, SELFPAY ==
[2022-05-29] VITALS (35 sets, daily range): BP systolic 80–133; BP diastolic 44–79; PULSE 59–80; RESP 0–34; TEMP 36.3; O2SAT 94–100; BMI 29.9
--- NOTE | 2022-05-29 16:34 | ECG_ITS ---
[facility] Test Date: 2022-05-29 Pat Name: Arcenio Saldivar Department: Room: Gender: Male Applications Coordinator: : 1965 Requested By: Nuzhat King Order Number: [id number] Kuo MD: Anay Monaco M.D. Measurements Intervals [place] Rate: 70 P: 46 OR: 174 QRS: -46 QRSD: 103 T: 15 QT: 389 QTc: 422 Interpretive Statements SINUS RHYTHM LEFT AXIS DEVIATION [QRS AXIS < -30] INCOMPLETE RIGHT BUNDLE BRANCH BLOCK POSSIBLE ANTERIOR MYOCARDIAL INFARCTION , PROBABLY OLD Compared to ECG 01/25/2022 22:48:58 Incomplete right bundle-branch block now present Ventricular premature complex(es) no longer present Myocardial infarct finding still present Electronically Signed On 05-30-2022 18:43:00 CDT by Anay Monaco M.D. [id number]
[2022-05-29 16:38] LABS: Glucose Point of Care 228 mg/dL (70-110)
[2022-05-29] MEDS: midazolam 1 mg/mL INJ 2 mL 5 MG IM (16:38)
[2022-05-29] MEDS: midazolam 1 mg/mL INJ 2 mL 5 MG IVP ×2 (16:42→20:14)
--- NOTE | 2022-05-29 16:49 | ED_ITS ---
HPI - General Adult General: Chief complaint: Seizure Stated complaint: seizure Time Seen by Provider: 05/29/22 16:27 History of Present Illness: Patient is a 56-year-old male who initially was obtaining his MRI of his back for loosening screws presenting to the emergency room for concerns of acute seizure while in the MRI scanner 5 minutes ago. An rapid response was called patient was brought to the emergency room. On arrival, patient was noted to be in generalized tonic-clonic seizures. However, patient was intermittently able to blank and track. It is unclear whether ba ent exact actively having seizure. Patient has history of seizure. Currently not wanting any medicine. Patient was previously on Keppra and Dilantin. Patient received 5 mg of IM Versed, 5 mg IV Versed and 1 g of Keppra with resolution of seizure. Patient was observed in the emergency room. Rest of history limited. I discussed case with patient's who tells me that patient was found to have loose schools currently getting MRI for that. Patient also fell yesterday and has bumps over the forehead. No other focal complaints per . Onset:5 minutes ago Duration:ongoing Location:home Severity:severe Review of Systems General: Reports: ROS unobtainable due to mental status Musc: Reports: other (+generalized movements of arms and legs) Neuro: Reports: seizure-like activity and other PFS ED PFSH: Medical History Abdominal wall bulge Anxiety Back pain BPH NOS w ur obs/LUTS COPD (chronic obstructive pulmonary disease) Coronary artery disease CVA (cerebral vascular accident) CVA (cerebral vascular accident) Diabetes Hypertension Migraine Myocardial infarction Seizure Urinary retention Surgical History History of appendectomy History of back surgery History of cholecystectomy History of coronary angioplasty with insertion of stent History of tonsillectomy History of vasectomy S/P left knee arthroscopy Family History Other CAD (coronary artery disease) Hypertension Social History Smoking and tobacco status: current every day smoker cigarettes Packs smoked per day: 0.5 Years cigarettes smoked: 13 Second hand smoke exposure: No Alcohol intake: never Caregiver/support person: Yes (spouse) Lives independently: Yes Household members: spouse Marital status: Current occupational status: disabled History of recent travel: No Current gender identity: Male Physical Exam HENMT: COMMON NORMALS: atraumatic HEAD & SCALP: atraumatic MOUTH: other (+mouth open); moist mucous membranes not abnormal Eye: COMMON NORMALS: conjunctivae normal CONJUNCTIVA: Yes conjunctivae normal Neck/C-Spine: COMMON NORMALS: full ROM and supple Resp: COMMON NORMALS: normal respiratory effort and clear to auscultation bilaterally AUSCULTATION: clear to auscultation bilaterally Cardio: COMMON NORMALS: regular rate RATE: regular rate GI: COMMON NORMALS: Soft to palpation and non-tender PALPATION: Yes Soft to palpation OTHER: No focal TTP. NO guarding rebound, guarding, rigidity. No CVA tenderness to percussion. Neg Mckenna/Neg McBurney's point tenderness, no suprabupic tenderness to palpation. Extremity: COMMON NORMALS: full ROM Neuro: OTHER: + Somnolent, intermittently confused / occasionally able to answer questions. Moving all extremities Psych: OTHER: + Unable to assess due to altered mental status Procedures Intubation Time out performed: Yes sedative: other (propofol) Mg Given: 150 paralytic: Vecuronium Mg Given: 10 Laryngoscope: Aime ET Tube Size: 8 ET Tube Uncuffed: No Tube Secured Depth (cm): 22 Tube Secured Location: teeth Tube Placement Confirmation: visualized tube passing through cords, equal breath sounds bilaterally, no breath sounds over epigastrium and confirmation by capnometry Patient Tolerated Procedure: well and no complications Intubation Complications: none Course Vital Signs: Vital signs: Vital Signs Temperature 97.3 F L 05/29/22 22:07 Pulse Rate 60 05/29/22 23:00 Respiratory Rate 16 05/29/22 23:00 Blood Pressure 105/62 05/29/22 23:00 Pulse Oximetry 100 05/29/22 23:00 Oxygen Delivery Me thod 05/29/22 23:00 Oxygen Flow Rate 3 05/29/22 16:43 Fraction of Inspir ed Oxygen 28 05/29/22 21:43 MDM - General Adult Medical Decision Making 56-year-old male with a history of prior seizures currently not on any AED in the emergency room with episode of breakthrough seizure. Patient an episode of seizure which persisted while patient was in the emergency room. Patient received 5 mg IM Versed, 5 mg and IV Versed and 1 g of Keppra with resolution of seizure. Lab work-up showed lactate 7.5 which was obtained shortly after the seizure. At the present time, it is concerning for possible acute seizure episode. Patient was observed in the emergency room without with significant improvement. However around 8:20 PM, patient was noted to have another episode of seizure. Patient received 4 mg of IV Versed with resolution of seizure. CT head showed no focal findings. Patient was observed to have multiple episodes of ebtg-oc-wlmi seizures with no return to baseline. Which point, patient is is diagnosed with status epilepticus. Decision was made to immediately intubate patient. Patient will need EEG and close monitoring. As we do not have this capability here at our hospital, patient will need to be transferred continuous EEG monitoring. Blood culture has been sent. Patient received vancomycin and cefepime. MRI of the lumbar spine and thoracic spines negative for any acute fi ndings. Patient is lumbar and thoracic MRI from earlier today did not show any focal signs of infection. The fact the patient has hardware in his back, decision was made to defer the LP at this time. Case was discussed with Dr. Arzola who agreed with the transfer to [facility] for ICU and EEG monitoring. Disposition: Transfer to outside hospital Lab Data : 05/29/22 16:30 05/29/22 16:[address] 05/29/22 20:11 IMPRESSION: No acute intracranial abnormality. Chest X-Ray 05/29/22 22:35 IMPRESSION: 1. New NG tube ends in the stomach. 2. The lungs are clear. 3. Other tubes, catheters and hardware are unchanged Laboratory Results WBC 8.1 10^3/uL (4.0-10.0) 05/29/22 16:30 RBC 4.64 10^6/uL (4.1-5.3) 05/29/22 16:30 Hgb 14.3 g/dL (11.7-16.6) 05/29/22 16:30 Hct 44.0 % (42.0-52.0) 05/29/22 16: MCV 94.8 fl (80-94) H 05/29/22 16: MCH 30.8 pg (28.0-34.0) 05/29/22 16:30 MCHC 32.5 g/dL (30.0-36.0) 05/29/22 16:30 RDW 12.9 % (12.1-15.1) 05/29/22 16:30 Plt Count 177 10^3/cmm (130-400) 05/29/22 16:30 MPV 9.9 fL (7.4-10.4) 05/29/22 16:30 Neut % (Auto) 45.8 % 05/29/22 16:30 Lymph % (Auto) 45.0 % 05/29/22 16:30 [place] % (Auto) 5.5 % 05/29/22 16:30 Eos % (Auto) 2.6 % 05/29/22 16: Baso % (Auto) 0.9 % 05/29/22 16: Neut # (Auto) 3.72 10^3/uL (1.8-7.7) 05/29/22 16:30 Lymph # (Auto) 3.7 10^3/uL (0.8-4.8) 05/29/22 16:30 [place] # (Auto) 0.5 10^3/uL (0.2-0.9) 05/29/22 16:30 Eos # (Auto) 0.2 10^3/uL (0.0-0.8) 05/29/22 16:30 Baso # (Auto) 0.1 10^3/uL (0.0-0.1) 05/29/22 16: Nucleated RBC % (auto) 0 % 05/29/22 16: Nucleated RBCs # 0.0 /100WBC 05/29/22 16:30 Sodium 140 mmol/L (136-145) 05/29/22 16:30 Potassium 4.0 mmol/L (3.5-5.1) 05/29/22 16:30 Chloride 100 mmol/L (98-107) 05/29/22 16: Carbon Dioxide 22 mmol/L (22-29) 05/29/22 16:30 Anion Gap 22.0 (5-19) H 05/29/22 16:30 BUN 10 mg/dL (6-20) 05/29/22 16:30 Creatinine 0.8 mg/dL (0.7-1.2) 05/29/22 16:30 GFR Calculation 99.3 mL/min (90-130) 05/29/22 16:30 Glucose 235 mg/dL (65-115) H 05/29/22 16:30 POC Glucose 138 mg/dL (70-110) H 05/29/22 21:03 Calculated Osmolality 297 mOsm/kg (285-295) H 05/29/22 16:30 Lactate 0.9 mmol/L (0.5-2.2) 05/29/22 19:06 Calcium 9.3 mg/dL (8.5-10.5) 05/29/22 16:30 Total Bilirubin 0.4 mg/dL (0.15-1.2) 05/29/22 16:30 AST 20 U/L (0-40) 05/29/22 16:30 ALT 15 U/L (0-41) 05/29/22 16:30 Alkaline Phosphatase 59 IU/L (40-130) 05/29/22 16:30 Total Protein 7.4 g/dL (6.6-8.7) 05/29/22 16:30 Albumin 4.2 g/dL (3.5-5.2) 05/29/22 16:30 Globulin 3.2 g/dL (1.3-4.6) 05/29/22 16:30 Lipase 9 U/L (13-60) L 05/29/22 16:30 Imaging Data Other Imaging: Radiologist's impression: [address] [address] [address] Scan Report Signed Patient: Arcenio Saldivar Unit #: [id number] : 1965 Age/Sex: 56 / M ADM Date: 05/29/22 Loc: ER Room/Bed: Attending Dr: Ordering Provider/Ordering MD: Nuzhat King MD Date of Service: 05/29/22 Procedure(s): CT head wo con* [id number] Accession Number(s): [id number] Report Number: [id number] PROCEDURE INFORMATION: Exam: CT Head Without Contrast Exam date and time: 05/29/2022 8:23 PM Age: 56 years old Clinical indication: Altered mental status/memory loss; Patient HX: Witnessed seizure while having an mri performed as an outpatient. No prior history of seizure disorder. ; Additional info: AMS TECHNIQUE: Imaging protocol: Computed tomography of the head without contrast. Radiation optimization: All CT scans at this facility use at least one of these dose optimization techniques: automated exposure control; mA and/or kV adjustment per patient size (includes targeted exams where dose is matched to clinical indication); or iterative reconstruction. COMPARISON: CT head wo con* [id number] 01/25/2022 5:40 PM RADIATION DOSE METRICS: Total DLP (mGy-cm): 1183.64 FINDINGS: Brain: Normal. No hemorrhage. Unremarkable white matter. No mass effect. Cerebral ventricles: No ventriculomegaly. Paranasal sinuses: Visualized sinuses are unremarkable. No fluid levels. Mastoid air cells: Visualized mastoid air cells are well aerated. Bones/joints: Unremarkable. No acute fracture. Soft tissues: Unremarkable. CT/CT head wo con* [id number] IMPRESSION: No acute intracranial abnormality. ? Dictated By: Vitor Durand MD Signed By: Vitor Durand MD Signed Date/Time: 05/29/222039 DD/ [address] [employer] [address] Magnetic Resonance Report Signed Patient: Arcenio Saldivar Unit #: [id number] : 1965 Age/Sex: 56 / M ADM Date: 05/29/22 Loc: [facility] Room/Bed: Attending Dr: Buddy Polanco DO Ordering Provider/Ordering MD: Buddy Polanco DO Date of Service: 05/29/22 Procedure(s): MR thoracic spin wo con* [id number] Accession Number(s): [id number] Report Number: [id number] WS: [id number] MRI THORACIC SPINE WITHOUT CONTRAST TECHNIQUE: Sagittal T1, T2 and STIR imaging. Axial T2 imaging. Noncontrast imaging obtained. CLINICAL INFORMATION: Back pain COMPARISON: MRI August 26, 2018 FINDINGS: Prior extensive Diez cherise fixation lower thoracic extending into the upper lumbar spine. Spinal canal is decompressed with extensive laminectom ies. No high-grade central canal stenosis. Cord signal appears normal. Diez cherise fixation T7-L1 unchanged from previous. Moderate thoracic kyphosis. No acute compression. Tiny shallow central protrusions T5-T6 and T6-T7. These are similar to previous. Moderate facet arthropathy lower thoracic spine. Mild RIGHT T3-T4 and T5-T6 bony foraminal narrowing. Mild central canal stenosis at T5-T6 and T10-T11. Normal caliber thoracic aorta. Adrenal glands are normal. No hydronephrosis. MR/MR thoracic spin wo con* [id number] IMPRESSION: No significant changes compared to previous. ? 1.? Moderate thoracic kyphosis. No acute compression. No high-grade central canal stenosis. 2.? Prior pedicle screw fixation T7-L1 with Diez rods. 3.? Shallow central protrusions T5-T6 and T6-T7 unchanged from previous with mild central canal stenosis at T5-T6. Mild central canal stenosis T10-T11. 4.? No other acute findings. ? Dictated By: Max Padilla MD Signed By: Max Padilla MD Signed Date/Time: 05/29/22 170 DD/ [address] [address] Magnetic Resonance Report Signed Patient: Arcenio Saldivar Unit #: [id number] : 1965 Age/Sex: 56 / M ADM Date: 05/29/22 Loc: [facility] Room/Bed: Attending Dr: Buddy Polanco DO Ordering Provider/Ordering MD: Buddy Polanoc DO Date of Service: 05/29/22 Procedure(s): MR lumbar spine wo con* [id number] Accession Number(s): [id number] Report Number: [id number] WS: [id number] MRI LUMBAR SPINE NONCONTRAST TECHNIQUE: Sagittal T1, T2 and STIR imaging. Axial T1. Axial T2 imaging obtained as patient had a seizure/pseudoseizure and was removed from the scanner. Rapid response was called and patient Transported to the ER for further evaluation. CLINICAL INFORMATION: Back pain COMPARISON: August 26, 2018 FINDINGS: Axial T2 imaging not obtained as described above. Mild lumbar curve. No acute compression. No high-grade central canal stenosis. Diez cherise fixation extending to L1 unchanged from previous. L1-L2: Mild annular bulging. Spinal canal and foramen appear patent. Mild facet arthropathy. L2-L3: Mild annular bulging. Slight eccentric disc bulging results in mild bilateral foraminal narrowing unchanged. Mild facet arthropathy. Spinal canal is patent. L3-L4: Mild annular bulging with narrowing of the RIGHT subarticular recess and encroachment on the traversing RIGHT L4 nerve root. Small bilateral foraminal protrusions with mild bilateral foraminal narrowing RIGHT greater than LEFT. This appears unchanged. Moderate facet arthropathy. L4-L5: Mild annular bulging with slight effacement of the ventral thecal sac. Mild bilateral foraminal narrowing appears unchanged. Moderate facet arthropathy. Slight narrowing of the subarticular recess bilaterally. L5-S1: Mild LEFT eccentric disc bulging. Mild LEFT bony foraminal narrowing. Moderate facet arthropathy. Spinal canal is patent. Shallow central disc bulging slightly contacts the S1 nerve roots unchanged. Visualized pelvic bony structures: Normal. Paravertebral soft tissues: Normal. MR/MR lumbar spine wo con* [id number] IMPRESSION: Overall no significant changes compared to previous. Axial T2 imaging not obtained as described above. ? 1.? Mild lumbar curve. No acute compression. No high-grade central canal stenosis. 2.? Mild annular bulging L3-L4 and L4-L5 with narrowing of the RIGHT L3-L4 subarticular recess and bilateral L4-L5. This is unchanged from previous. 3.? Shallow central disc bulge L5-S1 slightly contacts the S1 nerve roots unchanged. 4.? Small bilateral foraminal protrusions L3-L4 with mild RIGHT greater than LEFT foraminal narrowing. 5.? Mild RIGHT greater than LEFT L4-L5 foraminal narrowing. 6.? Mild LEFT L5-S1 bony foraminal narrowing. 7.? Moderate facet arthropathy L3-L5. ? Dictated By: Max Padilla MD Signed By: Max Padilla MD Signed Date/Time: 05/29/22 1711 DD/ [address] [address] XRay Report Signed Patient: Arcenio Saldivar Unit #: [id number] : 1965 Age/Sex: 56 / M ADM Date: 05/29/22 Loc: ER Room/Bed: Attending Dr: Ordering Provider/Ordering MD: Nuzhat King MD Date of Service: 05/29/22 Procedure(s): XR chest 1V portable [id number] Accession Number(s): [id number] Report Number: [id number] PROCEDURE INFORMATION: Exam: XR Chest Exam date and time: 05/29/2022 10:40 PM Age: 56 years old Clinical indication: Device placement; Ng tube; Prior surgery; Surgery type: Coronary stents; Patient HX: Check S/P og placement; Additional info: Gastric tube placement TECHNIQUE: Imaging protocol: Radiologic exam of the chest. Views: 1 view. COMPARISON: CR XR chest 1V portable [id number] 05/29/2022 9:19 PM FINDINGS: Tubes, catheters and devices: The endotracheal tube ends 1 cm below the mid clavicles. A nasogastric tube is looped in the stomach. Lungs: The lungs clear. Pleural spaces: Unremarkable. No pleural effusion. No pneumothorax. Heart/Mediastinum: Unremarkable. No cardiomegaly. Bones/joints: There is chronic thoracolumbar metallic fusion. XR/XR chest 1V portable [id number] IMPRESSION: 1. New NG tube ends in the stomach. 2. The lungs are clear. 3. Other tubes, catheters and hardware are unchanged ? Dictated By: Cielo Stearns MD Signed By: Cielo Stearns MD Signed Date/Time: 05/29/222253 DD/ 39 Discharge Plan Discharge Patient Disposition: Transfer to ED Clinical Impression: Seizure, Status epilepticus Condition: Stable Prescriptions: No Action divalproex 500 mg tablet extended release 24 hr 500 mg PO BID Qty: 60 0RF Rx Instructions: Take 1 tablet twice daily ascorbic acid (vitamin C) 500 mg tablet 500 mg PO DAILY@1000 Basaglar KwikPen U-100 Insulin 100 unit/mL (3 mL) insulin pen 50 unit SUBCUT DAILY Rx Instructions: 50 units SUBCUT daily; Januvia 100 mg tablet 100 mg PO DAILY Qty: 90 3RF Rx Instructions: Take one tablet by mouth daily. diclofenac sodium 1 % gel 2 g topical QID PRN (Reason: pain) Qty: 100 0RF Rx Instructions: apply to wrist qid (DME) left wrist splint See Rx Instructions .Route .MEDSUPPLY Qty: 1 0RF Rx Instructions: As directed pantoprazole 40 mg tablet,delayed release (DR/EC) 40 mg PO DAILY@1000 Qty: 90 3RF nitroglycerin 0.4 mg tablet, sublingual See Rx Instructions .ROUTE .COMPLEX Qty: 25 3RF Dose Instruction: DISSOLVE 1 TABLET UNDER THE TONGUE EVERY 5 MINUTES NEEDED FOR CHEST PAIN. DO NOT EXCEED A TOTAL OF 3 DOSES IN 15 MINUTES. FOR ONE DAY Rx Instructions: DISSOLVE 1 TABLET UNDER THE TONGUE EVERY 5 MINUTES NEEDED FOR CHEST PAIN. DO NOT EXCEED A TOTAL OF 3 DOSES IN 15 MINUTES. FOR ONE DAY (DME) pen needle, diabetic 32 gauge x 1/5 needle See Rx Instructions .Route Qty: 100 5RF Rx Instructions: As directed; to test 3 x day atorvastatin 40 mg tablet 40 mg PO DAILY Qty: 90 3RF Rx Instructions: Take one tablet by mouth daily. lorazepam 1 mg tablet 1 mg PO BID PRN (Reason: anxiety) Qty: 30 5RF clopidogrel 75 mg tablet See Rx Instructions .ROUTE .COMPLEX Qty: 90 0RF Dose Instruction: TAKE ONE TABLET BY MOUTH EVERY DAY Rx Instructions: TAKE ONE TABLET BY MOUTH EVERY DAY tamsulosin 0.4 mg capsule See Rx Instructions .ROUTE .COMPLEX Qty: 90 1RF Dose Instruction: TAKE ONE CAPSULE BY MOUTH DAILY Rx Instructions: TAKE ONE CAPSULE BY MOUTH DAILY budesonide-formoterol [Symbicort] 160-4.5 mcg/actuation HFA aerosol inhaler 2 puff INHALATION BID aspirin [Adult Aspirin Regimen] 81 mg tablet,delayed release (DR/EC) 81 mg PO DAILY@1000 Vitamin B-12 1 tab PO DAILY@1000 multivitamin Tablet 1 tab PO DAILY@1000 albuterol sulfate 90 mcg/actuation Hfa Aerosol Inhaler 2 puff INHALATION Q4H PRN (Reason: Shortness Of Breath) Referrals: Genie Beatty FNP [Primary Care Provider] - Coding Level of Care Code ED Plant Technical Specialist for Chg Fwd Exam Detailed
[2022-05-29 17:02] LABS: Basophils # 0.1 10^3/uL (0.0-0.1); Basophils % 0.9 %; Eosinophils # 0.2 10^3/uL (0.0-0.8); Eosinophils % 2.6 %; Hemoglobin 14.3 g/dL (11.7-16.6); Lymphocytes # 3.7 10^3/uL (0.8-4.8); Mean Corpuscular HGB Conc 32.5 g/dL (30.0-36.0); Mean Corpuscular Hemoglobin 30.8 pg (28.0-34.0); Mean Corpuscular Volume 94.8 fl (80-94); Mean Platelet Volume 9.9 fL (7.4-10.4); Monocytes # 0.5 10^3/uL (0.2-0.9); Monocytes % 5.5 %; Neutrophils # 3.72 10^3/uL (1.8-7.7); Neutrophils % 45.8 %; Nucleated Red Blood Cells % 0 %; Platelet Count 177 10^3/cmm (130-400); Red Blood Count 4.64 10^6/uL (4.1-5.3); Red Cell Distribution Width 12.9 % (12.1-15.1); White Blood Count 8.1 10^3/uL (4.0-10.0)
[2022-05-29 17:28] LABS: Lactate (Lactic Acid level) 7.5 mmol/L (0.5-2.2)
[2022-05-29 17:33] LABS: Alanine Aminotransferase 15 U/L (0-41); Albumin Level 4.2 g/dL (3.5-5.2); Alkaline Phosphatase 59 IU/L (40-130); Blood Urea Nitrogen 10 mg/dL (6-20); Calcium 9.3 mg/dL (8.5-10.5); Carbon Dioxide 22 mmol/L (22-29); Chloride 100 mmol/L (98-107); Globulin 3.2 g/dL (1.3-4.6); Glomerular Filtration Rate 99.3 mL/min (90-130); Glucose 235 mg/dL (65-115); Lipase 9 U/L (13-60); Osmolality Calculated 297 mOsm/kg (285-295); Sodium 140 mmol/L (136-145); Total Bilirubin 0.4 mg/dL (0.15-1.2); Total Protein 7.4 g/dL (6.6-8.7)
[2022-05-29 17:35] LABS: Aspartate Amino Transferase 20 U/L (0-40)
--- NOTE | 2022-05-29 19:15 | PC.NURSE ---
report given to rowdy
[2022-05-29 19:33] LABS: Lactate (Lactic Acid level) 0.9 mmol/L (0.5-2.2)
--- NOTE | 2022-05-29 20:11 | CTR_ITS ---
PROCEDURE INFORMATION: Exam: CT Head Without Contrast Exam date and time: 05/29/2022 8:23 PM Age: 56 years old Clinical indication: Altered mental status/memory loss; Patient HX: Witnessed seizure while having an mri performed as an outpatient. No prior history of seizure disorder. ; Additional info: AMS TECHNIQUE: Imaging protocol: Computed tomography of the head without contrast. Radiation optimization: All CT scans at this facility use at least one of these dose optimization techniques: automated exposure control; mA and/or kV adjustment per patient size (includes targeted exams where dose is matched to clinical indication); or iterative reconstruction. COMPARISON: CT head wo con* [id number] 01/25/2022 5:40 PM RADIATION DOSE METRICS: Total DLP (mGy-cm): 1183.64 FINDINGS: Brain: Normal. No hemorrhage. Unremarkable white matter. No mass effect. Cerebral ventricles: No ventriculomegaly. Paranasal sinuses: Visualized sinuses are unremarkable. No fluid levels. Mastoid air cells: Visualized mastoid air cells are well aerated. Bones/joints: Unremarkable. No acute fracture. Soft tissues: Unremarkable. CT/CT head wo con* [id number] IMPRESSION: No acute intracranial abnormality.
[2022-05-29 21:06] LABS: Glucose Point of Care 138 mg/dL (70-110)
--- NOTE | 2022-05-29 21:10 | XRR_ITS ---
PROCEDURE INFORMATION: Exam: XR Chest Exam date and time: 05/29/2022 9:19 PM Age: 56 years old Clinical indication: Device placement; Ett placement (vent status); Additional info: Post-intubation TECHNIQUE: Imaging protocol: Radiologic exam of the chest. Views: 1 view. COMPARISON: CR (CHEST, ) 01/25/2022 5:34 PM FINDINGS: Tubes, catheters and devices: A new endotracheal tube ends at the mid clavicles. Lungs: The lungs are clear. Pleural spaces: Unremarkable. No pleural effusion. No pneumothorax. Heart/Mediastinum: Unremarkable. No cardiomegaly. Bones/joints: There is chronic thoracolumbar metallic fusion. XR/XR chest 1V portable [id number] IMPRESSION: 1. New endotracheal tube. 2. Lungs clear
--- NOTE | 2022-05-29 21:16 | P.PNCC_ITS ---
Critical Care Event Note The high probability of a clinically significant, sudden or life threatening deterioration of the patient's [] system(s) required my full and direct attention, intervention and personal management. The critical care time is as shown. This time is in addition to time spent performing any reported procedures but includes the following: [x] Data and vital sign review and interpretation [x] Patient assessment, examination and intervention [x] Documentation [x] Medication orders and management Critical Care Time Code activated: No Critical Care Time (min): 15 Additional information about critical care time: This is a 56-year-old male with a past medical history of CVA, CAD, diabetes, hypertension, CAD status post stenting, history of UTIs, history of seizures, recent history of back pain with MRI, according to at bedside, today he had a MRI of the spine due to persistent back pain, for his MRI tells me that he started developing seizures. tells me this happens all the time, but typically stops, on their own, he has a history of seizures, he sees Dr. Gurrola. According to Dr. Gurrola's note, he has a history of functional strokelike episodes, functional tremor, blood sugar seizure-like episodes, he is on Depakote. at bedside is very agitated, has while he has been in the emergency room, he continues to have recurrent seizure-like episodes. Review of his MRI does not show any evidence of meningitis or discitis or vertebral osteomyelitis, but it was done without contrast. He has received 5 mg of Versed 3 times, has received Keppra, fluids, antibiotics. During my examination, he is having recurrent seizures, ER physician at bedside, nursing staff at bedside at bedside. I discussed my concerns with , in my opinion, given his recurrent seizures, that are not breaking with medications concerns now for his airway, and currently his seizure episode is lasting more than 2 to 3 minutes, I would advise for him to intubated, placed on propofol and transferred for continuous EEG monitoring. He also in my opinion should have a lumbar puncture to evaluate for possible meningitis as an etiology for his recurrent seizures. However at bedside becomes very agitated, she tells me that he typically breaks out of the seizures, he is going to do okay and she wants to take him home. Currently patient was seizing while she was saying this,. ER physician me were very concerned for the patient's wellbeing, discussed risks of taking him home with recurrent breakthrough seizures especially as he is currently se izing without any improvement of his symptoms. I discussed morbidity and mortality, I am concerned that he has status epilepticus he needs to be intubated he needs to be post placed on sedation and transferred for continuous EEG monitoring. However patient's declined she becomes very angry upset she tells me that she does not want him to be intubated, she wants to take him home. Dr. King discussed with she, she eventually changed her mind, and she is okay with intubation, she is okay with transfer. -I have recommended to Dr. King the patient should be intubated, placed on propofol for sedation, and transferred for continuous EEG monitoring, needs neurology, and also needs a lumbar puncture to evaluate for possible infectious source especially given his recurrent back pain. He is already received antibiotics here in the emergency room. During my examination -Patient is actively seizing, looking to the left -Cardiovascular S1, S2, tachycardic -Tachypneic, mild respiratory distress, equal sounds bilaterally -Abdomen soft, slightly distended, decreased bowel sounds -Extremity no edema -Diffuse seizure-like episodes of head, bilateral arms, legs, concerning for status epilepticus Currently he is being intubated by ER physician, with hopefully plans on transferred for higher level of care- Coding Level of Care Code Acute Career Development Coordinator/Teacher for Adriana Iyer
[2022-05-29] MEDS: propofol 10 mg/mL SDV 20 mL 150 MG IVP (21:26)
[2022-05-29] MEDS: propofol 1,000 MG/100 ML INJ 2.5 MG IV (21:26)
[2022-05-29] MEDS: vecuronium 10 mg SDV IVP (21:26)
--- NOTE | 2022-05-29 21:27 | PC.NURSE ---
Propofol 150mg and vec 10mg given at 1916 with physicain, rt and nurse at bedside. Vitals: HR 71, O2 100, BP121/66 Size 8 ET tube placed. 22 at the lip at 2118. Positive color change and condensation in tube. Vitals: HR 69, O2 100, BP 144/79
[2022-05-29] MEDS: sodium chloride 0.9% 1,000 ML 999 ML IV (22:05)
--- NOTE | 2022-05-29 22:35 | XRR_ITS ---
PROCEDURE INFORMATION: Exam: XR Chest Exam date and time: 05/29/2022 10:40 PM Age: 56 years old Clinical indication: Device placement; Ng tube; Prior surgery; Surgery type: Coronary stents; Patient HX: Check S/P og placement; Additional info: Gastric tube placement TECHNIQUE: Imaging protocol: Radiologic exam of the chest. Views: 1 view. COMPARISON: CR XR chest 1V portable [id number] 05/29/2022 9:19 PM FINDINGS: Tubes, catheters and devices: The endotracheal tube ends 1 cm below the mid clavicles. A nasogastric tube is looped in the stomach. Lungs: The lungs clear. Pleural spaces: Unremarkable. No pleural effusion. No pneumothorax. Heart/Mediastinum: Unremarkable. No cardiomegaly. Bones/joints: There is chronic thoracolumbar metallic fusion. XR/XR chest 1V portable [id number] IMPRESSION: 1. New NG tube ends in the stomach. 2. The lungs are clear. 3. Other tubes, catheters and hardware are unchanged
[2022-05-30] VITALS: BP 103/62; PULSE 60; RESP 16; O2SAT 100
[2022-05-30 00:58] VITALS: RESP 14
[2022-05-30 01:30] VITALS: BP 115/74; PULSE 60; RESP 14; TEMP 35.6; O2SAT 100
[2022-05-30 02:08] LABS: ABG PCO2 39.4 mmHg (35-45); ABG PH Result 7.41 (7.35-7.45); Arterial Blood Gas Hematocrit 39.1 % (42-52); Base Excess ABG 0.2 mmol/L (-2.0-2.0); Blood Gas Allen Test Pos; Blood Gas Sample Site Radial, right; Blood Gas Sample Type Arterial; HCO3 ABG 24.9 mmol/L (22-26); Oxygen Device VENT
[2022-05-30 03:29] VITALS: BP 115/74; PULSE 60; RESP 14; TEMP 35.6; O2SAT 100
--- NOTE | 2022-05-30 04:37 | PC.NURSE ---
contacted with transfer information. Pt going to [id number].
== END 2022-05-30 02:45 ==
PROVIDERS: Emergency Medicine; Emergency Provider Emergency Medicine; PCP Nurse Practitioner Family
DX: G40.901 Epilepsy, unspecified, not intractable, with status epilepticus (principal); Z79.02 Long term (current) use of antithrombotics/antiplatelets; Z79.82 Long term (current) use of aspirin; Z79.4 Long term (current) use of insulin; J44.9 Chronic obstructive pulmonary disease, unspecified; I25.10 Atherosclerotic heart disease of native coronary artery without angina pectoris; Z86.73 Personal history of transient ischemic attack (TIA), and cerebral infarction without residual deficits; E11.9 Type 2 diabetes mellitus without complications; I10 Essential (primary) hypertension; I25.2 Old myocardial infarction; F17.210 Nicotine dependence, cigarettes, uncomplicated
CPT/HCPCS: 31500; 36415; 36416; 36600; 51702; 70450; 71045; 80053; 82803; 82962; 83605; 83690; 85025; 87040; 93005; 94002; 94799; 96365; 96366; 96367; 96372; 99214; 99291; 99292; J1953; J2250; J2704; J3010; J3370; J3490; J7030; J7040

== ENCOUNTER → 2022-06-17 16:46 | Outpatient (BNVA) | payer MEDICARE, SELFPAY | PROVIDERS: PCP Nurse Practitioner Family; Visit Provider Nurse Practitioner Family | DX: R13.10 Dysphagia, unspecified (principal); R53.1 Weakness; R29.898 Other symptoms and signs involving the musculoskeletal system; R29.6 Repeated falls; R26.81 Unsteadiness on feet; L03.119 Cellulitis of unspecified part of limb; G25.2 Other specified forms of tremor; I10 Essential (primary) hypertension; I95.9 Hypotension, unspecified; J40 Bronchitis, not specified as acute or chronic; Z09 Encounter for follow-up examination after completed treatment for conditions other than malignant neoplasm | CPT/HCPCS: 80053 ==

== ENCOUNTER → 2022-07-04 09:45 | Outpatient (BNVA) | payer MEDICARE, SELFPAY | PROVIDERS: PCP Nurse Practitioner Family; Visit Provider Specialist | DX: F44.5 Conversion disorder with seizures or convulsions (principal); G25.2 Other specified forms of tremor; R26.81 Unsteadiness on feet; R29.6 Repeated falls; E11.40 Type 2 diabetes mellitus with diabetic neuropathy, unspecified; Z79.4 Long term (current) use of insulin | CPT/HCPCS: 36415; 80164; 99214; 99215 ==

== ENCOUNTER → 2022-08-05 07:51 | Outpatient (BNVA) | payer MEDICARE, SELFPAY | PROVIDERS: PCP Nurse Practitioner Family; Referring Provider Specialist; Visit Provider Otolaryngology | DX: F17.210 Nicotine dependence, cigarettes, uncomplicated (principal); R49.0 Dysphonia | CPT/HCPCS: 31575; 99204 ==

== ENCOUNTER 2022-08-14 06:00 | Outpatient (RCR) | payer MEDICARE, SELFPAY | END 2022-08-19 23:59 | disposition home or self-care (01) | LOC: TST 06:00 | PROVIDERS: PCP Nurse Practitioner Family; Visit Provider Otolaryngology | DX: R49.0 Dysphonia (principal) | CPT/HCPCS: 92523 ==

== ENCOUNTER 2022-08-20 06:00 | Outpatient (RCR) | payer MEDICARE, SELFPAY | END 2022-09-18 23:59 | disposition home or self-care (01) | LOC: TST 06:00 | PROVIDERS: PCP Nurse Practitioner Family; Visit Provider Otolaryngology | DX: R49.0 Dysphonia (principal) | CPT/HCPCS: 92507 ==

== ENCOUNTER 2022-09-19 06:00 | Outpatient (RCR) | payer MEDICARE, SELFPAY | END 2022-10-19 23:59 | disposition home or self-care (01) | LOC: TST 06:00 | PROVIDERS: PCP Nurse Practitioner Family; Visit Provider Otolaryngology | DX: R49.0 Dysphonia (principal) | CPT/HCPCS: 92507 ==

== ENCOUNTER 2022-10-20 06:00 | Outpatient (RCR) | payer MEDICARE, SELFPAY | END 2022-11-19 23:59 | disposition home or self-care (01) | LOC: TST 06:00 | PROVIDERS: PCP Nurse Practitioner Family; Visit Provider Otolaryngology | DX: R49.0 Dysphonia (principal) | CPT/HCPCS: 92507 ==

== ENCOUNTER → 2022-10-22 16:12 | Outpatient (BNVA) | payer MEDICARE, SELFPAY | PROVIDERS: PCP Nurse Practitioner Family; Visit Provider Orthopaedic Surgery | DX: M47.816 Spondylosis without myelopathy or radiculopathy, lumbar region (principal); Z98.1 Arthrodesis status | CPT/HCPCS: 72070; 72100; 99214 ==

== ENCOUNTER 2022-11-20 06:00 | Outpatient (RCR) | payer MEDICARE, SELFPAY | END 2022-12-17 23:59 | disposition home or self-care (01) | LOC: TST 06:00 | PROVIDERS: PCP Nurse Practitioner Family; Visit Provider Otolaryngology | DX: R13.10 Dysphagia, unspecified (principal) | CPT/HCPCS: 92507 ==

== ENCOUNTER 2022-11-29 15:36 | Emergency (ER) | payer MEDICARE, SELFPAY ==
[2022-11-29 15:43] VITALS: BP 120/66; PULSE 93; RESP 18; TEMP 36.7; O2SAT 95
--- NOTE | 2022-11-29 15:53 | ED_ITS ---
HPI - Seizure General: Chief Complaint: Seizure Stated Complaint: SEIZURE Time Seen by Provider: 11/29/22 15:49 Source: EMS Mode of arrival: EMS Limitations: altered mental status History of Present Illness: HPI Narrative: This patient with a known history of seizure disorder was transported from clinic to our emergency department because of a seizure. He allegedly missed his morning dose of Depakote and then while in the clinic suffered a generalized seizure and was given Valium rectally. EMS was notified and upon arrival he was returned to his seizing and was given approximately 10 mg of Versed in route. No history of trauma. He does have a history of diabetes but his blood sugar was greater than 300 mg percent in route. MD complaint: seizure Witnessed: Yes - by EMS Trauma: No Seizure History: Yes Review of Systems General: Reports: ROS unobtainable due to medical condition PFSH ED PFSH: Medical History Abdominal wall bulge Anxiety Back pain BPH NOS w ur obs/LUTS COPD (chronic obstructive pulmonary disease) Coronary artery disease CVA (cerebral vascular accident) CVA (cerebral vascular accident) Diabetes Hypertension Migraine Myocardial infarction Normal colonoscopy Seizure Urinary retention Surgical History History of appendectomy History of back surgery History of cholecystectomy History of coronary angioplasty with insertion of stent History of tonsillectomy History of vasectomy S/P left knee arthroscopy Family History Other CAD (coronary artery disease) Hypertension Social History Smoking and tobacco status: current every day smoker cigarettes Packs smoked per day: 0.5 Years cigarettes smoked: 13 Second hand smoke exposure: No Alcohol intake: never Caregiver/support person: Yes (spouse) Lives independently: Yes Household members: spouse Marital status: Current occupational status: disabled History of recent travel: No Current gender identity: Male Physical Exam Narrative: EXAM NARRATIVE: Actively exhibiting generalized tonic-clonic activity. He does not respond to voice. (Remainder of physical examination performed after seizures controlled.) Const: COMMON NORMALS: average body habitus EXAM LIMITATIONS: altered me ntal status OTHER: After seizures controlled he is now sleeping. HENMT: COMMON NORMALS: normocephalic, moist oral mucous membranes and oropharynx normal (No injury) HEAD & SCALP: normocephalic FACE & SINUS: normal facial exam and face symmetric MOUTH: lip normal and tongue normal TEETH & GINGIVA: Yes poor dentition Eye: COMMON NORMALS: Equal, round and reactive pupils present, EOMs intact bilaterally and conjunctivae normal CONJUNCTIVA: Yes conjunctivae normal PUPIL: Yes Equal, round and reactive pupils present Neck/C-Spine: COMMON NORMALS: full ROM, no JVD and No carotid bruits Chest: COMMONS NORMALS: normal inspection of the chest Resp: COMMON NORMALS: No retractions and No use of accessory muscles AUSCULTATION: crackles (At bases bilaterally) Cardio: COMMON NORMALS: no JVD, regular rate, regular rhythm and Peripheral pulses 2+ throughout RATE: regular rate RHYTHM: regular rhythm PERIPHERAL PULSES: Peripheral pulses 2+ throughout GI: COMMON NORMALS: Normal to inspection, nondistended, normoactive bowel sounds present, Soft to palpation and non-tender PALPATION: Yes Soft to palpation Back/Pelvis: COMMON NORMALS: thoracic and lumbar spine normal to inspection and thoraco-lumbar ROM normal Extremity: COMMON NORMALS: normal to inspection, capillary refill normal and no pedal edema Neuro: COMMON NORMALS: moves all extremities, no focal motor deficits and no sensory deficits noted Skin: COMMON NORMALS: no rashes or lesions noted, no wounds and turgor normal GENERAL SKIN EXAM: no rashes or lesions noted and turgor normal Course Reevaluation(s): Reevaluation #1: After 4 mg of Ativan IV his seizure activity abated. We will go and proceed with a loading dose of 20 mg/kg of Depakote given the fact that he missed his dose this morning and likely if 1 dose missed precipitates the seizure then 20 mg/kg IV will be appropriate at this time. Time: 15:57 Reevaluation #2: Patient remains controlled with no further seizure activity since last Ativan and loading dose of Depakote. His is now present who gives additional il luminating history. She states he was in his normal state of health yesterday but did miss doses of his medication today. She states he was at his doctor's office today because he has been having some congestion and they thought what might be fluid on his lungs. He has not had any fevers but has had a cough. She also endorses that he did not have any recent head trauma etc. She is not ill. Given additional history we will going proceed with chest x-ray as well as troponin etc. Time: 17:10 Reevaluation #3: Chest x-ray as well as troponin are reassuring. No evidence at this time suggest ACS, CHF, pneumonia etc. at this time. After sleeping post seizure he responded and awoke and stated that he was hungry and felt like he could go home. Time: 19:21 Vital Signs: Vital signs: Vital Signs Temperature 98.0 F 11/29/22 15:43 Pulse Rate 71 11/29/22 18:00 Respiratory Rate 18 11/29/22 18:00 Blood Pressure 95/66 11/29/22 18:00 Pulse Oximetry 100 11/29/22 18:00 Oxygen Delivery Me thod 11/29/22 18:00 Oxygen Flow Rate 4 11/29/22 18:00 MDM - Seizure MDM Narrative Medical decision making narrative: This patient was transported to our emergency department from one of the clinics where he suffered a generalized seizure. He has a history of seizure disorder and takes Depakote in addition to his other medications but apparently has missed doses. Received benzodiazepines prior to arrival but did continue to have generalized tonic-clonic seizures which seem to be somewhat fluctuating in their intensity and seemingly distractible. Bite these findings he was given additional benzodiazepines and given a loading dose of Depakote while in the emergency department. His seizures were soon controlled with those therapies and he was stable. Continued evaluation in the emergency department and additional history from his who arrived later in his visit were obtained. It was some concerned about possible lung congestion or other issues raised by his . Chest x-ray was reviewed and found to be clear of any evidence of cardiopulmonary disease, electrocardiogram and troponins were also reassuring mitigating against ACS etc. He remained seizure-free while in the emergency department with reassuring vital signs. After postictal period he awoke with hunger and desire to be discharged from the emergency department. At this point in time no evidence that requires additional observation or admission to this facility. No evidence of an ongoing emergency medical condition. He is being discharged to the care of his who monitors his medications. Lab Data 11/29/22 15:05 11/29/22 15:05 Labs: Radiology Impressions Chest X-Ray 11/29/22 17:10 IMPRESSION: No acute cardiopulmonary abnormality. Laboratory Results WBC 7.3 10^3/uL (4.0-10.0) 11/29/22 15:05 RBC 4.65 10^6/uL (4.1-5.3) 11/29/22 15:05 Hgb 14.6 g/dL (11.7-16.6) 11/29/22 15:05 Hct 43.1 % (42.0-52.0) 11/29/22 15:05 MCV 92.7 fl (80-94) 11/29/22 15:05 MCH 31.4 pg (28.0-34.0) 11/29/22 15:05 MCHC 33.9 g/dL (30.0-36.0) 11/29/22 15:05 RDW 13.4 % (12.1-15.1) 11/29/22 15:05 Plt Count 224 10^3/cmm (130-400) 11/29/22 15:05 MPV 9.6 fL (7.4-10.4) 11/29/22 15:05 Neut % (Auto) 65.4 % 11/29/22 15:05 Lymph % (Auto) 24.5 % 11/29/22 15:05 [place] % (Auto) 5.5 % 11/29/22 15:05 Eos % (Auto) 3.1 % 11/29/22 15:05 Baso % (Auto) 1.1 % 11/29/22 15:05 Neut # (Auto) 4.78 10^3/uL (1.8-7.7) 11/29/22 15:05 Lymph # (Auto) 1.8 10^3/uL (0.8-4.8) 11/29/22 15:05 [place] # (Auto) 0.4 10^3/uL (0.2-0.9) 11/29/22 15:05 Eos # (Auto) 0.2 10^3/uL (0.0-0.8) 11/29/22 15:05 Baso # (Auto) 0.1 10^3/uL (0.0-0.1) 11/29/22 15:05 Nucleated RBC % (auto) 0 % 11/29/22 15:05 Nucleated RBCs # 0.0 /100WBC 11/29/22 15:05 Sodium 136 mmol/L (136-145) 11/29/22 15:05 Potassium 4.1 mmol/L (3.5-5.1) 11/29/22 15:05 Chloride 98 mmol/L (98-107) 11/29/22 15:05 Carbon Dioxide 23 mmol/L (22-29) 11/29/22 15:05 Anion Gap 19.1 (5-19) H 11/29/22 15:05 BUN 12 mg/dL (6-20) 11/29/22 15:05 Creatinine 0.7 mg/dL (0.7-1.2) 11/29/22 15:05 GFR Calculation 115.4 mL/min (90-130) 11/29/22 15:05 Glucose 256 mg/dL (65-115) H 11/29/22 15:05 Calculated Osmolality 291 mOsm/kg (285-295) 11/29/22 15:05 Calcium 9.0 mg/dL (8.5-10.5) 11/29/22 15:05 Total Bilirubin 0.5 mg/dL (0.15-1.2) 11/29/22 15:05 AST 13 U/L (0-40) 11/29/22 15:05 ALT 10 U/L (0-41) 11/29/22 15:05 Alkaline Phosphatase 59 U/L (40-130) 11/29/22 15:05 Troponin T Baseline 15 ng/L (0-15) 11/29/22 18:00 Total Protein 7.1 g/dL (6.6-8.7) 11/29/22 15:05 Albumin 4.0 g/dL (3.5-5.2) 11/29/22 15:05 Globulin 3.1 g/dL (1.3-4.6) 11/29/22 15:05 EKG Data EKG 1: Attestation: I personally reviewed and interpreted this EKG as follows: Interpretation: Contemporaneous review of this EKG reveals ventricular rate of 71 bpm. Normal UT interval, QRS duration, corrected QT intervals. Leftward axis consistent with a left anterior humeral block. Enlarged P wave limb lead to supportive of possible P pulmonale. Nonspecific ST T wave changes noted. Essentially unchanged from prior EKGs within the system. Discharge Plan Discharge Patient Disposition: Home Clinical Impression: Seizure disorder, Nonadherence to medication Condition: Stable Prescriptions: No Action ascorbic acid (vitamin C) 500 mg tablet 500 mg PO DAILY@1000 Quintenaglellis HigginbothamPen U-100 Insulin 100 unit/mL (3 mL) insulin pen 50 unit SUBCUT DAILY Rx Instructions: 50 units SUBCUT daily; valproic acid 250 mg capsule 750 mg PO TID ipratropium-albuterol 0.5 mg-3 mg(2.5 mg base)/3 mL solution for nebulization 3 ml inhalation Q4H PRN (Reason: wheezing) Qty: 180 6RF (DME) nebulizer accessories Kit See Rx Instructions .Route Qty: 1 0RF Rx Instructions: 1 nebulizer with all required supplies as directed propranolol 20 mg tablet 20 mg PO QDAY 30 Days Qty: 30 0RF nystatin-triamcinolone 100,000-0.1 unit/gram-% ointment 1 applic topical BID 14 Days Qty: 60 0RF diazepam 5-7.5-10 mg kit 5 mg UT Q12H PRN (Reason: seizure activity) Qty: 1 0RF Januvia 100 mg tablet 100 mg PO DAILY Qty: 90 3RF Rx Instructions: Take one tablet by mouth daily. diclofenac sodium 1 % gel 2 g topical QID PRN (Reason: pain) Qty: 100 0RF Rx Instructions: apply to wrist qid (DME) left wrist splint See Rx Instructions .Route .MEDSUPPLY Qty: 1 0RF Rx Instructions: As directed nitroglycerin 0.4 mg tablet, sublingual See Rx Instructions .ROUTE .COMPLEX Qty: 25 3RF Dose Instruction: DISSOLVE 1 TABLET UNDER THE TONGUE EVERY 5 MINUTES NEEDED FOR CHEST PAIN. DO NOT EXCEED A TOTAL OF 3 DOSES IN 15 MINUTES. FOR ONE DAY Rx Instructions: DISSOLVE 1 TABLET UNDER THE TONGUE EVERY 5 MINUTES NEEDED FOR CHEST PAIN. DO NOT EXCEED A TOTAL OF 3 DOSES IN 15 MINUTES. FOR ONE DAY (DME) pen needle, diabetic 32 gauge x 1/5 needle See Rx Instructions .Route Qty: 100 5RF Rx Instructions: As directed; to test 3 x day atorvastatin 40 mg tablet 40 mg PO DAILY Qty: 90 3RF Rx Instructions: Take one tablet by mouth daily. lorazepam 1 mg tablet 1 mg PO BID PRN (Reason: anxiety) Qty: 30 5RF clopidogrel 75 mg tablet See Rx Instructions .ROUTE .COMPLEX Qty: 90 0RF Dose Instruction: TAKE ONE TABLET BY MOUTH EVERY DAY Rx Instructions: TAKE ONE TABLET BY MOUTH EVERY DAY tamsulosin 0.4 mg capsule See Rx Instructions .ROUTE .COMPLEX Qty: 90 1RF Dose Instruction: TAKE ONE CAPSULE BY MOUTH DAILY Rx Instructions: TAKE ONE CAPSULE BY MOUTH DAILY divalproex 500 mg tablet extended release 24 hr See Rx Instructions .ROUTE .COMPLEX Qty: 60 0RF Dose Instruction: TAKE ONE TABLET BY MOUTH TWICE DAILY Rx Instructions: TAKE ONE TABLET BY MOUTH TWICE DAILY pantoprazole 40 mg tablet,delayed release (DR/EC) 40 mg PO DAILY@1000 Qty: 90 3RF budesonide-formoterol [Symbicort] 160-4.5 mcg/actuation HFA aerosol inhaler 2 puff INHALATION BID aspirin [Adult Aspirin Regimen] 81 mg tablet,delayed release (DR/EC) 81 mg PO DAILY@1000 Vitamin B-12 1 tab PO DAILY@1000 multivitamin Tablet 1 tab PO DAILY@1000 albuterol sulfate 90 mcg/actuation Hfa Aerosol Inhaler 2 puff INHALATION Q4H PRN (Reason: Shortness Of Breath) Discharge Orders: Discharge ED (Routine); Ordered 11/29/22 Ordered By: Arcenio Zheng Referrals: Genie Beatty FNP [Primary Care Provider] - 4-7 days Discharge Activity: Increase activity as tolerated Patient Instructions: Opioid Safety, Pain Management Activity Restrictions/Additional Instructions: Your emergency department evaluation did not reveal any evidence of a heart attack, pneumonia, heart failure etc. during your visit here. You are given additional dose of your Depakote. Please take your medications as prescribed. If you have any new or worsening symptoms you are welcome to return to this or the nearest emergency department. Coding Level of Care Code ED Spray Gun Striper for Adriana Iyer
[2022-11-29 16:05] LABS: Basophils # 0.1 10^3/uL (0.0-0.1); Basophils % 1.1 %; Eosinophils # 0.2 10^3/uL (0.0-0.8); Eosinophils % 3.1 %; Hematocrit 43.1 % (42.0-52.0); Hemoglobin 14.6 g/dL (11.7-16.6); Lymphocytes # 1.8 10^3/uL (0.8-4.8); Lymphocytes % 24.5 %; Mean Corpuscular HGB Conc 33.9 g/dL (30.0-36.0); Mean Corpuscular Hemoglobin 31.4 pg (28.0-34.0); Mean Corpuscular Volume 92.7 fl (80-94); Mean Platelet Volume 9.6 fL (7.4-10.4); Monocytes # 0.4 10^3/uL (0.2-0.9); Monocytes % 5.5 %; Neutrophils # 4.78 10^3/uL (1.8-7.7); Neutrophils % 65.4 %; Nucleated Red Blood Cells % 0 %; Platelet Count 224 10^3/cmm (130-400); Red Blood Count 4.65 10^6/uL (4.1-5.3); Red Cell Distribution Width 13.4 % (12.1-15.1); White Blood Count 7.3 10^3/uL (4.0-10.0)
[2022-11-29] MEDS: LORazepam 2 mg/mL INJ 1 mL 4 MG IVP (16:14)
[2022-11-29] MEDS: sodium chloride 0.9% 500 ML IV (16:14)
[2022-11-29 16:28] LABS: Alanine Aminotransferase 10 U/L (0-41); Alkaline Phosphatase 59 U/L (40-130); Anion Gap 19.1 (5-19); Aspartate Amino Transferase 13 U/L (0-40); Blood Urea Nitrogen 12 mg/dL (6-20); Carbon Dioxide 23 mmol/L (22-29); Chloride 98 mmol/L (98-107); Globulin 3.1 g/dL (1.3-4.6); Glomerular Filtration Rate 115.4 mL/min (90-130); Glucose 256 mg/dL (65-115); Osmolality Calculated 291 mOsm/kg (285-295); Potassium 4.1 mmol/L (3.5-5.1); Sodium 136 mmol/L (136-145); Total Bilirubin 0.5 mg/dL (0.15-1.2); Total Protein 7.1 g/dL (6.6-8.7)
--- NOTE | 2022-11-29 17:10 | XRR_ITS ---
PROCEDURE INFORMATION: Exam: XR Chest Exam date and time: 11/29/2022 5:23 PM Age: 57 years old Clinical indication: Other: Congestion; Prior surgery; Surgery type: Stents TECHNIQUE: Imaging protocol: Radiologic exam of the chest. Views: 1 view. COMPARISON: CR (CHEST, ) 05/29/2022 10:40 PM FINDINGS: Tubes, catheters and devices: Overlying monitor leads and oxygen tubing are seen. Lungs: Unremarkable. No consolidation. Pleural spaces: Unremarkable. No pleural effusion. No pneumothorax. Heart/Mediastinum: Unremarkable. No cardiomegaly. Left coronary artery stent is seen. Bones/joints: Postsurgical hardware noted within the mid to lower thoracic spine. XR/XR chest 1V portable [id number] IMPRESSION: No acute cardiopulmonary abnormality.
--- NOTE | 2022-11-29 17:30 | ECG_ITS ---
[facility] Test Date: 2022-11-29 Pat Name: Arcenio Saldivar Department: Room: Gender: Male Optometric Assistant: : [id number] Requested By: Arcenio Zheng Order Number: [id number] MD: Davian Duval M.D. Measurements Intervals [place] Rate: 71 P: 56 IN: 170 QRS: -51 QRSD: 96 T: 4 QT: 364 QTc: 397 Interpretive Statements SINUS RHYTHM LEFT AXIS DEVIATION [QRS AXIS < -30] PATTERN CONSISTENT WITH PULMONARY DISEASE SEPTAL MYOCARDIAL INFARCTION , PROBABLY OLD [40+ ms Q WAVE IN V1/V2] Compared to ECG 05/29/2022 17:48:47 Incomplete right bundle-branch block no longer present Myocardial infarct finding still present Electronically Signed On 11-29-2022 21:56:45 DIGESTER COOK by Davian Duval M.D. [id number]
[2022-11-29 18:00] VITALS: BP 95/66; PULSE 71; RESP 18; O2SAT 100
[2022-11-29 19:03] LABS: Troponin(5th) Baseline 15 ng/L (0-15)
[2022-11-29 19:43] VITALS: BP 103/70; PULSE 65; RESP 22; O2SAT 100
== END 2022-11-29 19:55 | disposition home or self-care (01) ==
PROVIDERS: Emergency Provider Emergency Medicine; PCP Nurse Practitioner Family
DX: G40.909 Epilepsy, unspecified, not intractable, without status epilepticus (principal); Z91.14 Patient's other noncompliance with medication regimen; Z79.82 Long term (current) use of aspirin; Z79.4 Long term (current) use of insulin; Z79.02 Long term (current) use of antithrombotics/antiplatelets; F17.210 Nicotine dependence, cigarettes, uncomplicated; J44.9 Chronic obstructive pulmonary disease, unspecified; I25.10 Atherosclerotic heart disease of native coronary artery without angina pectoris; Z86.73 Personal history of transient ischemic attack (TIA), and cerebral infarction without residual deficits; E11.9 Type 2 diabetes mellitus without complications; I10 Essential (primary) hypertension; I25.2 Old myocardial infarction; Z95.5 Presence of coronary angioplasty implant and graft
CPT/HCPCS: 36415; 71045; 80053; 84484; 85025; 93005; 96365; 96366; 99285; J2060; J3490; J7040

== ENCOUNTER 2022-12-18 06:00 | Outpatient (RCR) | payer MEDICARE, SELFPAY | END 2023-01-17 23:59 | disposition home or self-care (01) | LOC: TST 06:00 | PROVIDERS: PCP Nurse Practitioner Family; Visit Provider Otolaryngology | DX: R13.10 Dysphagia, unspecified (principal) | CPT/HCPCS: 92507 ==

== ENCOUNTER 2022-12-19 07:51 | Outpatient (CLI) | payer MEDICARE, SELFPAY ==
--- NOTE | 2022-12-19 07:59 | FL_ITS ---
WS: [id number] MODIFIED BARIUM SWALLOW TECHNIQUE: Modified barium swallow with speech therapy using multiple consistencies. FLUOROSCOPY TIME: 3min [id number] # of spot films: 2 CLINICAL INFORMATION: Other dysphagia COMPARISON: None. FINDINGS: Multiple consistencies utilized. No evidence of aspiration penetration. No difficulties with the maryjane um tablet. Chin tuck maneuver was utilized. Mild pooling in the vallecula which cleared with addition al swallows. Overall decreased pharyngeal contractility and bolus peristalsis FL/FL barium swallow modifd [id number] IMPRESSION: 1. No evidence of aspiration/penetration. 2. No difficulties with the barium tablet. 3. Overall decreased pharyngeal contractility and bolus peristalsis
== END 2022-12-19 07:52 | disposition home or self-care (01) ==
PROVIDERS: PCP Nurse Practitioner Family; Visit Provider Nurse Practitioner Family
DX: R13.10 Dysphagia, unspecified (principal)
CPT/HCPCS: 74230; 92611

== ENCOUNTER 2023-01-18 06:00 | Outpatient (RCR) | payer MEDICARE, SELFPAY | END 2023-02-16 23:59 | disposition home or self-care (01) | LOC: TST 06:00 | PROVIDERS: PCP Nurse Practitioner Family; Visit Provider Otolaryngology | DX: R49.0 Dysphonia (principal) | CPT/HCPCS: 92507 ==

== ENCOUNTER → 2023-01-22 10:17 | Outpatient (BNVA) | payer MEDICARE, SELFPAY | PROVIDERS: PCP Nurse Practitioner Family; Visit Provider Internal Medicine | DX: E11.59 Type 2 diabetes mellitus with other circulatory complications (principal); E11.40 Type 2 diabetes mellitus with diabetic neuropathy, unspecified; E11.65 Type 2 diabetes mellitus with hyperglycemia; E11.649 Type 2 diabetes mellitus with hypoglycemia without coma; I25.10 Atherosclerotic heart disease of native coronary artery without angina pectoris; E78.5 Hyperlipidemia, unspecified; E78.2 Mixed hyperlipidemia; E16.0 Drug-induced hypoglycemia without coma; T38.3X5A Adverse effect of insulin and oral hypoglycemic [antidiabetic] drugs, initial encounter; Y83.8 Other surgical procedures as the cause of abnormal reaction of the patient, or of later complication, without mention of misadventure at the time of the procedure; X58.XXXA Exposure to other specified factors, initial encounter; Z79.4 Long term (current) use of insulin; Z79.84 Long term (current) use of oral hypoglycemic drugs | CPT/HCPCS: 36415; 80053; 80061; 82044; 83036; 84681; 86337; 86341; 99214 ==

== ENCOUNTER 2023-02-11 10:14 | Outpatient (CLI) | payer MEDICARE, SELFPAY ==
--- NOTE | 2023-02-11 10:22 | US_ITS ---
WS: [id number] Complete ABDOMINAL ULTRASOUND HISTORY: Abdominal pain and swelling. COMPARISON: 02/15/2021 Liver: 14.2 cm in length. Normal size liver and echogenicity. No bile duct dilatation or mass. Portal Vein: Normal hepatopetal flow with monophasic waveform. Gallbladder: Status post cholecystectomy. CBD: 0.5 cm Pancreas: Obscured by bowel gas and body habitus. Right kidney: 11.1 cm x 5.4 x 4.8 cm. Cortex:1.2 cm. Normal size and echogenicity. No hydronephrosis or mass. Left kidney: 12.6 cm x 4.8 cm x 4.9 cm. Cortex: 1.2 cm. No mass, cortical thickening or hydronephrosis. Spleen: Normal size and echogenicity. Aorta and IVC: Poorly visualized due to body habitus. Defect in the abdominal wall measures 1.7 cm. This is just to the RIGHT of midline. Herniation of ome ntal fat. No peristalsing loops. US/US abdomen complete* 22538 Impression: 1. Prior cholecystectomy. 2. RIGHT ventral abdominal wall hernia suspected with herniating omentum. No h erniating or peristalsing loops of GI tract. 3. Obscured pancreas.
== END 2023-02-11 10:15 | disposition home or self-care (01) ==
LOC: RAD 10:19
PROVIDERS: PCP Nurse Practitioner Family; Visit Provider Nurse Practitioner Family
DX: R19.00 Intra-abdominal and pelvic swelling, mass and lump, unspecified site (principal); Z90.49 Acquired absence of other specified parts of digestive tract; K43.9 Ventral hernia without obstruction or gangrene
CPT/HCPCS: 76700

== ENCOUNTER 2023-02-17 06:00 | Outpatient (RCR) | payer MEDICARE, SELFPAY | END 2023-03-06 09:37 | disposition home or self-care (01) | LOC: TST 06:00 | PROVIDERS: PCP Nurse Practitioner Family; Visit Provider Otolaryngology | DX: R49.0 Dysphonia (principal) | CPT/HCPCS: 92507 ==

== ENCOUNTER → 2023-02-21 08:59 | Outpatient (BNVA) | payer MEDICARE, SELFPAY | PROVIDERS: PCP Nurse Practitioner Family; Visit Provider Surgery | DX: K43.2 Incisional hernia without obstruction or gangrene (principal) | CPT/HCPCS: 99203 ==

== ENCOUNTER → 2023-03-11 14:24 | Outpatient (BNVA) | payer MEDICARE, SELFPAY | PROVIDERS: PCP Nurse Practitioner Family; Visit Provider Family Medicine | DX: Z01.818 Encounter for other preprocedural examination (principal) | CPT/HCPCS: 80048; 85025 ==

== ENCOUNTER 2023-03-27 14:10 | Observation (INO) | payer MEDICARE, SELFPAY ==
[2023-03-25 10:49] VITALS: BMI 30.7
--- NOTE | 2023-03-25 11:07 | ANES.PREANE2 ---
Pre-Anesthetic Assessment Height/Weight: Height 1.68 m Weight 86.183 kg Operation Date: 03/27/23 11:05 Proposed Procedures p 27521 lap repair incisional hernia w/mesh K43.2(Not Applicable) - Alvaro Castro DO Familial anesthetic complications: PONV Social Tobacco and No alcohol Exam alert, oriented x 3, clear to auscultation bilaterally and regular rate & rhythm Airway Mallampati: Class II Dentition: other (missing, poor dentition) Pulmonary Chronic Obstructive Pulmonary Disease and Sleep Apnea CV/HEM Coronary Artery Disease (stents), Hypertension and Myocardial Infarction Neuropsych Cerebrovascular Accident and Seizure Anesthetic Plan ASA status: 3 Anesthesia: General Risk of > 500 ml blood loss (7ml/kg in children): No Medications/Allergies Home Medications Medication Instructions Recorded Confirmed Last Taken Type Vitamin B-12 1 tab PO DAILY@1000 12/30/19 03/25/23 1 Day Ago History ~03/24/23 ascorbic acid (vitamin C) 500 mg 500 mg PO DAILY@1000 04/26/20 03/25/23 1 Day Ago History tablet ~03/24/23 albuterol sulfate 90 mcg/actuation 2 puff inhalation Q4H PRN 12/14/20 03/25/23 1 Day Ago History aerosol inhaler Shortness Of Breath ~03/24/23 multivitamin 1 tab PO DAILY@1000 12/14/20 03/25/23 1 Day Ago History ~03/24/23 aspirin 81 mg tablet,delayed 81 mg PO DAILY@1000 01/29/21 03/25/23 03/24/23 History release (Adult Aspirin Regimen) budesonide-formoterol HFA 160 2 puff inhalation BID 01/29/21 03/25/23 1 Day Ago History mcg-4.5 mcg/actuation aerosol ~03/24/23 inhaler (Symbicort) nitroglycerin 0.4 mg sublingual See Rx Instructions .Route 01/21/22 03/25/23 Unknown Rx tablet .COMPLEX #25 tabs atorvastatin 40 mg tablet 40 mg PO DAILY #90 tabs 01/31/22 03/25/23 1 Day Ago Rx ~03/24/23 lorazepam 1 mg tablet 1 mg PO BID PRN anxiety #30 tabs 03/06/22 03/25/23 1 Day Ago Rx ~03/24/23 clopidogrel 75 mg tablet See Rx Instructions .Route 05/09/22 03/25/23 03/21/23 Rx .COMPLEX #90 tabs nebulizer accessories #1 ea 06/17/22 02/21/23 Unknown Rx propranolol 20 mg tablet 20 mg PO QDAY 30 days #30 tabs 06/17/22 03/25/23 1 Day Ago Rx ~03/24/23 valproic acid 250 mg capsule 750 mg PO TID 06/17/22 03/25/23 1 Day Ago History ~03/24/23 pantoprazole 40 mg tablet,delayed 40 mg PO DAILY@1000 #90 tabs 10/15/22 03/25/23 1 Day Ago Rx release ~03/24/23 tamsulosin 0.4 mg capsule See Rx Instructions .Route 01/31/23 03/25/23 1 Day Ago Rx .COMPLEX #90 caps ~03/24/23 divalproex 500 mg tablet,extended See Rx Instructions .Route 02/03/23 03/25/23 1 Day Ago Rx release 24 hr .COMPLEX #60 tabs ~03/24/23 tramadol 50 mg tablet 50 mg PO TID PRN pain #20 tabs 02/21/23 03/25/23 1 Day Ago Rx ~03/24/23 pen needle, diabetic 32 gauge x #100 ea 03/06/23 03/11/23 Unknown Rx 10/24 insulin glargine 100 unit/mL (3 60 unit SUBCUT DAILY 03/11/23 03/25/23 1 Day Ago History mL) subcutaneous pen (Basaglar ~03/24/23 KwikPen U-100 Insulin) sitagliptin phosphate 100 mg See Rx Instructions .Route 03/24/23 03/25/23 1 Day Ago Rx tablet (Januvia) .COMPLEX #60 tabs ~03/24/23 Allergies Allergy/AdvReac Type Severity Reaction Status Date / Time Iodinated Contrast Media Allergy Severe ALGY-Anaphy Verified 03/25/23 10:40 laxis iodine Allergy ALGY-Anaphy Verified 03/25/23 10:40 laxis [facility] Anesthesia Medical History (Updated 03/11/23 @ 14:13 by Jud Newman MD) Abdominal wall bulge Anxiety Back pain BPH NOS w ur obs/LUTS COPD (chronic obstructive pulmonary disease) Coronary artery disease CVA (cerebral vascular accident) CVA (cerebral vascular accident) Diabetes Hypertension Migraine Myocardial infarction Normal colonoscopy Seizure Urinary retention Surgical History History of appendectomy History of back surgery History of cholecystectomy History of coronary angioplasty with insertion of stent History of tonsillectomy History of vasectomy S/P left knee arthroscopy Family History Other CAD (coronary artery disease) Hypertension Social History Smoking and tobacco status: current every day smoker cigarettes Packs smoked per day: 0.5 Years cigarettes smoked: 13 Second hand smoke exposure: No Alcohol intake: never Substance/Drug Use: never Caregiver/support person: Yes (spouse) Lives independently: Yes Household members: spouse Marital status: Current occupational status: disabled Current gender identity: Male Data Anesthesia Cardiac Studies: No Data to Display
[2023-03-27] VITALS (36 sets, daily range): BP systolic 106–139; BP diastolic 63–85; PULSE 62–84; RESP 16–30; TEMP 36.1–36.4; O2SAT 93–100
[2023-03-27 09:34] LABS: Glucose Point of Care 213 mg/dL (70-110)
[2023-03-27] MEDS: sodium chloride 0.9% 1,000 ML 30 ML IV (09:37)
[2023-03-27] MEDS: scopolamine 1.5 Patch 1 PATCH TRANSDERMA (09:45)
--- NOTE | 2023-03-27 10:34 | PM.HP ---
Providers/Chief Complaint Primary Care Provider: CLAUDIO Michelle Chief Complaint: K43.2 History of Present Illness Arcenio Saldivar is a 57 year old male with an incisional hernia. Defect measures approximately 6 cm in diameter preoperatively. Medications/Allergies Home Medications Medication Instructions Recorded Confirmed Last Taken Type Vitamin B-12 1 tab PO DAILY@1000 12/30/19 03/25/23 03/27/23 History ascorbic acid (vitamin C) 500 mg 500 mg PO DAILY@1000 04/26/20 03/25/23 03/27/23 History tablet albuterol sulfate 90 mcg/actuation 2 puff inhalation Q4H PRN 12/14/20 03/25/23 03/27/23 History aerosol inhaler Shortness Of Breath multivitamin 1 tab PO DAILY@1000 12/14/20 03/25/23 03/27/23 History aspirin 81 mg tablet,delayed 81 mg PO DAILY@1000 01/29/21 03/25/23 03/27/23 History release (Adult Aspirin Regimen) budesonide-formoterol HFA 160 2 puff inhalation BID 01/29/21 03/25/23 03/27/23 History mcg-4.5 mcg/actuation aerosol inhaler (Symbicort) nitroglycerin 0.4 mg sublingual See Rx Instructions .Route 01/21/22 03/25/23 Unknown Rx tablet .COMPLEX #25 tabs atorvastatin 40 mg tablet 40 mg PO DAILY #90 tabs 01/31/22 03/25/23 03/27/23 Rx lorazepam 1 mg tablet 1 mg PO BID PRN anxiety #30 tabs 03/06/22 03/25/23 1 Day Ago Rx ~03/24/23 clopidogrel 75 mg tablet See Rx Instructions .Route 05/09/22 03/25/23 03/21/23 Rx .COMPLEX #90 tabs nebulizer accessories #1 ea 06/17/22 02/21/23 Unknown Rx propranolol 20 mg tablet 20 mg PO QDAY 30 days #30 tabs 06/17/22 03/25/23 03/27/23 Rx valproic acid 250 mg capsule 750 mg PO TID 06/17/22 03/25/23 03/27/23 History pantoprazole 40 mg tablet,delayed 40 mg PO DAILY@1000 #90 tabs 10/15/22 03/25/23 03/27/23 Rx release tamsulosin 0.4 mg capsule See Rx Instructions .Route 01/31/23 03/25/23 03/27/23 Rx .COMPLEX #90 caps divalproex 500 mg tablet,extended See Rx Instructions .Route 02/03/23 03/25/23 03/27/23 Rx release 24 hr .COMPLEX #60 tabs tramadol 50 mg tablet 50 mg PO TID PRN pain #20 tabs 02/21/23 03/25/23 03/27/23 Rx pen needle, diabetic 32 gauge x #100 ea 03/06/23 03/11/23 Unknown Rx 1/5 insulin glargine 100 unit/mL (3 60 unit SUBCUT DAILY 03/11/23 03/25/23 03/26/23 08:00 History mL) subcutaneous pen (Basaglar KwikPen U-100 Insulin) sitagliptin phosphate 100 mg See Rx Instructions .Route 03/24/23 03/25/23 03/27/23 Rx tablet (Januvia) .COMPLEX #60 tabs Allergies Allergy/AdvReac Type Severity Reaction Status Date / Time Iodinated Contrast Media Allergy Severe ALGY-Anaphy Verified 03/25/23 10:40 laxis iodine Allergy ALGY-Anaphy Verified 03/25/23 10:40 laxis PFSH Acute PFSH: Medical History (Updated 03/11/23 @ 14:13 by Jud Newman MD) Abdominal wall bulge Anxiety Back pain BPH NOS w ur obs/LUTS COPD (chronic obstructive pulmonary disease) Coronary artery disease CVA (cerebral vascular accident) CVA (cerebral vascular accident) Diabetes Hypertension Migraine Myocardial infarction Normal colonoscopy Seizure Urinary retention Surgical History History of appendectomy History of back surgery History of cholecystectomy History of coronary angioplasty with insertion of stent History of tonsillectomy History of vasectomy S/P left knee arthroscopy Family History Other CAD (coronary artery disease) Hypertension Social History Smoking and tobacco status: current every day smoker cigarettes Packs smoked per day: 0.5 Years cigarettes smoked: 13 Second hand smoke exposure: No Alcohol intake: never Substance/Drug Use: never Caregiver/support person: Yes (spouse) Lives independently: Yes Household members: spouse Marital status: Current occupational status: disabled Current gender identity: Male Vitals/I&O/Wt Last Vital Signs Temp 97.4 F L 03/27/23 09:13 Pulse 82 03/27/23 09:13 Resp 18 03/27/23 09:13 BP 122/83 03/27/23 09:45 Pulse Ox 99 03/27/23 09:13 O2 Del Method Room Air 03/27/23 09:13 Weight last 48 hrs Weight 190 lb A&P Assessment and plan (1) Incisional hernia: Plan Laparoscopic repair of incisional hernia with mesh. The risk and benefits were explained and documented. Attestations Medical Necessity Statement*: Home Coding Level of Care Code Acute Code for [facility] Diagnoses Incisional hernia K43.2
--- NOTE | 2023-03-27 10:36 | ANES.PAUD2 ---
Pre-Anesthetic Update Pre-Anesthetic Assessment: Date of Surgery/Procedure: 03/27/23 Proposed Procedure: Operation Date: 03/27/23 11:05 [place] [address] lap repair incisional hernia w/mesh K43.2(Not Applicable) - Alvaro Castro, DO Any changes to Pre-Anesthetic Assessment?: No Last Intake: Intake Last Liquid Date 03/26/23 Last Liquid Time 21:00 Last Solid Date 03/26/23 Last Solid Time 17:00 Vitals: Temperature 97.4 F L 03/27/23 09:13 Temperature Source Temporal Artery S can 03/27/23 09:13 Pulse Rate 82 03/27/23 09:13 Respiratory Rate 18 03/27/23 09:13 Blood Pressure 122/83 03/27/23 09:45 Blood Pressure Kathleen n 96 03/27/23 09:13 Pulse Oximetry 99 03/27/23 09:13 Oxygen Delivery Me thod Room Air 03/27/23 09:13 Exam: Pre-Anes Outpt Exam: alert, oriented x 3, clear to auscultation bilaterally and regular rate & rhythm Cardiac Studies: No Data to Display
[2023-03-27] MEDS: ceFAZolin 2,000 MG in sodium chloride 0.9% (plus) 50 ML 100 MG IV (10:50)
[2023-03-27] MEDS: lidocaine-epi 2% 20 mL INJ 10 ML INJECTION (11:24)
[2023-03-27] MEDS: midazolam 1 mg/mL INJ 2 mL 2 MG IVP ×2 (12:48→13:06)
--- NOTE | 2023-03-27 12:53 | PM.OP ---
Operative Report Date of procedure: March 27, 2023 Pre-op diagnosis: Incisional hernia Post-op diagnosis: Incisional hernia Extensive intra-abdominal adhesions Procedure done: Laparoscopic repair of incisional hernia with mesh Extensive laparoscopic lysis of adhesions Implants: 11 cm round Ventralight mesh Specimens removed/disposition: Hernia sac Surgeon: Dr. Alvaro Castro DO Anesthesia: General Estimated blood loss (mL): 5 Complications: None apparent Findings: 1.7 cm hernia defect Extensive intra-abdominal adhesions Brief History: Is a very pleasant 57-year-old gentleman who presents my office with an incisional hernia from a previous open appendectomy site. Laparoscopic repair with mesh was indicated. The risks and benefits were explained and documented. Procedure: Patient was wheeled into the operative room and placed on the OR table in a supine position. Abdomen was inspected prepped and draped in usual sterile fashion. Time-out was performed and all present were in agreement. A 15 blade scalp was used to make a 5 millimeter incision left upper quadrant. A Veress needle was placed into the incision and intra-abdominal insufflation was brought to 15 millimeters of mercury. A 12 millimeter trocar was placed into the left lower quadrant. The energy but device was then used to cut out the hernia sac. There was significant intra-abdominal adhesions between loops of small bowel and the anterior abdominal wall. These were taken down sharply and bluntly. Approximately 40 minutes was spent laparoscopically lysing adhesions to clear room for a hernia mesh and inspect for additional hernias. A hernia defect measuring 1.7 cm in diameter was identified. It contained omentum which were manually reduced. An 11 cm ventral light mesh was placed into the abdomen and brought up through the umbilicus using an the Ed-Alesha. The mesh was then tacked in place in a double crown fashion. The skeleton of the mesh was removed via the left lower quadrant. The hernia sac was then removed from the abdomen via the left lower quadrant. The left lower quadrant port site was closed with an 0 Vicryl suture in a Ed-Alesha in a kacnve-ag-aylgs fashion. Incisions were closed with 4 O Vicryl in a subcuticular interrupted fashion. Skin glue was applied. Patient tolerated the procedure well.
[2023-03-27 13:02] LABS: Glucose Point of Care 243 mg/dL (70-110)
--- NOTE | 2023-03-27 14:12 | ANE.PACU2 ---
Inpatient post-anesthesia follow up: Airway intact: Yes Vital signs: Temperature 97 F Pulse Rate 73 Respiratory Rate 16 Blood Pressure 137/79 Pulse Oximetry 100 Oxygen Delivery Me thod Simple Mask Oxygen Flow Rate 6 Fraction of Inspir ed Oxygen Hydration adequate: No Nausea and vomiting: Yes Pain level: 2 Mental status: Altered Additional Comments: Multiple seizures - given versed 2 mg, 1 mg, leviteracetam 500 mg IV, propofol 70 mg in divided doses IV. O2 face mask applied at onset. Pt bp and sats stable. Sent to ICU.
--- NOTE | 2023-03-27 14:14 | SUR.PHASEI ---
I gave report to Sebastian, took the leads off the pt and began transferring him to [facility] when pt began shaking his head from side to side rhythmically as well as movement in his arms. I called for help, turned the pt on his side, put O2 on the pt, and padded the bed rails. Dr. Nicholson gave verbal order for versed, pharmacy was called and sent IV Keppra. Each time the pt would rouse he would begin seizure activity. Dr. Nicholson administered propofol multiple times. I called hospitalist Dr. Luke, he came to the bedside. I transferred the pt to ICU 11 with assistance and gave report to Donn.
[2023-03-27] MEDS: LORazepam 2 mg/mL INJ 1 mL 0.5 MG IVP ×2 (14:26→20:00)
--- NOTE | 2023-03-27 14:26 | PC.NURSE ---
Arrived from OR via stretcher, non responsive but alert. once in bed patient began seizing, Dr. Victor contacted gave t.o. for 0.25 mg Ativan IVP x1. HCP came to bedside, Airway intact. seizing stopped after Ativan
--- NOTE | 2023-03-27 14:42 | P.CONIM_ITS ---
Providers/Reason For Consult Consulting Physician/Specialty*: Hospitalist Reason for Consult*: Seizures Requesting Physician: Dr Bob, Dr Castro Attending Physician: Alvaro Castro DO Primary Care Provider: CLAUDIO Michelle History of Present Illness History of Present Illness 57-year-old gentleman underwent laparoscopic hernia repair and lysis of adhesions, procedure without complications, her, in PACU after waking anesthesia subsequently had several episodes of seizure-like activity. Received Versed, propofol, episodes lasting less than 3 minutes. Per discussion with staff seems to resolve after he gets the medication. Hospitalist was consulted. He is transferring to ICU. Discussing with his he is on Depakote at home. She denies any abrupt discontinuation of medication. He does not drink alcohol. She states that he has history of stress seizures, although states he may have had an episode of grand mal true seizure which she states may have made him apneic, although is not sure. On assessment in PACU he is resting. Saturation 100% on 5 L nasal oxygen mask. No tachycardia. He is maintaining blood pressure. Accu-Chek 224. He is lethargic. Discussed with staff to keep him comfortable and reassure him. If needed 0.25 mg of Ativan IV could be given. Upon transfer to ICU I received a call of additional tonic-clonic seizure-like activity. He received 0.5 mg Ativan. Returning to see him, he is shaking his head side to side as well as his lower arms side to side intermittently to each other. Speaking to him, activity slows down, he partially opens his eyes. Activity intensifies again, I reassured him that his surgery went well, we would keep him comfortable, asked if he has any needs. As activity slowing down, he again opens his eyes partially, asking him if he would like a warm blanket, he nods his head up and down, yes. Review of Systems General: Reports: ROS unobtainable due to mental status Medications/Allergies Home Medications Medication Instructions Recorded Confirmed Last Taken Type Vitamin B-12 1 tab PO DAILY@1000 12/30/19 03/25/23 03/27/23 History ascorbic acid (vitamin C) 500 mg 500 mg PO DAILY@1000 04/26/20 03/25/23 03/27/23 History tablet albuterol sulfate 90 mcg/actuation 2 puff inhalation Q4H PRN 12/14/20 03/25/23 03/27/23 History aerosol inhaler Shortness Of Breath multivitamin 1 tab PO DAILY@1000 12/14/20 03/25/23 03/27/23 History aspirin 81 mg tablet,delayed 81 mg PO DAILY@1000 01/29/21 03/25/23 03/27/23 History release (Adult Aspirin Regimen) budesonide-formoterol HFA 160 2 puff inhalation BID 01/29/21 03/25/23 03/27/23 History mcg-4.5 mcg/actuation aerosol inhaler (Symbicort) nitroglycerin 0.4 mg sublingual See Rx Instructions .Route 01/21/22 03/25/23 Unknown Rx tablet .COMPLEX #25 tabs atorvastatin 40 mg tablet 40 mg PO DAILY #90 tabs 01/31/22 03/25/23 03/27/23 Rx lorazepam 1 mg tablet 1 mg PO BID PRN anxiety #30 tabs 03/06/22 03/25/23 1 Day Ago Rx ~03/24/23 clopidogrel 75 mg tablet See Rx Instructions .Route 05/09/22 03/25/23 03/21/23 Rx .COMPLEX #90 tabs nebulizer accessories #1 ea 06/17/22 02/21/23 Unknown Rx propranolol 20 mg tablet 20 mg PO QDAY 30 days #30 tabs 06/17/22 03/25/23 03/27/23 Rx valproic acid 250 mg capsule 750 mg PO TID 06/17/22 03/25/23 03/27/23 History pantoprazole 40 mg tablet,delayed 40 mg PO DAILY@1000 #90 tabs 10/15/22 03/25/23 03/27/23 Rx release tamsulosin 0.4 mg capsule See Rx Instructions .Route 01/31/23 03/25/23 03/27/23 Rx .COMPLEX #90 caps divalproex 500 mg tablet,extended See Rx Instructions .Route 02/03/23 03/25/23 03/27/23 Rx release 24 hr .COMPLEX #60 tabs tramadol 50 mg tablet 50 mg PO TID PRN pain #20 tabs 02/21/23 03/25/23 03/27/23 Rx pen needle, diabetic 32 gauge x #100 ea 03/06/23 03/11/23 Unknown Rx 1/5 insulin glargine 100 unit/mL (3 60 unit SUBCUT DAILY 03/11/23 03/25/23 03/26/23 08:00 History mL) subcutaneous pen (Basaglar NeftalyPen U-100 Insulin) sitagliptin phosphate 100 mg See Rx Instructions .Route 03/24/23 03/25/23 03/27/23 Rx tablet (Januvia) .COMPLEX #60 tabs docusate sodium 100 mg capsule 100 mg PO BID #14 caps 03/27/23 Unknown Rx (Colace) hydrocodone 5 mg-acetaminophen 325 1 tab PO Q6H PRN pain #20 tabs 03/27/23 Unknown Rx mg tablet Allergies Allergy/AdvReac Type Severity Reaction Status Date / Time Iodinated Contrast Media Allergy Severe ALGY-Anaphy Verified 03/25/23 10:40 laxis iodine Allergy ALGY-Anaphy Verified 03/25/23 10:40 laxis Current Medications Generic Name Dose Route Start Last Admin Trade Name Freq PRN Reason Stop Dose Admin Sodium Chloride 1,000 mls @ 30 mls/hr 03/27/23 09:00 03/27/23 09:37 Sodium Chloride 0.9% IV 03/28/23 08:59 30 mls/hr .Q24H KATELYNN Administration Midazolam HCl 2 mg 03/27/23 08:59 03/27/23 13:06 Midazolam 1 Mg/Ml Inj 2 Ml IVP 1 mg Q5M PRN Administration Preop Anxiety PFSH Acute PFSH: Medical History Abdominal wall bulge Anxiety Back pain BPH NOS w ur obs/LUTS COPD (chronic obstructive pulmonary disease) Coronary artery disease CVA (cerebral vascular accident) CVA (cerebral vascular accident) Diabetes Hypertension Migraine Myocardial infarction Normal colonoscopy Seizure Urinary retention Surgical History History of appendectomy History of back surgery History of cholecystectomy History of coronary angioplasty with insertion of stent History of tonsillectomy History of vasectomy S/P left knee arthroscopy Family History Other CAD (coronary artery disease) Hypertension Social History Smoking and tobacco status: current every day smoker cigarettes Packs smoked per day: 0.5 Years cigarettes smoked: 13 Second hand smoke exposure: No Alcohol intake: never Substance/Drug Use: never Caregiver/support person: Yes (spouse) Lives independently: Yes Household members: spouse Marital status: Current occupational status: disabled Current gender identity: Male Vitals/I&O/Wt Last Vital Signs Temp 97 F L 03/27/23 12:22 Pulse 73 03/27/23 13:50 Resp 16 03/27/23 13:50 BP 137/79 03/27/23 13:50 Pulse Ox 100 03/27/23 13:50 O2 Del Method Simple Mask 03/27/23 14:28 O2 Flow Rate 6 03/27/23 13:50 03/26/23 03/27/23 03/27/23 22:59 06:59 14:59 Intake Total 155 / 155 Output Total 5 / 5 Balance 150 / 150 Physical Exam Const: OTHER: Rapidly turning his head side to side, shaking his lower arm side to side intermittently to each other. HENMT: COMMON NORMALS: oropharynx normal Neck/C-Spine: COMMON NORMALS: no JVD Resp: COMMON NORMALS: normal respiratory effort and clear to auscultation bilaterally AUSCULTATION: clear to auscultation bilaterally Cardio: COMMON NORMALS: no JVD, regular rhythm, S1 normal heart sound present, S2 normal heart sound present and No murmurs present (Cardio) RHYTHM: regular rhythm HEART SOUNDS: S1 normal heart sound present and S2 normal heart sound present GI: COMMON NORMALS: Soft to palpation PALPATION: Yes Soft to palpation Extremity: COMMON NORMALS: no joint enlargement and no pedal edema Neuro: COMMON NORMALS: moves all extremities Skin: COMMON NORMALS: no rashes or lesions noted GENERAL SKIN EXAM: no rashes or lesions noted A&P Assessment and plan (1) Incisional hernia: Status post laparoscopic repair with lysis of adhesions. Reported uncomplicated procedure, minimal blood loss. Discussed with surgery. (2) Seizure: Had several episodes of seizure-like activity in PACU after waking up from anesthesia. Per discussion with his he has a history of stress seizures as she describes them, noted to have diagnosis of functional seizures with prior follow-up with Dr. Gurrola. She is not sure, but thinks he may have had she states true seizure. He has so far received several pushes of Versed and propofol. 600 mg of Keppra. Initially lethargic in PACU, possibly postictal. On transfer to ICU additional seizure-like activity. On assessment this appears to be functional seizure activity. Discussed with nursing staff, keep him comfortable, we may repeat Ativan if needed for anxiety. His denies any rapid discontinuation of his Depakote. He is on 500 mg twice daily at this time. Continue. He does not drink alcohol. Neurology documentation reviewed. Discussed with anesthesia, surgery, PACU staff, ICU nursing staff. Plan Anxiety Back pain BPH NOS w ur obs/LUTS COPD (chronic obstructive pulmonary disease) Coronary artery disease CVA (cerebral vascular accident) Diabetes Hypertension Migraine Myocardial infarction Normal colonoscopy Seizure Urinary retention Consult Attestations Medical Necessity Statement: Continue admission for assessment management following seizure activity, postop care after laparoscopic incisional hernia repair. Coding Level of Care Code Critical Care >/= 30 minutes Critical care time (in minutes): 55 The high probability of a clinically significant, sudden or life threatening deterioration, as referenced in this documentation, required my full and direct attention, intervention and personal management. The critical care time shown is in addition to time spent performing any reported separately billable procedures and includes the following: [x] Data and vital sign review and interpretation [x ] Patient assessment, examination and intervention [x] Medication orders and management [x] Patient/Family updates as able [x] Care Coordination and Documentation. Diagnoses Incisional hernia K43.2 Seizure R56.9
[2023-03-27] MEDS: LORazepam 2 mg/mL INJ 1 mL 0.25 MG IVP (19:30)
--- NOTE | 2023-03-27 20:31 | PC.NURSE ---
1929 Nurse in room assessing patient when he closed his eyes and began to shake. Patient was not able to follow commands at this time. PRN Ativan was administered per order. Patient stopped shaking and opened his eyes. He was able to answer orientation questions and follow commands. 1949 Patient began shaking again. L/M with Dr. Marin. [address] Marin. Reported seizure like activity. Reviewed vital signs, medications, and plan of care. Orders for one time dose of IV Ativan. Dr. Marin states she will discuss patient's diet order status with Dr. Castro and review his home medications.
[2023-03-27 20:33] LABS: Glucose Point of Care 211 mg/dL (70-110)
--- NOTE | 2023-03-27 21:45 | CTR_ITS ---
PROCEDURE INFORMATION: Exam: CT Head Without Contrast Exam date and time: 03/27/2023 10:41 PM Age: 57 years old Clinical indication: Condition or disease; Convulsions or seizures; Patient HX: Seizure activity; Additional info: S/P seizure-like activity TECHNIQUE: Imaging protocol: Computed tomography of the head without contrast. Radiation optimization: All CT scans at this facility use at least one of these dose optimization techniques: automated exposure control; mA and/or kV adjustment per patient size (includes targeted exams where dose is matched to clinical indication); or iterative reconstruction. REPORTING DATA: Count of CT and Cardiac NM exams in prior 12 months: This patient has received [address] and 0 known cardiac nuclear medicine studies in the 12 months prior to the current study. COMPARISON: CT head wo con* [id number] 05/29/2022 8:23 PM RADIATION DOSE METRICS: Total DLP (mGy-cm): 903.08 FINDINGS: Brain: There is no evidence of acute parenchymal hemorrhage, extra-axial collection, or acute infarction. There is no mass effect, midline shift, or downward herniation. Cerebral ventricles: No ventriculomegaly. Paranasal sinuses: Visualized sinuses are unremarkable. No fluid levels. Mastoid air cells: Visualized mastoid air cells are well aerated. Bones/joints: Unremarkable. No acute fracture. Soft tissues: Unremarkable. CT/CT head wo con* [id number] IMPRESSION: No acute intracranial abnormality.
[2023-03-27] MEDS: divalproex ER 500 mg Tablet (24H) PO (23:41)
[2023-03-28] VITALS (29 sets, daily range): BP systolic 103–145; BP diastolic 56–79; PULSE 68–111; RESP 12–36; TEMP 36.2–36.4; O2SAT 94–99
[2023-03-28 03:20] LABS: Basophils % 0.2 %; Hematocrit 42.5 % (42.0-52.0); Hemoglobin 14.1 g/dL (11.7-16.6); Lymphocytes # 1.7 10^3/uL (0.8-4.8); Lymphocytes % 10.8 %; Mean Corpuscular HGB Conc 33.2 g/dL (30.0-36.0); Mean Corpuscular Hemoglobin 30.6 pg (28.0-34.0); Mean Corpuscular Volume 92.2 fl (80-94); Mean Platelet Volume 9.9 fL (7.4-10.4); Monocytes # 0.7 10^3/uL (0.2-0.9); Monocytes % 4.6 %; Neutrophils # 12.89 10^3/uL (1.8-7.7); Nucleated Red Blood Cells % 0 %; Platelet Count 207 10^3/cmm (130-400); Red Blood Count 4.61 10^6/uL (4.1-5.3); Red Cell Distribution Width 13.7 % (12.1-15.1); White Blood Count 15.3 10^3/uL (4.0-10.0)
[2023-03-28 03:30] LABS: Alanine Aminotransferase 10 U/L (0-41); Albumin Level 3.7 g/dL (3.5-5.2); Alkaline Phosphatase 63 U/L (40-130); Anion Gap 13.6 (5-19); Aspartate Amino Transferase 13 U/L (0-40); Blood Urea Nitrogen 14 mg/dL (6-20); Calcium 8.5 mg/dL (8.5-10.5); Carbon Dioxide 26 mmol/L (22-29); Chloride 100 mmol/L (98-107); Globulin 3.3 g/dL (1.3-4.6); Glomerular Filtration Rate 115.4 mL/min (90-130); Glucose 188 mg/dL (65-115); Magnesium 1.9 mg/dL (1.7-2.3); Osmolality Calculated 285 mOsm/kg (285-295); Potassium 4.6 mmol/L (3.5-5.1); Sodium 135 mmol/L (136-145); Total Bilirubin 0.5 mg/dL (0.15-1.2)
--- NOTE | 2023-03-28 08:24 | PM.PN ---
Subjective Subjective: Patient with some normal right upper extremity tremors. No further obvious seizure activity otherwise Vitals/I&O/Wt Last Vital Signs Temp 97.2 F L 03/28/23 19:00 Pulse 71 03/29/23 06:00 Resp 20 H 03/29/23 04:00 BP 120/77 03/29/23 04:00 Pulse Ox 95 03/29/23 04:00 O2 Del Method Room Air 03/28/23 19:00 O2 Flow Rate 2 03/27/23 20:00 03/28/23 03/29/23 03/29/23 22:59 06:59 14:59 Intake Total 300 / 420 100 / 520 Output Total 1100 / 1650 Balance -800 / -1230 100 / -1130 Weight last 48 hrs Weight 191 lb Physical Exam Narrative: General: No acute dress, awake alert and oriented x3 Abdomen: Soft, nondistended, appropriately tender Data 03/29/23 04:40 03/29/23 04:40 A&P Assessment and plan (1) Incisional hernia: (2) Functional neurological symptom disorder with attacks or seizures: Plan Plan discharge in the morning as long as no further significant seizures Attestations Medical Necessity Statement*: Patient requires at least 1 further night in the hospital for monitoring for seizure activity Coding Level of Care Code Acute Code for [facility] Fwd Diagnoses Incisional hernia K43.2 Functional neurological symptom disorder with attacks or seizures F44.5
--- NOTE | 2023-03-28 08:58 | PC.PHAR ---
Addendum entered by Leanne Tavarez 03/28/23 08:59: pt had discharge orders in from 03/27/23 from -med rec needed fix had medications pt wasnt taking per pts - Original Note: pts ariella [phone] verified pts medications
[2023-03-28] MEDS: HYDROcodone-acetaminophen 5-325 mg Tablet 1 TAB PO ×3 (09:06→21:18)
[2023-03-28] MEDS: tamsulosin 0.4 mg Capsule PO (09:06)
[2023-03-28] MEDS: atorvastatin 40 mg Tablet PO (09:06)
[2023-03-28] MEDS: pantoprazole DR 40 mg Tablet PO (09:06)
[2023-03-28] MEDS: divalproex ER 500 mg Tablet (24H) PO ×2 (09:06→17:52)
[2023-03-28] MEDS: aspirin 81 mg EC Tablet PO (09:06)
[2023-03-28] MEDS: propranolol 20 mg Tablet PO (09:06)
--- NOTE | 2023-03-28 11:32 | PM.PN ---
Subjective Subjective: Patient denies any new complaints. He has a significant tremor in his right arm. He reports this is typically for him at home and symptoms often wax and wane. Denies fevers, chills, nausea or emesis. Does endorse some mild post-op pain. Later this morning, patient was noted to have additional episode of shaking. There did not seem to be a post-ictal state. He is conversational after the event. Reports the last time he had one of theses was about 6 months ago at home. Medications: Reviewed: Yes Vitals/I&O/Wt Last Vital Signs Temp 97.6 F 03/28/23 07:42 Pulse 82 03/28/23 09:00 Resp 16 03/28/23 09:00 BP 111/67 03/28/23 09:00 Pulse Ox 97 03/28/23 09:00 O2 Del Method Room Air 03/28/23 09:00 O2 Flow Rate 2 03/27/23 20:00 03/27/23 03/28/23 03/28/23 22:59 06:59 14:59 Intake Total 100 / 255 0 / 0 Output Total 1125 / 1130 750 / 1880 550 / 550 Balance -1125 / -975 -650 / -1625 -550 / -550 Physical Exam Narrative: General: Patient is awake and alert. Frail appearing. Head: Normocephalic. Atraumatic. EOM intact. Neck: No JVD. Cardiovascular: RRR. No gallops. 2+ systolic murmur. Lungs: Clear to auscultation, no use of accessory muscles, no crackles or wheezes. Skin: No jaundice. No rashes. Abdomen: Soft. Not distended. Normal bowel sounds. Extremities: No cyanosis or clubbing. Musculoskeletal: Normal muscular development. Neurological: Moves all 4 extremities. Large amplitude tremor in right upper extremity. Data 03/28/23 02:50 03/28/23 02:50 A&P Assessment and plan (1) Functional neurological symptom disorder with attacks or seizures: Patient with recurrent episode this morning x2, both events broke quickly without intervention Awake and interacts some during episode No postictal state Appears to be more a functional disorder rather than epilepsy Does not require ongoing hospitalization for these events Continue home Depakote Discontinue tramadol given a/w seizures Continue home Ativan Avoid sedating medications Neurology follow up (2) Abdominal wall bulge: Status post laparoscopic repair with lysis of adhesions [place] PRN Further management per primary Plan Continue home medications Episodes appear functional, resolving w/o intervention May do better at home Continue home Depakote and Ativan Neurology follow up Attestations Medical Necessity Statement*: Per primary Coding Level of Care Code Acute Code for Chg Fwd Diagnoses Functional neurological symptom disorder with attacks or seizures F44.5 Abdominal wall bulge R19.00
--- NOTE | 2023-03-28 11:40 | PC.NURSE ---
Seizure/rhythmical movement to whole body noted. Dr. Oates called to room to witness. Patient AA0x4 immediately afterwards. No new orders given. Clarified home dose of Depakote.
--- NOTE | 2023-03-28 23:17 | PC.NURSE ---
Spoke to Dr. Marin to report patient's shaking episode. Orders for IV Ativan.
[2023-03-28] MEDS: LORazepam 2 mg/mL INJ 1 mL 1 MG IVP (23:20)
[2023-03-29] VITALS (13 sets, daily range): BP systolic 95–133; BP diastolic 55–77; PULSE 70–82; RESP 12–24; O2SAT 90–97
[2023-03-29] MEDS: HYDROcodone-acetaminophen 5-325 mg Tablet 1 TAB PO ×2 (02:52→10:04)
[2023-03-29 04:46] LABS: Basophils # 0.1 10^3/uL (0.0-0.1); Basophils % 0.5 %; Eosinophils % 0.4 %; Hematocrit 43.3 % (42.0-52.0); Hemoglobin 14.4 g/dL (11.7-16.6); Lymphocytes # 2.8 10^3/uL (0.8-4.8); Mean Corpuscular HGB Conc 33.3 g/dL (30.0-36.0); Mean Corpuscular Hemoglobin 30.7 pg (28.0-34.0); Mean Corpuscular Volume 92.3 fl (80-94); Mean Platelet Volume 8.9 fL (7.4-10.4); Monocytes # 0.7 10^3/uL (0.2-0.9); Monocytes % 6.6 %; Neutrophils # 6.18 10^3/uL (1.8-7.7); Neutrophils % 63.1 %; Nucleated Red Blood Cells % 0 %; Platelet Count 183 10^3/cmm (130-400); Red Blood Count 4.69 10^6/uL (4.1-5.3); Red Cell Distribution Width 13.6 % (12.1-15.1); White Blood Count 9.8 10^3/uL (4.0-10.0)
[2023-03-29 05:08] LABS: Alanine Aminotransferase 9 U/L (0-41); Albumin Level 3.6 g/dL (3.5-5.2); Alkaline Phosphatase 62 U/L (40-130); Anion Gap 10.9 (5-19); Aspartate Amino Transferase 13 U/L (0-40); Blood Urea Nitrogen 16 mg/dL (6-20); Calcium 8.8 mg/dL (8.5-10.5); Carbon Dioxide 30 mmol/L (22-29); Chloride 99 mmol/L (98-107); Globulin 3.3 g/dL (1.3-4.6); Glomerular Filtration Rate 137.9 mL/min (90-130); Glucose 173 mg/dL (65-115); Magnesium 1.8 mg/dL (1.7-2.3); Osmolality Calculated 287 mOsm/kg (285-295); Potassium 3.9 mmol/L (3.5-5.1); Sodium 136 mmol/L (136-145); Total Bilirubin 0.7 mg/dL (0.15-1.2); Total Protein 6.9 g/dL (6.6-8.7)
[2023-03-29] MEDS: tamsulosin 0.4 mg Capsule PO (08:49)
[2023-03-29] MEDS: atorvastatin 40 mg Tablet PO (08:49)
[2023-03-29] MEDS: aspirin 81 mg EC Tablet PO (08:49)
[2023-03-29] MEDS: propranolol 20 mg Tablet PO (08:50)
[2023-03-29] MEDS: pantoprazole DR 40 mg Tablet PO (08:50)
[2023-03-29] MEDS: divalproex ER 500 mg Tablet (24H) PO (09:09)
--- NOTE | 2023-03-29 10:11 | PC.NURSE ---
Discharge instructions given to patient, written/verbal understanding. [facility] [place] [place] Patient's , Sharmila, called earlier and notified of discharge. She is on her way to give patient a ride home.
--- NOTE | 2023-03-29 10:29 | PC.NURSE ---
Discharge. Patient and belongings wheeled to private vehicle by this nurse. driving.
== END 2023-03-29 10:10 | disposition home or self-care (01) ==
LOC: ICU 14:12
PROVIDERS: Internal Medicine; Admitting Provider Surgery; PCP Nurse Practitioner Family; Visit Provider Surgery
PROC: 0WQF4ZZ Repair Abdominal Wall, Percutaneous Endoscopic Approach (ICD-10-PCS; CPT 49591; principal; 2023-03-27 10:55)
PROC: (CPT 49591; 2023-03-27 10:55)
DX: K43.2 Incisional hernia without obstruction or gangrene (principal); K66.0 Peritoneal adhesions (postprocedural) (postinfection); I25.10 Atherosclerotic heart disease of native coronary artery without angina pectoris; Z95.5 Presence of coronary angioplasty implant and graft; I10 Essential (primary) hypertension; I25.2 Old myocardial infarction; G47.30 Sleep apnea, unspecified; Z86.73 Personal history of transient ischemic attack (TIA), and cerebral infarction without residual deficits; Z79.82 Long term (current) use of aspirin; N40.1 Benign prostatic hyperplasia with lower urinary tract symptoms; N13.8 Other obstructive and reflux uropathy; J44.9 Chronic obstructive pulmonary disease, unspecified; E11.9 Type 2 diabetes mellitus without complications; F17.210 Nicotine dependence, cigarettes, uncomplicated
CPT/HCPCS: 49591; 36415; 36416; 70450; 80053; 82962; 83735; 85025; 96374; 96376; C1781; G0378; J0131; J0690; J1200; J1953; J2060; J2250; J2405; J2704; J2710; J3010; J3490; J7030

== ENCOUNTER → 2023-04-15 10:21 | Outpatient (BNVA) | payer MEDICARE, SELFPAY | PROVIDERS: PCP Nurse Practitioner Family; Visit Provider Surgery | DX: Z98.890 Other specified postprocedural states (principal); Z87.19 Personal history of other diseases of the digestive system | CPT/HCPCS: 99024 ==

== ENCOUNTER → 2023-04-28 13:01 | Outpatient (BNVA) | payer MEDICARE, SELFPAY | PROVIDERS: PCP Nurse Practitioner Family; Visit Provider Internal Medicine Cardiovascular Disease | DX: I25.10 Atherosclerotic heart disease of native coronary artery without angina pectoris (principal); Z98.890 Other specified postprocedural states; Z87.19 Personal history of other diseases of the digestive system; G47.33 Obstructive sleep apnea (adult) (pediatric); J44.9 Chronic obstructive pulmonary disease, unspecified; E11.40 Type 2 diabetes mellitus with diabetic neuropathy, unspecified; E78.2 Mixed hyperlipidemia; E11.65 Type 2 diabetes mellitus with hyperglycemia; Z79.4 Long term (current) use of insulin; F17.200 Nicotine dependence, unspecified, uncomplicated; I10 Essential (primary) hypertension | CPT/HCPCS: 99213 ==

== ENCOUNTER 2023-04-30 12:16 | Emergency (ER) | payer MEDICARE, SELFPAY ==
[2023-04-30 12:21] VITALS: BP 122/85; PULSE 94; RESP 18; TEMP 36.8; O2SAT 100; BMI 29.0
--- NOTE | 2023-04-30 12:23 | ECG_ITS ---
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 Measurements Intervals [place] Rate: 89 P: 52 CT: 149 QRS: -59 QRSD: 102 T: 41 QT: 339 QTc: 415 Interpretive Statements SINUS RHYTHM LEFT AXIS DEVIATION [QRS AXIS < -30] SEPTAL MYOCARDIAL INFARCTION , OF INDETERMINATE AGE [40+ ms Q WAVE IN V1/V2] Compared to ECG 11/29/2022 17:30:05 No significant changes Electronically Signed On 04-30-2023 16:52:52 CDT by Jaylin Beavers M.D. [id number]
--- NOTE | 2023-04-30 12:29 | XR_ITS ---
WS: [id number] XR ribs LT mn 3V w CXR1V [id number] REASON FOR EXAM: pain FINDINGS: No fracture or focal bone lesion of the left ribs. Underlying lungs and pleura are normal. No chest wall abnormality identified. XR/XR ribs LT mn 3V w CXR1V [id number] IMPRESSION: No significant abnormality.
[2023-04-30] MEDS: LORazepam 2 mg/mL INJ 1 mL IVP ×2 (12:55→13:02)
--- NOTE | 2023-04-30 13:09 | ED_ITS ---
HPI - SOB/Dyspnea General: Chief Complaint: Shortness of Breath/Dyspnea Stated Complaint: SOB / Axillary chest pain Time Seen by Provider: 04/30/23 12:20 Source: patient Mode of arrival: ambulatory History of Present Illness: HPI Narrative: 57-year-old male presents emergency room complaining of shortness of breath and left-sided rib pain is tender to the touch. He intermittently has spasm-like pain where he grafts at the left side of his ribs that happened while I was examining and talking to the patient getting his history. He denies any productive cough or hemoptysis. No fevers sweats or chills. MD elicited complaint: shortness of breath and cough Pertinent past history: COPD Onset (ago): minute(s) Timing: constant Severity: moderate Exacerbating factors: nothing Relieving factors: nothing Known history of: COPD Associated symptoms: Reports chest pain and cough; Deny abdominal pain, chest congestion, diaphoresis, dizziness, extremity pain, fever(s), hemoptysis, lightheadedness, myalgias, nausea, orthopnea, palpitations, paresthesias, polydipsia, polyuria, rash, sense of impending doom, syncope or vomiting Review of Systems Const: Denies: fever(s) or diaphoresis Card: Reports: chest pain; Denies: palpitations, lightheadedness, syncope or orthopnea Resp: Denies: hemoptysis or chest congestion GI: Denies: abdominal pain, nausea or vomiting Musc: Denies: extremity pain Neuro: Denies: dizziness Endo: Denies: polyuria or polydipsia PFS ED PFSH: Medical History Abdominal wall bulge Anxiety Back pain BPH NOS w ur obs/LUTS COPD (chronic obstructive pulmonary disease) Coronary artery disease CVA (cerebral vascular accident) CVA (cerebral vascular accident) Diabetes Early satiety Hypertension Hypotension Migraine Migraine equivalent Myocardial infarction Normal colonoscopy Right leg pain Screening for prostate cancer Seizure Urinary retention Surgical History History of appendectomy History of back surgery History of cholecystectomy History of coronary angioplasty with insertion of stent History of tonsillectomy History of vasectomy Hx of hernia repair 03/27/23 lap repair of incisional hernia with mesh Dr. Castro S/P left knee arthroscopy Family History Other CAD (coronary artery disease) Hypertension Social History Smoking and tobacco status: current every day smoker cigarettes Packs smoked per day: 0.5 Years cigarettes smoked: 13 Second hand smoke exposure: No Alcohol intake: never Substance/Drug Use: never Caregiver/support person: Yes (spouse) Lives independently: Yes Household members: spouse Marital status: Current occupational status: disabled Current gender identity: Male Course Vital Signs: Vital signs: Vital Signs Temperature 98.3 F 04/30/23 12:21 Pulse Rate 94 04/30/23 12:21 Respiratory Rate 18 04/30/23 12:21 Blood Pressure 122/85 04/30/23 12:21 Pulse Oximetry 100 04/30/23 12:21 Oxygen Delivery Me thod Room Air 04/30/23 12:21 MDM - SOB/Dyspnea Medical Decision Making Patient presented with acute chest wall pain with reproducible pain with even light touch and or applying stickers for the EKG he had significant discomfort and intermittently was having spasmodic leg pain later began to have seizure- like activity. His is at the bedside states he does this and radiates pain. Initially given Ativan he had another seizure shortly after that is given a second dose of Ativan and loaded with Keppra. Laboratory test done no significant abnormality CPK normal and discussed Dr. Gurrola and reviewed the chart patient has a history of functional seizures. He is now more awake and alert still mildly tender at the area of left anterior axillary line on the lower chest. Given diclofenac to use for this and follow-up with Dr. Gurrola or his primary care doctor As needed. Medical Records I reviewed the patient's medical records. Lab Data I reviewed the patient's lab results. 04/30/23 13:49 04/30/23 13:49 Labs/Radiology: Radiology Impressions Ribs X-Ray 04/30/23 12:29 IMPRESSION: No significant abnormality. Laboratory Results WBC 7.7 10^3/uL (4.0-10.0) 04/30/23 13:49 RBC 4.19 10^6/uL (4.1-5.3) 04/30/23 13:49 Hgb 13.2 g/dL (11.7-16.6) 04/30/23 13:49 Hct 39.0 % (42.0-52.0) L 04/30/23 13:49 MCV 93.1 fl (80-94) 04/30/23 13:49 MCH 31.5 pg (28.0-34.0) 04/30/23 13:49 MCHC 33.8 g/dL (30.0-36.0) 04/30/23 13:49 RDW 14.2 % (12.1-15.1) 04/30/23 13:49 Plt Count 161 10^3/cmm (130-400) 04/30/23 13:49 MPV 9.6 fL (7.4-10.4) 04/30/23 13:49 Neut % (Auto) 67.1 % 04/30/23 13:49 Lymph % (Auto) 22.5 % 04/30/23 13:49 [place] % (Auto) 6.2 % 04/30/23 13:49 Eos % (Auto) 2.9 % 04/30/23 13:49 Baso % (Auto) 0.8 % 04/30/23 13:49 Neut # (Auto) 5.17 10^3/uL (1.8-7.7) 04/30/23 13:49 Lymph # (Auto) 1.7 10^3/uL (0.8-4.8) 04/30/23 13:49 [place] # (Auto) 0.5 10^3/uL (0.2-0.9) 04/30/23 13:49 Eos # (Auto) 0.2 10^3/uL (0.0-0.8) 04/30/23 13:49 Baso # (Auto) 0.1 10^3/uL (0.0-0.1) 04/30/23 13:49 Nucleated RBC % (auto) 0 % 04/30/23 13:49 Nucleated RBCs # 0.0 /100WBC 04/30/23 13:49 Sodium 133 mmol/L (136-145) L 04/30/23 13:49 Potassium 4.0 mmol/L (3.5-5.1) 04/30/23 13:49 Chloride 99 mmol/L (98-107) 04/30/23 13:49 Carbon Dioxide 23 mmol/L (22-29) 04/30/23 13:49 Anion Gap 15.0 (5-19) 04/30/23 13:49 BUN 15 mg/dL (6-20) 04/30/23 13:49 Creatinine 0.9 mg/dL (0.7-1.2) 04/30/23 13:49 GFR Calculation 86.4 mL/min (90-130) L 04/30/23 13:49 Glucose 180 mg/dL (65-115) H 04/30/23 13:49 Calculated Osmolality 281 mOsm/kg (285-295) L 04/30/23 13:49 Lactic Acid 3.4 mmol/L (0.5-2.2) H 04/30/23 13:49 Calcium 8.9 mg/dL (8.5-10.5) 04/30/23 13:49 Total Bilirubin 0.5 mg/dL (0.15-1.2) 04/30/23 13:49 AST 12 U/L (0-40) 04/30/23 13:49 ALT 8 U/L (0-41) 04/30/23 13:49 Alkaline Phosphatase 56 U/L (40-130) 04/30/23 13:49 Creatine Kinase 118 U/L (39-308) 04/30/23 13:49 Total Protein 6.5 g/dL (6.6-8.7) L 04/30/23 13:49 Albumin 3.5 g/dL (3.5-5.2) 04/30/23 13:49 Globulin 3.0 g/dL (1.3-4.6) 04/30/23 13:49 Valproic Acid 36.0 ug/mL (50-100) L 04/30/23 13:49 Discharge Plan Discharge Patient Disposition: Home Clinical Impression: Functional neurological symptom disorder with attacks or seizures, Anxiety, Chest wall pain Condition: Stable Prescriptions: New diclofenac sodium 75 mg tablet,delayed release (DR/EC) 75 mg PO Q12H PRN (Reason: pain) Qty: 20 0RF No Action ascorbic acid (vitamin C) 500 mg tablet 500 mg PO DAILY@1000 Basaglar KwikPen U-100 Insulin 100 unit/mL (3 mL) insulin pen 60 unit SUBCUT QAM (DME) nebulizer accessories Kit See Rx Instructions .Route Qty: 1 0RF Rx Instructions: 1 nebulizer with all required supplies as directed Colace 100 mg capsule 100 mg PO BID PRN Nitrostat 0.4 mg tablet, sublingual 0.4 mg SUBLINGUAL Q5M PRN (Reason: Chest Pain) Qty: 25 6RF Rx Instructions: do not exceed 3 doses per episode clopidogrel 75 mg tablet 75 mg PO DAILY Qty: 90 0RF ondansetron 4 mg tablet,disintegrating 4 mg PO QID PRN (Reason: nausea and vomiting) Qty: 20 0RF lorazepam 1 mg tablet 1 mg PO BID PRN (Reason: anxiety) Qty: 30 5RF pantoprazole 40 mg tablet,delayed release (DR/EC) 40 mg PO DAILY@1000 Qty: 90 3RF tramadol 50 mg tablet 50 mg PO TID PRN (Reason: pain) Qty: 20 0RF Hold Instructions: Resume on 04/01/23. (DME) pen needle, diabetic 32 gauge x 1/5 needle See Rx Instructions .Route Qty: 100 5RF Rx Instructions: As directed; to test 3 x day atorvastatin 40 mg tablet 40 mg PO DAILY Qty: 30 0RF aspirin [Adult Aspirin Regimen] 81 mg tablet,delayed release (DR/EC) 81 mg PO DAILY@1000 multivitamin Tablet 1 tab PO DAILY@1000 albuterol sulfate 90 mcg/actuation Hfa Aerosol Inhaler 2 puff INHALATION Q4H PRN (Reason: Shortness Of Breath) hydrocodone-acetaminophen 5-325 mg tablet 1 tab PO Q6H PRN (Reason: pain) Qty: 20 0RF tamsulosin 0.4 mg capsule 0.4 mg PO QAM divalproex 500 mg tablet extended release 24 hr 500 mg PO BID Januvia 100 mg tablet 100 mg PO QAM ipratropium-albuterol 0.5 mg-3 mg(2.5 mg base)/3 mL solution for nebulization 3 ml INHALATION Q4H PRN (Reason: Shortness Of Breath) Vitamin B-12 1,000 mcg Tablet 1,000 mcg PO DAILY@10 Discharge Orders: Discharge ED (Routine); Ordered 04/30/23 Ordered By: Dick Dacosta Referrals: Genie Beatty, BIODIESEL PROCESSING TECHNICIAN [Primary Care Provider] - Discharge Diet: Usual diet Discharge Activity: Increase activity as tolerated Patient Instructions: Opioid Safety, Pain Management Coding Level of Care Code ED Gas Utility Worker for Adriana Iyer
[2023-04-30 14:08] LABS: Basophils # 0.1 10^3/uL (0.0-0.1); Basophils % 0.8 %; Eosinophils # 0.2 10^3/uL (0.0-0.8); Eosinophils % 2.9 %; Hemoglobin 13.2 g/dL (11.7-16.6); Lymphocytes # 1.7 10^3/uL (0.8-4.8); Lymphocytes % 22.5 %; Mean Corpuscular HGB Conc 33.8 g/dL (30.0-36.0); Mean Corpuscular Hemoglobin 31.5 pg (28.0-34.0); Mean Corpuscular Volume 93.1 fl (80-94); Mean Platelet Volume 9.6 fL (7.4-10.4); Monocytes # 0.5 10^3/uL (0.2-0.9); Monocytes % 6.2 %; Neutrophils # 5.17 10^3/uL (1.8-7.7); Neutrophils % 67.1 %; Nucleated Red Blood Cells % 0 %; Platelet Count 161 10^3/cmm (130-400); Red Blood Count 4.19 10^6/uL (4.1-5.3); Red Cell Distribution Width 14.2 % (12.1-15.1); White Blood Count 7.7 10^3/uL (4.0-10.0)
[2023-04-30 14:21] LABS: Lactic Sepsis W/Reflex 3.4 mmol/L (0.5-2.2)
[2023-04-30 14:22] LABS: Alanine Aminotransferase 8 U/L (0-41); Albumin Level 3.5 g/dL (3.5-5.2); Alkaline Phosphatase 56 U/L (40-130); Aspartate Amino Transferase 12 U/L (0-40); Blood Urea Nitrogen 15 mg/dL (6-20); Calcium 8.9 mg/dL (8.5-10.5); Carbon Dioxide 23 mmol/L (22-29); Chloride 99 mmol/L (98-107); Creatine Phosphokinase 118 U/L (39-308); Glomerular Filtration Rate 86.4 mL/min (90-130); Glucose 180 mg/dL (65-115); Osmolality Calculated 281 mOsm/kg (285-295); Sodium 133 mmol/L (136-145); Total Bilirubin 0.5 mg/dL (0.15-1.2); Total Protein 6.5 g/dL (6.6-8.7)
[2023-04-30 15:42] LABS: Reflex Lactate Order REFLEX LACTIC ORDERD
== END 2023-04-30 16:41 | disposition home or self-care (01) ==
PROVIDERS: Emergency Provider Family Medicine; PCP Nurse Practitioner Family
DX: R07.89 Other chest pain (principal); F41.9 Anxiety disorder, unspecified; E11.9 Type 2 diabetes mellitus without complications; I10 Essential (primary) hypertension; J44.9 Chronic obstructive pulmonary disease, unspecified; I25.10 Atherosclerotic heart disease of native coronary artery without angina pectoris; I25.2 Old myocardial infarction; Z79.82 Long term (current) use of aspirin; Z79.84 Long term (current) use of oral hypoglycemic drugs; Z79.899 Other long term (current) drug therapy; F17.210 Nicotine dependence, cigarettes, uncomplicated; Z86.73 Personal history of transient ischemic attack (TIA), and cerebral infarction without residual deficits; Z95.5 Presence of coronary angioplasty implant and graft
CPT/HCPCS: 71101; 80053; 80164; 82550; 83605; 85025; 93005; 96374; 96375; 99285; J1953; J2060

== ENCOUNTER → 2023-05-19 14:24 | Outpatient (BNVA) | payer MEDICARE, SELFPAY | PROVIDERS: PCP Nurse Practitioner Family; Visit Provider Internal Medicine | DX: E11.59 Type 2 diabetes mellitus with other circulatory complications; I25.10 Atherosclerotic heart disease of native coronary artery without angina pectoris; E78.2 Mixed hyperlipidemia; E11.65 Type 2 diabetes mellitus with hyperglycemia; E11.40 Type 2 diabetes mellitus with diabetic neuropathy, unspecified; E16.0 Drug-induced hypoglycemia without coma; T38.3X5A Adverse effect of insulin and oral hypoglycemic [antidiabetic] drugs, initial encounter; E11.649 Type 2 diabetes mellitus with hypoglycemia without coma; E78.5 Hyperlipidemia, unspecified; Z79.4 Long term (current) use of insulin | CPT/HCPCS: 99214 ==

== ENCOUNTER → 2023-05-27 15:20 | Outpatient (BNVA) | payer MEDICARE, SELFPAY | PROVIDERS: PCP Nurse Practitioner Family; Visit Provider Specialist | DX: F44.5 Conversion disorder with seizures or convulsions (principal); J44.9 Chronic obstructive pulmonary disease, unspecified; G25.2 Other specified forms of tremor; R26.81 Unsteadiness on feet; E11.40 Type 2 diabetes mellitus with diabetic neuropathy, unspecified; I25.10 Atherosclerotic heart disease of native coronary artery without angina pectoris; G43.109 Migraine with aura, not intractable, without status migrainosus; Z79.4 Long term (current) use of insulin; F17.210 Nicotine dependence, cigarettes, uncomplicated | CPT/HCPCS: 99215 ==

== ENCOUNTER 2023-08-04 11:06 | Emergency (ER) | payer MEDICARE, SELFPAY ==
[2023-08-04 11:20] VITALS: BP 161/89; PULSE 88; RESP 18; TEMP 36.8; O2SAT 94
--- NOTE | 2023-08-04 11:27 | W.ED.BACK ---
HPI - Back Pain/Injury General: Chief Complaint: Back Pain/Injury Stated Complaint: back pain, fall Time Seen by Provider: 08/04/23 11:20 History of Present Illness: 57-year-old male brought to emergency room by EMS after sustaining a fall about 3 days ago. According to patient's patient backwards and hit a stationary lawnmower. Patient was doing okay until this morning when he bent over to put 1 in the fast of. General presents emergency room with lower back pain described as cramping sensation with severity of 9 out of 10. The pain is a paralumbar area. Denies any bowel or bladder dysfunction. No numbness or tingling to the lower extremity. Patient is awake and alert x4 but seems to be in acute distress due to pain. Patient with history of seizure disorder. Patient was given 6 mg of morphine by EMS upon arriving to the emergency room. Associated symptoms: Deny abdominal pain, chills, difficulty walking, fatigue, fever(s), nausea or vomiting Review of Systems General: Reports: 10 or more systems reviewed and unremarkable except in HPI and below Const: Denies: fever(s), chills, body aches, change in appetite, change in weight, fatigue or malaise GI: Denies: abdominal pain, nausea, vomiting or hematemesis Musc: Reports: back pain; Denies: neck pain, extremity pain, extremity swelling, joint pain, joint swelling or joint redness Skin/Breast: Denies: rash, pruritus, erythema or photosensitivity Neuro: Reports: seizure-like activity; Denies: headache(s), numbness in extremities, weakness in extremities, sensory changes, lack of coordination, difficulty walking, frequent falls, dizziness, vertigo, confusion, Slurred speech present, difficulty communicating thoughts or involuntary movements [facility] ED PFSH: Medical History Abdominal wall bulge Anxiety Back pain BPH NOS w ur obs/LUTS COPD (chronic obstructive pulmonary disease) Coronary artery disease CVA (cerebral vascular accident) CVA (cerebral vascular accident) Diabetes Early satiety Hypertension Hypotension Migraine Migraine equivalent Myocardial infarction Normal colonoscopy Right leg pain Screening for prostate cancer Seizure Urinary retention Surgical History History of appendectomy History of back surgery History of cholecystectomy History of coronary angioplasty with insertion of stent History of tonsillectomy History of vasectomy Hx of hernia repair 03/27/23 lap repair of incisional hernia with mesh Dr. Castro S/P left knee arthroscopy Family History Other CAD (coronary artery disease) Hypertension Social History Smoking and tobacco/nicotine status: current every day tobacco/nicotine user cigarettes Packs smoked per day: 0.5 Years cigarettes smoked: 13 Second hand smoke exposure: No Alcohol intake: never Substance/Drug Use: never Caregiver/support person: Yes (spouse) Lives independently: Yes Household members: spouse Marital status: Current occupational status: disabled Current gender identity: Male Physical Exam Const: COMMON NORMALS: average body habitus, alert and well nourished GENERAL APPEARANCE: cooperative and appears older than stated age; not lethargic, not ill appearing, not frail appearing, no odor of alcohol detected and patient not mechanically ventilated ORIENTATION/CONSCIOUSNESS: not lethargic HENMT: COMMON NORMALS: normocephalic, atraumatic, hearing grossly normal bilaterally, external ears normal, EAC's normal, TM's normal bilaterally, Normal external nose present, Normal nasal mucous membranes and turbinates present, moist oral mucous membranes, oropharynx normal, dentition normal and gingiva normal HEAD & SCALP: normocephalic and atraumatic NOSE: Normal external nose present and Normal nasal mucous membranes and turbinates present EXTERNAL EAR: Yes external ears normal EXTERNAL AUDITORY CANAL: EAC's normal TYMPANIC MEMBRANE: TM's normal bilaterally Neck/C-Spine: COMMON NORMALS: full ROM, no lymphadenopathy, supple, no meningeal signs, no JVD, Thyroid normal and No carotid bruits THYROID: Thyroid normal Resp: COMMON NORMALS: normal respiratory effort, No retractions, No use of accessory muscles, clear to auscultation bilaterally and percussion normal AUSCULTATION: clear to auscultation bilaterally PERCUSSION: percussion normal Cardio: COMMON NORMALS: no JVD GI: COMMON NORMALS: Normal to inspection, nondistended, normoactive bowel sounds present, Soft to palpation, non-tender, No hepatosplenomegaly present, no masses and no bruits PALPATION: Yes Soft to palpation and Yes No hepatosplenomegaly present Back/Pelvis: LUMBAR SPINE/LOWER BACK: Yes ROM limited, Yes pain with ROM, Yes paraspinal muscle tenderness, Yes paraspinal muscle spasm and Yes straight leg raise positive right OTHER: Diffuse tenderness paralumbar area. No obvious deformity, rash, lesion, laceration,. Old surgical scar noted along the spine. Extremity: COMMON NORMALS: normal to inspection, full ROM, capillary refill normal, no joint enlargement, no clubbing, cyanosis or edema, no calf tenderness and no pedal edema Neuro: SENSORIUM/ORIENTATION: Yes alert and No lethargic MENINGEAL SIGNS: Yes no meningeal signs Course ED course: While in emergency room patient did have seizure activity and was given IV Ativan and Keppra. reveals that patient normally gets seizure with severe pain. Reevaluation(s): Reevaluation #1: Upon reassessment patient reveals some improvement with the pain. Patient was resting without any acute distress. New seizure in the emergency room. Vital Signs: Vital signs: Vital Signs Temperature 98.2 F 08/04/23 11:20 Pulse Rate 60 08/04/23 15:51 Respiratory Rate 18 08/04/23 12:53 Blood Pressure 111/66 08/04/23 15:51 Pulse Oximetry 96 08/04/23 15:51 Oxygen Delivery Me thod Room Air 08/04/23 15:20 MDM - Back Pain/Injury Medical Decision Making Patient made comfortable emergency room patient extensive work-up including CBC, CMP, CT lumbar. I discussed the lab and CT finding with . Patient was given IV Keppra and pain medication emergency room. Discussed patient with the hospitalist but we feel like patient does not meet criteria for inpatient admission at this time. She will be discharged home with lidocaine patch, pain medication and muscle relaxant. Differential Diagnosis Likely lumbar radiculopathy, sciatica, strain of lumbar region, renal colic, pyelonephritis, thoracic back pain, AAA and discitis Labs 08/04/23 11:46 08/04/23 11:46 Laboratory Results WBC 6.51 10^3/uL (3.29-11.43) 08/04/23 11:46 RBC 4.43 10^6/uL (3.85-5.65) 08/04/23 11:46 Hgb 13.90 g/dL (11.27-16.99) 08/04/23 11:46 Hct 42.1 % (37-53) 08/04/23 11:46 MCV 95.0 fl (82-101) 08/04/23 11:46 MCH 31.4 pg (27-33) 08/04/23 11:46 MCHC 33.0 g/dL (30-55) 08/04/23 11:46 RDW 14.1 % (12.1-15.1) 08/04/23 11:46 Plt Count 147 10^3/cmm (157-399) L 08/04/23 11:46 MPV 9.3 fL (7.4-10.4) 08/04/23 11:46 Neut % (Auto) 64.1 % 08/04/23 11:46 Lymph % (Auto) 25.0 % 08/04/23 11:46 [place] % (Auto) 7.4 % 08/04/23 11:46 Eos % (Auto) 2.3 % 08/04/23 11:46 Baso % (Auto) 0.9 % 08/04/23 11:46 Neut # (Auto) 4.17 10^3/uL (1.8-7.7) 08/04/23 11:46 Lymph # (Auto) 1.6 10^3/uL (0.8-4.8) 08/04/23 11:46 [place] # (Auto) 0.5 10^3/uL (0.2-0.9) 08/04/23 11:46 Eos # (Auto) 0.2 10^3/uL (0.0-0.8) 08/04/23 11:46 Baso # (Auto) 0.1 10^3/uL (0.0-0.1) 08/04/23 11:46 Nucleated RBC % (auto) 0 % 08/04/23 11:46 Nucleated RBCs # 0.0 /100WBC 08/04/23 11:46 Sodium 135 mmol/L (136-145) L 08/04/23 11:46 Potassium 3.7 mmol/L (3.5-5.1) 08/04/23 11:46 Chloride 100 mmol/L (98-107) 08/04/23 11:46 Carbon Dioxide 22 mmol/L (22-29) 08/04/23 11:46 Anion Gap 16.7 (5-19) 08/04/23 11:46 BUN 13 mg/dL (6-20) 08/04/23 11:46 Creatinine 0.8 mg/dL (0.7-1.2) 08/04/23 11:46 GFR Calculation 98.9 mL/min (90-130) 08/04/23 11:46 Glucose 244 mg/dL (65-115) H 08/04/23 11:46 Calculated Osmolality 288 mOsm/kg (285-295) 08/04/23 11:46 Calcium 8.7 mg/dL (8.5-10.5) 08/04/23 11:46 Total Bilirubin 0.7 mg/dL (0.15-1.2) 08/04/23 11:46 AST 13 U/L (0-40) 08/04/23 11:46 ALT 10 U/L (0-41) 08/04/23 11:46 Alkaline Phosphatase 59 U/L (40-130) 08/04/23 11:46 Total Protein 7.4 g/dL (6.6-8.7) 08/04/23 11:46 Albumin 3.9 g/dL (3.5-5.2) 08/04/23 11:46 Globulin 3.5 g/dL (1.3-4.6) 08/04/23 11:46 Urine Opiates Screen Positive ng/mL (Negative) H 08/04/23 14:50 Ur Barbiturates Screen Negative ng/mL (Negative) 08/04/23 14:50 Valproic Acid 23.1 ug/mL (50-100) L 08/04/23 11:46 Ur Phencyclidine Scrn Negative ng/mL (Negative) 08/04/23 14:50 Ur Amphetamines Screen Negative ng/mL (Negative) 08/04/23 14:50 U Benzodiazepines Scrn Positive ng/mL (Negative) H 08/04/23 14:50 Urine Cocaine Screen Negative ng/mL (Negative) 08/04/23 14:50 U Marijuana (THC) Screen Negative ng/mL (Negative) 08/04/23 14:50 Ethyl Alcohol < 10 mg/dL (0-10) 08/04/23 11:46 XR interpretation done by ED provider, pending radiology final review Discharge Plan Discharge Patient Disposition: Home Clinical Impression: Low back sprain, Back pain, Seizure Condition: Stable Prescriptions: New lidocaine 1.8 % adhesive patch,medicated 1 patch topical Q24H Qty: 30 0RF Rx Instructions: leave on most painful area for up to 12 hrs Zanaflex 4 mg capsule 4 mg PO Q8H PRN (Reason: muscle spasticity) Qty: 20 0RF Percocet 5-325 mg tablet 1 tab PO Q8H PRN (Reason: pain) Qty: 20 0RF No Action (DME) nebulizer accessories Kit See Rx Instructions .Route Qty: 1 0RF Rx Instructions: 1 nebulizer with all required supplies as directed Nitrostat 0.4 mg tablet, sublingual 0.4 mg SUBLINGUAL Q5M PRN (Reason: Chest Pain) Qty: 25 6RF Rx Instructions: do not exceed 3 doses per episode clopidogrel 75 mg tablet 75 mg PO DAILY Qty: 90 0RF pantoprazole 40 mg tablet,delayed release (DR/EC) 40 mg PO DAILY@1000 Qty: 90 3RF (DME) pen needle, diabetic 32 gauge x 1/5 needle See Rx Instructions .Route Qty: 100 5RF Rx Instructions: As directed; to test 3 x day divalproex 500 mg tablet extended release 24 hr 500 mg PO BID Qty: 180 3RF Basaglar KwikPen U-100 Insulin 100 unit/mL (3 mL) insulin pen See Rx Instructions .ROUTE .COMPLEX Qty: 15 1RF Dose Instruction: inject 60units SUBCUTANEOUSLY EVERY MORNING Rx Instructions: inject 60units SUBCUTANEOUSLY EVERY MORNING lorazepam 1 mg tablet 1 mg PO BID PRN (Reason: anxiety) Qty: 30 5RF (DME) Dexcom G7 Sensor Device See Rx Instructions .ROUTE .MEDSUPPLY Qty: 3 2RF Rx Instructions: As directed (DME) Dexcom G7 Splunk Architect Misc See Rx Instructions .ROUTE .MEDSUPPLY Qty: 1 0RF Rx Instructions: As directed multivitamin Tablet 1 tab PO DAILY@1000 albuterol sulfate 90 mcg/actuation Hfa Aerosol Inhaler 2 puff INHALATION Q4H PRN (Reason: Shortness Of Breath) atorvastatin 40 mg tablet 40 mg PO DAILY tamsulosin 0.4 mg capsule 0.4 mg PO DAILY Januvia 100 mg tablet 100 mg PO DAILY Discharge Orders: Discharge ED (Routine); Ordered 08/04/23 Ordered By: Jeronimo Veliz Referrals: Genie Beatty, CLAUDIO [Primary Care Provider] - Discharge Diet: Advance as tolerated Discharge Activity: Resume usual activity Patient Instructions: Opioid Safety, Pain Management Coding Level of Care Code ED Managed Care Director for Adriana Iyer
--- NOTE | 2023-08-04 11:32 | CT_ITS ---
WS: [id number] CT LUMBAR SPINE TECHNIQUE: Noncontrast CT of the lumbar spine with coronal and sagittal reformatted images. CLINICAL INFORMATION: pain post fall COMPARISON: None. DLP: 800.[address] scans at [facility] use at least one of these dose optimization techniques: automated e xposure control; mA and/or kV adjustment per patient size (includes targeted exams where dose is matc hed to clinical indication); or iterative reconstruction. FINDINGS: Mild lumbar curve. Moderate spondylitic changes. Anterior hypertrophic changes lumbar spine. Lumbar c urve convex LEFT. No acute appearing compression fractures. No high-grade central canal stenosis. Ped icle screw fixation lower thoracic and upper lumbar spine. This extends to L1. L1-L2: Moderate facet arthropathy. Spinal canal and foramen are patent. L2-L3: Mild annular bulging. Moderate facet arthropathy. Spinal canal and foramen are patent. L3-L4: Disc osteophytic ridging with narrowing of the RIGHT greater than LEFT subarticular recess. Mi ld central canal stenosis. Moderate facet arthropathy with ligamentum flavum hypertrophy. Mild bilate ral foraminal narrowing. L4-L5: Mild annular bulging with mild central canal stenosis. Slight narrowing of the subarticular re cess bilaterally. Mild foraminal narrowing. L5-S1: Peripheral disc calcification with mild disc bulging. Slight impingement on the RIGHT subartic ular recess. Moderate LEFT and mild RIGHT foraminal narrowing. Moderate facet arthropathy. Visualized pelvic bony structures: Normal. Paravertebral soft tissues: Normal. Hypertrophic changes sacroiliac joints. IMPRESSION: 1. Mild lumbar curve. No acute compression fractures. 2. Mild central canal stenosis L3-L4 and L4-L5 described above. 3. Mild to moderate foraminal narrowing described above. 4. Postoperative changes lower thoracic and upper lumbar spine extending to L1.
[2023-08-04] MEDS: LORazepam 2 mg/mL INJ 1 mL IVP (11:42)
[2023-08-04] MEDS: HYDROmorphone 1 mg/mL INJ 1 mL IVP (11:43)
[2023-08-04] MEDS: sodium chloride 0.9% 1,000 ML 999 ML IV (11:44)
[2023-08-04 11:56] LABS: Basophils # 0.1 10^3/uL (0.0-0.1); Basophils % 0.9 %; Eosinophils # 0.2 10^3/uL (0.0-0.8); Eosinophils % 2.3 %; Hematocrit 42.1 % (37-53); Lymphocytes # 1.6 10^3/uL (0.8-4.8); Mean Corpuscular Hemoglobin 31.4 pg (27-33); Mean Platelet Volume 9.3 fL (7.4-10.4); Monocytes # 0.5 10^3/uL (0.2-0.9); Monocytes % 7.4 %; Neutrophils # 4.17 10^3/uL (1.8-7.7); Neutrophils % 64.1 %; Nucleated Red Blood Cells % 0 %; Platelet Count 147 10^3/cmm (157-399); Red Blood Count 4.43 10^6/uL (3.85-5.65); Red Cell Distribution Width 14.1 % (12.1-15.1); White Blood Count 6.51 10^3/uL (3.29-11.43)
[2023-08-04] MEDS: LORazepam 2 mg/mL INJ 1 mL (12:01)
[2023-08-04 12:12] LABS: Alanine Aminotransferase 10 U/L (0-41); Albumin Level 3.9 g/dL (3.5-5.2); Alkaline Phosphatase 59 U/L (40-130); Anion Gap 16.7 (5-19); Aspartate Amino Transferase 13 U/L (0-40); Blood Urea Nitrogen 13 mg/dL (6-20); Calcium 8.7 mg/dL (8.5-10.5); Carbon Dioxide 22 mmol/L (22-29); Chloride 100 mmol/L (98-107); Globulin 3.5 g/dL (1.3-4.6); Glomerular Filtration Rate 98.9 mL/min (90-130); Glucose 244 mg/dL (65-115); Osmolality Calculated 288 mOsm/kg (285-295); Potassium 3.7 mmol/L (3.5-5.1); Sodium 135 mmol/L (136-145); Total Bilirubin 0.7 mg/dL (0.15-1.2); Total Protein 7.4 g/dL (6.6-8.7)
[2023-08-04 12:15] LABS: Alcohol Level < 10 mg/dL (0-10)
[2023-08-04 12:53] VITALS: BP 96/52; PULSE 70; RESP 18; O2SAT 92
[2023-08-04 13:41] LABS: Valproic Acid Level 23.1 ug/mL (50-100)
[2023-08-04 15:13] LABS: Amphetamines Screen Urine Negative (Negative); Barbiturates Screen Urine Negative (Negative); Benzodiazepines Screen Urine Positive (Negative); Cocaine Screen Urine Negative (Negative); Opiate Screen Urine Positive (Negative); PCP Screen Urine Negative (Negative); THC Screen Urine Negative (Negative)
[2023-08-04 15:20] VITALS: BP 111/66; O2SAT 98
[2023-08-04 15:51] VITALS: BP 111/66; PULSE 60; O2SAT 96
== END 2023-08-04 15:53 | disposition home or self-care (01) ==
PROVIDERS: Emergency Provider Family Medicine; PCP Nurse Practitioner Family
DX: S33.5XXA Sprain of ligaments of lumbar spine, initial encounter (principal); R56.9 Unspecified convulsions; Z79.02 Long term (current) use of antithrombotics/antiplatelets; Z79.4 Long term (current) use of insulin; F17.210 Nicotine dependence, cigarettes, uncomplicated; J44.9 Chronic obstructive pulmonary disease, unspecified; I25.10 Atherosclerotic heart disease of native coronary artery without angina pectoris; Z86.73 Personal history of transient ischemic attack (TIA), and cerebral infarction without residual deficits; E11.9 Type 2 diabetes mellitus without complications; I10 Essential (primary) hypertension; I25.2 Old myocardial infarction; Z95.5 Presence of coronary angioplasty implant and graft; W18.39XA Other fall on same level, initial encounter
CPT/HCPCS: 36415; 72131; 80053; 80164; 80306; 80307; 85025; 96361; 96365; 96375; 99285; J1170; J1953; J2060; J7030

== ENCOUNTER → 2023-08-25 10:57 | Outpatient (BNVA) | payer MEDICARE, SELFPAY | PROVIDERS: PCP Nurse Practitioner Family; Visit Provider Internal Medicine | DX: E11.59 Type 2 diabetes mellitus with other circulatory complications; I25.10 Atherosclerotic heart disease of native coronary artery without angina pectoris; E78.2 Mixed hyperlipidemia; E11.65 Type 2 diabetes mellitus with hyperglycemia; E11.40 Type 2 diabetes mellitus with diabetic neuropathy, unspecified; E16.0 Drug-induced hypoglycemia without coma; T38.3X5A Adverse effect of insulin and oral hypoglycemic [antidiabetic] drugs, initial encounter; E11.649 Type 2 diabetes mellitus with hypoglycemia without coma; X58.XXXA Exposure to other specified factors, initial encounter; Z79.4 Long term (current) use of insulin | CPT/HCPCS: 99214 ==

== ENCOUNTER → 2023-09-29 14:24 | Outpatient (BNVA) | payer MEDICARE, SELFPAY | PROVIDERS: PCP Nurse Practitioner Family; Visit Provider Nurse Practitioner Family | DX: E11.40 Type 2 diabetes mellitus with diabetic neuropathy, unspecified (principal) | CPT/HCPCS: 80053; 80061; 83036; 85025 ==

== ENCOUNTER → 2023-10-31 14:16 | Outpatient (BNVA) | payer MEDICARE, SELFPAY | PROVIDERS: PCP Nurse Practitioner Family; Visit Provider Nurse Practitioner Family | DX: M79.671 Pain in right foot (principal) | CPT/HCPCS: 73630 ==

== ENCOUNTER → 2023-11-27 08:36 | Outpatient (BNVA) | payer MEDICARE, SELFPAY | PROVIDERS: PCP Nurse Practitioner Family; Visit Provider Internal Medicine | DX: E11.59 Type 2 diabetes mellitus with other circulatory complications; I25.10 Atherosclerotic heart disease of native coronary artery without angina pectoris; E78.2 Mixed hyperlipidemia; E11.65 Type 2 diabetes mellitus with hyperglycemia; E11.40 Type 2 diabetes mellitus with diabetic neuropathy, unspecified; E16.0 Drug-induced hypoglycemia without coma; T38.3X5A Adverse effect of insulin and oral hypoglycemic [antidiabetic] drugs, initial encounter; E11.649 Type 2 diabetes mellitus with hypoglycemia without coma; X58.XXXA Exposure to other specified factors, initial encounter; Z79.4 Long term (current) use of insulin; Z79.84 Long term (current) use of oral hypoglycemic drugs | CPT/HCPCS: 99214 ==

== ENCOUNTER → 2023-12-23 14:24 | Outpatient (BNVA) | payer MEDICARE, SELFPAY | PROVIDERS: PCP Nurse Practitioner Family; Visit Provider Otolaryngology | DX: R49.0 Dysphonia (principal); R13.10 Dysphagia, unspecified; F17.200 Nicotine dependence, unspecified, uncomplicated; R49.8 Other voice and resonance disorders | CPT/HCPCS: 31575; 99214 ==

== ENCOUNTER 2023-12-30 06:00 | Outpatient (RCR) | payer MEDICARE, SELFPAY | END 2024-01-18 23:59 | disposition home or self-care (01) | LOC: TST 06:00 | PROVIDERS: Visit Provider Otolaryngology | DX: R49.8 Other voice and resonance disorders (principal); R49.0 Dysphonia | CPT/HCPCS: 92507; 92524 ==

== ENCOUNTER 2024-01-13 06:00 | Outpatient (RCR) | payer MEDICARE, SELFPAY | END 2024-01-18 23:59 | disposition home or self-care (01) | LOC: TPT 06:00 | PROVIDERS: Visit Provider Nurse Practitioner Family | DX: R29.6 Repeated falls (principal); R26.81 Unsteadiness on feet | CPT/HCPCS: 97162 ==

== ENCOUNTER 2024-01-19 06:00 | Outpatient (RCR) | payer MEDICARE, SELFPAY | END 2024-02-17 23:59 | disposition home or self-care (01) | LOC: TST 06:00 | PROVIDERS: PCP Nurse Practitioner Family; Visit Provider Otolaryngology | DX: R49.8 Other voice and resonance disorders (principal); R49.0 Dysphonia | CPT/HCPCS: 92507 ==

== ENCOUNTER 2024-01-19 06:00 | Outpatient (RCR) | payer MEDICARE, SELFPAY | END 2024-02-17 23:59 | disposition home or self-care (01) | LOC: TPT 06:00 | PROVIDERS: PCP Nurse Practitioner Family; Visit Provider Nurse Practitioner Family | DX: R26.9 Unspecified abnormalities of gait and mobility (principal); R26.81 Unsteadiness on feet | CPT/HCPCS: 97110 ==

== ENCOUNTER 2024-02-04 11:24 | Outpatient (CLI) | payer MEDICARE, SELFPAY ==
--- NOTE | 2024-02-04 11:00 | FL_ITS ---
WS: [id number] Exam: FL barium swallow modifd [id number] Date/Time of Exam: 02/04/2024 11:27 AM Reason For Exam: Fluoroscopy time: 3min [id number] minutes # of spot films: 0 Modified barium swallow test was performed in conjunction with the speech therapy service. The patient experienced some difficulty initiating the swallowing process. The patient tolerated all consistencies of barium mixture foodstuffs without aspiration or penetration. The patient swallowed t he barium tablet without difficulty however the tablet was retained in the midesophagus. Several swal lows of thin liquid barium propelled the barium tablet into the stomach. IMPRESSION: 1. No aspiration or penetration. 2. The barium tablet was retained in the midesophagus. Several swallows of thin liquid barium propel led the tablet into the stomach. A separate report and recommendations will follow from the speech therapy service.
== END 2024-02-04 11:25 | disposition home or self-care (01) ==
LOC: RAD 11:24
PROVIDERS: PCP Nurse Practitioner Family; Visit Provider Otolaryngology
DX: R49.0 Dysphonia (principal); R13.10 Dysphagia, unspecified
CPT/HCPCS: 74230; 92611

== ENCOUNTER 2024-02-09 07:55 | Outpatient (CLI) | payer MEDICARE, SELFPAY ==
--- NOTE | 2024-02-09 | ECG_ITS ---
[facility] Test Date: 2024-02-09 Pat Name: Arcenio Saldivar Department: Room: Gender: Male Director Biomedical Engineering: : 1965 Requested By: Davian Duval Order Number: [id number] Reading MD: Interpretive Statements Lung unchanged pre/post procedure; Symptoms resoled by discharge;; Intraprocedure shortess of breath [id number]
[2024-02-09 08:07] VITALS: BMI 26.9
[2024-02-09] MEDS: regadenoson 0.4 Mg/5 ml Syringe 0.400000000000000022 MG IVP (09:53)
[2024-02-09 10:06] VITALS: BP 121/65; PULSE 84
--- NOTE | 2024-02-09 10:10 | PC.NURSE ---
Rapid Response Lexiscan stress test was just completed, IV was taken out. Pt started to become tremulous in arms. Asked patient about tremors and reported he has seizures, commercial real estate underwriter reviewed home meds and patient reported taking home medications for seizures this am. Pt then verbalized he felt like one was coming on . Pt then had tonic clonic seizure. Rapid Response called at onset of seizure 1010. Pt repositioned on side and stayed with patient till team arrived. Seizure lasted greater than [address] Zapata, RT, and home housekeeper responded and patient was taken to ER via gurney. Family member updated and escorted to ER. Dr. Beavers notified.
[2024-02-09 10:31] LABS: Glucose Point of Care 332 mg/dL (70-110)
--- NOTE | 2024-02-10 09:43 | PC.NURSE ---
Dr. Beavers notified of incomplete Lexiscan stress images due to seizure. Called to clarify if Lexiscan test should be performed again due to seizure onset after administration of lexiscan. Dr. Beavers advised to reach out to Neurologist Dr. Gurrola to see if this test is okay to be completed again and or if any additional steps need to be taken. Message left with Teresita Dr. Gurrola's nurse about the event which happened yesterday. Received phone call back minutes later after she had spoke with Dr. Gurrola and reported he is being treated for pseudo seizures and it would be okay to proceed another lexiscan stress test.
== END 2024-02-09 07:56 | disposition home or self-care (01) ==
PROVIDERS: PCP Nurse Practitioner Family; Visit Provider Internal Medicine
DX: R06.02 Shortness of breath (principal)
CPT/HCPCS: 36415; 36416; 82962; 93017; 96374; 96375; J2785

== ENCOUNTER 2024-02-09 10:14 | Emergency (ER) | payer MEDICARE, SELFPAY ==
[2024-02-09 10:25] VITALS: BP 150/108; PULSE 95; RESP 18; TEMP 36.8; O2SAT 94; BMI 29.4
[2024-02-09] MEDS: LORazepam 2 mg/mL INJ 10 mL MDV IVP ×2 (10:25→10:40)
--- NOTE | 2024-02-09 10:26 | ED_ITS ---
HPI - Seizure 2 General: Chief Complaint: Seizure Stated Complaint: Rapid response Time Seen by Provider: 02/09/24 10:19 Source: patient Mode of arrival: other (gurney) History of Present Illness: HPI Narrative: 58-year-old male presents emergency room after a rapid response from the cardiac stress test lab. Patient was irrigated Lexiscan sestamibi stress test began having shaking and tremor. According to staff and his he basically predicted his seizure. According to previous neurology notes he has had multiple functional episodes including stroke tremor and seizures in the past has had several workups for these without significant finding. He does continue to be on Keppra. When he arrived via gurney Dr. Zapata was at the bedside with him from the rapid response and was able to elementary instructional coach him out of his seizure by redirecting him and his breathing which seemed to stop all of his seizure-like activity. MD complaint: possible seizure Description of Episode: tonic-clonic movement Seizure History: Yes Associated symptoms: Deny chest pain, chills or fever(s) Review of Systems 2 Const: Denies: fever(s) or chills Card: Denies: chest pain Resp: Denies: dyspnea GI: Denies: abdominal pain : Denies: dysuria, urinary frequency or urinary urgency Musc: Denies: neck pain or back pain Skin/Breast: Denies: rash PFSH ED 2 PFSH: Medical History Normal colonoscopy Screening for prostate cancer Abdominal wall bulge CVA (cerebral vascular accident) Hypotension Early satiety Migraine equivalent Right leg pain BPH NOS w ur obs/LUTS Urinary retention Diabetes Hypertension Myocardial infarction Coronary artery disease Seizure Back pain Migraine CVA (cerebral vascular accident) COPD (chronic obstructive pulmonary disease) Anxiety Surgical History Hx of hernia repair 03/27/23 lap repair of incisional hernia with mesh Dr. Castro History of back surgery S/P left knee arthroscopy History of coronary angioplasty with insertion of stent History of tonsillectomy History of vasectomy History of cholecystectomy History of appendectomy Family History Other CAD (coronary artery disease) Hypertension Social History (Reviewed 02/09/24 @ 10:30 by ELISE Kang Smoking and tobacco/nicotine status: current every day tobacco/nicotine user cigarettes Packs smoked per day: 0.5 Years cigarettes smoked: 13 Second hand smoke exposure: No Alcohol intake: never Substance/Drug Use: never Caregiver/support person: Yes (spouse) Lives independently: Yes Household members: spouse Marital status: Current occupational status: disabled Current gender identity: Male Physical Exam 2 Const: COMMON NORMALS: no acute distress GENERAL APPEARANCE: cooperative and comfortable ORIENTATION/CONSCIOUSNESS: Yes awake, Yes oriented to person, Yes oriented to place and Yes oriented to time HENMT: COMMON NORMALS: normocephalic, atraumatic and hearing grossly normal bilaterally HEAD & SCALP: normocephalic and atraumatic Resp: COMMON NORMALS: normal respiratory effort, No retractions, No use of accessory muscles and clear to auscultation bilaterally AUSCULTATION: clear to auscultation bilaterally Cardio: COMMON NORMALS: regular rate, regular rhythm and No murmurs present (Cardio) RATE: regular rate RHYTHM: regular rhythm GI: COMMON NORMALS: Soft to palpation and No hepatosplenomegaly present A USCULTATION: Yes normoactive bowel sounds PALPATION: Yes Soft to palpation, No Tenderness to palpation present (GI), No Guarding due to palpation present (GI) and Yes No hepatosplenomegaly present Extremity: COMMON NORMALS: normal to inspection, capillary refill normal, no clubbing, cyanosis or edema, no calf tenderness and no pedal edema Neuro: SENSORIUM/ORIENTATION: Yes oriented to person, Yes oriented to place and Yes oriented to time Skin: COMMON NORMALS: no rashes or lesions noted GENERAL SKIN EXAM: no rashes or lesions noted Course 2 Vital Signs: Vital signs: Vital Signs Temperature 98.2 F 02/09/24 10:25 Pulse Rate 84 02/09/24 13:11 Respiratory Rate 16 02/09/24 13:11 Blood Pressure 150/108 02/09/24 10:34 Pulse Oximetry 98 02/09/24 13:11 Oxygen Delivery Me thod Nasal Cannula 02/09/24 10:25 Oxygen Flow Rate 2 02/09/24 10:25 MDM - Seizure MDM Narrative Medical decision making narrative: Patient began having more movement episodes when I went in to redirect him as they redirected him he started moving faster and faster. His is in the room began talking to me I asked her about the episodes he said it happening more often she felt like he had become anxious because of the testing this morning. I told her I had read through Dr. Gurrola's previous notes and he had functional events and that these were not true seizures immediately after that he stopped shaking and began to get very aggressive fighting to get out of bed pulling at all of the monitors and IVs. We were able to redirect him to settle down he was given 2 more of Ativan. Patient very sedated after the 2 doses of Ativan all of his symptoms have stopped. His is anxious to bring him home he is ready to leave as well. I believe he has had another one of his focal neurologic episodes. Interestingly at 1 point he started to have 1 again when his we redirected him he had gotten very aggressive and almost to the point of combative but we could Kochan back down again and he had no further episodes since. Discharge home and follow-up with Dr. Gurrola continue all of his current medications. Lab Data 02/09/24 10:20 02/09/24 10:20 Labs: Laboratory Results WBC 7.24 10^3/uL (3.29-11.43) 02/09/24 10:20 RBC 4.60 10^6/uL (3.85-5.65) 02/09/24 10:20 Hgb 14.50 g/dL (11.27-16.99) 02/09/24 10:20 Hct 43.6 % (37-53) 02/09/24 10:20 MCV 94.8 fl (82-101) 02/09/24 10:20 MCH 31.5 pg (27-33) 02/09/24 10:20 MCHC 33.3 g/dL (30-55) 02/09/24 10:20 RDW 13.4 % (12.1-15.1) 02/09/24 10:20 Plt Count 183 10^3/cmm (157-399) 02/09/24 10:20 MPV 9.7 fL (7.4-10.4) 02/09/24 10:20 Neut % (Auto) 62.5 % 02/09/24 10:20 Lymph % (Auto) 27.8 % 02/09/24 10:20 Calhoun % (Auto) 6.2 % 02/09/24 10:20 Eos % (Auto) 2.2 % 02/09/24 10:20 Baso % (Auto) 1.0 % 02/09/24 10:20 Neut # (Auto) 4.53 10^3/uL (1.8-7.7) 02/09/24 10:20 Lymph # (Auto) 2.0 10^3/uL (0.8-4.8) 02/09/24 10:20 Calhoun # (Auto) 0.5 10^3/uL (0.2-0.9) 02/09/24 10:20 Eos # (Auto) 0.2 10^3/uL (0.0-0.8) 02/09/24 10:20 Baso # (Auto) 0.1 10^3/uL (0.0-0.1) 02/09/24 10:20 Nucleated RBC % (auto) 0 % 02/09/24 10:20 Nucleated RBCs # 0.0 /100WBC 02/09/24 10:20 Sodium 131 mmol/L (136-145) L 02/09/24 10:20 Potassium 4.3 mmol/L (3.5-5.1) 02/09/24 10:20 Chloride 95 mmol/L (98-107) L 02/09/24 10:20 Carbon Dioxide 21 mmol/L (22-29) L 02/09/24 10:20 Anion Gap 19.3 (5-19) H 02/09/24 10:20 BUN 11 mg/dL (8-23) 02/09/24 10:20 Creatinine 0.8 mg/dL (0.7-1.2) 02/09/24 10:20 GFR Calculation 98.6 mL/min (90-130) 02/09/24 10:20 Glucose 349 mg/dL (65-115) H 02/09/24 10:20 Calculated Osmolality 285 mOsm/kg (285-295) 02/09/24 10:20 Lactic Acid 6.3 mmol/L (0.5-2.2) H* 02/09/24 10:28 Calcium 9.5 mg/dL (8.5-10.5) 02/09/24 10:20 Total Bilirubin 0.5 mg/dL (0.15-1.2) 02/09/24 10:20 AST 14 U/L (0-40) 02/09/24 10:20 ALT 14 U/L (0-41) 02/09/24 10:20 Alkaline Phosphatase 67 U/L (40-130) 02/09/24 10:20 Creatine Kinase 130 U/L (39-308) 02/09/24 10:20 Total Protein 7.6 g/dL (6.6-8.7) 02/09/24 10:20 Albumin 4.0 g/dL (3.5-5.2) 02/09/24 10:20 Globulin 3.6 g/dL (1.3-4.6) 02/09/24 10:20 Procalcitonin 0.05 ng/mL (0-0.5) 02/09/24 10:20 All radiology interpretation(s) finalized by discharge Discharge Plan Discharge Patient Disposition: Home Clinical Impression: Functional neurological symptom disorder with attacks or seizures Condition: Stable Prescriptions: No Action (DME) nebulizer accessories Kit See Rx Instructions .Route Qty: 1 0RF Rx Instructions: 1 nebulizer with all required supplies as directed tizanidine 4 mg tablet 4 mg PO Q8H PRN (Reason: Muscle Spasticity) rizatriptan [Maxalt] 10 mg tablet See Rx Instructions PO .COMPLEX Qty: 14 3RF Rx Instructions: take 1 tab at onset of headache; if no relief may repeat 1 tab after at least 2 hrs; max = 2 tabs/24 hr PO acarbose 50 mg tablet 50 mg PO TID Qty: 270 1RF lacosamide 200 mg tablet 200 mg PO DAILY (DME) pen needle, diabetic 32 gauge x 1/5 needle See Rx Instructions .Route Qty: 100 5RF Rx Instructions: As directed; to test 3 x day (DME) Dexcom G7 In Classroom Tutor Misc See Rx Instructions .ROUTE .MEDSUPPLY Qty: 1 0RF Rx Instructions: As directed clopidogrel 75 mg tablet 75 mg PO DAILY Qty: 90 3RF (DME) bedside commode See Rx Instructions .Route .MEDSUPPLY Qty: 1 0RF Rx Instructions: As directed (DME) Dexcom G7 Sensor Device See Rx Instructions .ROUTE .COMPLEX Qty: 9 0RF Dose Instruction: As directed Rx Instructions: As directed alprazolam 0.5 mg tablet 0.5 mg PO BID Qty: 60 5RF multivitamin Tablet 1 tab PO DAILY pantoprazole 40 mg tablet,delayed release (DR/EC) 40 mg PO QAM levetiracetam 750 mg tablet 1,500 mg PO BID albuterol sulfate 90 mcg/actuation HFA aerosol inhaler 1 - 2 puff inhalation Q4H PRN (Reason: Shortness Of Breath Or Wheezing) Topamax 50 mg tablet 50 mg PO QPM Lantus Solostar U-100 Insulin 100 unit/mL (3 mL) insulin pen 50 unit SUBCUT QAM Benadryl 50 mg Capsule 50 mg PO TID PRN (Reason: Allergy Symptoms) atorvastatin 40 mg tablet 40 mg PO DAILY tamsulosin 0.4 mg capsule 0.4 mg PO DAILY oxycodone-acetaminophen [Percocet] 5-325 mg tablet 1 tab PO Q8H PRN (Reason: pain) Qty: 20 0RF Discharge Orders: Discharge ED (Routine); Ordered 02/09/24 Ordered By: Dick Dacosta Referrals: Genie Beatty FNP [Primary Care Provider] - Patient Instructions: Opioid Safety, Pain Management Activity Restrictions/Additional Instructions: Thank you for choosing [facility] for your healthcare needs today. Please realize this is an emergency room and that we are providing you with a medical screening exam and this may not be complete and all inclusive of all the testing and or work up that you may need to determine your ailment or severity of your illness. It is very important that you follow up as instructed or that you return to the Emergency Department should you have concerns or if your condition changes or worsens in any way. You were seen today after a episode similar to what you have had in the past. You have been evaluated for these multiple times Dr. Gurrola is felt they are functional disorder. They did improve with the Ativan and redirection. Will discharge you home continue current medications and follow-up with Dr. Gurrola as previously prescribed. You are to contact the cardiology clinic to reschedule the remaining aspects of your stress testing. Coding Level of Care Code ED Family Lawyer for Adriana Iyer
--- NOTE | 2024-02-09 10:31 | PC.NURSE ---
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
[2024-02-09 10:32] LABS: Basophils # 0.1 10^3/uL (0.0-0.1); Eosinophils # 0.2 10^3/uL (0.0-0.8); Eosinophils % 2.2 %; Hematocrit 43.6 % (37-53); Lymphocytes % 27.8 %; Mean Corpuscular HGB Conc 33.3 g/dL (30-55); Mean Corpuscular Hemoglobin 31.5 pg (27-33); Mean Corpuscular Volume 94.8 fl (82-101); Mean Platelet Volume 9.7 fL (7.4-10.4); Monocytes # 0.5 10^3/uL (0.2-0.9); Monocytes % 6.2 %; Neutrophils # 4.53 10^3/uL (1.8-7.7); Neutrophils % 62.5 %; Nucleated Red Blood Cells % 0 %; Platelet Count 183 10^3/cmm (157-399); Red Cell Distribution Width 13.4 % (12.1-15.1); White Blood Count 7.24 10^3/uL (3.29-11.43)
[2024-02-09 10:34] VITALS: BP 150/108; PULSE 108
[2024-02-09 10:53] LABS: Alanine Aminotransferase 14 U/L (0-41); Alkaline Phosphatase 67 U/L (40-130); Anion Gap 19.3 (5-19); Aspartate Amino Transferase 14 U/L (0-40); Blood Urea Nitrogen 11 mg/dL (8-23); Calcium 9.5 mg/dL (8.5-10.5); Carbon Dioxide 21 mmol/L (22-29); Chloride 95 mmol/L (98-107); Creatine Phosphokinase 130 U/L (39-308); Creatinine Clr Calc Pharmacy 95.8533; Globulin 3.6 g/dL (1.3-4.6); Glomerular Filtration Rate 98.6 mL/min (90-130); Glucose 349 mg/dL (65-115); Osmolality Calculated 285 mOsm/kg (285-295); Potassium 4.3 mmol/L (3.5-5.1); Sodium 131 mmol/L (136-145); Total Bilirubin 0.5 mg/dL (0.15-1.2); Total Protein 7.6 g/dL (6.6-8.7)
[2024-02-09 10:55] LABS: Lactic Sepsis W/Reflex 6.3 mmol/L (0.5-2.2)
[2024-02-09 11:38] LABS: Procalcitonin 0.05 ng/mL (0-0.5)
--- NOTE | 2024-02-09 12:15 | ECG_ITS ---
[facility] Test Date: 2024-02-09 Pat Name: Arcenio Saldivar Department: Room: Gender: Male Weatherization Director: : 1965 Requested By: Dick Hankins Order Number: [id number] Shiela MD: Mitul Lopez M.D. Measurements Intervals Priddy Rate: 93 P: 0 NM: 0 QRS: -69 QRSD: 101 T: 106 QT: 363 QTc: 453 Interpretive Statements SUPRAVENTRICULAR RHYTHM with significant baseline artifact LEFT AXIS DEVIATION [QRS AXIS < -30] ST DEVIATION AND MODERATE T-WAVE ABNORMALITY, CONSIDER LATERAL ISCHEMIA [-0.1+ mV T-WAVE IN I/aVL/V5/V6] Compared to ECG 04/30/2023 12:23:28 Supraventricular rhythm now present T-wave abnormality now present Possible ischemia now present Sinus rhythm no longer present Myocardial infarct finding no longer present Electronically Signed On 02-09-2024 15:03:37 CDT by Mitul Lopez M.D. [id number] f
[2024-02-09 12:18] LABS: Reflex Lactate Order REFLEX LACTIC ORDERD
[2024-02-09 13:11] VITALS: PULSE 84; RESP 16; O2SAT 98
== END 2024-02-09 13:25 | disposition home or self-care (01) ==
PROVIDERS: Emergency Provider Family Medicine; PCP Nurse Practitioner Family
DX: F44.5 Conversion disorder with seizures or convulsions (principal); Z79.02 Long term (current) use of antithrombotics/antiplatelets; Z79.4 Long term (current) use of insulin; F17.210 Nicotine dependence, cigarettes, uncomplicated; Z86.73 Personal history of transient ischemic attack (TIA), and cerebral infarction without residual deficits; E11.9 Type 2 diabetes mellitus without complications; I10 Essential (primary) hypertension; I25.2 Old myocardial infarction; I25.10 Atherosclerotic heart disease of native coronary artery without angina pectoris; J44.9 Chronic obstructive pulmonary disease, unspecified; Z95.5 Presence of coronary angioplasty implant and graft
CPT/HCPCS: 80053; 80177; 82550; 83605; 84145; 85025; 93005; 94799; 96374; 96375; 99284; J2060

== ENCOUNTER 2024-02-18 06:00 | Outpatient (RCR) | payer MEDICARE, SELFPAY | END 2024-03-19 23:59 | disposition home or self-care (01) | LOC: TPT 06:00 | PROVIDERS: PCP Nurse Practitioner Family; Visit Provider Nurse Practitioner Family | DX: R29.6 Repeated falls (principal); R26.81 Unsteadiness on feet | CPT/HCPCS: 97110 ==

== ENCOUNTER 2024-02-18 06:00 | Outpatient (RCR) | payer MEDICARE, SELFPAY | END 2024-03-19 23:59 | disposition home or self-care (01) | LOC: TST 06:00 | PROVIDERS: PCP Nurse Practitioner Family; Visit Provider Otolaryngology | DX: R49.8 Other voice and resonance disorders (principal); R49.0 Dysphonia | CPT/HCPCS: 92507 ==

== ENCOUNTER → 2024-02-25 10:01 | Outpatient (BNVA) | payer MEDICARE, SELFPAY | PROVIDERS: PCP Nurse Practitioner Family; Visit Provider Otolaryngology | DX: R13.10 Dysphagia, unspecified (principal); R49.0 Dysphonia | CPT/HCPCS: 99213 ==

== ENCOUNTER 2024-03-20 06:00 | Outpatient (RCR) | payer MEDICARE, SELFPAY | END 2024-03-29 23:59 | disposition home or self-care (01) | LOC: TST 06:00 | PROVIDERS: PCP Nurse Practitioner Family; Visit Provider Otolaryngology | DX: R49.0 Dysphonia (principal); R49.8 Other voice and resonance disorders | CPT/HCPCS: 92507 ==

== ENCOUNTER 2024-03-20 06:00 | Outpatient (RCR) | payer MEDICARE, SELFPAY | END 2024-04-18 23:59 | disposition home or self-care (01) | LOC: TPT 06:00 | PROVIDERS: PCP Nurse Practitioner Family; Visit Provider Nurse Practitioner Family | DX: R29.6 Repeated falls (principal); R26.81 Unsteadiness on feet | CPT/HCPCS: 97110 ==

== ENCOUNTER → 2024-03-23 08:53 | Outpatient (BNVA) | payer MEDICARE, SELFPAY | PROVIDERS: PCP Nurse Practitioner Family; Visit Provider Surgery | DX: R13.10 Dysphagia, unspecified (principal) | CPT/HCPCS: 99204; 99214 ==

== ENCOUNTER 2024-04-19 06:00 | Outpatient (RCR) | payer MEDICARE, SELFPAY | END 2024-05-19 23:59 | disposition home or self-care (01) | LOC: TPT 06:00 | PROVIDERS: PCP Nurse Practitioner Family; Visit Provider Nurse Practitioner Family | DX: R29.6 Repeated falls (principal); R26.81 Unsteadiness on feet | CPT/HCPCS: 97110 ==

== ENCOUNTER → 2024-06-01 13:00 | Outpatient (BNVA) | payer MEDICARE, SELFPAY | PROVIDERS: PCP Nurse Practitioner Family; Visit Provider Family Medicine | DX: E11.9 Type 2 diabetes mellitus without complications (principal); F41.9 Anxiety disorder, unspecified; E78.2 Mixed hyperlipidemia; I10 Essential (primary) hypertension | CPT/HCPCS: 80053; 80061; 83036; 84443; 85025 ==

== ENCOUNTER → 2024-07-07 08:00 | Outpatient (BNVA) | payer MEDICARE, SELFPAY | PROVIDERS: PCP Nurse Practitioner Family; Referring Provider Nurse Practitioner Family; Visit Provider Internal Medicine | DX: E11.65 Type 2 diabetes mellitus with hyperglycemia (principal); E78.2 Mixed hyperlipidemia; E11.59 Type 2 diabetes mellitus with other circulatory complications; I25.10 Atherosclerotic heart disease of native coronary artery without angina pectoris; E11.40 Type 2 diabetes mellitus with diabetic neuropathy, unspecified; E16.0 Drug-induced hypoglycemia without coma; T38.3X5A Adverse effect of insulin and oral hypoglycemic [antidiabetic] drugs, initial encounter; E11.649 Type 2 diabetes mellitus with hypoglycemia without coma; X58.XXXA Exposure to other specified factors, initial encounter; Z79.4 Long term (current) use of insulin | CPT/HCPCS: 99214 ==

== ENCOUNTER 2024-08-03 09:02 | Day surgery (SDC) | payer MEDICARE, SELFPAY ==
[2024-08-03] VITALS (12 sets, daily range): BP systolic 85–142; BP diastolic 48–118; PULSE 78–92; RESP 14–44; TEMP 36.2–36.8; O2SAT 92–100; BMI 28.6
--- NOTE | 2024-08-03 09:25 | W.PM.OPSFHP ---
Same Day Surgery H&P Indication for Procedure/HPI DATE OF PROCEDURE: August 03, 2024 CHIEF COMPLAINT/INDICATIONFOR SURGICAL PROCEDURE: esophageal stricture PREOP DIAGNOSIS: esophageal stricture PLANNED PROCEDURE: Operation Date: 07/08/24 10:20 Proposed Procedures p -EGD BALOON W/ DILATION - 58385, R13.10(Not Applicable) - Vern Trivedi MD Operation Date: 08/03/24 10:05 Proposed Procedures p EGD Dilation(Not Applicable) - Vern Trivedi MD Medications/Allergies* Home Medications Medication Instructions Recorded Confirmed Type multivitamin 1 tab PO DAILY 12/14/20 08/03/24 History lacosamide 200 mg tablet (Vimpat) 200 mg PO DAILY 09/29/23 08/03/24 History albuterol sulfate 90 mcg/actuation 1 - 2 puff inhalation Q4H PRN 02/09/24 08/03/24 History aerosol inhaler Shortness Of Breath Or Wheezing levetiracetam 750 mg tablet 1,500 mg PO BID 02/09/24 08/03/24 History pantoprazole 40 mg tablet,delayed 40 mg PO QAM 02/09/24 08/03/24 History release aspirin 81 mg tablet,delayed 81 mg PO DAILY 07/22/24 07/29/24 History release Allergies/Adverse Reactions Allergy/AdvReac Type Severity Reaction Status Date / Time Iodinated Contrast Media Allergy Severe ALGY-Anaphy Verified 08/03/24 09:12 laxis iodine Allergy ALGY-Anaphy Verified 08/03/24 09:12 laxis Pertinent History/Comorbid Conditions* Medical History (Updated 07/22/24 @ 09:26 by Jud Newman MD) Normal colonoscopy Screening for prostate cancer Abdominal wall bulge CVA (cerebral vascular accident) Hypotension Early satiety Migraine equivalent Right leg pain BPH NOS w ur obs/LUTS Urinary retention Diabetes Hypertension Myocardial infarction Coronary artery disease Seizure Back pain Migraine CVA (cerebral vascular accident) COPD (chronic obstructive pulmonary disease) Anxiety Surgical History (Updated 04/15/23 @ 10:48 by Alvaro Castro DO) Hx of hernia repair 03/27/23 lap repair of incisional hernia with mesh Dr. Castro History of back surgery S/P left knee arthroscopy History of coronary angioplasty with insertion of stent History of tonsillectomy History of vasectomy History of cholecystectomy History of appendectomy Family History (Updated 02/16/20 @ 05:37 by Reji Christie MD) CAD (coronary artery disease) Hypertension Social History Smoking and tobacco/nicotine status: current every day tobacco/nicotine user cigarettes Packs smoked per day: 0.5 Years cigarettes smoked: 13 Quit status (tobacco/nicotine): not considering quitting Alcohol intake: never Substance/Drug Use: current Substance/Drug use frequency: Special occassions/opportunity only Caregiver/support person: Yes (spouse) Lives independently: Yes Household members: spouse Marital status: Current occupational status: disabled Current gender identity: Male Pertinent Exam Findings alert, oriented x 3 and clear to auscultation bilaterally Recommendations Surgery/Procedure today Coding Level of Care Code Acute Code for Chg Fwd
--- NOTE | 2024-08-03 09:25 | ANES.PREANE2 ---
Pre-Anesthetic Assessment Height/Weight: Height 1.65 m Weight 78.018 kg Temp Pulse Resp BP Pulse Ox O2 Del Method 97.1 F L 83 15 107/71 99 Room Air 08/03/24 09:18 08/03/24 09:18 08/03/24 09:18 08/03/24 09:18 08/03/24 09:18 08/03/24 09:18 Preop Diagnosis: esophageal stricture Operation Date: 07/08/24 10:20 Proposed Procedures p -EGD BALOON W/ DILATION - 18945, R13.10(Not Applicable) - Vern Trivedi MD Operation Date: 08/03/24 10:05 Proposed Procedures p EGD Dilation(Not Applicable) - Vern Trivedi MD Familial anesthetic complications: N/V Was Beta Vasile taken within 24 hours: N/A Was Clonidine taken within 24 hours: N/A Last intake: Intake Last Liquid Date 08/02/24 Last Liquid Time 21:30 Last Solid Date 08/02/24 Last Solid Time 17:00 Social Tobacco (Marijuana once in a while) and No alcohol <1 pack(s) per day Exam alert, oriented x 3, clear to auscultation bilaterally and regular rate & rhythm Airway Submandibular: within normal limits Cervical ROM: within normal limits Mallampati: Class II Dentition: chipped and loose Comments: Comments: Very poor dentition, several missing, states that a few teeth were broken/knocked out during his last procedure History/ROS No significant history except as noted and No significant complaints Pulmonary Chronic Obstructive Pulmonary Disease, Cough, Exertional Dyspnea, Sleep Apnea (Does not use CPAP) and Shortness of Breath (Normally SOB, breathing is at baseline) CV/HEM Coronary Artery Disease, Deep Vein Thrombosis, Myocardial Infarction (Stents x3, last stent placed 2013, saw museum exhibit technician within the last year no new changes) and Peripheral Vascular Disease BPH Hx kidney stones History of self cath Hepatic None reported GI Gastroesophageal Reflux Disease (Controlled with meds) and Peptic Ulcer Disease Esophageal stricture Metabolic Diabetes Mellitus and Hyperlipidemia Musc/skel Lower Back Pain and Osteoarthritis/DJD Fine tremors Back surgery x2 with rods Neuropsych Anxiety, Cerebrovascular Accident (Stroke x4, left sided weakness), Headache (Migraines), Neuropathy, Seizure and Transient Ischemic Attack Anesthetic Plan ASA status: 4 Anesthesia: Anesthesia Evaluation, General and MAC Risk of > 500 ml blood loss (7ml/kg in children): No Medications/Allergies Home Medications Medication Instructions Recorded Confirmed Last Taken Type multivitamin 1 tab PO DAILY 12/14/20 08/03/24 08/02/24 History nebulizer accessories #1 ea 06/17/22 07/07/24 Unknown Rx pen needle, diabetic 32 gauge x #100 ea 03/06/23 07/07/24 Unknown Rx 1/5 blood-glucose meter,continuous #1 ea 07/07/23 07/07/24 Unknown Rx (Dexcom G7 Roll Up Machine Operator) clopidogrel 75 mg tablet 75 mg PO DAILY #90 tabs 08/19/23 07/29/24 07/28/24 Rx bedside commode #1 ea 09/24/23 07/07/24 Unknown Rx lacosamide 200 mg tablet (Vimpat) 200 mg PO DAILY 09/29/23 08/03/24 08/02/24 History albuterol sulfate 90 mcg/actuation 1 - 2 puff inhalation Q4H PRN 02/09/24 08/03/24 08/03/24 History aerosol inhaler Shortness Of Breath Or Wheezing levetiracetam 750 mg tablet 1,500 mg PO BID 02/09/24 08/03/24 08/02/24 History pantoprazole 40 mg tablet,delayed 40 mg PO QAM 02/09/24 08/03/24 08/02/24 History release atorvastatin 40 mg tablet 40 mg PO DAILY #30 tabs 02/23/24 08/03/24 08/02/24 Rx mupirocin 2 % topical ointment 1 applic topical BID #22 grams 03/19/24 07/29/24 07/26/24 Rx rizatriptan 10 mg tablet (Maxalt) See Rx Instructions PO .COMPLEX 05/07/24 08/03/24 08/02/24 Rx #14 tabs insulin glargine 100 unit/mL (3 See Rx Instructions .Route 06/01/24 08/03/24 08/02/24 Rx mL) subcutaneous pen (Lantus .COMPLEX #15 mL Solostar U-100 Insulin) tamsulosin 0.4 mg capsule 0.4 mg PO DAILY #30 caps 06/01/24 08/03/24 08/02/24 Rx topiramate 50 mg tablet (Topamax) 50 mg PO QPM #30 tabs 06/01/24 08/03/24 08/02/24 Rx acarbose 100 mg tablet 100 mg PO TID #270 tabs 07/07/24 08/03/24 08/02/24 Rx blood-glucose sensor (Dexcom G7 #9 ea 07/07/24 07/07/24 Unknown Rx Sensor device) alprazolam 0.5 mg tablet 0.5 mg PO BID #60 tabs 07/22/24 08/03/24 08/02/24 Rx aspirin 81 mg tablet,delayed 81 mg PO DAILY 07/22/24 07/29/24 07/28/24 History release Allergies Allergy/AdvReac Type Severity Reaction Status Date / Time Iodinated Contrast Media Allergy Severe ALGY-Anaphy Verified 08/03/24 09:12 laxis iodine Allergy ALGY-Anaphy Verified 08/03/24 09:12 laxis [facility] Anesthesia Medical History (Updated 07/22/24 @ 09:26 by Jud Newman MD) Normal colonoscopy Screening for prostate cancer Abdominal wall bulge CVA (cerebral vascular accident) Hypotension Early satiety Migraine equivalent Right leg pain BPH NOS w ur obs/LUTS Urinary retention Diabetes Hypertension Myocardial infarction Coronary artery disease Seizure Back pain Migraine CVA (cerebral vascular accident) COPD (chronic obstructive pulmonary disease) Anxiety Surgical History Hx of hernia repair 03/27/23 lap repair of incisional hernia with mesh Dr. Castro History of back surgery S/P left knee arthroscopy History of coronary angioplasty with insertion of stent History of tonsillectomy History of vasectomy History of cholecystectomy History of appendectomy Family History Other CAD (coronary artery disease) Hypertension Social History (Updated 07/22/24 @ 09:25 by Jud Newman MD) Smoking and tobacco/nicotine status: current every day tobacco/nicotine user cigarettes Packs smoked per day: 0.5 Years cigarettes smoked: 13 Quit status (tobacco/nicotine): not considering quitting Alcohol intake: never Substance/Drug Use: current Substance/Drug use frequency: Special occassions/opportunity only Caregiver/support person: Yes (spouse) Lives independently: Yes Household members: spouse Marital status: Current occupational status: disabled Current gender identity: Male Data Anesthesia Cardiac Studies: Sestamibi Stress Test (Cardiology) 02/09/24
[2024-08-03] MEDS: sodium chloride 0.9% 1,000 ML 30 ML IV (09:30)
[2024-08-03 09:38] LABS: Glucose Point of Care 99 mg/dL (70-110)
--- NOTE | 2024-08-03 11:58 | P.CONIM_ITS ---
Providers/Reason For Consult Consulting Physician/Specialty*: Kalpesh Zapata MD, hospitalist Reason for Consult*: Shaking Requesting Physician: Dr. Talha Monk Attending Physician: Vern Trivedi MD Primary Care Provider: CLAUDIO Michelle History of Present Illness History of Present Illness Arcenio Saldivar is a 58 year old male who underwent an EGD earlier today. Hiatal hernia and gastritis was identified, and biopsies taken. Propofol was used for anesthetic. Postoperatively, he had some repetitive shaking on his right side, and would intermittently talk. He had been given about 4 Versed to try to calm him. When I saw him initially he was repetitively moving his right hand, which could be stopped by holding it. With telling him to slow his breathing, he could slowly have more responses, make eye contact, and eventually talk to me. relates that this has happened with procedures before, he gets anxious easily when he is nervous. He has been diagnosed with a functional joaquim rologic disorder, and was last seen in the ER following his stress test in January regarding this. When I was able to get him to calm down, he reported he was thirsty and was able to swallow normally. He reported he has a little bit of a headache, which is not unusual for him as he has a history of migraines. Review of Systems General: Reports: 10 or more systems reviewed and unremarkable except in HPI and below Medications/Allergies Home Medications Medication Instructions Recorded Confirmed Last Taken Type multivitamin 1 tab PO DAILY 12/14/20 08/03/24 08/02/24 History nebulizer accessories #1 ea 06/17/22 07/07/24 Unknown Rx pen needle, diabetic 32 gauge x #100 ea 03/06/23 07/07/24 Unknown Rx 1/5 blood-glucose meter,continuous #1 ea 07/07/23 07/07/24 Unknown Rx (Dexcom G7 Pulverizing And Sifting Operator) clopidogrel 75 mg tablet 75 mg PO DAILY #90 tabs 08/19/23 07/29/24 07/28/24 Rx bedside commode #1 ea 09/24/23 07/07/24 Unknown Rx lacosamide 200 mg tablet (Vimpat) 200 mg PO DAILY 09/29/23 08/03/24 08/02/24 History albuterol sulfate 90 mcg/actuation 1 - 2 puff inhalation Q4H PRN 02/09/24 08/03/24 08/03/24 History aerosol inhaler Shortness Of Breath Or Wheezing levetiracetam 750 mg tablet 1,500 mg PO BID 02/09/24 08/03/24 08/02/24 History pantoprazole 40 mg tablet,delayed 40 mg PO QAM 02/09/24 08/03/24 08/02/24 History release atorvastatin 40 mg tablet 40 mg PO DAILY #30 tabs 02/23/24 08/03/24 08/02/24 Rx mupirocin 2 % topical ointment 1 applic topical BID #22 grams 03/19/24 07/29/24 07/26/24 Rx rizatriptan 10 mg tablet (Maxalt) See Rx Instructions PO .COMPLEX 05/07/24 08/03/24 08/02/24 Rx #14 tabs insulin glargine 100 unit/mL (3 See Rx Instructions .Route 06/01/24 08/03/24 08/02/24 Rx mL) subcutaneous pen (Lantus .COMPLEX #15 mL Solostar U-100 Insulin) tamsulosin 0.4 mg capsule 0.4 mg PO DAILY #30 caps 06/01/24 08/03/24 08/02/24 Rx topiramate 50 mg tablet (Topamax) 50 mg PO QPM #30 tabs 06/01/24 08/03/24 08/02/24 Rx acarbose 100 mg tablet 100 mg PO TID #270 tabs 07/07/24 08/03/24 08/02/24 Rx blood-glucose sensor (Dexcom G7 #9 ea 07/07/24 07/07/24 Unknown Rx Sensor device) alprazolam 0.5 mg tablet 0.5 mg PO BID #60 tabs 07/22/24 08/03/24 08/02/24 Rx aspirin 81 mg tablet,delayed 81 mg PO DAILY 07/22/24 07/29/24 07/28/24 History release sucralfate 100 mg/mL oral 1 g (10 mL) PO BID 2 weeks #280 mL 08/03/24 Unknown Rx suspension Allergies Allergy/AdvReac Type Severity Reaction Status Date / Time Iodinated Contrast Media Allergy Severe ALGY-Anaphy Verified 08/03/24 09:12 laxis iodine Allergy ALGY-Anaphy Verified 08/03/24 09:12 laxis Current Medications Generic Name Dose Route Start Last Admin Trade Name Freq PRN Reason Stop Dose Admin Sodium Chloride 1,000 mls @ 30 mls/hr 08/03/24 09:15 08/03/24 09:30 Sodium Chloride 0.9% IV 08/04/24 09:14 30 mls/hr .Q24H KATELYNN Administration PFSH Acute PFSH: Medical History Normal colonoscopy Screening for prostate cancer Abdominal wall bulge CVA (cerebral vascular accident) Hypotension Early satiety Migraine equivalent Right leg pain BPH NOS w ur obs/LUTS Urinary retention Diabetes Hypertension Myocardial infarction Coronary artery disease Seizure Back pain Migraine CVA (cerebral vascular accident) COPD (chronic obstructive pulmonary disease) Anxiety Surgical History Hx of hernia repair 03/27/23 lap repair of incisional hernia with mesh Dr. Castro History of back surgery S/P left knee arthroscopy History of coronary angioplasty with insertion of stent History of tonsillectomy History of vasectomy History of cholecystectomy History of appendectomy Family History Other CAD (coronary artery disease) Hypertension Social History Smoking and tobacco/nicotine status: current every day tobacco/nicotine user cigarettes Packs smoked per day: 0.5 Years cigarettes smoked: 13 Quit status (tobacco/nicotine): not considering quitting Alcohol intake: never Substance/Drug Use: current Substance/Drug use frequency: Special occassions/opportunity only Caregiver/support person: Yes (spouse) Lives independently: Yes Household members: spouse Marital status: Current occupational status: disabled Current gender identity: Male Vitals/I&O/Wt Last Vital Signs Temp 98.2 F 08/03/24 11:30 Pulse 85 08/03/24 11:50 Resp 20 H 08/03/24 11:50 BP 97/59 08/03/24 11:50 Pulse Ox 99 08/03/24 11:50 O2 Del Method Room Air 08/03/24 11:50 O2 Flow Rate 2 08/03/24 11:38 Weight last 48 hrs Weight 78.018 kg Physical Exam Narrative: General Exam is a conversive white male, now apologizing for anxiety and behavior. HEENT: Poor dentition. Pupils equally round. Neck is supple no lymphadenopathy or megaly Cardiovascular regular rate and rhythm without murmur Lungs clear Abdomen soft, no obvious organomegaly exam deferred Extremities no sinus clubbing edema Neuro no obvious focal deficits he Data Other Labs: previous labs and imaging tests were reviewed. A&P Assessment and plan (1) Functional neurological symptom disorder with attacks or seizures: He appears to be having a functional episode Reassurance given and he is better I will go ahead and give his Xanax 0.5 mg now. He missed his dose this morning and he reports he takes this very regularly Blood sugar will be checked just to complete evaluation secondary to his history of diabetes and insulin use. This was over 90 I provided follow-up checks in the GI department to make sure that he was still stable, and checked on him multiple times. He was able to discharge safely to home. (2) Anxiety: Plan Multiple other medical problems as listed in his past medical history Thank you for this consultation Consult Attestations Medical Necessity Statement: Not applicable Diagnoses Functional neurological symptom disorder with attacks or seizures F44.5 Anxiety F41.9 Time Spent (min) 45
[2024-08-03] MEDS: ALPRAZolam 0.5 mg Tablet PO (12:09)
[2024-08-03 12:22] LABS: Glucose Point of Care 91 mg/dL (70-110)
--- NOTE | 2024-08-03 12:48 | PC.NURSE ---
AFTER RECEIVING PT INTO RECOVERY ROOM, RN OBSERVED SEIZURE-LIKE ACTIVITY. WEED SCIENCE RESEARCH TECHNICIAN & ANESTHESIOLOGIST ALERTED. PT WAS ABLE TO OPEN EYES ON COMMAND. UNABLE TO TRACK. PTS BROUGHT TO BEDSIDE TO GIVE INFORMATION ABOUT BASELINE AND HISTORY. PT CONTINUED TO HAVE THIS SHAKING INTERMITTENTLY. CONTINUOUS MONITORING OF PT. HOSPITALIST CONSULTED, ORDERS RECEIVED AFTER SEEN AT BEDSIDE. PT WAS SPEAKING CLEARLY AND NO SHAKING OBSERVED AFTER SEEN BY HOSPITALIST. CLEARED BY HOSPITALIST FOR DISCHARGE NO ADMISSION ORDERS RECEIVED. PT IS AAOX4, NO COMPLAINTS OF PAIN. DENIES DIZZINESS UPON STANDING. IV REMOVED, DISCHARGE PAPERWORK REVIEWED WITH PT & PTS SPOUSE.
--- NOTE | 2024-08-03 12:51 | ANE.PACU2 ---
Inpatient post-anesthesia follow up: Airway intact: Yes Vital signs: Temperature 97.7 F Pulse Rate 82 Respiratory Rate 18 Blood Pressure 101/69 Pulse Oximetry 99 Oxygen Delivery Me thod Room Air Oxygen Flow Rate 2 Fraction of Inspir ed Oxygen Hydration adequate: Yes Nausea and vomiting: No Pain level: 1 Mental status: Baseline Additional Comments: Patient remains to have essential tremors. states that these are baseline
== END 2024-08-03 12:51 | disposition home or self-care (01) ==
PROVIDERS: PCP Nurse Practitioner Family; Visit Provider Surgery
DX: R13.10 Dysphagia, unspecified (principal); K29.50 Unspecified chronic gastritis without bleeding; Z79.4 Long term (current) use of insulin; N40.1 Benign prostatic hyperplasia with lower urinary tract symptoms; N13.8 Other obstructive and reflux uropathy; E11.9 Type 2 diabetes mellitus without complications; I10 Essential (primary) hypertension; I25.2 Old myocardial infarction; I25.10 Atherosclerotic heart disease of native coronary artery without angina pectoris; Z86.73 Personal history of transient ischemic attack (TIA), and cerebral infarction without residual deficits; J44.9 Chronic obstructive pulmonary disease, unspecified; F17.210 Nicotine dependence, cigarettes, uncomplicated; F44.5 Conversion disorder with seizures or convulsions; F41.9 Anxiety disorder, unspecified; K44.9 Diaphragmatic hernia without obstruction or gangrene
CPT/HCPCS: 36416; 43239; 82962; 88305; 88342; J2250; J2704; J7030

== ENCOUNTER → 2024-08-17 10:03 | Outpatient (BNVA) | payer MEDICARE, SELFPAY | PROVIDERS: PCP Nurse Practitioner Family; Visit Provider Surgery | DX: Z09 Encounter for follow-up examination after completed treatment for conditions other than malignant neoplasm (principal) | CPT/HCPCS: 99203 ==

== ENCOUNTER → 2024-12-23 14:54 | Outpatient (BNVA) | payer MEDICARE, SELFPAY | PROVIDERS: PCP Family Medicine; Visit Provider Family Medicine | DX: R63.4 Abnormal weight loss (principal); E11.65 Type 2 diabetes mellitus with hyperglycemia; Z98.890 Other specified postprocedural states | CPT/HCPCS: 71046; 80053; 83036; 84443; 85025 ==

== ENCOUNTER → 2025-02-15 12:30 | Outpatient (BNVA) | payer MEDICARE, SELFPAY | PROVIDERS: PCP Family Medicine; Visit Provider Specialist | DX: F44.5 Conversion disorder with seizures or convulsions (principal); J44.9 Chronic obstructive pulmonary disease, unspecified; G25.2 Other specified forms of tremor; R26.81 Unsteadiness on feet; E11.40 Type 2 diabetes mellitus with diabetic neuropathy, unspecified; I25.10 Atherosclerotic heart disease of native coronary artery without angina pectoris; G43.109 Migraine with aura, not intractable, without status migrainosus | CPT/HCPCS: 99214 ==

== ENCOUNTER → 2025-03-07 09:15 | Outpatient (BNVA) | payer MEDICARE, SELFPAY | PROVIDERS: PCP Family Medicine; Visit Provider Internal Medicine | DX: E11.59 Type 2 diabetes mellitus with other circulatory complications (principal); E78.2 Mixed hyperlipidemia; E11.65 Type 2 diabetes mellitus with hyperglycemia; E11.40 Type 2 diabetes mellitus with diabetic neuropathy, unspecified; E16.0 Drug-induced hypoglycemia without coma | CPT/HCPCS: 73030; 99214 ==

== ENCOUNTER 2025-03-08 08:25 | Emergency (ER) | payer MEDICARE, SELFPAY ==
[2025-03-08 08:33] VITALS: PULSE 93; RESP 20; TEMP 36.5; O2SAT 98
[2025-03-08 08:43] VITALS: BP 149/80
--- NOTE | 2025-03-08 09:17 | CT_ITS ---
WS: [id number] CT CERVICAL SPINE TECHNIQUE: Noncontrast CT of the cervical spine with coronal and sagittal reformatted images. CLINICAL INFORMATION: neck pain COMPARISON: None. DLP: 145.[address] scans at [facility] use at least one of these dose optimization techniques: automated exposure control; mA and/or kV adjustment per patient size (includes targeted exams where dose is matched to clinical indication); or iterative reconstruction. FINDINGS: Straightening of the normal cervical lordosis. Moderate spondylitic changes. Normal C1-2 articulation. Mastoid air cells are well aerated. No acute fractures. Normal dens. Hypertrophic changes at the C1-2 articulation. C2-C3: Normal. C3-C4: Mild bilateral bony foraminal narrowing. Mild facet arthropathy. Mild disc osteophyte protrusion. C4-C5: Disc osteophyte complex with mild central canal stenosis. Moderate LEFT bony foraminal narrowing. Moderate LEFT facet arthropathy. Mild central canal stenosis. C5-C6: Disc osteophyte complex with mild to moderate central canal stenosis. Mild LEFT greater than RIGHT bony foraminal narrowing. Moderate facet arthropathy. C6-C7: Disc osteophyte complex with mild to moderate central canal stenosis. Mild LEFT bony foraminal narrowing. Moderate facet arthropathy with uncovertebral joint hypertrophy. C7-T1: Mild RIGHT and no significant LEFT foraminal narrowing. Spinal canal is patent. Visualized posterior nasopharynx: Normal. Prevertebral soft tissues: Normal. Carotid bulb calcification. CT/CT cervical spin wo con* [id number] IMPRESSION: 1. Mild to moderate central canal stenosis with disc osteophyte complexes at C 4-C5 C5-C6 and C6-C7. 2. Mild to moderate bony foraminal narrowing worse LEFT C3-C4, LEFT C4-C5, LEF T C5-C6, LEFT C6-7 and RIGHT C7-T1 3. Findings could be further evaluated with cervical spine MRI for better luis a omic detail
[2025-03-08 09:46] LABS: Basophils # 0.1 10^3/uL (0.0-0.1); Eosinophils # 0.4 10^3/uL (0.0-0.8); Eosinophils % 4.6 %; Hematocrit 40.4 % (37-53); Lymphocytes # 2.2 10^3/uL (0.8-4.8); Lymphocytes % 28.2 %; Mean Corpuscular HGB Conc 32.7 g/dL (30-55); Mean Corpuscular Hemoglobin 29.9 pg (27-33); Mean Corpuscular Volume 91.6 fl (82-101); Mean Platelet Volume 9.4 fL (7.4-10.4); Monocytes # 0.3 10^3/uL (0.2-0.9); Monocytes % 3.9 %; Neutrophils # 4.76 10^3/uL (1.8-7.7); Neutrophils % 62.2 %; Nucleated Red Blood Cells % 0 %; Platelet Count 204 10^3/cmm (157-399); Red Blood Count 4.41 10^6/uL (3.85-5.65); Red Cell Distribution Width 13.5 % (12.1-15.1); White Blood Count 7.66 10^3/uL (3.29-11.43)
[2025-03-08] MEDS: ketorolac 30 mg/mL INJ IVP (09:55)
[2025-03-08] MEDS: dexamethasone 10 mg/mL INJ IVP (09:57)
[2025-03-08] MEDS: orphenadrine 30 mg/mL Inj 2 mL 60 MG IM (09:59)
--- NOTE | 2025-03-08 10:01 | W.ED.SEIZURE ---
HPI - Seizure General: Chief Complaint: Seizure Stated Complaint: lt arm and neck pain Time Seen by Provider: 03/08/25 08:48 History of Present Illness: HPI Narrative: 59-year-old male presents emergency room complaining of neck pain. Patient has functional neurologic episodes in the past. He reports pain in his neck radiating into his left arm. I am seeing this patient in the past also reviewed his recent neurology consultation notes with Dr. Gurrola. He currently is on lacosamide and Keppra although there is some significant question as to whether or not he actually needs these. No recent trauma or injury. Patient has some cognitive decline and with episodes of pain he will have behavioral issues. He has no focal neurologic deficits. Seizure History: Yes Associated symptoms: Deny chest pain, chills or fever(s) Related Data Home Medications ?Medication ?Instructions ?Recorded ?Confirmed multivitamin 1 tab PO DAILY 12/14/20 03/08/25 pantoprazole 40 mg tablet,delayed 40 mg PO QAM 02/09/24 03/08/25 release aspirin 81 mg tablet,delayed 81 mg PO DAILY 07/22/24 03/08/25 release atorvastatin 40 mg tablet 40 mg PO DAILY 03/08/25 03/08/25 insulin glargine 100 unit/mL (3 2 - 3 unit SUBCUT QAM 03/08/25 03/08/25 mL) subcutaneous pen (Lantus Solostar U-100 Insulin) Previous Rx's ?Medication ?Instructions ?Recorded nebulizer accessories #1 ea 06/17/22 blood-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,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,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 #1 ea 07/07/23 (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) bedside commode #1 ea 09/24/23 rizatriptan 10 mg tablet (Maxalt) See Rx Instructions PO .COMPLEX 05/07/24 #14 tabs tamsulosin 0.4 mg capsule 0.4 mg PO DAILY #30 caps 06/01/24 topiramate 50 mg tablet (Topamax) 50 mg PO QPM #30 tabs 06/01/24 blood-glucose sensor (Dexcom G7 #9 ea 07/07/24 Sensor device) levetiracetam 750 mg tablet See Rx Instructions .Route 08/25/24 .COMPLEX #120 tabs clopidogrel 75 mg tablet 75 mg PO DAILY #90 tabs 10/25/24 pen needle, diabetic 32 gauge x #100 ea 12/31/24 1/5 albuterol sulfate 90 mcg/actuation 1 - 2 puff inhalation Q4H PRN 02/07/25 aerosol inhaler Shortness Of Breath Or Wheezing #8.5 grams alprazolam 0.5 mg tablet 0.5 mg PO BID #60 tabs 02/18/25 meloxicam 7.5 mg tablet 7.5 mg PO DAILY #30 tabs 03/07/25 diclofenac sodium 75 mg 75 mg PO Q12H PRN pain #20 tabs 03/08/25 tablet,delayed release methylprednisolone 4 mg tablets in See Rx Instructions PO .COMPLEX 03/08/25 a dose pack (Medrol (Justin)) #21 ea tizanidine 4 mg tablet 4 mg PO Q6H PRN muscle spasticity 03/08/25 #20 tabs Allergies Allergy/AdvReac Type Severity Reaction Status Date / Time Iodinated Contrast Media Allergy Severe ALGY-Anaphy Verified 03/07/25 08:57 laxis iodine Allergy ALGY-Anaphy Verified 03/07/25 08:57 laxis Review of Systems Const: Denies: fever(s) or chills Card: Denies: chest pain Resp: Denies: dyspnea Musc: Reports: neck pain and extremity pain Neuro: Denies: headache(s) PFSH ED PFSH: Medical History Functional neurological symptom disorder with mixed symptoms Normal colonoscopy Screening for prostate cancer Abdominal wall bulge CVA (cerebral vascular accident) Hypotension Early satiety Migraine equivalent Right leg pain BPH NOS w ur obs/LUTS Urinary retention Diabetes Hypertension Myocardial infarction Coronary artery disease Seizure Back pain Migraine CVA (cerebral vascular accident) COPD (chronic obstructive pulmonary disease) Anxiety Surgical History Hx of hernia repair 03/27/23 lap repair of incisional hernia with mesh Dr. Castro History of back surgery S/P left knee arthroscopy History of coronary angioplasty with insertion of stent History of tonsillectomy History of vasectomy History of cholecystectomy History of appendectomy Family History Other CAD (coronary artery disease) Hypertension Social History (Reviewed 03/08/25 @ 12:15 by GINA Leblanc Smoking and tobacco/nicotine status: unknown if used tobacco/nicotine Quit status (tobacco/nicotine): not considering quitting Alcohol intake: never Substance/Drug Use: current Substance/Drug use frequency: Special occassions/opportunity only Caregiver/support person: Yes (spouse) Lives independently: Yes Household members: spouse Marital status: Current occupational status: disabled Current gender identity: Male Physical Exam Const: COMMON NORMALS: no acute distress GENERAL APPEARANCE: cooperative and comfortable ORIENTATION/CONSCIOUSNESS: Yes awake HENMT: COMMON NORMALS: normocephalic, atraumatic and hearing grossly normal bilaterally HEAD & SCALP: normocephalic and atraumatic Resp: COMMON NORMALS: normal respiratory effort, No retractions, No use of accessory muscles and clear to auscultation bilaterally AUSCULTATION: clear to auscultation bilaterally Cardio: COMMON NORMALS: regular rate, regular rhythm and No murmurs present (Cardio) RATE: regular rate RHYTHM: regular rhythm GI: COMMON NORMALS: Soft to palpation and No hepatosplenomegaly present AUSCULTATION: Yes normoactive bowel sounds PALPATION: Yes Soft to palpation, No Tenderness to palpation present (GI), No Guarding due to palpation present (GI) and Yes No hepatosplenomegaly present Extremity: COMMON NORMALS: normal to inspection, capillary refill normal, no clubbing, cyanosis or edema, no calf tenderness and no pedal edema Skin: COMMON NORMALS: no rashes or lesions noted GENERAL SKIN EXAM: no rashes or lesions noted Course Vital Signs: Vital signs: Vital Signs Temperature 97.7 F 03/08/25 08:33 Pulse Rate 68 03/08/25 11:21 Respiratory Rate 31 H 03/08/25 11:21 Blood Pressure 128/78 03/08/25 11:21 Pulse Oximetry 100 03/08/25 11:21 Oxygen Delivery Me thod Room Air 03/08/25 08:33 MDM - Seizure MDM Narrative Medical decision making narrative: Improved with medications given CT shows significant arthritic changes but no acute fractures. Patient is having cervical radiculopathy. Laboratory test reviewed unremarkable will discharge patient home with steroid taper and tizanidine set him up for outpatient MRI of cervical spine follow-up with orthopedic spine surgery Lab Data 03/08/25 09:22 03/08/25 09:22 Labs: Radiology Impressions Cervical Spine CT 03/08/25 09:17 IMPRESSION: 1. Mild to moderate central canal stenosis with disc osteophyte complexes at C4-C5 C5-C6 and C6-C7. 2. Mild to moderate bony foraminal narrowing worse LEFT C3-C4, LEFT C4-C5, LEFT C5-C6, LEFT C6-7 and RIGHT C7-T1 3. Findings could be further evaluated with cervical spine MRI for better anatomic detail Laboratory Results WBC 7.66 10^3/uL (3.29-11.43) 03/08/25 09:22 RBC 4.41 10^6/uL (3.85-5.65) 03/08/25 09:22 Hgb 13.20 g/dL (11.27-16.99) 03/08/25 09:22 Hct 40.4 % (37-53) 03/08/25 09:22 MCV 91.6 fl (82-101) 03/08/25 09:22 MCH 29.9 pg (27-33) 03/08/25 09: MCHC 32.7 g/dL (30-55) 03/08/25 09:22 RDW 13.5 % (12.1-15.1) 03/08/25 09:22 Plt Count 204 10^3/cmm (157-399) 03/08/25 09:22 MPV 9.4 fL (7.4-10.4) 03/08/25 09:22 Neut % (Auto) 62.2 % 03/08/25 09:22 Lymph % (Auto) 28.2 % 03/08/25 09:22 [place] % (Auto) 3.9 % 03/08/25 09:22 Eos % (Auto) 4.6 % 03/08/25 09:22 Baso % (Auto) 1.0 % 03/08/25 09:22 Neut # (Auto) 4.76 10^3/uL (1.8-7.7) 03/08/25 09:22 Lymph # (Auto) 2.2 10^3/uL (0.8-4.8) 03/08/25 09:22 [place] # (Auto) 0.3 10^3/uL (0.2-0.9) 03/08/25 09:22 Eos # (Auto) 0.4 10^3/uL (0.0-0.8) 03/08/25 09:22 Baso # (Auto) 0.1 10^3/uL (0.0-0.1) 03/08/25 09:22 Nucleated RBC % (auto) 0 % 03/08/25 09:22 Nucleated RBCs # 0.0 /100WBC 03/08/25 09:22 Sodium 135 mmol/L (136-145) L 03/08/25 09:22 Potassium 3.7 mmol/L (3.5-5.1) 03/08/25 09:22 Chloride 99 mmol/L (98-107) 03/08/25 09:22 Carbon Dioxide 23 mmol/L (22-29) 03/08/25 09:22 Anion Gap 16.7 (5-19) 03/08/25 09:22 BUN 18 mg/dL (8-23) 03/08/25 09:22 Creatinine 0.8 mg/dL (0.7-1.2) 03/08/25 09:22 GFR Calculation 98.3 mL/min (90-130) 03/08/25 09:22 Glucose 245 mg/dL (65-115) H 03/08/25 09:22 Calculated Osmolality 290 mOsm/kg (285-295) 03/08/25 09:22 Calcium 9.0 mg/dL (8.5-10.5) 03/08/25 09:22 Total Bilirubin 0.9 mg/dL (0.15-1.2) 03/08/25 09:22 AST 13 U/L (0-40) 03/08/25 09:22 ALT 10 U/L (0-41) 03/08/25 09:22 Alkaline Phosphatase 65 U/L (40-130) 03/08/25 09:22 Total Protein 7.3 g/dL (6.6-8.7) 03/08/25 09:22 Albumin 4.0 g/dL (3.5-5.2) 03/08/25 09:22 Globulin 3.3 g/dL (1.3-4.6) 03/08/25 09:22 All radiology interpretation(s) finalized by discharge Discharge Plan Discharge Patient Disposition: Home Clinical Impression: Cervical radiculopathy Condition: Stable Prescriptions: New tizanidine 4 mg tablet 4 mg PO Q6H PRN (Reason: muscle spasticity) Qty: 20 0RF Rx Instructions: do not exceed 3 doses per 24 hrs diclofenac sodium 75 mg tablet,delayed release (DR/EC) 75 mg PO Q12H PRN (Reason: pain) Qty: 20 0RF methylprednisolone [Medrol (Justin)] 4 mg tablets,dose pack See Rx Instructions .ROUTE .COMPLEX Qty: 21 0RF Rx Instructions: orally per package directions No Action (DME) nebulizer accessories Kit See Rx Instructions .Route Qty: 1 0RF Rx Instructions: 1 nebulizer with all required supplies as directed topiramate [Topamax] 50 mg tablet 50 mg PO QPM Qty: 30 4RF tamsulosin 0.4 mg capsule 0.4 mg PO DAILY Qty: 30 3RF rizatriptan [Maxalt] 10 mg tablet See Rx Instructions PO .COMPLEX Qty: 14 4RF Rx Instructions: Take 1 tablet at onset of headache; if no relief may repeat 1 tab after at least 2 hrs; max2 tabs/24 hr (DME) Dexcom G7 Sensor Device See Rx Instructions .ROUTE .COMPLEX Qty: 9 1RF Dose Instruction: USE DIRECTED Rx Instructions: USE DIRECTED aspirin 81 mg tablet,delayed release (DR/EC) 81 mg PO DAILY meloxicam 7.5 mg tablet 7.5 mg PO DAILY Qty: 30 0RF (DME) 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 Misc See Rx Instructions .ROUTE .MEDSUPPLY Qty: 1 0RF Rx Instructions: As directed (DME) bedside commode See Rx Instructions .Route .MEDSUPPLY Qty: 1 0RF Rx Instructions: As directed levetiracetam 750 mg tablet See Rx Instructions .ROUTE .COMPLEX Qty: 120 3RF Dose Instruction: TAKE TWO TABLETS BY MOUTH TWICE DAILY Rx Instructions: TAKE TWO TABLETS BY MOUTH TWICE DAILY clopidogrel 75 mg tablet 75 mg PO DAILY Qty: 90 0RF (DME) pen needle, diabetic 32 gauge x 1/5 needle See Rx Instructions .Route Qty: 100 5RF Rx Instructions: As directed; to test 3 x day albuterol sulfate 90 mcg/actuation HFA aerosol inhaler 1 - 2 puff inhalation Q4H PRN (Reason: Shortness Of Breath Or Wheezing) Qty: 8.5 1RF alprazolam 0.5 mg tablet 0.5 mg PO BID Qty: 60 0RF multivitamin Tablet 1 tab PO DAILY pantoprazole 40 mg tablet,delayed release (DR/EC) 40 mg PO QAM atorvastatin 40 mg tablet 40 mg PO DAILY insulin glargine [Lantus Solostar U-100 Insulin] 100 unit/mL (3 mL) insulin pen 2 - 3 unit SUBCUT QAM Discharge Orders: Discharge ED (Routine); Ordered 03/08/25 Ordered By: Dick Dacosta Referrals: Jud Newman MD [Primary Care Provider, Family Practice] Discharge Diet: Usual diet Discharge Activity: Increase activity as tolerated Patient Instructions: Opioid Safety, Pain Management Activity Restrictions/Additional Instructions: Thank you for choosing [facility] for your healthcare needs today. It is very important that you follow up as instructed or that you return to the Emergency Department should you have concerns or if your condition changes or worsens in any way. You were seen in the emergency room with complaint of neck pain pain radiating to the shoulder and arm. CT of your neck did not show any acute fractures or emergent conditions there is a significant arthritic changes. Suspect that there is nerve root irritation that is causing your symptoms. Recommend holding meloxicam using diclofenac and we will start you on a prednisone taper you can also use tizanidine as needed. manager bar will make arrangements for a MRI of the cervical spine follow-up with orthopedic spine surgery Print Language: Belarusian Coding Level of Care Code ED Real Estate Teacher for Adriana Iyer
[2025-03-08 10:06] LABS: Alanine Aminotransferase 10 U/L (0-41); Alkaline Phosphatase 65 U/L (40-130); Anion Gap 16.7 (5-19); Aspartate Amino Transferase 13 U/L (0-40); Blood Urea Nitrogen 18 mg/dL (8-23); Carbon Dioxide 23 mmol/L (22-29); Chloride 99 mmol/L (98-107); Creatinine Clr Calc Pharmacy 88.9315; Globulin 3.3 g/dL (1.3-4.6); Glomerular Filtration Rate 98.3 mL/min (90-130); Glucose 245 mg/dL (65-115); Osmolality Calculated 290 mOsm/kg (285-295); Potassium 3.7 mmol/L (3.5-5.1); Sodium 135 mmol/L (136-145); Total Bilirubin 0.9 mg/dL (0.15-1.2); Total Protein 7.3 g/dL (6.6-8.7)
[2025-03-08 10:11] VITALS: BP 135/82; PULSE 76; RESP 26; O2SAT 99
[2025-03-08 10:30] VITALS: BP 135/76; PULSE 69; O2SAT 98
[2025-03-08 11:21] VITALS: BP 128/78; PULSE 68; RESP 31; O2SAT 100
== END 2025-03-08 11:23 | disposition home or self-care (01) ==
PROVIDERS: Emergency Provider Family Medicine; PCP Family Medicine
DX: M54.12 Radiculopathy, cervical region (principal); Z79.82 Long term (current) use of aspirin; Z79.02 Long term (current) use of antithrombotics/antiplatelets; Z79.4 Long term (current) use of insulin; Z86.73 Personal history of transient ischemic attack (TIA), and cerebral infarction without residual deficits; J44.9 Chronic obstructive pulmonary disease, unspecified; E11.9 Type 2 diabetes mellitus without complications; I10 Essential (primary) hypertension; I25.10 Atherosclerotic heart disease of native coronary artery without angina pectoris
CPT/HCPCS: 36415; 72125; 80053; 85025; 96372; 96374; 96375; 99285; J1100; J1885; J2360

== ENCOUNTER → 2025-04-07 13:36 | Outpatient (BNVA) | payer MEDICARE, SELFPAY | PROVIDERS: PCP Family Medicine; Visit Provider Orthopaedic Surgery | DX: M54.2 Cervicalgia (principal) | CPT/HCPCS: 72050; 99213 ==

== ENCOUNTER → 2025-04-14 10:44 | Outpatient (BNVA) | payer MEDICARE, SELFPAY | PROVIDERS: PCP Family Medicine; Visit Provider Surgery | DX: L02.412 Cutaneous abscess of left axilla (principal) | CPT/HCPCS: 99213 ==

== ENCOUNTER 2025-04-19 05:00 | Outpatient (RCR) | payer MEDICARE, SELFPAY | END 2025-05-19 23:59 | disposition home or self-care (01) | LOC: TPT 05:00 | PROVIDERS: PCP Family Medicine; Visit Provider Family Medicine | DX: R29.6 Repeated falls (principal); R26.81 Unsteadiness on feet; R53.1 Weakness | CPT/HCPCS: 97162 ==

== ENCOUNTER 2025-04-20 08:05 | Outpatient (CLI) | payer MEDICARE, SELFPAY ==
--- NOTE | 2025-04-20 13:09 | FL_ITS ---
FL barium swallow modifd [id number] REASON FOR EXAM: Other dysphagia FLUOROSCOPY TIME: 3min [id number] # OF SPOT FILMS: None TECHNIQUE: Examination was supervised by the speech therapy department. The patient was examined in the sitting upright lateral projection. Swallowing of barium of multiple consistencies was monitored fluoroscopically and video recorded. FINDINGS: No aspiration or penetration was identified. Minimal posterior impingement by cervical osteophytosis. There is no impingement of the transition of the barium tablet through the esophagus into the stomach. IMPRESSION: A detailed report of the swallowing will be rendered by the speech therapy department. No aspiration, penetration, or impingement of the barium tablet transition of the esophagus. MTDD
== END 2025-04-20 08:06 | disposition home or self-care (01) ==
LOC: RAD 08:06
PROVIDERS: PCP Family Medicine; Visit Provider Internal Medicine
DX: R13.19 Other dysphagia (principal)
CPT/HCPCS: 74230; 92611

== ENCOUNTER → 2025-04-27 14:12 | Outpatient (BNVA) | payer MEDICARE, SELFPAY | PROVIDERS: PCP Family Medicine; Visit Provider Podiatrist Foot & Ankle Surgery | DX: E11.40 Type 2 diabetes mellitus with diabetic neuropathy, unspecified (principal); L60.3 Nail dystrophy; E11.8 Type 2 diabetes mellitus with unspecified complications; Z79.4 Long term (current) use of insulin | CPT/HCPCS: 11721; 99203 ==

== ENCOUNTER → 2025-05-09 12:40 | Outpatient (BNVA) | payer MEDICARE, SELFPAY | PROVIDERS: PCP Family Medicine; Visit Provider Specialist | DX: F03.90 Unspecified dementia, unspecified severity, without behavioral disturbance, psychotic disturbance, mood disturbance, and anxiety (principal); F44.5 Conversion disorder with seizures or convulsions; J44.9 Chronic obstructive pulmonary disease, unspecified; G25.2 Other specified forms of tremor; R26.81 Unsteadiness on feet; E11.40 Type 2 diabetes mellitus with diabetic neuropathy, unspecified; I25.10 Atherosclerotic heart disease of native coronary artery without angina pectoris; G43.109 Migraine with aura, not intractable, without status migrainosus | CPT/HCPCS: 99214 ==

== ENCOUNTER → 2025-05-12 14:11 | Outpatient (BNVA) | payer MEDICARE, SELFPAY | PROVIDERS: PCP Family Medicine; Referring Provider Orthopaedic Surgery; Visit Provider Specialist | DX: M79.642 Pain in left hand (principal); M25.532 Pain in left wrist; M54.2 Cervicalgia | CPT/HCPCS: 95911 ==

== ENCOUNTER 2025-05-20 06:30 | Outpatient (RCR) | payer MEDICARE, SELFPAY | END 2025-06-19 23:59 | disposition home or self-care (01) | LOC: TPT 06:30 | PROVIDERS: PCP Family Medicine; Visit Provider Family Medicine | DX: R29.6 Repeated falls (principal); R26.81 Unsteadiness on feet; R53.1 Weakness | CPT/HCPCS: 97110; 97116 ==

== ENCOUNTER → 2025-06-16 07:53 | Outpatient (BNVA) | payer MEDICARE, SELFPAY | PROVIDERS: PCP Family Medicine; Visit Provider Orthopaedic Surgery | DX: M47.892 Other spondylosis, cervical region (principal); G56.03 Carpal tunnel syndrome, bilateral upper limbs; R42 Dizziness and giddiness | CPT/HCPCS: 99213 ==

== ENCOUNTER 2025-06-20 05:00 | Outpatient (RCR) | payer MEDICARE, SELFPAY | END 2025-07-19 23:59 | disposition home or self-care (01) | LOC: TPT 05:00 | PROVIDERS: PCP Family Medicine; Visit Provider Family Medicine | DX: R29.6 Repeated falls (principal); R26.81 Unsteadiness on feet; R53.1 Weakness | CPT/HCPCS: 97110 ==

== ENCOUNTER → 2025-06-21 12:46 | Outpatient (BNVA) | payer MEDICARE, SELFPAY | PROVIDERS: PCP Family Medicine; Visit Provider Orthopaedic Surgery | DX: R73.09 Other abnormal glucose (principal); Z01.818 Encounter for other preprocedural examination; G56.03 Carpal tunnel syndrome, bilateral upper limbs | CPT/HCPCS: 36415; 80053; 81001; 83036; 85025; 99204 ==

== ENCOUNTER → 2025-06-22 08:45 | Outpatient (BNVA) | payer MEDICARE, SELFPAY | PROVIDERS: PCP Family Medicine; Referring Provider Orthopaedic Surgery; Visit Provider Nurse Practitioner Family | DX: M54.2 Cervicalgia (principal); F17.210 Nicotine dependence, cigarettes, uncomplicated | CPT/HCPCS: 99214 ==

== ENCOUNTER 2025-07-06 09:39 | Day surgery (SDC) | payer MEDICARE, SELFPAY ==
[2025-07-06] VITALS (12 sets, daily range): BP systolic 63–159; BP diastolic 40–92; PULSE 64–132; RESP 16–32; TEMP 36.2–36.8; O2SAT 93–100; BMI 24.8
--- NOTE | 2025-07-06 10:43 | ANES.PREANE2 ---
Pre-Anesthetic Assessment Height/Weight: Height 1.68 m Weight 69.853 kg Temp Pulse Resp BP Pulse Ox O2 Del Method 97.1 F L 75 18 133/81 99 Room Air 07/06/25 09:50 07/06/25 09:50 07/06/25 09:50 07/06/25 09:50 07/06/25 09:50 07/06/25 10:03 Operation Date: 07/06/25 11:35 Proposed Procedures p Carpal Tunnel Release(Left) - Salty Silverio MD s Cubital Tunnel Release(Left) - Salty Silverio MD Familial anesthetic complications: PONV Was Beta Vasile taken within 24 hours: N/A Was Clonidine taken within 24 hours: N/A Last intake: Intake Last Liquid Date 07/05/25 Last Liquid Time 22:00 Last Solid Date 07/05/25 Last Solid Time 19:00 Social Tobacco and No alcohol Exam alert, oriented x 3, clear to auscultation bilaterally and regular rate & rhythm Airway Dentition: other (Very poor dentition) Comments: Comments: hoarse voice 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- patient self extubated Pulmonary Sleep Apnea GI Gastroesophageal Reflux Disease Metabolic Diabetes Mellitus Neuropsych Cerebrovascular Accident functional seizures Anesthetic Plan ASA status: 4 Anesthesia: MAC Risk of > 500 ml blood loss (7ml/kg in children): No Medications/Allergies Home Medications ?Medication ?Instructions ?Recorded ?Confirmed ?Last Taken ?Type nebulizer accessories #1 ea 06/17/22 06/23/25 Unknown Rx blood-glucose,urban 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,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 #1 ea 07/07/23 06/23/25 Unknown Rx (Dexcom G7 Vehicle Dismantler) bedside commode #1 ea 09/24/23 06/23/25 Unknown Rx aspirin 81 mg tablet,delayed 81 mg PO DAILY 07/22/24 07/06/25 06/30/25 History release levetiracetam 750 mg tablet See Rx Instructions .Route 08/25/24 07/06/25 07/05/25 Rx .COMPLEX #120 tabs pen needle, diabetic 32 gauge x #100 ea 12/31/24 06/23/25 Unknown Rx 1/5 albuterol sulfate 90 mcg/actuation 1 - 2 puff inhalation Q4H PRN 02/07/25 07/06/25 07/05/25 Rx aerosol inhaler Shortness Of Breath Or Wheezing #8.5 grams tizanidine 4 mg tablet 4 mg PO Q6H PRN muscle spasticity 03/17/25 07/06/25 07/05/25 Rx #30 tabs acetaminophen 650 mg 650 mg PO Q6H PRN Pain 04/04/25 07/06/25 07/05/25 History tablet,extended release (Tylenol 8 Hour) Diabetic Shoes 3 x insoles #1 ea 05/02/25 06/23/25 Unknown Rx atorvastatin 40 mg tablet 40 mg PO DAILY #90 tabs 06/08/25 07/06/25 07/05/25 Rx pantoprazole 40 mg tablet,delayed 40 mg PO QAM #30 tabs 06/08/25 07/06/25 07/05/25 Rx release tamsulosin 0.4 mg capsule 0.4 mg PO DAILY #30 caps 06/08/25 07/06/25 07/05/25 Rx diclofenac sodium 75 mg 75 mg PO Q12H PRN pain #30 tabs 06/10/25 07/06/25 07/05/25 Rx tablet,delayed release alprazolam 0.5 mg tablet 0.5 mg PO BID #60 tabs 06/15/25 07/06/25 07/05/25 Rx insulin glargine 100 unit/mL (3 50 unit (0.5 mL) SUBCUT QDAY #15 mL 06/28/25 07/06/25 07/02/25 Rx mL) subcutaneous pen (Lantus Solostar U-100 Insulin) blood-glucose sensor (Dexcom G7 #9 ea 07/04/25 Unknown Rx Sensor device) clopidogrel 75 mg tablet 75 mg PO DAILY #90 tabs 07/04/25 07/06/25 06/30/25 Rx Allergies Allergy/AdvReac Type Severity Reaction Status Date / Time Iodinated Contrast Media Allergy Severe ALGY-Anaphy Verified 07/06/25 10:29 laxis iodine Allergy ALGY-Anaphy Verified 07/06/25 10:29 laxis [facility]est[facility] Medical History (Updated 07/03/25 @ 22:58 by Jud Newman MD) Abscess of left axilla Functional neurological symptom disorder with mixed symptoms Normal colonoscopy Screening for prostate cancer Abdominal wall bulge CVA (cerebral vascular accident) Hypotension Early satiety Migraine equivalent Right leg pain BPH NOS w ur obs/LUTS Urinary retention Diabetes Hypertension Myocardial infarction Coronary artery disease Seizure Back pain Migraine CVA (cerebral vascular accident) COPD (chronic obstructive pulmonary disease) Anxiety Surgical History Hx of hernia repair 03/27/23 lap repair of incisional hernia with mesh Dr. Castro History of back surgery S/P left knee arthroscopy History of coronary angioplasty with insertion of stent History of tonsillectomy History of vasectomy History of cholecystectomy History of appendectomy Family History Other CAD (coronary artery disease) Hypertension Social History Smoking and tobacco/nicotine status: current every day tobacco/nicotine user cigarettes Packs smoked per day: 0.5 Years cigarettes smoked: 13 Quit status (tobacco/nicotine): not considering quitting Alcohol intake: never Substance/Drug Use: current Substance/Drug use frequency: Special occassions/opportunity only Caregiver/support person: Yes (spouse) Lives independently: Yes Household members: spouse Marital status: Current occupational status: disabled Current gender identity: Male Data Anesthesia Cardiac Studies: Sestamibi Stress Test (Cardiology) 02/09/24
--- NOTE | 2025-07-06 11:02 | W.PM.OPSUD ---
Surgery/Procedure H&P Update DATE OF PROCEDURE: July 06, 2025 DATE H&P PERFORMED: 06/21/25 H&P UPDATE INFORMATION: I have reviewed H&P completed within last 30 days, I have examined patient prior to procedure and No changes to prior documentation PREOP DIAGNOSIS: Left carpal tunnel and cubital tunnel syndrome PLANNED PROCEDURE: Operation Date: 07/06/25 11:35 Proposed Procedures p Carpal Tunnel Release(Left) - Salty Silverio MD s Cubital Tunnel Release(Left) - Salty Silverio MD
[2025-07-06] MEDS: ceFAZolin 2,000 mg SDV 2000 MG IVP (11:25)
[2025-07-06] MEDS: BUPivacaine 0.5% INJ 10 mL (11:31)
[2025-07-06] MEDS: BUPivacaine 0.5% INJ 10 mL INJECTION (11:39)
--- NOTE | 2025-07-06 12:16 | P.OP_ITS ---
Operative Report Date of procedure: July 06, 2025 Surgeon: Salty Silverio MD Procedure: Preoperative diagnosis: Left carpal tunnel and cubital tunnel syndrome Postoperative diagnosis: Same Procedure: Surgical release of left carpal tunnel and left cubital tunnel. Surgeon: Salty Silverio MD Anesthesia: General EBL: None Tourniquet time: 16 minutes at 250 mmHg Indications: Mr. Saldivar is a 59-year-old white male who is referred into the orthopedic clinics for evaluation of numbness and tingling in his left arm and hand. He had previously had nerve conduction test demonstrating compression of the ulnar nerve at the cubital tunnel as well as a median nerve compression of the carpal tunnel. He had failed all conservative measures and therefore after clinical exam was consistent with either of these diagnoses patient was offered surgical release of the nerves at the cubital tunnel as well as at the carpal tunnel region. All risk benefits treatment terms were discussed with him. It was also discussed that it may take up to 17 weeks to know releasing these nerves will completely alleviate his symptoms. He may have permanent damage to the nerve at this time. Patient understand this like to proceed with surgical intervention. Procedure: After obtaining consent patient was taken to the operating room placed the operative table supine position general anesthetic administered. Once good anesthesia achieved left upper extremities prepped and draped usual fashion. A sterile tourniquet was placed in the upper left arm. After surgical timeout a curvilinear incision made over the medial epicondyle of the left elbow. Sharp dissection taken down to subcutaneous tissues electrocautery used for hemostasis. Blunt sharp dissection was done with Metzenbaum scissors all the way down to the sheath over the ulnar nerve. This is then divided and spread apart bluntly with Metzenbaum scissors until the tips could be placed underneath and then division of the sheath was done several centimeters above the joint line and then was dissected on down distally into the muscle bellies of the flexor bundle. Once complete decompression of nerve was achieved elbow was put through range of motion and found to be stable with no significant compression or tethering of the ulnar nerve now. At this point subcutaneous tissue reapproximated 3-0 Vicryl interrupted sutures. Skin was closed with running 3-0 nylon horizontal mattress suture. Attention was turned towards the carpal tunnel region. Longitudinal incision was made from the volar distal flexion crease of the wrist distally measuring 1- 1/2 to 2 cm in length ulnar to the mid palmar crease. Sharp dissection taken down to subcutaneous tissues and then taken all the way down to the transverse carpal ligament. Transverse carpal ligament was divided along the course of the skin incision. Once within the carpal tunnel in a blunt sharp fashion Metzenbaum scissors were used to release the transverse carpal ligament both proximally and distally. Once adequate decompression been achieved 3-0 nylon horizontal mattress sutures were used to close the wound. Pneumatic cuff deflated at this point after 16 minutes total tourniquet time. Wounds were then cleaned and dried dressed with Xeroform gauze sterile gauze dressing Webril and an Hunter wrap for compression. Patient was awakened transferred to cover room in stable condition
[2025-07-06] MEDS: midazolam 1 mg/mL INJ 2 mL 2 MG IVP (12:40)
--- NOTE | 2025-07-06 15:26 | ANE.PACU2 ---
Inpatient post-anesthesia follow up: Airway intact: Yes Vital signs: Temperature 98 F Pulse Rate 65 Respiratory Rate 18 Blood Pressure 94/55 Pulse Oximetry 93 Oxygen Delivery Me thod Room Air Oxygen Flow Rate 6 Fraction of Inspir ed Oxygen Hydration adequate: Yes Nausea and vomiting: No Pain level: 1 Mental status: Baseline Additional Comments: Patient displayed functional tremors/seizures/outbursts in recovery. Versed 2mg IV and 2 mg IV was given for psychological effect. Unfortunately, each time patient re-woke, his behaviors returned. DIscussed with Dr Gurrola to whom the patient is well known and we determined not to treat with any further medications given the episodes have been determined to be functional after extensive work-up. We confirmed with family that she felt comfortable bringing the patient home in his current state before discharge.
== END 2025-07-06 14:35 | disposition home or self-care (01) ==
PROVIDERS: PCP Family Medicine; Visit Provider Orthopaedic Surgery
PROC: (CPT 64721; principal; 2025-07-06 11:35)
PROC: (CPT 64718; 2025-07-06 11:35)
DX: G56.02 Carpal tunnel syndrome, left upper limb (principal); G56.22 Lesion of ulnar nerve, left upper limb; G47.30 Sleep apnea, unspecified; K21.9 Gastro-esophageal reflux disease without esophagitis; E11.9 Type 2 diabetes mellitus without complications; Z86.73 Personal history of transient ischemic attack (TIA), and cerebral infarction without residual deficits; Z79.82 Long term (current) use of aspirin; Z79.4 Long term (current) use of insulin; I95.9 Hypotension, unspecified; I10 Essential (primary) hypertension; I25.2 Old myocardial infarction; I25.10 Atherosclerotic heart disease of native coronary artery without angina pectoris; R56.9 Unspecified convulsions; J44.9 Chronic obstructive pulmonary disease, unspecified; F41.9 Anxiety disorder, unspecified; F17.210 Nicotine dependence, cigarettes, uncomplicated
CPT/HCPCS: 64718; 64721; 36416; 82962; J0690; J1100; J2250; J2405; J2704; J3010; J3490; J7030

== ENCOUNTER → 2025-07-12 10:41 | Outpatient (BNVA) | payer MEDICARE, SELFPAY | PROVIDERS: PCP Family Medicine; Visit Provider Internal Medicine | DX: E11.40 Type 2 diabetes mellitus with diabetic neuropathy, unspecified (principal); E11.59 Type 2 diabetes mellitus with other circulatory complications; I25.10 Atherosclerotic heart disease of native coronary artery without angina pectoris; E78.2 Mixed hyperlipidemia; E11.65 Type 2 diabetes mellitus with hyperglycemia; E16.0 Drug-induced hypoglycemia without coma; T38.3X5A Adverse effect of insulin and oral hypoglycemic [antidiabetic] drugs, initial encounter; X58.XXXA Exposure to other specified factors, initial encounter; Z79.4 Long term (current) use of insulin | CPT/HCPCS: 99214 ==

== ENCOUNTER → 2025-07-21 10:41 | Outpatient (BNVA) | payer MEDICARE, SELFPAY | PROVIDERS: PCP Family Medicine; Visit Provider Orthopaedic Surgery | DX: Z98.890 Other specified postprocedural states (principal) | CPT/HCPCS: 99024 ==

== ENCOUNTER 2025-07-22 12:01 | Outpatient (RCR) | payer MEDICARE, SELFPAY | END 2025-08-19 23:59 | disposition home or self-care (01) | LOC: TPT 12:01 | PROVIDERS: PCP Family Medicine; Visit Provider Family Medicine | DX: R29.6 Repeated falls (principal); R26.81 Unsteadiness on feet; R53.1 Weakness | CPT/HCPCS: 97110 ==

== ENCOUNTER → 2025-08-16 12:27 | Outpatient (BNVA) | payer MEDICARE, SELFPAY | PROVIDERS: PCP Family Medicine; Visit Provider Specialist | DX: F44.5 Conversion disorder with seizures or convulsions (principal); J44.9 Chronic obstructive pulmonary disease, unspecified; G25.2 Other specified forms of tremor; R26.81 Unsteadiness on feet; E11.40 Type 2 diabetes mellitus with diabetic neuropathy, unspecified; I25.10 Atherosclerotic heart disease of native coronary artery without angina pectoris; G43.109 Migraine with aura, not intractable, without status migrainosus | CPT/HCPCS: 99214 ==

== ENCOUNTER → 2025-08-29 08:57 | Outpatient (BNVA) | payer MEDICARE, SELFPAY | PROVIDERS: PCP Family Medicine; Visit Provider Orthopaedic Surgery | DX: Z98.890 Other specified postprocedural states (principal); F17.210 Nicotine dependence, cigarettes, uncomplicated | CPT/HCPCS: 99024 ==

== ENCOUNTER → 2025-08-31 13:25 | Outpatient (BNVA) | payer MEDICARE, SELFPAY | PROVIDERS: PCP Family Medicine; Referring Provider Family Medicine; Visit Provider Internal Medicine | DX: I95.1 Orthostatic hypotension (principal) | CPT/HCPCS: 99213 ==

== ENCOUNTER 2025-09-06 06:15 | Outpatient (CLI) | payer MEDICARE, OTHER, SELFPAY ==
--- NOTE | 2025-09-06 06:30 | USCV_ITS ---
Arcenio Saldivar Age: 59 Gender: M : 1965 Exam Date: 09/06/2025 06:44 Ordering Phys: Davian Duval M.D ([email or web address]) Technologist: Exam Location: [facility] [place] Indication: hx of cad BP: 132 / 72 HR: 66 Rhythm: Sinus Technical Quality: Adequate MEASUREMENTS (Male / Female) Normal Values 2D ECHO LV Diastolic Diameter PLAX 5.5 cm 4.2 - 5.9 / 3.9 - 5.3 cm IVS Diastolic Thickness 1.2 cm 0.6 - 1.0 / 0.6 - 0.9 cm IVS Systolic Thickness 1.7 cm LVPW Diastolic Thickness 1.2 cm 0.6 - 1.0 / 0.6 - 0.9 cm LVPW Systolic Thickness 1.5 cm LVOT Diameter 2.0 cm LV Ejection Fraction 2D Teich 53.7 % LV Ejection Fraction MOD 4C 34.0 % LV Ejection Fraction MOD 2C 40.6 % LV Ejection Fraction 2C AL 40.8 % LA Diameter 3.1 cm RA Systolic Volume 4C AL 16.4 ml RA Systolic Volume 4C MOD 15.8 ml Aorta at Sinotubular Diameter 2.5 cm IVC Diameter 1.0 cm M-MODE LA Ao Ratio MM 0.9 MV E Point Septal Separation 2.9 cm AV Cusp Separation MM 1.8 cm DOPPLER AV Peak Velocity 126.0 cm/s LVOT Peak Velocity 94.0 cm/s AV Area Cont Eq vti 2.4 cm squared AV Area Cont Eq pk 2.4 cm squared MV Peak Velocity 122.0 cm/s MV Area PHT 3.2 cm squared Mitral E to A Ratio 0.8 TV Peak Velocity 173.5 cm/s TR Peak Velocity 187.0 cm/s TR Peak Gradient 14.0 mmHg TV Peak E Velocity 105.0 cm/s PV Peak Velocity 127.0 cm/s FINDINGS Left Ventricle Left ventricle is dilated. LV systolic function is mild to moderately reduced with EF of 40-45%. Moderate to severe hypokinesis of apical wall. Grade 1 diastolic dysfunction. Right Ventricle Normal right ventricular size and systolic function. Right Atrium Normal right atrial size. Left Atrium Normal left atrial size. IA Septum Mitral Valve Mild mitral annular calcification. Mild mitral regurgitation. Aortic Valve Aortic valve is thickened. No significant stenosis or regurgitation Tricuspid Valve Insufficient TR jet to evaluate RVSP Pulmonic Valve Not well visualized Pericardium Normal Aorta Normal in size IVC Appears to be normal CONCLUSIONS Left ventricle is dilated. LV systolic function is mild to moderately reduced with EF of 40-45%. Grade 1 diastolic dysfunction. Mild mitral regurgitation. Compared to prior echocardiogram from 2017, LV systolic function has decreased Davian Duval MD (Electronically Signed) Final Date: 10 September 2025 13:11 S
== END 2025-09-06 06:16 | disposition home or self-care (01) ==
LOC: RAD 06:20
PROVIDERS: PCP Family Medicine; Visit Provider Internal Medicine
DX: R07.9 Chest pain, unspecified (principal); R06.02 Shortness of breath; I51.7 Cardiomegaly; I51.89 Other ill-defined heart diseases; R93.1 Abnormal findings on diagnostic imaging of heart and coronary circulation; I34.81 Nonrheumatic mitral (valve) annulus calcification; I34.0 Nonrheumatic mitral (valve) insufficiency; I35.8 Other nonrheumatic aortic valve disorders
CPT/HCPCS: 93306

== ENCOUNTER 2025-09-23 07:30 | Outpatient (CLI) | payer MEDICARE, SELFPAY ==
--- NOTE | 2025-09-23 07:36 | ECG_ITS ---
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 Interpretive Statements Lung unchanged pre/post procedure; Intraprocedure shortess of breath; Symptoms resoled by discharge PROCEDURE: At the baseline, the EKG revealed normal sinus rhythm with a poor R wave progression. Features of old anteroseptal NM. Diffuse nonspecific T wave changes.. The baseline heart was 60 bpm with a blood pressue of 120/80 mm of Hg Lexiscan was infused over a period of 20 seconds. A total of 0.4 milligrams of Lexiscan was infused. The stress phase was continued for a total of 5 minutes. Heart rate at the end of the stress phase was 79 bpm with a blood pressure 102/46 mm of Hg. The EKG at the peak infusion revealed no significant changes. Sestamibi was injected 20 seconds after the Lexiscan infusion. Heart rate at the end of the recovery phase was 78 bpm with a blood pressure of 115/50 mm of Hg. CONCLUSION: 1. No significant EKG changes with the LexiScan infusion 2. No LexiScan induced chest pain or cardiac arrhythmia 3. Normal blood pressure and heart rate response 4. Sestamibi/sestamibi perfusion scan pending; see separate report. Electronically Signed On 09-25-2025 20:23:19 SERVICE ATTENDANT CAFETERIA by Jaylin Beavers M.D. [email or web address]
[2025-09-23 07:37] VITALS: BMI 26.6
--- NOTE | 2025-09-23 07:37 | NMCV_ITS ---
NM lisa perf SPECT r/s* [id number] Arcenio Saldivar Age: 60 Gender: M : 1965 Exam Date: 09/23/2025 08:19 Ordering Phys: Davian Duval M.D ([email or web address]) Technologist: ROYAL Cisse Exam Location: [facility] Indications: cp STRESS TEST Please see separate stress test report in [facility] for full findings IMAGE PROTOCOL Rest/Stress 1 Lexiscan Day Radiopharmaceutical Dose (mCi) Administration Site Administered by Rest: Tc-99m 11 IV ROYAL Cisse Sestamibi Stress:Tc-99m 32.6 IV ROYAL Cisse Sestamibi Rest: 23-Sep-2025 60 Discovery 630 Stress: 23-Sep-2025 30 Discovery 630 0.4mg Lexiscan. Supine position only as patient was unable to lay prone. SPECT RESULTS Technical Quality: Good Raw Data Analysis: Normal Image Corrections: No attenuation or motion correction applied Summed Stress Score: 21 Summed Rest Score: 28 Summed Difference Score: 0 PERFUSION FINDINGS Moderate to large area of moderate to moderately severe decreased tracer uptake involving the mid and apical inferior, mid inferoseptal, mid anterolateral and all the apical segments including the LV apex. No significant reversibility was noted in any of these areas FUNCTIONAL RESULTS (calculated via Gated SPECT) Stress Image LV EF (%): 44 Stress EDV (mL):117 TID: 0.77 Stress ESV (mL):65 FUNCTIONAL FINDINGS: Segmental wall motion analysis revealed diffuse hypokinesia of the LV apex. Mildly dilated LV cavity. Normal transient ischemic dilatation ratio IMPRESSIONS 1. Myocardial perfusion imaging revealing a moderate to large area of persistent decreased tracer uptake involving the inferior, inferoseptal, anteroseptal and apical segments suggesting extensive myocardial scarring involving the distribution of the left anterior descending artery and right coronary artery predominantly with some involvement of the circumflex artery as well. 2. Diminished LV ejection fraction of 44%. 3. LV wall motion analysis revealing diffuse hypokinesis with LVEF 4. Mildly dilated LV cavity with an end-systolic volume of 65 mL No significant coronary ischemia, based on the above findings Dr Jaylin Beavers MD FAC (Electronically Signed) Final Date: 23 September 2025 10:06 S
[2025-09-23 09:08] VITALS: BP 115/56; PULSE 78
== END 2025-09-23 07:31 | disposition home or self-care (01) ==
LOC: CDL 07:33
PROVIDERS: PCP Family Medicine; Visit Provider Internal Medicine
DX: R06.02 Shortness of breath (principal); I51.89 Other ill-defined heart diseases; I51.7 Cardiomegaly
CPT/HCPCS: 36415; 78452; 93017; 96374; A9500; J2785

== ENCOUNTER 2025-10-18 13:01 | Outpatient (RCR) | payer MEDICARE, SELFPAY | END 2025-10-19 23:59 | disposition home or self-care (01) | LOC: TPT 13:01 | PROVIDERS: PCP Family Medicine; Visit Provider Family Medicine | DX: R29.6 Repeated falls (principal); R26.81 Unsteadiness on feet; R53.1 Weakness | CPT/HCPCS: 97110; 97162; 97530 ==